=== PATIENT | female | born 1940 | race Caucasian/White ===

== ENCOUNTER 2016-06-12 10:03 | Inpatient (IN) | payer MEDICARE ==
[~2016-06-12] VITALS: Ht 152.4 cm; Wt 84.8 kg
[~2016-06-12 10:03] MED LIST: ADV500INH INH; ALBU83IN INH; ALDA25TA2 PO; CALA120T PO; CALA240T PO; CALC500T38 PO; CART180C PO; COMBAER6 INH; COUM1TAB17 PO; COUM2.5T11 PO; DELTASONE OR; DIGO0.127 PO; FLUO10CA8 PO; FURO40TA2 PO; KLOR1TAB69 PO; LANO0.1211 PO; LASI40TA PO; LASI80TA PO; LOSA50TA20 PO; MAGN65TA PO; METO25TAB PO; MIRA3350 PO; OMEP40CA2 PO; OSTETAB3 PO; PARO20TA2 PO; POLYOPD OU; PRED10TA PO; SPIR1CAP INH; TRAM50TA2 PO; TUMS500C PO; TYLE500T78 PO; VERA240C PO; WARF-23 PO; ZEST1TAB4 PO; ZEST1TAB6 PO
[2016-06-12 11:03] LABS: BASO % 0.2 % (0.0-1.0); EOS # 0.1 K/mm3 (0.0-0.50); EOS % 0.6 % (0.0-3.0); LARGE UNSTAINED CELL # 0.2 K/mm3 (0.0-0.4); LYMPH # 0.3 K/mm3 (1.5-4.5); LYMPH % 1.9 % (24.0-44.0); MEAN CORPUSCULAR HEMOGLOBIN 31.7 pg (27.0-33.0); MEAN CORPUSCULAR HGB CONC 32.1 g/dl (32.0-36.5); MEAN CORPUSCULAR VOLUME 98.9 fl (80.0-96.0); MONO # 0.6 K/mm3 (0.0-0.8); MONO % 3.8 % (0.0-5.0); NEUTROPHILS # 14.4 K/mm3 (1.8-7.7); NEUTROPHILS % 92.6 % (36.0-66.0); PLATELET COUNT, AUTOMATED 332 k/mm3 (150-450); RED CELL DISTRIBUTION WIDTH 12.9 % (11.5-14.5); WHITE BLOOD COUNT 15.6 K/mm3 (4.0-10.0)
[2016-06-12] MEDS ORDERED: methylPREDNISolone INJ 125 MG/2 ML VIAL (J2930) As Ordered ONE (11:19)
[2016-06-12 11:22] LABS: ANION GAP 7 MEQ/L (8-16); BLOOD UREA NITROGEN 22 MG/DL (7-18); CALCIUM LEVEL 9.2 MG/DL (8.8-10.2); CARBON DIOXIDE LEVEL 34 MEQ/L (21-32); CHLORIDE LEVEL 100 MEQ/L (98-107); GLOMERULAR FILTRATION RATE 51.3 (>39); GLUCOSE, FASTING 123 MG/DL (83-110); POTASSIUM SERUM 4.4 MEQ/L (3.5-5.1); SODIUM LEVEL 141 MEQ/L (136-145)
[2016-06-12] MEDS ORDERED: IPRATROPIUM 0.5MG/ALBUTEROL 2.5MG INH SOL UD 3ML (DUONEB)(J7620) As Ordered ONE (11:51)
[2016-06-12 12:05] LABS: ABG BASE EXCESS 5.5 (-2.0-2.0); ABG DEVICE NASAL CANN; ABG HCO3 30.3 MEQ/L (22.0-26.0); ABG PARTIAL PRESSURE CO2 45.2 mmHg (35.0-45.0); ABG PARTIAL PRESSURE O2 95.4 mmHg (75.0-100.0); ABG STANDARD HCO3 29.4 MEQ/L (22.0-26.0); ABG TOTAL CO2 31.7 MEQ/L (23.0-31.0); ABG pH (ARTERIAL) 7.444 UNITS (7.350-7.450)
[2016-06-12] MEDS ORDERED: MOXIFLOXACIN 400 MG/250 ML IV BAG (AVELOX) (J2280) As Ordered ONE (12:50)
[2016-06-12] MEDS ORDERED: ADVA230A INH (13:37)
[2016-06-12] MEDS ORDERED: MAGNCAP2 PO (13:37)
[2016-06-12] MEDS ORDERED: CALC600T57 PO (13:37)
[2016-06-12] MEDS ORDERED: SPIR25TA2 PO (13:37)
[2016-06-12] MEDS ORDERED: VITMTA PO (13:37)
[2016-06-12] MEDS ORDERED: HYDR-4266 PO (13:37)
[2016-06-12] MEDS ORDERED: TORS100T PO (13:37)
[2016-06-12] MEDS ORDERED: OMEP40CA2 PO (13:37)
[2016-06-12] MEDS ORDERED: XARE15TA PO (13:39)
[2016-06-12 14:00] LABS: INR 1.2
[2016-06-12 14:05] LABS: DIGOXIN LEVEL 1.3 NG/ML (0.5-2.0)
[2016-06-12] MEDS ORDERED: LEVALBUTEROL 1.25 MG/0.5 ML CONCENTRATE NEB NEB PRN (14:15)
[2016-06-12] MEDS ORDERED: ACETAMINOPHEN 325 MG TAB As Ordered ONE (15:53)
[2016-06-12 16:04] VITALS: BP 166/70
--- NOTE | 2016-06-12 17:22 | EDDOCDS ---
Nurse's Notes [facility] Name: Kenia Guthrie Age: 75 yrs Sex: Female : 1940 Arrival Date: 06/12/2016 Time: 10:03 Bed 12 Private MD: Vicente Singh Diagnosis: Chronic obstructive pulmonary disease with acute lower respiratory infection Presentation: 06/12 10:11 Presenting complaint: Patient states: Productive cough, shortness of breath, started 3 dwg days ago and worsening. Denies any pain. Adult Sepsis Screening: The patient does not have new or worsening altered mentation. Patient has a respiratory rate of greater than or equal to 22 (1 point). Systolic blood pressure is greater than 100. Patient has a qSOFA score of 1- Negative Sepsis Screen. Suicide/Homicide risk assessment- the patient denies having any suicidal and/or homicidal ideations and does not present with any other emotional, behavioral or mental health complaints. Status: Patient is not a service supervisor or dependent. Transition of care: patient was not received from another setting of care. 10:11 Acuity: LUCY Level 3 [facility] 10:11 Method Of Arrival: Wheelchair [facility] 10:53 Red Flag criteria, patient assessed and taken directly to a bed. [facility] Triage Assessment: 10:16 General: Appears in no apparent distress. Pain: Denies pain. [facility] Historical: - Allergies: Aspirin (''Makes me anemic''); - Home Meds: 1. hydralazine 25 mg Oral tab tid (Last dose: 06/12/2016) 2. Paroxetine HCl Oral 20 mg daily (Last dose: 06/12/2016) 3. Digoxin Oral 125 mcg Saturday-Saturday (Last dose: 06/12/2016) 4. torsemide 100 mg oral tab 1 tab once daily (Last dose: 06/12/2016) 5. Taztia XT 360 mg oral cpER 1 cap once daily (Last dose: 06/12/2016) 6. omeprazole 40 mg Oral cpDR 1 cap once daily (Last dose: 06/12/2016) 7. Xarelto 15 mg oral tab daily (Last dose: 06/11/2016) 8. Spironolactone 12.5mg Oral once daily (Last dose: 06/12/2016) 9. Magnesium/with vitamin C daily (Last dose: 06/12/2016) 10. Advair Diskus 500-50 mcg/dose Inhl dsdv 1 puff 2 times per day (Last dose: 06/12/2016) 11. Albuterol Inhl as needed (Last dose: 06/12/2016) 12. tramadol 50 mg Oral tab bid prn (Last dose: 06/12/2016) - PMHx: Atrial Fib; CHF; COPD; Cancer, Breast - [id number]; Arthritis; GERD; - PSHx: Lumpectomy, left 2010; Repair of rectal abscess; - Social history: Smoking status: Patient states former smoker of tobacco. No barriers to communication noted, The patient speaks fluent [place]. - Family history: Not pertinent. - : The pt / caregiver states he / she is on anticoagulants: Xarelto Home medication list is obtained from the patient. - Exposure Risk Screening:: None identified. Screenin:50 Screening information is obtained from the patient. Fall risk: No risks identified. kcs Assistance ADL's: requires no assistance with activities of daily living. Abuse/DV Screen: The patient / caregiver reports he/she is: not in a situation that causes fear, pain or injury. Nutritional screening: On low salt. Advance Directives: Currently, there is no health care proxy. There is no living will. home support is adequate. Assessment: 10:40 Reassessment: patient short of breath - worse with exertion. General: Appears ill, well kcs developed, well nourished, well groomed, Behavior is cooperative, pleasant. Pain: Denies pain. Neurological: Level of Consciousness is awake, alert. Cardiovascular: Rhythm is atrial fibrillation. Respiratory: Airway is patent Respiratory effort is even, unlabored, Respiratory pattern is regular, symmetrical, Breath sounds are diminished bilaterally. Derm: Skin is intact, is healthy with good turgor, Skin is dry, Skin is normal. 12:41 Reassessment: Patient sitting up in chair - more comfortable there. Respirations and kcs talking appear easier. . 13:03 Reassessment: Patient states she does feel that her breathing is easier. IV med kcs infusing. at bedside - given drink. information clerk brokerage = Atrial fib. . 13:46 General: Patient eating lunch.. kcs 15:39 Reassessment: patient still sitting in chair - states it is more comfortable. kcs at bedside. Respirations easy. Slight cough. Color = pink. information clerk brokerage = atrial fib.. 15:40 Reassessment: Patient requesting something for a headache and a glass of water.. kcs 16:50 Reassessment: patient sitting in chair - watching TV. Respirations easy. States kcs headache is much better = 3/10.. General: Appears comfortable, well developed, well nourished, well groomed, Behavior is cooperative, pleasant. Pain: Location: headache Pain currently is 3 out of 10 on a pain scale. Neurological: Level of Consciousness is awake, alert. Respiratory: Airway is patent Respiratory effort is even, unlabored, Respiratory pattern is regular, symmetrical. Derm: Skin is intact, is healthy with good turgor, Skin is dry, Skin is normal. 17:17 Reassessment: Patent comfortable. Respirations easy. Color = pink.. General: Appears kcs comfortable, well developed, well nourished, well groomed, Behavior is cooperative, pleasant. Pain: Location: head Pain currently is 3 out of 10 on a pain scale. Neurological: Level of Consciousness is awake, alert. Respiratory: Airway is patent Respiratory effort is even, unlabored, Respiratory pattern is regular, symmetrical. Derm: Skin is intact, is healthy with good turgor, Skin is dry, Skin is normal. Vital Signs: 10:05 BP 162 / 82; Pulse 102; Resp 24; Temp 99.1(O); Pulse Ox 92% on R/A; Weight 83.91 kg ct3 (R); Height 5 ft. 0 in. (152.40 cm) (R); Pain 0/10; 11:22 BP 141 / 85 (auto/); kcs 11:22 Pulse 82 MON; Pulse Ox 97% ; kcs 11:25 BP 166 / 67 (auto/); kcs 11:40 BP 152 / 66 (auto/); kcs 11:40 Pulse 84 MON; Pulse Ox 97% ; kcs 11:55 BP 156 / 71 (auto/); kcs 11:56 Pulse 84 MON; Pulse Ox 96% ; kcs 12:10 BP 163 / 65 (auto/); kcs 12:11 Pulse 82 MON; Pulse Ox 87% ; kcs 12:25 BP 115 / 60 (auto/); kcs 12:25 Pulse 84 MON; Pulse Ox 84% ; kcs 12:40 BP 112 / 66 (auto/); kcs 12:41 Pulse 92 MON; Pulse Ox 94% ; kcs 12:55 BP 137 / 65 (auto/); kcs 12:56 Pulse 88 MON; Pulse Ox 95% ; kcs 13:10 BP 130 / 63 (auto/); kcs 13:10 Pulse 98 MON; Pulse Ox 95% ; kcs 13:25 BP 128 / 62 (auto/); kcs 13:26 Pulse 88 MON; Pulse Ox 96% ; kcs 13:40 BP 133 / 55 (auto/); kcs 13:41 Pulse 86 MON; Pulse Ox 96% ; kcs 13:55 BP 130 / 69 (auto/); kcs 13:56 Pulse 92 MON; Pulse Ox 95% ; kcs 14:10 BP 142 / 63 (auto/); kcs 14:11 Pulse 82 MON; Pulse Ox 95% ; kcs 14:25 BP 137 / 60 (auto/); kcs 14:25 Pulse 80 MON; Pulse Ox 94% ; kcs 14:40 BP 139 / 60 (auto/); kcs 14:40 Pulse 78 MON; Pulse Ox 93% ; kcs 14:55 BP 153 / 66 (auto/); kcs 14:56 Pulse 80 MON; Pulse Ox 94% ; kcs 15:10 BP 136 / 65 (auto/); kcs 15:11 Pulse 76 MON; Pulse Ox 94% ; kcs 15:25 BP 148 / 72 (auto/); kcs 15:26 Pulse 76 MON; Pulse Ox 93% ; kcs 15:40 BP 166 / 70 (auto/); kcs 15:41 Pulse 78 MON; Pulse Ox 95% ; kcs 15:55 BP 150 / 67 (auto/); kcs 15:55 Pulse 82 MON; Pulse Ox 94% ; kcs 16:10 BP 137 / 65 (auto/); kcs 16:11 Pulse 76 MON; Pulse Ox 95% ; kcs 16:25 BP 162 / 75 (auto/); kcs 16:26 Pulse 74 MON; Pulse Ox 95% ; kcs 16:40 BP 134 / 76 (auto/); kcs 16:40 Pulse 76 MON; Pulse Ox 95% ; kcs 16:49 BP 146 / 65 (auto/); kcs 16:50 BP 146 / 65; Pulse 83; Resp 22; Temp 99.0(O); Pulse Ox 95% on 3 lpm NC; Pain 3/10; kcs 16:50 Pulse 74 MON; Pulse Ox 95% ; kcs 16:55 BP 151 / 64 (auto/); kcs 16:56 Pulse 80 MON; Pulse Ox 95% ; kcs 17:10 BP 135 / 61 (auto/); kcs 17:10 Pulse 76 MON; Pulse Ox 94% on 3 lpm NC; Pain 3/10; kcs 10:05 Body Mass Index 36.13 (83.91 kg, 152.40 cm) ct3 Vitals: 10:05 Log In Time: June 12, 2016 at 10:02. RN notified that patient meets Red Flag ct3 criteria. ED Course: 10:04 Patient visited by Zandra Lincoln PCA. ct3 10:04 Patient moved to Waiting ct3 10:05 Vicente Singh is Private Physician. ct3 10:12 Triage Initiated dwg 10:16 Patient moved to 12 dwg 10:25 Shantelle Davis MD is Attending Physician. sd1 10:25 Patient visited by Shantelle Davis MD. sd1 10:35 Missed attempts: 20 gauge X 1 in right antecubital area, Bleeding controlled, band aid kcs applied, catheter tip intact. 10:40 Inserted saline lock: 20 gauge in right forearm The patient tolerated the procedure kcs well. 10:51 Troponin Sent. kcs 10:51 Cardiac Injury Profile Sent. kcs 10:51 CBC with Diff Sent. kcs 10:51 Basic Metabolic Profile Sent. kcs 10:51 B-Type Natiuretic Peptide Sent. kcs 10:51 -Blood Culture Sent. kcs 10:51 Lactic Acid (Newby tube on ice) Sent. kcs 10:55 Patient visited by Ajith Lee PCA. jrd 10:55 EKG done. (by ED staff). Reviewed by Shantelle Davis MD. jrd 11:17 [place] [place] into [employer] and attached to record. pm4 11:33 Patient visited by Chaz Waldrop PCA. jlf 12:00 -Arterial Blood Gas Sent. js11 12:13 Patient visited by Chaz Waldrop PCA. jlf 12:44 Patient visited by Chaz Waldrop PCA. jlf 13:12 -Influenza A&B Rapid Antigen - Nose Sent. kcs 13:40 Patient visited by Chaz Waldrop PCA. jlf 13:41 Debbie Kim is Hospitalizing Provider. sd1 16:50 The patient / caregiver is instructed regarding the plan of care and ED course. kcs 17:17 information clerk brokerage on. Pulse ox on. NIBP on. kcs 17:17 IV is intact, is free of redness or swelling. No procedures done that require kcs assistance. Administered Medications: 11:21 Drug: Solu-MEDROL 125 mg [Solu-Medrol 500 mg intravenous solution (125 mg)] Route: IVP; kcs Site: right forearm; 11:55 Drug: Albuterol-Ipratropium 1 neb [ipratropium-albuterol 0.5 mg-3 mg(2.5 mg base)/3 mL js11 nebulization soln (1 neb)] Route: Nebulizer; 12:15 Drug: Albuterol-Ipratropium 1 neb [ipratropium-albuterol 0.5 mg-3 mg(2.5 mg base)/3 mL js11 nebulization soln (1 neb)] Route: Nebulizer; 12:30 Drug: Albuterol-Ipratropium 1 neb [ipratropium-albuterol 0.5 mg-3 mg(2.5 mg base)/3 mL js11 nebulization soln (1 neb)] Route: Nebulizer; 13:03 Drug: Moxifloxacin 400 mg [moxifloxacin 400 mg/250 mL-sodium chloride(iso) intravenous kcs piggyback] Route: IV; Rate: 400 mg/hr; Infused Over: 60 mins; Site: right forearm; 14:36 Follow up: IV Status: Completed infusion; IV Intake: 250ml kcs 15:55 Drug: Acetaminophen 650 mg [acetaminophen 325 mg tablet (2 tabs)] Route: PO; kcs Intake: 14:36 IV: 250.00ml; Total: 250.00ml. kcs RT: 11:55 Initial Med Neb Given as ordered Patient was instructed and evaluated on procedure js11 Patient tolerated procedure well without adverse effect. Respiratory: Breath sounds are diminished bilaterally. 12:00 ABG's drawn from right radial artery allens test done and positive pressure held for 5 js11 minutes no bleeding noted specimen sent pt. tolerated well. 12:15 Subsequent Med Neb Given as ordered Patient tolerated procedure well without adverse js11 effect. Respiratory: Breath sounds are diminished bilaterally. 12:30 Subsequent Med Neb Given as ordered Patient tolerated procedure well without adverse js11 effect. Respiratory: Breath sounds are diminished bilaterally. Order Results: Lab Order: -Arterial Blood Gas; [facility] 06/12/16 11:53 Test: ABG pH (ARTERIAL); Value: 7.444; Range: 7.350-7.450; Units: UNITS; Status: F Test: ABG PARTIAL PRESSURE CO2; Value: 45.2; Range: 35.0-45.0; Abnormal: Above high normal; Units: mmHg; Status: F Test: ABG PARTIAL PRESSURE O2; Value: 95.4; Range: 75.0-100.0; Units: mmHg; Status: F Test: ABG TOTAL CO2; Value: 31.7; Range: 23.0-31.0; Abnormal: Above high normal; Units: MEQ/L; Status: F Test: ABG HCO3; Value: 30.3; Range: 22.0-26.0; Abnormal: Above high normal; Units: MEQ/L; Status: F Test: ABG BASE EXCESS; Value: 5.5; Range: -2.0-2.0; Abnormal: Above high normal; Status: F Test: ABG STANDARD HCO3; Value: 29.4; Range: 22.0-26.0; Abnormal: Above high normal; Units: MEQ/L; Status: F Test: ABG O2 SATURATION; Value: 97.7; Range: 95.0-99.0; Units: %; Status: F Test: ABG DEVICE; Value: NASAL SILVA; Status: F Lab Order: B-Type Natiuretic Peptide; [facility] 06/12/16 10:48 Test: BRAIN NATRIURETIC PEPTIDE; Value: 92.4; Range: <100; Units: PG/ML; Status: F Lab Order: Basic Metabolic Profile; [facility] 06/12/16 10:48 Test: GLUCOSE, FASTING; Value: 123; Range: 83-110; Abnormal: Above high normal; Units: MG/DL; Status: F Test: BLOOD UREA NITROGEN; Value: 22; Range: 7-18; Abnormal: Above high normal; Units: MG/DL; Status: F Test: CREATININE FOR GFR; Value: 1.10; Range: 0.55-1.02; Abnormal: Above high normal; Units: MG/DL; Status: F Test: GLOMERULAR FILTRATION RATE; Value: 51.3; Range: >39; Status: F Test: SODIUM LEVEL; Value: 141; Range: 136-145; Units: MEQ/L; Status: F Test: POTASSIUM SERUM; Value: 4.4; Range: 3.5-5.1; Units: MEQ/L; Status: F Test: CHLORIDE LEVEL; Value: 100; Range: 98-107; Units: MEQ/L; Status: F Test: CARBON DIOXIDE LEVEL; Value: 34; Range: 21-32; Abnormal: Above high normal; Units: MEQ/L; Status: F Test: ANION GAP; Value: 7; Range: 8-16; Abnormal: Below low normal; Units: MEQ/L; Status: F Test: CALCIUM LEVEL; Value: 9.2; Range: 8.8-10.2; Units: MG/DL; Status: F Test Note: ; Units are mL/min/1.73 m2 Chronic Kidney Disease Staging per NKF: Stage I & II GFR >=60 Normal to Mildly Decreased Stage III GFR 30-59 Moderately Decreased Stage IV GFR 15-29 Severely Decreased Stage V GFR <15 Very Little GFR Left ESRD GFR <15 on 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 Lab Order: CBC with Diff; SPEC'M 06/12/16 10:48 Test: WHITE BLOOD COUNT; Value: 15.6; Range: 4.0-10.0; Abnormal: Above high normal; Units: K/mm3; Status: F Test: RED BLOOD COUNT; Value: 3.53; Range: 4.00-5.40; Abnormal: Below low normal; Units: M/mm3; Status: F Test: HEMOGLOBIN; Value: 11.2; Range: 12.0-16.0; Abnormal: Below low normal; Units: g/dl; Status: F Test: HEMATOCRIT; Value: 34.9; Range: 36.0-47.0; Abnormal: Below low normal; Units: %; Status: F Test: MEAN CORPUSCULAR VOLUME; Value: 98.9; Range: 80.0-96.0; Abnormal: Above high normal; Units: fl; Status: F Test: MEAN CORPUSCULAR HEMOGLOBIN; Value: 31.7; Range: 27.0-33.0; Units: pg; Status: F Test: MEAN CORPUSCULAR HGB CONC; Value: 32.1; Range: 32.0-36.5; Units: g/dl; Status: F Test: RED CELL DISTRIBUTION WIDTH; Value: 12.9; Range: 11.5-14.5; Units: %; Status: F Test: PLATELET COUNT, AUTOMATED; Value: 332; Range: 150-450; Units: k/mm3; Status: F Test: NEUTROPHILS %; Value: 92.6; Range: 36.0-66.0; Abnormal: Above high normal; Units: %; Status: F Test: LYMPH %; Value: 1.9; Range: 24.0-44.0; Abnormal: Below low normal; Units: %; Status: F Test: MONO %; Value: 3.8; Range: 0.0-5.0; Units: %; Status: F Test: EOS %; Value: 0.6; Range: 0.0-3.0; Units: %; Status: F Test: BASO %; Value: 0.2; Range: 0.0-1.0; Units: %; Status: F Test: LARGE UNSTAINED CELL %; Value: 1.0; Range: 0.0-4.0; Units: %; Status: F Test: NEUTROPHILS #; Value: 14.4; Range: 1.8-7.7; Abnormal: Above high normal; Units: K/mm3; Status: F Test: LYMPH #; Value: 0.3; Range: 1.5-4.5; Abnormal: Below low normal; Units: K/mm3; Status: F Test: MONO #; Value: 0.6; Range: 0.0-0.8; Units: K/mm3; Status: F Test: EOS #; Value: 0.1; Range: 0.0-0.50; Units: K/mm3; Status: F Test: BASO #; Value: 0.0; Range: 0.0-0.2; Units: K/mm3; Status: F Test: LARGE UNSTAINED CELL #; Value: 0.2; Range: 0.0-0.4; Units: K/mm3; Status: F Lab Order: Cardiac Injury Profile; SPEC'M 06/12/16 10:48 Test: CPK CREATINE PHOSPHOKINASE; Value: 66; Range: 26-192; Units: U/L; Status: F Test: CK-MB VALUE MASS; Value: 1.7; Range: 0.0-3.6; Units: NG/ML; Status: F Test: MB/CK RELATIVE INDEX; Value: 2.57; Range: < OR =4; Status: F Test Note: ; DIAGNOSIS CRITERIA MMB ng/ml Relative Index (RI) NON-AMI < or = 5 N/A NEWBY ZONE > 5 < or = 4 AMI > 5 > 4 Lab Order: Troponin; SPEC'M 06/12/16 10:48 Test: TROPONIN I; Value: < 0.02; Range: < 0.10; Units: NG/ML; Status: F Test Note: ; Troponin I Reference Interval for RIGID LOCI: 99th Percentile= 0.00-0.045 ng/ml Risk Stratification: <= 0.10 ng/ml Decreased Risk for Adverse Clinical Events. 0.10-1.50 ng/ml Increased Risk for Adverse Clinical Events. Evaluation of additional criterion and/or repeat testing in 2-6 hours is suggested to rule out myocardial damage. >= 1.50 ng/ml Indicative of Myocardial Injury. Lab Order: Lactic Acid (Newby tube on ice); SPEC'M 06/12/16 10:48 Test: LACTIC ACID LEVEL, LACTATE; Value: 0.9; Range: 0.4-2.0; Units: MMOL/L; Status: F Lab Order: -Influenza A&B Rapid Antigen - Nose; SPECM 06/12/16 13:11 Test: INFLUENZA A RAPID SCR by ICA; Value: INFLUENZA A RESULTS NEGATIVE; Status: F Test: INFLUENZA A RAPID SCR by ICA; Value: Comments:; Status: F Test: INFLUENZA B RAPID SCR by ICA; Value: INFLUENZA B RESULTS NEGATIVE; Status: F Test Note: ; The Influenza test is a direct rapid immunoassay for the qualitative detection of Influenza viral antigen. Cell culture (Viral Culture) testing should be considered to confirm NEGATIVE results and to assist in detecting other viruses that can provide similar clinical symptoms. Please contact the lab within 24 hours ([phone]) if confirmatory testing is desired. Lab Order: DIGOXIN LEVEL; SPEC'M 06/12/16 10:48 Test: DIGOXIN LEVEL; Value: 1.3; Range: 0.5-2.0; Units: NG/ML; Status: F Lab Order: PT/INR; SPEC'M 06/12/16 10:48 Test: PROTHROMBIN TIME; Value: 15.3; Range: 12.3-14.5; Abnormal: Above high normal; Units: SECONDS; Status: F Test: INR; Value: 1.20; Status: F Test Note: ; THERAPUTIC HUMAN INR VALUES INDICATIONS NORMAL RANGES PROPHYLAXIS/TREATMENT OF: VENOUS THROMBOSIS 2.0-3.0 PULMONARY EMBOLISM 2.0-3.0 PREVENTION OF SYSTEMIC EMBOLISM FROM: TISSUE HEART VALVES 2.0-3.0 ACUTE MYOCARDIAL INFARCTION 2.0-3.0 VALVULAR HEART DISEASE 2.0-3.0 ATRIAL FIBRILLATION 2.0-3.0 MECHANICAL VALVES(HIGH RISK) 2.5-3.5 RECURRENT MYOCARDIAL INFARCTION 2.5-3.5 Outcome: 13:41 Decision to Hospitalize by Provider. sd1 16:59 Admission hand-off: Report Faxed. kcs 17:15 Admission hand-off: Report Faxed Fax receipt verified by Leah. kcs 17:17 Discharge Assessment: Patient awake, alert and oriented x 3. No cognitive and/or kcs functional deficits noted. Patient verbalized understanding of disposition instructions. Patient awake and alert. patient administered narcotics - no. The following High Risk Discharge criteria are identified: None. Admitted to Med/Surg accompanied by tech, via stretcher, with oxygen, with chart. Condition: stable. No special radiology studies were completed. Property :Personal belongings accompany Pt. 17:21 Patient left the ED. [facility] Signatures: Shantelle Davis MD MD sd1 Lolly Martinez RN RN kcs Greene, Daniel, Zandra Waite RN, CALF SKINNER CALF SKINNER ct3 Kennedy Voss js11 Chaz Waldrop, CALF SKINNER CALF SKINNER jlf Ajith Lee, CALF SKINNER CALF SKINNER jrd Darren Vera, Reg Reg pm4 RAFAELD
--- NOTE | 2016-06-12 17:22 | EDDOCDS ---
Physician Documentation [facility] Name: Kenia Guthrie Age: 75 yrs Sex: Female : 1940 Arrival Date: 06/12/2016 Time: 10:03 Bed 12 Private MD: Vicente Singh Disposition: 06/12/16 13:41 Hospitalization ordered by Debbie Kim for Inpatient Admission. Preliminary diagnosis is Chronic obstructive pulmonary disease with acute lower respiratory infection. - Bed requested for 4 [place]. - Status is Inpatient Admission. kcs - Condition is Stable. - Problem is an acute exacerbation. - Symptoms are unchanged. Historical: - Allergies: Aspirin (''Makes me anemic''); - Home Meds: 1. hydralazine 25 mg Oral tab tid (Last dose: 06/12/2016) 2. Paroxetine HCl Oral 20 mg daily (Last dose: 06/12/2016) 3. Digoxin Oral 125 mcg Saturday-Saturday (Last dose: 06/12/2016) 4. torsemide 100 mg oral tab 1 tab once daily (Last dose: 06/12/2016) 5. Taztia XT 360 mg oral cpER 1 cap once daily (Last dose: 06/12/2016) 6. omeprazole 40 mg Oral cpDR 1 cap once daily (Last dose: 06/12/2016) 7. Xarelto 15 mg oral tab daily (Last dose: 06/11/2016) 8. Spironolactone 12.5mg Oral once daily (Last dose: 06/12/2016) 9. Magnesium/with vitamin C daily (Last dose: 06/12/2016) 10. Advair Diskus 500-50 mcg/dose Inhl dsdv 1 puff 2 times per day (Last dose: 06/12/2016) 11. Albuterol Inhl as needed (Last dose: 06/12/2016) 12. tramadol 50 mg Oral tab bid prn (Last dose: 06/12/2016) - PMHx: Atrial Fib; CHF; COPD; Cancer, Breast - [id number]; Arthritis; GERD; - PSHx: Lumpectomy, left 2010; Repair of rectal abscess; - Social history: Smoking status: Patient states former smoker of tobacco. No barriers to communication noted, The patient speaks fluent Armenian. - Family history: Not pertinent. - : The pt / caregiver states he / she is on anticoagulants: Xarelto Home medication list is obtained from the patient. - Exposure Risk Screening:: None identified. Vital Signs: 06/12 10:05 BP 162 / 82; Pulse 102; Resp 24; Temp 99.1(O); Pulse Ox 92% on R/A; Weight 83.91 kg / ct3 184.99 lbs (R); Height 5 ft. 0 in. (152.40 cm) (R); Pain 0/10; 11:22 BP 141 / 85 (auto/); kcs 11:22 Pulse 82 MON; Pulse Ox 97% ; kcs 11:25 BP 166 / 67 (auto/); kcs 11:40 BP 152 / 66 (auto/); kcs 11:40 Pulse 84 MON; Pulse Ox 97% ; kcs 11:55 BP 156 / 71 (auto/); kcs 11:56 Pulse 84 MON; Pulse Ox 96% ; kcs 12:10 BP 163 / 65 (auto/); kcs 12:11 Pulse 82 MON; Pulse Ox 87% ; kcs 12:25 BP 115 / 60 (auto/); kcs 12:25 Pulse 84 MON; Pulse Ox 84% ; kcs 12:40 BP 112 / 66 (auto/); kcs 12:41 Pulse 92 MON; Pulse Ox 94% ; kcs 12:55 BP 137 / 65 (auto/); kcs 12:56 Pulse 88 MON; Pulse Ox 95% ; kcs 13:10 BP 130 / 63 (auto/); kcs 13:10 Pulse 98 MON; Pulse Ox 95% ; kcs 13:25 BP 128 / 62 (auto/); kcs 13:26 Pulse 88 MON; Pulse Ox 96% ; kcs 13:40 BP 133 / 55 (auto/); kcs 13:41 Pulse 86 MON; Pulse Ox 96% ; kcs 13:55 BP 130 / 69 (auto/); kcs 13:56 Pulse 92 MON; Pulse Ox 95% ; kcs 14:10 BP 142 / 63 (auto/); kcs 14:11 Pulse 82 MON; Pulse Ox 95% ; kcs 14:25 BP 137 / 60 (auto/); kcs 14:25 Pulse 80 MON; Pulse Ox 94% ; kcs 14:40 BP 139 / 60 (auto/); kcs 14:40 Pulse 78 MON; Pulse Ox 93% ; kcs 14:55 BP 153 / 66 (auto/); kcs 14:56 Pulse 80 MON; Pulse Ox 94% ; kcs 15:10 BP 136 / 65 (auto/); kcs 15:11 Pulse 76 MON; Pulse Ox 94% ; kcs 15:25 BP 148 / 72 (auto/); kcs 15:26 Pulse 76 MON; Pulse Ox 93% ; kcs 15:40 BP 166 / 70 (auto/); kcs 15:41 Pulse 78 MON; Pulse Ox 95% ; kcs 15:55 BP 150 / 67 (auto/); kcs 15:55 Pulse 82 MON; Pulse Ox 94% ; kcs 16:10 BP 137 / 65 (auto/); kcs 16:11 Pulse 76 MON; Pulse Ox 95% ; kcs 16:25 BP 162 / 75 (auto/); kcs 16:26 Pulse 74 MON; Pulse Ox 95% ; kcs 16:40 BP 134 / 76 (auto/); kcs 16:40 Pulse 76 MON; Pulse Ox 95% ; kcs 16:49 BP 146 / 65 (auto/); kcs 16:50 BP 146 / 65; Pulse 83; Resp 22; Temp 99.0(O); Pulse Ox 95% on 3 lpm NC; Pain 3/10; kcs 16:50 Pulse 74 MON; Pulse Ox 95% ; kcs 16:55 BP 151 / 64 (auto/); kcs 16:56 Pulse 80 MON; Pulse Ox 95% ; kcs 17:10 BP 135 / 61 (auto/); kcs 17:10 Pulse 76 MON; Pulse Ox 94% on 3 lpm NC; Pain 3/10; kcs 10:05 Body Mass Index 36.13 (83.91 kg, 152.40 cm) ct3 MDM: 10:23 -Blood Culture (Adults Only), peripheral from different site, or from device/port/PICC sd1 etc. if present ordered. 10:23 Sack Lifter/Pulse Ox/q 15 min VS ordered. sd1 10:23 IV Saline Lock ordered. sd1 10:23 Oxygen at 4L/Min NC or Home dosage ordered. sd1 10:23 Rhythm Strip to chart ordered. sd1 10:24 -Arterial Blood Gas Ordered. EDMS 10:24 -Blood Culture Ordered. EDMS 10:24 B-Type Natiuretic Peptide Ordered. EDMS 10:24 Basic Metabolic Profile Ordered. EDMS 10:24 CBC with Diff Ordered. EDMS 10:24 Cardiac Injury Profile Ordered. EDMS 10:24 Troponin Ordered. EDMS 10:24 ECG WITH READING ER PHYS+CARDIAG ordered. EDMS 10:25 Lactic Acid (Newby tube on ice) Ordered. EDMS 10:25 Chest, 1 View Ordered. EDMS 10:30 -Blood Culture (Adults Only), peripheral from different site, or from device/port/PICC jrd etc. if present complete. 10:31 BLOOD CULTURES Ordered. EDMS 10:58 Solu-MEDROL 125 mg IVP once ordered. sd1 10:58 Albuterol-Ipratropium 1 neb Nebulizer every 20 minutes x3 ordered. sd1 11:03 Financial registration complete. pm4 11:17 [facility] Payment Agreement was scanned into [employer] and attached to record. pm4 12:28 -Arterial Blood Gas Reviewed. sd1 12:28 Basic Metabolic Profile Reviewed. sd1 12:28 CBC with Diff Reviewed. sd1 12:28 B-Type Natiuretic Peptide Reviewed. sd1 12:28 Cardiac Injury Profile Reviewed. sd1 12:28 Troponin Reviewed. sd1 12:28 Lactic Acid (Newby tube on ice) Reviewed. sd1 12:28 Moxifloxacin 400 mg IV at 400 mg/hr once over 60 mins ordered. sd1 12:31 BED REQUEST+ADM ordered. EDMS 13:02 -Influenza A&B Rapid Antigen - Nose Ordered. EDMS 13:22 LOW SODIUM+DIET ordered. EDMS 13:42 PT/INR Ordered. EDMS 14:22 CARDIAC MARKER PANEL Ordered. EDMS 14:22 LEGIONELLA ANTIGEN URINE Ordered. EDMS 14:22 URINE STREP PNEUMONIAE ANTIGEN Ordered. EDMS 14:22 INFLUENZA A&B RAPID ANTIGEN Ordered. EDMS 14:22 SPUTUM CULTURE AND GRAM STAIN Ordered. EDMS 14:23 PHYSICAL THERAPY EVAL & TREAT ordered. EDMS 14:25 Admission / Observation Status ordered. EDMS 14:25 COPD DIET ordered. EDMS 15:03 Basic Metabolic Profile Reviewed. sd1 15:03 PT/INR Reviewed. sd1 15:03 Cardiac Injury Profile Reviewed. sd1 15:03 Troponin Reviewed. sd1 15:03 -Influenza A&B Rapid Antigen - Nose Reviewed. sd1 15:03 DIGOXIN LEVEL Reviewed. sd1 15:51 Acetaminophen Tablet 650 mg PO once ordered. kcs Administered Medications: 11:21 Drug: Solu-MEDROL 125 mg [Solu-Medrol 500 mg intravenous solution (125 mg)] Route: IVP; kcs Site: right forearm; 11:55 Drug: Albuterol-Ipratropium 1 neb [ipratropium-albuterol 0.5 mg-3 mg(2.5 mg base)/3 mL js11 nebulization soln (1 neb)] Route: Nebulizer; 12:15 Drug: Albuterol-Ipratropium 1 neb [ipratropium-albuterol 0.5 mg-3 mg(2.5 mg base)/3 mL js11 nebulization soln (1 neb)] Route: Nebulizer; 12:30 Drug: Albuterol-Ipratropium 1 neb [ipratropium-albuterol 0.5 mg-3 mg(2.5 mg base)/3 mL js11 nebulization soln (1 neb)] Route: Nebulizer; 13:03 Drug: Moxifloxacin 400 mg [moxifloxacin 400 mg/250 mL-sodium chloride(iso) intravenous kcs piggyback] Route: IV; Rate: 400 mg/hr; Infused Over: 60 mins; Site: right forearm; 14:36 Follow up: IV Status: Completed infusion; IV Intake: 250ml kcs 15:55 Drug: Acetaminophen 650 mg [acetaminophen 325 mg tablet (2 tabs)] Route: PO; [facility] Signatures: Dispatcher [employer] EDMS Shantelle Davis MD MD sd1 Lolly Martinez RN Reagan Valero RN RN dwg Youngs, David RN Ajith Loredo, [employer] Eduard Saavedra RN RN [facility] Darren Vera, Reg Reg pm4 Kennedy Voss js11 The chart was reviewed and I authenticate all verbal orders and agree with the evaluation and treatment provided.Corrections: (The following items were deleted from the chart) 13:40 13:31 DIGOXIN LEVEL+LAB ordered. EDMS EDMS Attachments: 11:17 [facility] [place] pm4 MTDD
[2016-06-12 17:30] VITALS: BP 152/70
[2016-06-12] MEDS: RIVAROXABAN 15 MG TAB (XARELTO) PO SCH (18:30)
[2016-06-12] MEDS: ADVAIR HFA 230/21 INHALER INH SCH (19:48)
[2016-06-12] MEDS: LEVALBUTEROL 1.25 MG/0.5 ML CONCENTRATE NEB NEB SCH (19:53)
--- NOTE | 2016-06-12 19:58 | ECGEPIP ---
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
[2016-06-12] MEDS: **hydrALAZINE HCL** 25 MG TAB PO SCH (20:20)
[2016-06-12] MEDS: methylPREDNISolone INJ 125 MG/2 ML VIAL (J2930) IV SCH (20:21)
[2016-06-12] MEDS: cefTRIAXone SOD 2 GM in D5W MINI-BAG PLUS 50 ML IV SCH (20:21)
--- NOTE | 2016-06-12 20:35 | HPEPDOC ---
General Date of Admission Jun 12, 2016 at 14:15 Primary Care Physician: Vicente Singh Attending Physician: SAMARIA CAAL MD Chief Complaint The patient is a 75-year-old female admitted with a reason for visit of Right Lower Lobe Pneumonitis. Source: Patient Exam Limitations: No limitations History of Present Illness Miss Guthrie presents to the emergency department for the complaint of progressive shortness of breath that began approximately 3 days ago. She also states that she has been having an increasingly worse cough that has been productive of brownish sputum, although with the addition of Mucinex has now changed to the color corral. She states that she has been hospitalized multiple times in the past, once in June 2015 and twice in 2014 for similar episodes where she was diagnosed with pneumonia. At baseline, she does wear 3 L of oxygen when she is up and active, but does not wear oxygen at rest, and admits that occasionally she'll be up and around the house without her oxygen and not notice that it is not on. She does ambulate with a cane or walker, depending on her preference at the time. At night she wears CPAP with 5 L of oxygen. She does sleep in a recliner, but she denies having paroxysmal nocturnal dyspnea or orthopnea. She admits to general malaise, fatigue, and profound shortness of breath, even to the point where she cannot take a few steps now. She denies fever, chills, or recent changes in weight. She has not had any swelling in her feet or ankles. She was treated in the ED with Solu-Medrol 125 mg, as well as 3 duo nebs, and she was empirically given moxifloxacin, with little improvement , therefore the decision to hospitalize was made. Home Medications Scheduled (Magnesium & Vitami... [phone] mg-Unit-mg) 1 Cap Cap 1 CAP PO DAILY ( Reported) (Calcium + D3 600-200 mg-Unit) 1 Tab Tab 1 TAB PO DAILY (Reported) Digoxin (Lanoxin) 0.125 Mg Tab 0.125 MG PO 5XW (Reported) MON-FRI Diltiazem HCl (Cartia Xt) 180 Mg Cap 360 MG PO DAILY (Reported) Hydralazine HCl (Hydralazine HCl) 25 Mg Tab 25 MG PO TID (Reported) Multivitamins *[facility] STOCKED* (Thera M Plus *[facility] STOCK[facility]*) 1 Tab Tab 1 TAB PO DAILY (Reported) Omeprazole (Omeprazole) 40 Mg Cap 40 MG PO DAILY (Reported) Paroxetine (Paroxetine HCl) 20 Mg Tab 20 MG PO DAILY (Reported) Rivaroxaban (Xarelto) 15 Mg Tab 15 MG PO QPM (Reported) Salmeterol/Fluticasone (Advair Hfa 230-21 Mcg/Act) 1 Aer Aer 2 PUFF INH BID ( Reported) Spironolactone (Spironolactone) 25 Mg Tab 12.5 MG PO DAILY (Reported) Tiotropium Upson Monohydrate (Spiriva Handihaler) 18 Mcg Cap 18 MCG INH DAILY (Reported) Torsemide (Torsemide) 100 Mg Tab 100 MG PO DAILY (Reported) Scheduled PRN Tramadol HCl (Tramadol HCl) 50 Mg Tab 50 MG PO Q6HP PRN PRN PAIN (Reported) Allergies Coded Allergies: Aspirin (Unverified Adverse Reaction, Unknown, anemia, 03/19/15) Gabapentin (Unverified Adverse Reaction, Unknown, shakey, 03/19/15) Past Medical History Medical History Atrial fibrillation CHF COPD History of breast cancer status post lumpectomy and radiation, she has not had any recurrence Arthritis GERD Surgical History Lumpectomy left breast 2011 Repair of rectal abscess Family History Family History Brother is COPD, father at the age of 57 from an [place]. Mother at the age of 89 secondary to "heart problems". Mother, multiple sisters, and an aunt all have breast cancer Social History * Smoker: former Smoker (she quit smoking at the age of 48, prior to that she smoked approximately one pack per day for 35 years) Alcohol: denies Drugs: denies Recent Travel/Sick Contacts: Denies: Recent sick contacts, Recent travel Psychosocial History: No pertinent psych hx Social History She lives at home with her , her son, and one cat. 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 Review of Symptoms Constitutional: Reports: Fatigue, Lethargy, Malaise, Weakness, Denies: Chills, Fever, Night Sweats, Weight Loss Eyes: Denies: Pain, Vision change ENT: Denies: Dysphagia, Ear Pain, Head Aches Skin: Denies: Breakdown, Lesions, Rash Pulmonary: Reports: Cough (productive of brownish sputum which has now turned corral), Dyspnea Cardiovascular: Denies: Chest Pain, Edema, Lt Headedness, Orthopnea, Palpitations, Paroxysmal Noc. Dyspnea Gastrointestinal: Denies: Abdominal Pain, Diarrhea, Nausea, Vomiting Genitourinary: Denies: Dysuria, Frequency, Incontinence, Retention Hematologic: Denies: Bleeding Excessively, Bruising Neurological: Denies: Change in speech, Confusion, Numbness, Weakness Psych: Reports: Mood Normal, Denies: Depression, Memory Issues Physical Examination General Exam: Positive: Alert, Cooperative, No Acute Distress Eye Exam: Positive: Conjunctiva & lids normal, EOMI, PERRLA, Negative: Sclera icteric ENT Exam: Positive: Atraumatic, Mucous membr. moist/pink, Pharynx Normal Neck Exam: Positive: Supple, Negative: JVD, thyromegaly Chest Exam: Positive: Other (prolonged expiratory phase), Rales (at the bases) , Wheezing (very minimal) Heart Exam: Positive: Irregular Rhythm (irregularly irregular), Murmurs (3/6 systolic murmur), Rate Normal, Negative: Rubs Telemetry: Positive: Atrial fibrillation Abdomen Exam: Positive: Normal bowel sounds, Soft, Negative: Hepatospenomegaly Extremity Exam: Positive: Normal pulses, Negative: Clubbing, Cyanosis, Edema Skin Exam: Positive: Nl turgor and temperature, Negative: Breakdown, Lesion Neuro Exam: Positive: Cranial Nerves 3-12 NL, Normal Speech, Normal Tone Psych Exam: Positive: Mental status NL, Mood NL, Oriented x 3 Vital Signs Blood pressure 112/66, pulse 92 and irregularly irregular, respirations 24, temperature 99.1, pulse ox 94%, weight 84 kg, height 5 feet 0 inches, body mass index 36 Laboratory Data Labs 24H Laboratory Tests 2 06/12/16 10:48: Anion Gap 7L, B-Type Natriuretic Peptide 92.4, White Blood Count 15.6H, Red Blood Count 3.53L, Hemoglobin 11.2L, Hematocrit 34.9L, Mean Corpuscular Volume 98.9H, Mean Corpuscular Hemoglobin 31.7, Mean Corpuscular Hemoglobin Concent 32.1, Red Cell Distribution Width 12.9, Platelet Count 332, Neutrophils (%) ( Auto) 92.6H, Lymphocytes (%) (Auto) 1.9L, Monocytes (%) (Auto) 3.8, Eosinophils (%) (Auto) 0.6, Basophils (%) (Auto) 0.2, Neutrophils # (Auto) 14.4H, Lymphocytes # (Auto) 0.3L, Monocytes # (Auto) 0.6, Eosinophils # (Auto) 0.1, Basophils # (Auto) 0.0, Blood Urea Nitrogen 22H, Creatinine 1.10H, Sodium Level 141, Potassium Level 4.4, Chloride Level 100, Carbon Dioxide Level 34H, Calcium Level 9.2, Total Creatine Kinase 66, Creatine Kinase MB 1.7, Creatine Kinase MB Relative Index 2.57, Digoxin Level 1.3, Glomerular Filtration Rate 51.3, Lactic Acid Level 0.9, Large Unclassified Cells # 0.2, Large Unclassified Cells % 1.0, Prothromb Time International Ratio 1.20, Prothrombin Time 15.3H, Troponin I < 0.02 06/12/16 11:53: Arterial Blood pH 7.444, Arterial Blood Partial Pressure CO2 45.2H, Arterial Blood Partial Pressure O2 95.4, Arterial Blood Total CO2 31.7H, Arterial Blood HCO3 30.3H, Arterial Blood Base Excess 5.5H, Arterial Blood Oxygen Saturation 97.7, Blood Gas Bicarbonate Standard 29.4H, Oxygen Delivery Device NASAL SILVA 06/12/16 18:27: Total Creatine Kinase 60, Creatine Kinase MB 1.2, Creatine Kinase MB Relative Index 2.00, Troponin I < 0.02 CBC/BMP Laboratory Tests 06/12/16 10:48 Calcium Level 9.2, Total Creatine Kinase 66, Red Blood Count 3.53 L, Mean Corpuscular Volume 98.9 H, Mean Corpuscular Hemoglobin 31.7, Mean Corpuscular Hemoglobin Concent 32.1, Red Cell Distribution Width 12.9, Neutrophils (%) (Auto ) 92.6 H, Lymphocytes (%) (Auto) 1.9 L, Monocytes (%) (Auto) 3.8, Eosinophils (% ) (Auto) 0.6, Basophils (%) (Auto) 0.2, Neutrophils # (Auto) 14.4 H, Lymphocytes # (Auto) 0.3 L, Monocytes # (Auto) 0.6, Eosinophils # (Auto) 0.1, Basophils # (Auto) 0.0 Microbiology Microbiology 06/12/16 Blood Culture, Received Pending 06/12/16 Blood Culture, Received Pending 06/12/16 Influenza Virus Type A Antigen - Final, Complete 06/12/16 Influenza Virus Type B Antigen - Final, Complete (1) CAP (community acquired pneumonia) Permanent Comment: Diastolic dysfunction Last Edited By: Valeria Lozada on Jun 12, 2016 20:28 Status: Acute (2) Right lower lobe pneumonitis Status: Acute (3) Atrial fibrillation Status: Chronic (4) Hypertension Status: Chronic (5) Depression Status: Chronic (6) GERD (gastroesophageal reflux disease) Status: Chronic (7) Osteoarthritis Status: Chronic (8) Osteoporosis Status: Chronic (9) History of cancer of left breast Status: Chronic (10) COPD (chronic obstructive pulmonary disease) Status: Chronic (11) Chronic respiratory failure with hypoxia Status: Chronic (12) Oxygen dependent Status: Chronic (13) CHF (congestive heart failure) Permanent Comment: Diastolic dysfunction Last Edited By: Valeria Lozada on Jun 12, 2016 20:29 Status: Chronic Plan / VTE VTE Prophylaxis Ordered?: Yes (teds and sequentials) Plan Plan Will admit the patient to [facility]. She'll be empirically treated with Rocephin and azithromycin, as well as Solu-Medrol, and Xopenex nebulizer treatments every 6 hours scheduled and every hour when necessary shortness of breath, as well as Mucinex. Just to be safe, we will cycle cardiac markers and check for Legionella, urine strep pneumoniae, blood cultures, rapid influenza A and B, as well as sputum cultures and blood cultures. We will have physical therapy evaluate and treat her, as well as pulmonary rehabilitation. We will provide her with incentive spirometry and Acapella. Otherwise, we will continue with her home medications for her chronic conditions. VALERIA LOZADA DO Jun 12, 2016 20:35 SAMARIA CAAL MD Jun 12, 2016 22:18
[2016-06-12] MEDS: guaiFENesin ER 600 MG TAB PO SCH (21:32)
[2016-06-12] MEDS: AZITHROMYCIN 500 MG, VIAL MATE ADAPTER 1 EACH in D5W 250 ML IV SCH (21:33)
[2016-06-12 22:00] VITALS: BP 135/94
--- NOTE | 2016-06-12 22:33 | REP ---
Upright AP portable chest 03/19 Indication: Shortness of breath Comparison: PA and lateral chest 06/13/2015 Findings: Cardiac silhouette is mild to moderately enlarged and without change. There is left ventricular prominence. Small amount of stable right basilar parenchymal disease is most compatible with atelectasis, early infiltrate and/or scarring. Previous left lower lobe infiltrate has resolved. Small amount of left basilar atelectasis vs scarring is noted. Multiple surgical clips are seen within the left axilla and the left lateral chest wall. There are mild degenerative changes within the visualized portions of thoracic spine. Impression: Cardiomegaly with left ventricular prominence, not significantly changed. Interval resolution of left basilar infiltrate. There is small amount of left basilar atelectasis versus scarring, and small amount of stable right basilar atelectasis/ early infiltrate or scarring Signed by Amanda Mccann MD 06/12/2016 10:24 P
[2016-06-12] MEDS: ACETAMINOPHEN TAB 650MG DOSE (2X325MG) PO PRN (22:47)
[2016-06-12] MEDS: traMADol 50 MG TAB PO PRN (22:48)
[2016-06-13] MEDS: LEVALBUTEROL 1.25 MG/0.5 ML CONCENTRATE NEB NEB SCH ×4 (00:02→20:00)
[2016-06-13] MEDS: methylPREDNISolone INJ 125 MG/2 ML VIAL (J2930) IV SCH ×3 (03:58→20:57)
[2016-06-13 06:00] VITALS: BP 156/72
[2016-06-13 06:17] LABS: EOS % 0.3 % (0.0-3.0); LARGE UNSTAINED CELL # 0.1 K/mm3 (0.0-0.4); LARGE UNSTAINED CELL % 0.3 % (0.0-4.0); LYMPH # 0.3 K/mm3 (1.5-4.5); LYMPH % 1.5 % (24.0-44.0); MEAN CORPUSCULAR HEMOGLOBIN 31.8 pg (27.0-33.0); MEAN CORPUSCULAR HGB CONC 32.5 g/dl (32.0-36.5); MEAN CORPUSCULAR VOLUME 97.7 fl (80.0-96.0); MONO # 0.4 K/mm3 (0.0-0.8); MONO % 2.2 % (0.0-5.0); NEUTROPHILS # 17.8 K/mm3 (1.8-7.7); NEUTROPHILS % 95.7 % (36.0-66.0); PLATELET COUNT, AUTOMATED 344 k/mm3 (150-450); RED CELL DISTRIBUTION WIDTH 12.9 % (11.5-14.5); WHITE BLOOD COUNT 18.6 K/mm3 (4.0-10.0)
[2016-06-13 06:43] LABS: CALCIUM LEVEL 9.4 MG/DL (8.8-10.2); CREATININE FOR GFR 1.3 MG/DL (0.55-1.02); GLOMERULAR FILTRATION RATE 42.3 (>39); POTASSIUM SERUM 4.6 MEQ/L (3.5-5.1)
[2016-06-13] MEDS: TIOTROPIUM INHALER/CAPSULE (SPIRIVA) INH SCH (08:01)
[2016-06-13] MEDS: ADVAIR HFA 230/21 INHALER INH SCH ×2 (08:02→20:14)
[2016-06-13] MEDS: TORSEMIDE 100 MG TAB PO SCH (08:22)
[2016-06-13] MEDS: OMEPRAZOLE 20 MG CAP PO SCH (08:22)
[2016-06-13] MEDS: MULTIVITAMINS/MINERALS THERAP 1 TAB PO SCH (08:22)
[2016-06-13] MEDS: SPIRONOLACTONE 25 MG TAB PO SCH (08:23)
[2016-06-13] MEDS: diltiaZEM **CD** 180 MG CAP PO SCH (08:23)
[2016-06-13] MEDS: PARoxetine 20 MG TAB PO SCH (08:23)
[2016-06-13] MEDS: guaiFENesin ER 600 MG TAB PO SCH ×2 (08:23→20:57)
[2016-06-13] MEDS: **hydrALAZINE HCL** 25 MG TAB PO SCH ×3 (08:23→20:57)
[2016-06-13] MEDS: DIGOXIN 0.125 MG TAB PO SCH (08:24)
[2016-06-13] MEDS: ACETAMINOPHEN TAB 650MG DOSE (2X325MG) PO PRN ×3 (08:31→21:58)
[2016-06-13] MEDS ORDERED: PANTOPRAZOLE 40MG TAB (PROTONIX) PO SCH (09:00)
[2016-06-13] MEDS ORDERED: TIOTROPIUM INHALER/CAPSULE (SPIRIVA) INH SCH (09:00)
[2016-06-13] MEDS: MIRALAX *UNIT DOSE* 17GM PACKET PO SCH (09:00)
[2016-06-13] MEDS: traMADol 50 MG TAB PO PRN ×2 (12:28→21:06)
[2016-06-13] MEDS: RIVAROXABAN 15 MG TAB (XARELTO) PO SCH (17:26)
[2016-06-13 20:14] VITALS: O2SAT 97
--- NOTE | 2016-06-13 20:24 | IPNPDOC ---
Assessment/Plan Date Seen The patient was seen on 06/13/16. Problems Problems: (1) CAP (community acquired pneumonia) Permanent Comment: Diastolic dysfunction Last Edited By: Valeria Lozada on Jun 12, 2016 20:28 Status: Acute (2) Right lower lobe pneumonitis Status: Acute (3) Atrial fibrillation Status: Chronic (4) Hypertension Status: Chronic (5) Depression Status: Chronic (6) GERD (gastroesophageal reflux disease) Status: Chronic (7) Osteoarthritis Status: Chronic (8) Osteoporosis Status: Chronic (9) History of cancer of left breast Status: Chronic (10) COPD (chronic obstructive pulmonary disease) Status: Chronic (11) Chronic respiratory failure with hypoxia Status: Chronic (12) Oxygen dependent Status: Chronic (13) CHF (congestive heart failure) Permanent Comment: Diastolic dysfunction Last Edited By: Valeria Lozada on Jun 12, 2016 20:29 Status: Chronic Plan / VTE VTE Prophylaxis Ordered?: Yes (teds and sequentials) Plan Plan Text With the administration of antibiotics, nebulizers, and prednisone, her breathing is significantly improved, or crackles are gotten, albeit she does have some minimal wheezing still present. She does continue to cough up significant amount of phlegm. Acapella and incentive spirometry were provided to her. Because of her successful interval improvement, we will continue with the same treatment regimen, and reassess tomorrow. Subjective Review of Systems CC/HPI The patient is a 75-year-old female admitted with a reason for visit of Right Lower Lobe Pneumonitis. Events since last encounter Mrs. Guthrie reports that she had difficulty sleeping last night, his difficulty was unrelated to her breathing, she simply was unable to shut her eyes. I suspect this may be side effects of Solu-Medrol given in the ED at such a late hour yesterday. Otherwise, she reports that her breathing and shortness of breath is improved, however she continues to cough with a significant amount of mucus production as well. She is able to transfer from the bed to the chair without much trouble, however she does get a little winded when going to the bathroom. General: Reports: Fatigue, Normal Appetite, Denies: Malaise Constitutional: Reports: Weakness, Denies: Chills, Fever, Night Sweats ENT: Denies: Head Aches, Sore Throat Skin: Denies: Bruising, Lesions, Rash Pulmonary: Reports: Cough, Dyspnea Cardiovascular: Denies: Chest Pain, Palpitations Gastrointestinal: Denies: Abdominal Pain, Constipation, Diarrhea, Nausea, Vomiting Objective Physical Examination General Exam: Positive: Alert, Cooperative, No Acute Distress Eye Exam: Positive: Conjunctiva & lids normal, EOMI, Negative: Sclera icteric ENT Exam: Positive: Atraumatic, Mucous membr. moist/pink, Pharynx Normal Neck Exam: Positive: Supple, Negative: JVD, thyromegaly Chest Exam: Positive: Normal air movement, Other (prolonged expiratory phase), Wheezing (very minimal), Negative: Rales, Rhonchi Heart Exam: Positive: Irregular Rhythm (irregularly irregular), Murmurs (3/6 systolic murmur), Rate Normal, Negative: Rubs Abdomen Exam: Positive: Normal bowel sounds, Soft, Negative: Hepatospenomegaly, Tenderness Extremity Exam: Positive: Normal pulses, Negative: Clubbing, Cyanosis, Edema Skin Exam: Positive: Nl turgor and temperature, Negative: Breakdown, Lesion Neuro Exam: Positive: Cranial Nerves 3-12 NL, Normal Speech, Normal Tone Psych Exam: Positive: Mental status NL, Mood NL, Oriented x 3 Vital Signs/I&O Vital Signs Date Time Temp Pulse Resp B/P Pulse Ox O2 Delivery O2 Flow Rate FiO2 06/13/16 20:14 97 Nasal Cannula 4.0 06/13/16 17:26 175/82 06/13/16 14:00 97.7 78 06/13/16 12:58 18 I&O- Last 24 Hours up to 6 AM 06/13/16 06:00 Intake Total 1200 ml Output Total 550 ml Balance 650 ml Laboratory Data Labs 24H Laboratory Tests 2 06/12/16 23:37: Creatine Kinase MB 2.6, Creatine Kinase MB Relative Index 3.02, Total Creatine Kinase 86, Troponin I < 0.02 06/13/16 05:51: Creatine Kinase MB 4.0H, Creatine Kinase MB Relative Index 3.14, Total Creatine Kinase 127, Troponin I < 0.02, Anion Gap 11, White Blood Count 18.6H, Red Blood Count 3.38L, Hemoglobin 10.7L, Hematocrit 33.0L, Mean Corpuscular Volume 97.7H, Mean Corpuscular Hemoglobin 31.8, Mean Corpuscular Hemoglobin Concent 32.5, Red Cell Distribution Width 12.9, Platelet Count 344, Neutrophils (%) (Auto) 95.7H, Lymphocytes (%) (Auto) 1.5L, Monocytes (%) (Auto) 2.2, Eosinophils (%) (Auto) 0.3, Basophils (%) (Auto) 0.0, Neutrophils # (Auto) 17.8H, Lymphocytes # (Auto) 0.3L, Monocytes # (Auto) 0.4, Eosinophils # (Auto) 0.0, Basophils # (Auto) 0.0, Blood Urea Nitrogen 31H, Creatinine 1.30H, Sodium Level 140, Potassium Level 4.6 , Chloride Level 100, Carbon Dioxide Level 29, Calcium Level 9.4, Glomerular Filtration Rate 42.3, Large Unclassified Cells # 0.1, Large Unclassified Cells % 0.3 06/13/16 08:35: CBC/BMP Laboratory Tests 06/13/16 05:51 Calcium Level 9.4, Red Blood Count 3.38 L, Mean Corpuscular Volume 97.7 H, Mean Corpuscular Hemoglobin 31.8, Mean Corpuscular Hemoglobin Concent 32.5, Red Cell Distribution Width 12.9, Neutrophils (%) (Auto) 95.7 H, Lymphocytes (%) (Auto) 1.5 L, Monocytes (%) (Auto) 2.2, Eosinophils (%) (Auto) 0.3, Basophils (%) (Auto ) 0.0, Neutrophils # (Auto) 17.8 H, Lymphocytes # (Auto) 0.3 L, Monocytes # ( Auto) 0.4, Eosinophils # (Auto) 0.0, Basophils # (Auto) 0.0 Microbiology Microbiology 06/12/16 Blood Culture - Preliminary, Resulted No growth after 24 hours . All specim... 06/12/16 Blood Culture - Preliminary, Resulted No growth after 24 hours . All specim... 06/12/16 Influenza Virus Type A Antigen - Final, Complete 06/12/16 Influenza Virus Type B Antigen - Final, Complete 06/12/16 Gram Stain - Final, Resulted 06/12/16 Sputum Culture, Resulted Pending 06/12/16 Influenza Virus Type A Antigen - Final, Complete 06/12/16 Influenza Virus Type B Antigen - Final, Complete VALERIA LOZADA DO Jun 13, 2016 20:24
[2016-06-13] MEDS: cefTRIAXone SOD 2 GM in D5W MINI-BAG PLUS 50 ML IV SCH (20:56)
[2016-06-13] MEDS: AZITHROMYCIN 500 MG, VIAL MATE ADAPTER 1 EACH in D5W 250 ML IV SCH (21:58)
[2016-06-13 22:00] VITALS: BP 169/61
[2016-06-14] MEDS: LEVALBUTEROL 1.25 MG/0.5 ML CONCENTRATE NEB NEB SCH ×4 (01:49→19:19)
[2016-06-14] MEDS: methylPREDNISolone INJ 125 MG/2 ML VIAL (J2930) IV SCH (04:52)
[2016-06-14 06:00] VITALS: BP 138/76
[2016-06-14 06:43] LABS: EOS % 0.2 % (0.0-3.0); LARGE UNSTAINED CELL # 0.1 K/mm3 (0.0-0.4); LARGE UNSTAINED CELL % 0.3 % (0.0-4.0); LYMPH # 0.3 K/mm3 (1.5-4.5); LYMPH % 1.6 % (24.0-44.0); MEAN CORPUSCULAR HEMOGLOBIN 30.9 pg (27.0-33.0); MEAN CORPUSCULAR HGB CONC 31.9 g/dl (32.0-36.5); MEAN CORPUSCULAR VOLUME 97.1 fl (80.0-96.0); MONO # 0.5 K/mm3 (0.0-0.8); MONO % 2.2 % (0.0-5.0); NEUTROPHILS # 19.6 K/mm3 (1.8-7.7); NEUTROPHILS % 95.8 % (36.0-66.0); PLATELET COUNT, AUTOMATED 394 k/mm3 (150-450); RED CELL DISTRIBUTION WIDTH 12.8 % (11.5-14.5); WHITE BLOOD COUNT 20.5 K/mm3 (4.0-10.0)
[2016-06-14 06:58] LABS: CALCIUM LEVEL 8.9 MG/DL (8.8-10.2); CREATININE FOR GFR 1.51 MG/DL (0.55-1.02); GLOMERULAR FILTRATION RATE 35.6 (>39); POTASSIUM SERUM 4.1 MEQ/L (3.5-5.1)
[2016-06-14] MEDS: ADVAIR HFA 230/21 INHALER INH SCH ×2 (08:00→19:36)
[2016-06-14] MEDS: TIOTROPIUM INHALER/CAPSULE (SPIRIVA) INH SCH (08:00)
[2016-06-14 08:49] VITALS: BP 146/80
[2016-06-14] MEDS: MIRALAX *UNIT DOSE* 17GM PACKET PO SCH (10:15)
[2016-06-14] MEDS: DIGOXIN 0.125 MG TAB PO SCH (10:16)
[2016-06-14] MEDS: **hydrALAZINE HCL** 25 MG TAB PO SCH ×3 (10:16→21:33)
[2016-06-14] MEDS: PARoxetine 20 MG TAB PO SCH (10:16)
[2016-06-14] MEDS: OMEPRAZOLE 20 MG CAP PO SCH (10:16)
[2016-06-14] MEDS: MULTIVITAMINS/MINERALS THERAP 1 TAB PO SCH (10:16)
[2016-06-14] MEDS: TORSEMIDE 100 MG TAB PO SCH (10:17)
[2016-06-14] MEDS: SPIRONOLACTONE 25 MG TAB PO SCH (10:17)
[2016-06-14] MEDS: diltiaZEM **CD** 180 MG CAP PO SCH (10:17)
[2016-06-14] MEDS: guaiFENesin ER 600 MG TAB PO SCH ×2 (10:17→21:33)
[2016-06-14] MEDS: ACETAMINOPHEN TAB 650MG DOSE (2X325MG) PO PRN ×2 (10:29→21:34)
--- NOTE | 2016-06-14 13:41 | REP ---
Clinical: Acute renal insufficiency. Technique: Real time corral scale ultrasound examination using curved array transducer. Findings: The bilateral kidneys are normal in reniform shape demonstrating increased parenchymal echogenicity along with increased central renal sinus fat and few scattered cortical cysts measuring up to 2.1 cm on the right and 1.2 cm on the left. No hydronephrosis, nephrolithiasis or renal mass lesions are identified. Bladder is unremarkable. Right kidney measures 10.0 x 5.0 x 4.3 cm with 1.1 cm and 2.1 cm upper pole cysts and 1.5 cm lower pole cyst. Left kidney measures 10.3 x 5.1 x 5.4 cm with 1.2 cm upper pole cyst and two sub centimeter lower pole cysts. Impression: Findings compatible with chronic medical renal disease. No hydronephrosis. Signed by Eleazar Burnham MD 06/14/2016 01:32 P
[2016-06-14 14:00] VITALS: BP 161/74
[2016-06-14] MEDS: RIVAROXABAN 15 MG TAB (XARELTO) PO SCH (18:15)
--- NOTE | 2016-06-14 18:21 | IPNPDOC ---
Assessment/Plan Date Seen The patient was seen on 06/14/16. Problems Problems: (1) Acute kidney injury Status: Acute (2) CAP (community acquired pneumonia) Permanent Comment: Diastolic dysfunction Last Edited By: Valeria Lozada on Jun 12, 2016 20:28 Status: Acute (3) Right lower lobe pneumonitis Status: Acute (4) Atrial fibrillation Status: Chronic (5) Hypertension Status: Chronic (6) Depression Status: Chronic (7) GERD (gastroesophageal reflux disease) Status: Chronic (8) Osteoarthritis Status: Chronic (9) Osteoporosis Status: Chronic (10) History of cancer of left breast Status: Chronic (11) COPD (chronic obstructive pulmonary disease) Status: Chronic (12) Chronic respiratory failure with hypoxia Status: Chronic (13) Oxygen dependent Status: Chronic (14) CHF (congestive heart failure) Permanent Comment: Diastolic dysfunction Last Edited By: Valeria Lozada on Jun 12, 2016 20:29 Status: Chronic Plan / VTE VTE Prophylaxis Ordered?: Yes (Xarelto) Plan Plan Text Her creatinine has been slowly creeping up, therefore we will keep her at least for another day to observe. This phenomenon occurred during her last hospitalization for the same problem as well, and resolved without aggressive treatment. We have tapered down her steroids for today, she now has her home CPAP machine such that she may have a better night's rest. Will order a urinalysis, urine culture, a renal ultrasound to evaluate for causes of acute kidney injury. I'm hesitant to give fluid considering her history of CHF, and clinically she appears to be euvolemic. I's & O's have been within acceptable range. Subjective Review of Systems CC/HPI The patient is a 75-year-old female admitted with a reason for visit of Right Lower Lobe Pneumonitis. Events since last encounter She is feeling better today, however she is tearful when inform her that we would like to observe her for at least one more day to ensure that her kidney function improves. Otherwise, she has no focal complaints at this time. She does continue to have some cough with phlegm production, and still has some shortness of breath, but denies any wheezing, chest palpitations, pain or discomfort. She denies any headache, vision changes, nausea, vomiting, constipation, rashes, or swelling in the extremities. Objective Physical Examination General Exam: Positive: Alert, Mild Distress Eye Exam: Positive: Conjunctiva & lids normal, EOMI, Negative: Sclera icteric ENT Exam: Positive: Atraumatic, Mucous membr. moist/pink, Pharynx Normal Neck Exam: Positive: Supple, Negative: JVD, thyromegaly Chest Exam: Positive: Other (prolonged expiratory phase), Negative: Rales, Rhonchi Heart Exam: Positive: Irregular Rhythm (irregularly irregular), Murmurs (3/6 systolic murmur), Rate Normal, Negative: Rubs Abdomen Exam: Positive: Normal bowel sounds, Soft, Negative: Hepatospenomegaly, Tenderness Extremity Exam: Positive: Normal pulses, Negative: Cyanosis, Edema Skin Exam: Positive: Nl turgor and temperature, Negative: Breakdown, Lesion Neuro Exam: Positive: Cranial Nerves 3-12 NL, Normal Speech, Normal Tone Psych Exam: Positive: Mental status NL, Mood NL, Oriented x 3 Vital Signs/I&O Vital Signs Date Time Temp Pulse Resp B/P Pulse Ox O2 Delivery O2 Flow Rate FiO2 06/14/16 14:00 97.5 90 18 161/74 96 06/14/16 10:15 Nasal Cannula 3.0 I&O- Last 24 Hours up to 6 AM 06/14/16 06:00 Intake Total 1900 ml Output Total 2200 ml Balance -300 ml Laboratory Data Labs 24H Laboratory Tests 2 06/14/16 05:34: Anion Gap 9, White Blood Count 20.5H, Red Blood Count 3.52L, Hemoglobin 10.9L, Hematocrit 34.2L, Mean Corpuscular Volume 97.1H, Mean Corpuscular Hemoglobin 30.9, Mean Corpuscular Hemoglobin Concent 31.9L, Red Cell Distribution Width 12.8, Platelet Count 394, Neutrophils (%) (Auto) 95.8H, Lymphocytes (%) (Auto) 1.6L, Monocytes (%) (Auto) 2.2, Eosinophils (%) (Auto) 0.2, Basophils (%) (Auto ) 0.0, Neutrophils # (Auto) 19.6H, Lymphocytes # (Auto) 0.3L, Monocytes # (Auto ) 0.5, Eosinophils # (Auto) 0.0, Basophils # (Auto) 0.0, Blood Urea Nitrogen 47# H, Creatinine 1.51H, Sodium Level 140, Potassium Level 4.1, Chloride Level 98, Carbon Dioxide Level 33H, Calcium Level 8.9, Glomerular Filtration Rate 35.6L, Large Unclassified Cells # 0.1, Large Unclassified Cells % 0.3 06/14/16 13:34: Urine Amorphous Sediment , Urine Appearance CLEAR, Urine Color YELLOW, Urine pH 5.0, Urine Specific [place] 1.009, Urine Protein NEGATIVE, Urine Glucose (UA) NEGATIVE, Urine Ketones NEGATIVE, Urine Urobilinogen 0.2, Urine Bilirubin NEGATIVE, Urine Leukocyte Esterase 3+H, Urine Bacteria (Auto) 1+H, Urine Blood NEGATIVE, Urine Calcium Carbonate Cryst(Auto) , Urine Calcium Oxalate Cryst ( Auto) , Urine Calcium Phosphate Liss (Auto) , Urine Cellular Casts , Urine Cystine Crystals , Urine Granular Casts (Auto) , Urine Hyaline Casts (Auto) 1, Urine Leucine Crystals , Urine Mucus (Auto) SMALL, Urine Nitrite NEGATIVE, Urine Oval Fat Bodies (Auto) , Urine RBC (Auto) 2, Urine Renal Epithelial Cells , Urine Sperm (Auto) , Urine Squamous Epithelial Cells 2, Urine Transitional Epithelial Cells , Urine Trichomonas (Auto) , Urine Triple Phosphate Cryst (Auto ) , Urine Tyrosine Crystals , Urine Uric Acid Crystals (Auto) , Urine WBC (Auto ) 3, Urine Waxy Casts (Auto) , Urine Yeast-Like Cells (Auto) CBC/BMP Laboratory Tests 06/14/16 05:34 Calcium Level 8.9, Red Blood Count 3.52 L, Mean Corpuscular Volume 97.1 H, Mean Corpuscular Hemoglobin 30.9, Mean Corpuscular Hemoglobin Concent 31.9 L, Red Cell Distribution Width 12.8, Neutrophils (%) (Auto) 95.8 H, Lymphocytes (%) ( Auto) 1.6 L, Monocytes (%) (Auto) 2.2, Eosinophils (%) (Auto) 0.2, Basophils (% ) (Auto) 0.0, Neutrophils # (Auto) 19.6 H, Lymphocytes # (Auto) 0.3 L, Monocytes # (Auto) 0.5, Eosinophils # (Auto) 0.0, Basophils # (Auto) 0.0 Microbiology Microbiology 06/12/16 Blood Culture - Preliminary, Resulted No Growth after 48 hours. All Specime... 06/12/16 Blood Culture - Preliminary, Resulted No Growth after 48 hours. All Specime... 06/12/16 Influenza Virus Type A Antigen - Final, Complete 06/12/16 Influenza Virus Type B Antigen - Final, Complete 06/12/16 Gram Stain - Final, Resulted 06/12/16 Sputum Culture, Resulted Pending 06/12/16 Influenza Virus Type A Antigen - Final, Complete 06/12/16 Influenza Virus Type B Antigen - Final, Complete 06/14/16 Urine Culture, Received Pending VALERIA LOZADA DO Jun 14, 2016 18:21
--- NOTE | 2016-06-14 18:22 | EDDOCDS ---
Physician Documentation [facility] Name: Kenia Guthrie Age: 75 yrs Sex: Female : 1940 Arrival Date: 06/12/2016 Time: 10:03 Bed 12 Private MD: Vicente Singh Disposition: 06/12/16 13:41 Hospitalization ordered by Debbie Kim for Inpatient Admission. Preliminary diagnosis is Chronic obstructive pulmonary disease with acute lower respiratory infection. - Bed requested for 4 [place]. - Status is Inpatient Admission. kcs - Condition is Stable. - Problem is an acute exacerbation. - Symptoms are unchanged. Historical: - Allergies: Aspirin (''Makes me anemic''); - Home Meds: 1. hydralazine 25 mg Oral tab tid (Last dose: 06/12/2016) 2. Paroxetine HCl Oral 20 mg daily (Last dose: 06/12/2016) 3. Digoxin Oral 125 mcg Saturday-Saturday (Last dose: 06/12/2016) 4. torsemide 100 mg oral tab 1 tab once daily (Last dose: 06/12/2016) 5. Taztia XT 360 mg oral cpER 1 cap once daily (Last dose: 06/12/2016) 6. omeprazole 40 mg Oral cpDR 1 cap once daily (Last dose: 06/12/2016) 7. Xarelto 15 mg oral tab daily (Last dose: 06/11/2016) 8. Spironolactone 12.5mg Oral once daily (Last dose: 06/12/2016) 9. Magnesium/with vitamin C daily (Last dose: 06/12/2016) 10. Advair Diskus 500-50 mcg/dose Inhl dsdv 1 puff 2 times per day (Last dose: 06/12/2016) 11. Albuterol Inhl as needed (Last dose: 06/12/2016) 12. tramadol 50 mg Oral tab bid prn (Last dose: 06/12/2016) - PMHx: Atrial Fib; CHF; COPD; Cancer, Breast - [id number]; Arthritis; GERD; - PSHx: Lumpectomy, left 2010; Repair of rectal abscess; - Social history: Smoking status: Patient states former smoker of tobacco. No barriers to communication noted, The patient speaks fluent Estonian. - Family history: Not pertinent. - : The pt / caregiver states he / she is on anticoagulants: Xarelto Home medication list is obtained from the patient. - Exposure Risk Screening:: None identified. Vital Signs: 06/12 10:05 BP 162 / 82; Pulse 102; Resp 24; Temp 99.1(O); Pulse Ox 92% on R/A; Weight 83.91 kg / ct3 184.99 lbs (R); Height 5 ft. 0 in. (152.40 cm) (R); Pain 0/10; 11:22 BP 141 / 85 (auto/); kcs 11:22 Pulse 82 MON; Pulse Ox 97% ; kcs 11:25 BP 166 / 67 (auto/); kcs 11:40 BP 152 / 66 (auto/); kcs 11:40 Pulse 84 MON; Pulse Ox 97% ; kcs 11:55 BP 156 / 71 (auto/); kcs 11:56 Pulse 84 MON; Pulse Ox 96% ; kcs 12:10 BP 163 / 65 (auto/); kcs 12:11 Pulse 82 MON; Pulse Ox 87% ; kcs 12:25 BP 115 / 60 (auto/); kcs 12:25 Pulse 84 MON; Pulse Ox 84% ; kcs 12:40 BP 112 / 66 (auto/); kcs 12:41 Pulse 92 MON; Pulse Ox 94% ; kcs 12:55 BP 137 / 65 (auto/); kcs 12:56 Pulse 88 MON; Pulse Ox 95% ; kcs 13:10 BP 130 / 63 (auto/); kcs 13:10 Pulse 98 MON; Pulse Ox 95% ; kcs 13:25 BP 128 / 62 (auto/); kcs 13:26 Pulse 88 MON; Pulse Ox 96% ; kcs 13:40 BP 133 / 55 (auto/); kcs 13:41 Pulse 86 MON; Pulse Ox 96% ; kcs 13:55 BP 130 / 69 (auto/); kcs 13:56 Pulse 92 MON; Pulse Ox 95% ; kcs 14:10 BP 142 / 63 (auto/); kcs 14:11 Pulse 82 MON; Pulse Ox 95% ; kcs 14:25 BP 137 / 60 (auto/); kcs 14:25 Pulse 80 MON; Pulse Ox 94% ; kcs 14:40 BP 139 / 60 (auto/); kcs 14:40 Pulse 78 MON; Pulse Ox 93% ; kcs 14:55 BP 153 / 66 (auto/); kcs 14:56 Pulse 80 MON; Pulse Ox 94% ; kcs 15:10 BP 136 / 65 (auto/); kcs 15:11 Pulse 76 MON; Pulse Ox 94% ; kcs 15:25 BP 148 / 72 (auto/); kcs 15:26 Pulse 76 MON; Pulse Ox 93% ; kcs 15:40 BP 166 / 70 (auto/); kcs 15:41 Pulse 78 MON; Pulse Ox 95% ; kcs 15:55 BP 150 / 67 (auto/); kcs 15:55 Pulse 82 MON; Pulse Ox 94% ; kcs 16:10 BP 137 / 65 (auto/); kcs 16:11 Pulse 76 MON; Pulse Ox 95% ; kcs 16:25 BP 162 / 75 (auto/); kcs 16:26 Pulse 74 MON; Pulse Ox 95% ; kcs 16:40 BP 134 / 76 (auto/); kcs 16:40 Pulse 76 MON; Pulse Ox 95% ; kcs 16:49 BP 146 / 65 (auto/); kcs 16:50 BP 146 / 65; Pulse 83; Resp 22; Temp 99.0(O); Pulse Ox 95% on 3 lpm NC; Pain 3/10; kcs 16:50 Pulse 74 MON; Pulse Ox 95% ; kcs 16:55 BP 151 / 64 (auto/); kcs 16:56 Pulse 80 MON; Pulse Ox 95% ; kcs 17:10 BP 135 / 61 (auto/); kcs 17:10 Pulse 76 MON; Pulse Ox 94% on 3 lpm NC; Pain 3/10; kcs 10:05 Body Mass Index 36.13 (83.91 kg, 152.40 cm) ct3 MDM: 10:23 -Blood Culture (Adults Only), peripheral from different site, or from device/port/PICC sd1 etc. if present ordered. 10:23 Rooming House Keeper/Pulse Ox/q 15 min VS ordered. sd1 10:23 IV Saline Lock ordered. sd1 10:23 Oxygen at 4L/Min NC or Home dosage ordered. sd1 10:23 Rhythm Strip to chart ordered. sd1 10:24 -Arterial Blood Gas Ordered. EDMS 10:24 -Blood Culture Ordered. EDMS 10:24 B-Type Natiuretic Peptide Ordered. EDMS 10:24 Basic Metabolic Profile Ordered. EDMS 10:24 CBC with Diff Ordered. EDMS 10:24 Cardiac Injury Profile Ordered. EDMS 10:24 Troponin Ordered. EDMS 10:24 ECG WITH READING ER PHYS+CARDIAG ordered. EDMS 10:25 Lactic Acid ([place] tube on ice) Ordered. EDMS 10:25 Chest, 1 View Ordered. EDMS 10:30 -Blood Culture (Adults Only), peripheral from different site, or from device/port/PICC jrd etc. if present complete. 10:31 BLOOD CULTURES Ordered. EDMS 10:58 Solu-MEDROL 125 mg IVP once ordered. sd1 10:58 Albuterol-Ipratropium 1 neb Nebulizer every 20 minutes x3 ordered. sd1 11:03 Financial registration complete. pm4 11:17 [facility] Payment Agreement was scanned into [employer] and attached to record. pm4 12:28 -Arterial Blood Gas Reviewed. sd1 12:28 Basic Metabolic Profile Reviewed. sd1 12:28 CBC with Diff Reviewed. sd1 12:28 B-Type Natiuretic Peptide Reviewed. sd1 12:28 Cardiac Injury Profile Reviewed. sd1 12:28 Troponin Reviewed. sd1 12:28 Lactic Acid ([place]by tube on ice) Reviewed. sd1 12:28 Moxifloxacin 400 mg IV at 400 mg/hr once over 60 mins ordered. sd1 12:31 BED REQUEST+ADM ordered. EDMS 13:02 -Influenza A&B Rapid Antigen - Nose Ordered. EDMS 13:22 LOW SODIUM+DIET ordered. EDMS 13:42 PT/INR Ordered. EDMS 14:22 CARDIAC MARKER PANEL Ordered. EDMS 14:22 LEGIONELLA ANTIGEN URINE Ordered. EDMS 14:22 URINE STREP PNEUMONIAE ANTIGEN Ordered. EDMS 14:22 INFLUENZA A&B RAPID ANTIGEN Ordered. EDMS 14:22 SPUTUM CULTURE AND GRAM STAIN Ordered. EDMS 14:23 PHYSICAL THERAPY EVAL & TREAT ordered. EDMS 14:25 Admission / Observation Status ordered. EDMS 14:25 COPD DIET ordered. EDMS 15:03 Basic Metabolic Profile Reviewed. sd1 15:03 PT/INR Reviewed. sd1 15:03 Cardiac Injury Profile Reviewed. sd1 15:03 Troponin Reviewed. sd1 15:03 -Influenza A&B Rapid Antigen - Nose Reviewed. sd1 15:03 DIGOXIN LEVEL Reviewed. sd1 15:51 Acetaminophen Tablet 650 mg PO once ordered. kcs 06/13 10:21 T-Sheet-- Draft Copy was scanned into [employer] and attached to record. gb 10:21 Trend VS was scanned into [employer] and attached to record. gb Administered Medications: 06/12 11:21 Drug: Solu-MEDROL 125 mg [Solu-Medrol 500 mg intravenous solution (125 mg)] Route: IVP; kcs Site: right forearm; 11:55 Drug: Albuterol-Ipratropium 1 neb [ipratropium-albuterol 0.5 mg-3 mg(2.5 mg base)/3 mL js11 nebulization soln (1 neb)] Route: Nebulizer; 12:15 Drug: Albuterol-Ipratropium 1 neb [ipratropium-albuterol 0.5 mg-3 mg(2.5 mg base)/3 mL js11 nebulization soln (1 neb)] Route: Nebulizer; 12:30 Drug: Albuterol-Ipratropium 1 neb [ipratropium-albuterol 0.5 mg-3 mg(2.5 mg base)/3 mL js11 nebulization soln (1 neb)] Route: Nebulizer; 13:03 Drug: Moxifloxacin 400 mg [moxifloxacin 400 mg/250 mL-sodium chloride(iso) intravenous kcs piggyback] Route: IV; Rate: 400 mg/hr; Infused Over: 60 mins; Site: right forearm; 14:36 Follow up: IV Status: Completed infusion; IV Intake: 250ml kcs 15:55 Drug: Acetaminophen 650 mg [acetaminophen 325 mg tablet (2 tabs)] Route: PO; kcs Signatures: Dispatcher [employer] EDMS Shantelle Davis MD MD sd1 Lolly Martinez RN RN [facility] Reagan Ramirez RN Tram Barnard, Reg Reg gb Vicente Ahuja RN RN dy Donoghue, Joseph, COMMUNICATIONS ADMINISTRATOR COMMUNICATIONS ADMINISTRATOR Eduard Saavedra RN RN mts Montondo, Paul, Reg Reg pm4 Kennedy Voss js11 The chart was reviewed and I authenticate all verbal orders and agree with the evaluation and treatment provided.Corrections: (The following items were deleted from the chart) 13:40 13:31 DIGOXIN LEVEL+LAB ordered. EDMS EDMS Attachments: 11:17 [facility] [place] pm4 06/13 10:21 T-Sheet-- Draft Copy gb Chart Complete MTDD
--- NOTE | 2016-06-14 18:22 | EDDOCDS ---
Physician Documentation [facility] Name: Kenia Guthrie Age: 75 yrs Sex: Female : 1940 Arrival Date: 06/12/2016 Time: 10:03 Bed 12 Private MD: Vicente Singh Disposition: 06/12/16 13:41 Hospitalization ordered by Debbie Kim for Inpatient Admission. Preliminary diagnosis is Chronic obstructive pulmonary disease with acute lower respiratory infection. - Bed requested for [address] [place]. - Status is Inpatient Admission. kcs - Condition is Stable. - Problem is an acute exacerbation. - Symptoms are unchanged. Historical: - Allergies: Aspirin (''Makes me anemic''); - Home Meds: 1. hydralazine 25 mg Oral tab tid (Last dose: 06/12/2016) 2. Paroxetine HCl Oral 20 mg daily (Last dose: 06/12/2016) 3. Digoxin Oral 125 mcg Saturday-Saturday (Last dose: 06/12/2016) 4. torsemide 100 mg oral tab 1 tab once daily (Last dose: 06/12/2016) 5. Taztia XT 360 mg oral cpER 1 cap once daily (Last dose: 06/12/2016) 6. omeprazole 40 mg Oral cpDR 1 cap once daily (Last dose: 06/12/2016) 7. Xarelto 15 mg oral tab daily (Last dose: 06/11/2016) 8. Spironolactone 12.5mg Oral once daily (Last dose: 06/12/2016) 9. Magnesium/with vitamin C daily (Last dose: 06/12/2016) 10. Advair Diskus 500-50 mcg/dose Inhl dsdv 1 puff 2 times per day (Last dose: 06/12/2016) 11. Albuterol Inhl as needed (Last dose: 06/12/2016) 12. tramadol 50 mg Oral tab bid prn (Last dose: 06/12/2016) - PMHx: Atrial Fib; CHF; COPD; Cancer, Breast - [id number]; Arthritis; GERD; - PSHx: Lumpectomy, left 2010; Repair of rectal abscess; - Social history: Smoking status: Patient states former smoker of tobacco. No barriers to communication noted, The patient speaks fluent Pashto. - Family history: Not pertinent. - : The pt / caregiver states he / she is on anticoagulants: Xarelto Home medication list is obtained from the patient. - Exposure Risk Screening:: None identified. Vital Signs: 06/12 10:05 BP 162 / 82; Pulse 102; Resp 24; Temp 99.1(O); Pulse Ox 92% on R/A; Weight 83.91 kg / ct3 184.99 lbs (R); Height 5 ft. 0 in. (152.40 cm) (R); Pain 0/10; 11:22 BP 141 / 85 (auto/); kcs 11:22 Pulse 82 MON; Pulse Ox 97% ; kcs 11:25 BP 166 / 67 (auto/); kcs 11:40 BP 152 / 66 (auto/); kcs 11:40 Pulse 84 MON; Pulse Ox 97% ; kcs 11:55 BP 156 / 71 (auto/); kcs 11:56 Pulse 84 MON; Pulse Ox 96% ; kcs 12:10 BP 163 / 65 (auto/); kcs 12:11 Pulse 82 MON; Pulse Ox 87% ; kcs 12:25 BP 115 / 60 (auto/); kcs 12:25 Pulse 84 MON; Pulse Ox 84% ; kcs 12:40 BP 112 / 66 (auto/); kcs 12:41 Pulse 92 MON; Pulse Ox 94% ; kcs 12:55 BP 137 / 65 (auto/); kcs 12:56 Pulse 88 MON; Pulse Ox 95% ; kcs 13:10 BP 130 / 63 (auto/); kcs 13:10 Pulse 98 MON; Pulse Ox 95% ; kcs 13:25 BP 128 / 62 (auto/); kcs 13:26 Pulse 88 MON; Pulse Ox 96% ; kcs 13:40 BP 133 / 55 (auto/); kcs 13:41 Pulse 86 MON; Pulse Ox 96% ; kcs 13:55 BP 130 / 69 (auto/); kcs 13:56 Pulse 92 MON; Pulse Ox 95% ; kcs 14:10 BP 142 / 63 (auto/); kcs 14:11 Pulse 82 MON; Pulse Ox 95% ; kcs 14:25 BP 137 / 60 (auto/); kcs 14:25 Pulse 80 MON; Pulse Ox 94% ; kcs 14:40 BP 139 / 60 (auto/); kcs 14:40 Pulse 78 MON; Pulse Ox 93% ; kcs 14:55 BP 153 / 66 (auto/); kcs 14:56 Pulse 80 MON; Pulse Ox 94% ; kcs 15:10 BP 136 / 65 (auto/); kcs 15:11 Pulse 76 MON; Pulse Ox 94% ; kcs 15:25 BP 148 / 72 (auto/); kcs 15:26 Pulse 76 MON; Pulse Ox 93% ; kcs 15:40 BP 166 / 70 (auto/); kcs 15:41 Pulse 78 MON; Pulse Ox 95% ; kcs 15:55 BP 150 / 67 (auto/); kcs 15:55 Pulse 82 MON; Pulse Ox 94% ; kcs 16:10 BP 137 / 65 (auto/); kcs 16:11 Pulse 76 MON; Pulse Ox 95% ; kcs 16:25 BP 162 / 75 (auto/); kcs 16:26 Pulse 74 MON; Pulse Ox 95% ; kcs 16:40 BP 134 / 76 (auto/); kcs 16:40 Pulse 76 MON; Pulse Ox 95% ; kcs 16:49 BP 146 / 65 (auto/); kcs 16:50 BP 146 / 65; Pulse 83; Resp 22; Temp 99.0(O); Pulse Ox 95% on 3 lpm NC; Pain 3/10; kcs 16:50 Pulse 74 MON; Pulse Ox 95% ; kcs 16:55 BP 151 / 64 (auto/); kcs 16:56 Pulse 80 MON; Pulse Ox 95% ; kcs 17:10 BP 135 / 61 (auto/); kcs 17:10 Pulse 76 MON; Pulse Ox 94% on 3 lpm NC; Pain 3/10; kcs 10:05 Body Mass Index 36.13 (83.91 kg, 152.40 cm) ct3 MDM: 10:23 -Blood Culture (Adults Only), peripheral from different site, or from device/port/PICC sd1 etc. if present ordered. 10:23 [employer] Executive Director/Pulse Ox/q 15 min VS ordered. sd1 10:23 IV Saline Lock ordered. sd1 10:23 Oxygen at 4L/Min NC or Home dosage ordered. sd1 10:23 Rhythm Strip to chart ordered. sd1 10:24 -Arterial Blood Gas Ordered. EDMS 10:24 -Blood Culture Ordered. EDMS 10:24 B-Type Natiuretic Peptide Ordered. EDMS 10:24 Basic Metabolic Profile Ordered. EDMS 10:24 CBC with Diff Ordered. EDMS 10:24 Cardiac Injury Profile Ordered. EDMS 10:24 Troponin Ordered. EDMS 10:24 ECG WITH READING ER PHYS+CARDIAG ordered. EDMS 10:25 Lactic Acid ([place]by tube on ice) Ordered. EDMS 10:25 Chest, 1 View Ordered. EDMS 10:30 -Blood Culture (Adults Only), peripheral from different site, or from device/port/PICC jrd etc. if present complete. 10:31 BLOOD CULTURES Ordered. EDMS 10:58 Solu-MEDROL 125 mg IVP once ordered. sd1 10:58 Albuterol-Ipratropium 1 neb Nebulizer every 20 minutes x3 ordered. sd1 11:03 Financial registration complete. pm4 11:17 [facility] Payment Agreement was scanned into [employer] and attached to record. pm4 12:28 -Arterial Blood Gas Reviewed. sd1 12:28 Basic Metabolic Profile Reviewed. sd1 12:28 CBC with Diff Reviewed. sd1 12:28 B-Type Natiuretic Peptide Reviewed. sd1 12:28 Cardiac Injury Profile Reviewed. sd1 12:28 Troponin Reviewed. sd1 12:28 Lactic Acid (Newby tube on ice) Reviewed. sd1 12:28 Moxifloxacin 400 mg IV at 400 mg/hr once over 60 mins ordered. sd1 12:31 BED REQUEST+ADM ordered. EDMS 13:02 -Influenza A&B Rapid Antigen - Nose Ordered. EDMS 13:22 LOW SODIUM+DIET ordered. EDMS 13:42 PT/INR Ordered. EDMS 14:22 CARDIAC MARKER PANEL Ordered. EDMS 14:22 LEGIONELLA ANTIGEN URINE Ordered. EDMS 14:22 URINE STREP PNEUMONIAE ANTIGEN Ordered. EDMS 14:22 INFLUENZA A&B RAPID ANTIGEN Ordered. EDMS 14:22 SPUTUM CULTURE AND GRAM STAIN Ordered. EDMS 14:23 PHYSICAL THERAPY EVAL & TREAT ordered. EDMS 14:25 Admission / Observation Status ordered. EDMS 14:25 COPD DIET ordered. EDMS 15:03 Basic Metabolic Profile Reviewed. sd1 15:03 PT/INR Reviewed. sd1 15:03 Cardiac Injury Profile Reviewed. sd1 15:03 Troponin Reviewed. sd1 15:03 -Influenza A&B Rapid Antigen - Nose Reviewed. sd1 15:03 DIGOXIN LEVEL Reviewed. sd1 15:51 Acetaminophen Tablet 650 mg PO once ordered. kcs 06/13 10:21 T-Sheet-- Draft Copy was scanned into [employer] and attached to record. gb 10:21 Trend VS was scanned into [employer] and attached to record. gb Administered Medications: 06/12 11:21 Drug: Solu-MEDROL 125 mg [Solu-Medrol 500 mg intravenous solution (125 mg)] Route: IVP; kcs Site: right forearm; 11:55 Drug: Albuterol-Ipratropium 1 neb [ipratropium-albuterol 0.5 mg-3 mg(2.5 mg base)/3 mL js11 nebulization soln (1 neb)] Route: Nebulizer; 12:15 Drug: Albuterol-Ipratropium 1 neb [ipratropium-albuterol 0.5 mg-3 mg(2.5 mg base)/3 mL js11 nebulization soln (1 neb)] Route: Nebulizer; 12:30 Drug: Albuterol-Ipratropium 1 neb [ipratropium-albuterol 0.5 mg-3 mg(2.5 mg base)/3 mL js11 nebulization soln (1 neb)] Route: Nebulizer; 13:03 Drug: Moxifloxacin 400 mg [moxifloxacin 400 mg/250 mL-sodium chloride(iso) intravenous kcs piggyback] Route: IV; Rate: 400 mg/hr; Infused Over: 60 mins; Site: right forearm; 14:36 Follow up: IV Status: Completed infusion; IV Intake: 250ml kcs 15:55 Drug: Acetaminophen 650 mg [acetaminophen 325 mg tablet (2 tabs)] Route: PO; kcs Signatures: Dispatcher [employer] EDMS Shantelle Davis MD MD sd1 Lolly Martinez RN RN [facility] Reagan Ramirez RN Tram Barnard, Reg Reg gb Vicente Ahuja RN RN dy Donoghue, Joseph, VP RESPIRATORY VP RESPIRATORY Eduard Saavedra RN RN mts Montondo, Paul, Reg Reg pm4 Kennedy Voss js11 The chart was reviewed and I authenticate all verbal orders and agree with the evaluation and treatment provided.Corrections: (The following items were deleted from the chart) 13:40 13:31 DIGOXIN LEVEL+LAB ordered. EDMS EDMS Attachments: 11:17 [facility] Payment Agreement pm4 06/13 10:21 T-Sheet-- Draft Copy gb Chart Complete MTDD
--- NOTE | 2016-06-14 18:22 | EDDOCDS ---
Nurse's Notes [facility] Name: Kenia Guthrie Age: 75 yrs Sex: Female : 1940 Arrival Date: 06/12/2016 Time: 10:03 Bed 12 Private MD: Vicente Singh Diagnosis: Chronic obstructive pulmonary disease with acute lower respiratory infection Presentation: 06/12 10:11 Presenting complaint: Patient states: Productive cough, shortness of breath, started 3 dwg days ago and worsening. Denies any pain. Adult Sepsis Screening: The patient does not have new or worsening altered mentation. Patient has a respiratory rate of greater than or equal to 22 (1 point). Systolic blood pressure is greater than 100. Patient has a qSOFA score of 1- Negative Sepsis Screen. Suicide/Homicide risk assessment- the patient denies having any suicidal and/or homicidal ideations and does not present with any other emotional, behavioral or mental health complaints. Status: Patient is not a clinical laboratory service teacher or dependent. Transition of care: patient was not received from another setting of care. 10:11 Acuity: LUCY Level 3 [facility] 10:11 Method Of Arrival: Wheelchair [facility] 10:53 Red Flag criteria, patient assessed and taken directly to a bed. [facility] Triage Assessment: 10:16 General: Appears in no apparent distress. Pain: Denies pain. [facility] Historical: - Allergies: Aspirin (''Makes me anemic''); - Home Meds: 1. hydralazine 25 mg Oral tab tid (Last dose: 06/12/2016) 2. Paroxetine HCl Oral 20 mg daily (Last dose: 06/12/2016) 3. Digoxin Oral 125 mcg Saturday-Saturday (Last dose: 06/12/2016) 4. torsemide 100 mg oral tab 1 tab once daily (Last dose: 06/12/2016) 5. Taztia XT 360 mg oral cpER 1 cap once daily (Last dose: 06/12/2016) 6. omeprazole 40 mg Oral cpDR 1 cap once daily (Last dose: 06/12/2016) 7. Xarelto 15 mg oral tab daily (Last dose: 06/11/2016) 8. Spironolactone 12.5mg Oral once daily (Last dose: 06/12/2016) 9. Magnesium/with vitamin C daily (Last dose: 06/12/2016) 10. Advair Diskus 500-50 mcg/dose Inhl dsdv 1 puff 2 times per day (Last dose: 06/12/2016) 11. Albuterol Inhl as needed (Last dose: 06/12/2016) 12. tramadol 50 mg Oral tab bid prn (Last dose: 06/12/2016) - PMHx: Atrial Fib; CHF; COPD; Cancer, Breast - [id number]; Arthritis; GERD; - PSHx: Lumpectomy, left 2010; Repair of rectal abscess; - Social history: Smoking status: Patient states former smoker of tobacco. No barriers to communication noted, The patient speaks fluent [place]ijani. - Family history: Not pertinent. - : The pt / caregiver states he / she is on anticoagulants: Xarelto Home medication list is obtained from the patient. - Exposure Risk Screening:: None identified. Screenin:50 Screening information is obtained from the patient. Fall risk: No risks identified. kcs Assistance ADL's: requires no assistance with activities of daily living. Abuse/DV Screen: The patient / caregiver reports he/she is: not in a situation that causes fear, pain or injury. Nutritional screening: On low salt. Advance Directives: Currently, there is no health care proxy. There is no living will. home support is adequate. Assessment: 10:40 Reassessment: patient short of breath - worse with exertion. General: Appears ill, well kcs developed, well nourished, well groomed, Behavior is cooperative, pleasant. Pain: Denies pain. Neurological: Level of Consciousness is awake, alert. Cardiovascular: Rhythm is atrial fibrillation. Respiratory: Airway is patent Respiratory effort is even, unlabored, Respiratory pattern is regular, symmetrical, Breath sounds are diminished bilaterally. Derm: Skin is intact, is healthy with good turgor, Skin is dry, Skin is normal. 12:41 Reassessment: Patient sitting up in chair - more comfortable there. Respirations and kcs talking appear easier. . 13:03 Reassessment: Patient states she does feel that her breathing is easier. IV med kcs infusing. at bedside - given drink. monitor tech = Atrial fib. . 13:46 General: Patient eating lunch.. kcs 15:39 Reassessment: patient still sitting in chair - states it is more comfortable. kcs at bedside. Respirations easy. Slight cough. Color = pink. monitor tech = atrial fib.. 15:40 Reassessment: Patient requesting something for a headache and a glass of water.. kcs 16:50 Reassessment: patient sitting in chair - watching TV. Respirations easy. States kcs headache is much better = 3/10.. General: Appears comfortable, well developed, well nourished, well groomed, Behavior is cooperative, pleasant. Pain: Location: headache Pain currently is 3 out of 10 on a pain scale. Neurological: Level of Consciousness is awake, alert. Respiratory: Airway is patent Respiratory effort is even, unlabored, Respiratory pattern is regular, symmetrical. Derm: Skin is intact, is healthy with good turgor, Skin is dry, Skin is normal. 17:17 Reassessment: Patent comfortable. Respirations easy. Color = pink.. General: Appears kcs comfortable, well developed, well nourished, well groomed, Behavior is cooperative, pleasant. Pain: Location: head Pain currently is 3 out of 10 on a pain scale. Neurological: Level of Consciousness is awake, alert. Respiratory: Airway is patent Respiratory effort is even, unlabored, Respiratory pattern is regular, symmetrical. Derm: Skin is intact, is healthy with good turgor, Skin is dry, Skin is normal. Vital Signs: 10:05 BP 162 / 82; Pulse 102; Resp 24; Temp 99.1(O); Pulse Ox 92% on R/A; Weight 83.91 kg ct3 (R); Height 5 ft. 0 in. (152.40 cm) (R); Pain 0/10; 11:22 BP 141 / 85 (auto/); kcs 11:22 Pulse 82 MON; Pulse Ox 97% ; kcs 11:25 BP 166 / 67 (auto/); kcs 11:40 BP 152 / 66 (auto/); kcs 11:40 Pulse 84 MON; Pulse Ox 97% ; kcs 11:55 BP 156 / 71 (auto/); kcs 11:56 Pulse 84 MON; Pulse Ox 96% ; kcs 12:10 BP 163 / 65 (auto/); kcs 12:11 Pulse 82 MON; Pulse Ox 87% ; kcs 12:25 BP 115 / 60 (auto/); kcs 12:25 Pulse 84 MON; Pulse Ox 84% ; kcs 12:40 BP 112 / 66 (auto/); kcs 12:41 Pulse 92 MON; Pulse Ox 94% ; kcs 12:55 BP 137 / 65 (auto/); kcs 12:56 Pulse 88 MON; Pulse Ox 95% ; kcs 13:10 BP 130 / 63 (auto/); kcs 13:10 Pulse 98 MON; Pulse Ox 95% ; kcs 13:25 BP 128 / 62 (auto/); kcs 13:26 Pulse 88 MON; Pulse Ox 96% ; kcs 13:40 BP 133 / 55 (auto/); kcs 13:41 Pulse 86 MON; Pulse Ox 96% ; kcs 13:55 BP 130 / 69 (auto/); kcs 13:56 Pulse 92 MON; Pulse Ox 95% ; kcs 14:10 BP 142 / 63 (auto/); kcs 14:11 Pulse 82 MON; Pulse Ox 95% ; kcs 14:25 BP 137 / 60 (auto/); kcs 14:25 Pulse 80 MON; Pulse Ox 94% ; kcs 14:40 BP 139 / 60 (auto/); kcs 14:40 Pulse 78 MON; Pulse Ox 93% ; kcs 14:55 BP 153 / 66 (auto/); kcs 14:56 Pulse 80 MON; Pulse Ox 94% ; kcs 15:10 BP 136 / 65 (auto/); kcs 15:11 Pulse 76 MON; Pulse Ox 94% ; kcs 15:25 BP 148 / 72 (auto/); kcs 15:26 Pulse 76 MON; Pulse Ox 93% ; kcs 15:40 BP 166 / 70 (auto/); kcs 15:41 Pulse 78 MON; Pulse Ox 95% ; kcs 15:55 BP 150 / 67 (auto/); kcs 15:55 Pulse 82 MON; Pulse Ox 94% ; kcs 16:10 BP 137 / 65 (auto/); kcs 16:11 Pulse 76 MON; Pulse Ox 95% ; kcs 16:25 BP 162 / 75 (auto/); kcs 16:26 Pulse 74 MON; Pulse Ox 95% ; kcs 16:40 BP 134 / 76 (auto/); kcs 16:40 Pulse 76 MON; Pulse Ox 95% ; kcs 16:49 BP 146 / 65 (auto/); kcs 16:50 BP 146 / 65; Pulse 83; Resp 22; Temp 99.0(O); Pulse Ox 95% on 3 lpm NC; Pain 3/10; kcs 16:50 Pulse 74 MON; Pulse Ox 95% ; kcs 16:55 BP 151 / 64 (auto/); kcs 16:56 Pulse 80 MON; Pulse Ox 95% ; kcs 17:10 BP 135 / 61 (auto/); kcs 17:10 Pulse 76 MON; Pulse Ox 94% on 3 lpm NC; Pain 3/10; kcs 10:05 Body Mass Index 36.13 (83.91 kg, 152.40 cm) ct3 Vitals: 10:05 Log In Time: June 12, 2016 at 10:02. RN notified that patient meets Red Flag ct3 criteria. ED Course: 10:04 Patient visited by Zandra Lincoln PCA. ct3 10:04 Patient moved to Waiting ct3 10:05 Vicente Singh is Private Physician. ct3 10:12 Triage Initiated dwg 10:16 Patient moved to 12 dwg 10:25 Shantelle Davis MD is Attending Physician. sd1 10:25 Patient visited by Shantelle Davis MD. sd1 10:35 Missed attempts: 20 gauge X 1 in right antecubital area, Bleeding controlled, band aid kcs applied, catheter tip intact. 10:40 Inserted saline lock: 20 gauge in right forearm The patient tolerated the procedure kcs well. 10:51 Troponin Sent. kcs 10:51 Cardiac Injury Profile Sent. kcs 10:51 CBC with Diff Sent. kcs 10:51 Basic Metabolic Profile Sent. kcs 10:51 B-Type Natiuretic Peptide Sent. kcs 10:51 -Blood Culture Sent. kcs 10:51 Lactic Acid (Newby tube on ice) Sent. kcs 10:55 Patient visited by Ajith Lee PCA. jrd 10:55 EKG done. (by ED staff). Reviewed by Shantelle Davis MD. jrd 11:17 [facility] [place] Payment Agreement was scanned into [employer] and attached to record. pm4 11:33 Patient visited by Chaz Waldrop PCA. jlf 12:00 -Arterial Blood Gas Sent. js11 12:13 Patient visited by Chaz Waldrop PCA. jlf 12:44 Patient visited by Chaz Waldrop PCA. jlf 13:12 -Influenza A&B Rapid Antigen - Nose Sent. kcs 13:40 Patient visited by Chaz Waldrop PCA. jlf 13:41 Debbie Kim is Hospitalizing Provider. sd1 16:50 The patient / caregiver is instructed regarding the plan of care and ED course. kcs 17:17 monitor tech on. Pulse ox on. NIBP on. kcs 17:17 IV is intact, is free of redness or swelling. No procedures done that require kcs assistance. 06/13 10:21 T-Sheet-- Draft Copy was scanned into [employer] and attached to record. gb 10:21 Trend VS was scanned into [employer] and attached to record. gb Administered Medications: 06/12 11:21 Drug: Solu-MEDROL 125 mg [Solu-Medrol 500 mg intravenous solution (125 mg)] Route: IVP; kcs Site: right forearm; 11:55 Drug: Albuterol-Ipratropium 1 neb [ipratropium-albuterol 0.5 mg-3 mg(2.5 mg base)/3 mL js11 nebulization soln (1 neb)] Route: Nebulizer; 12:15 Drug: Albuterol-Ipratropium 1 neb [ipratropium-albuterol 0.5 mg-3 mg(2.5 mg base)/3 mL js11 nebulization soln (1 neb)] Route: Nebulizer; 12:30 Drug: Albuterol-Ipratropium 1 neb [ipratropium-albuterol 0.5 mg-3 mg(2.5 mg base)/3 mL js11 nebulization soln (1 neb)] Route: Nebulizer; 13:03 Drug: Moxifloxacin 400 mg [moxifloxacin 400 mg/250 mL-sodium chloride(iso) intravenous kcs piggyback] Route: IV; Rate: 400 mg/hr; Infused Over: 60 mins; Site: right forearm; 14:36 Follow up: IV Status: Completed infusion; IV Intake: 250ml kcs 15:55 Drug: Acetaminophen 650 mg [acetaminophen 325 mg tablet (2 tabs)] Route: PO; kcs Attachments: 10:21 Trend VS gb Intake: 06/12 14:36 IV: 250.00ml; Total: 250.00ml. kcs RT: 11:55 Initial Med Neb Given as ordered Patient was instructed and evaluated on procedure js11 Patient tolerated procedure well without adverse effect. Respiratory: Breath sounds are diminished bilaterally. 12:00 ABG's drawn from right radial artery allens test done and positive pressure held for 5 js11 minutes no bleeding noted specimen sent pt. tolerated well. 12:15 Subsequent Med Neb Given as ordered Patient tolerated procedure well without adverse js11 effect. Respiratory: Breath sounds are diminished bilaterally. 12:30 Subsequent Med Neb Given as ordered Patient tolerated procedure well without adverse js11 effect. Respiratory: Breath sounds are diminished bilaterally. Order Results: Lab Order: -Arterial Blood Gas; SPEC'M 06/12/16 11:53 Test: ABG pH (ARTERIAL); Value: 7.444; Range: 7.350-7.450; Units: UNITS; Status: F Test: ABG PARTIAL PRESSURE CO2; Value: 45.2; Range: 35.0-45.0; Abnormal: Above high normal; Units: mmHg; Status: F Test: ABG PARTIAL PRESSURE O2; Value: 95.4; Range: 75.0-100.0; Units: mmHg; Status: F Test: ABG TOTAL CO2; Value: 31.7; Range: 23.0-31.0; Abnormal: Above high normal; Units: MEQ/L; Status: F Test: ABG HCO3; Value: 30.3; Range: 22.0-26.0; Abnormal: Above high normal; Units: MEQ/L; Status: F Test: ABG BASE EXCESS; Value: 5.5; Range: -2.0-2.0; Abnormal: Above high normal; Status: F Test: ABG STANDARD HCO3; Value: 29.4; Range: 22.0-26.0; Abnormal: Above high normal; Units: MEQ/L; Status: F Test: ABG O2 SATURATION; Value: 97.7; Range: 95.0-99.0; Units: %; Status: F Test: ABG DEVICE; Value: NASAL SILVA; Status: F Lab Order: B-Type Natiuretic Peptide; SPEC'M 06/12/16 10:48 Test: BRAIN NATRIURETIC PEPTIDE; Value: 92.4; Range: <100; Units: PG/ML; Status: F Lab Order: Basic Metabolic Profile; SPEC'M 06/12/16 10:48 Test: GLUCOSE, FASTING; Value: 123; Range: 83-110; Abnormal: Above high normal; Units: MG/DL; Status: F Test: BLOOD UREA NITROGEN; Value: 22; Range: 7-18; Abnormal: Above high normal; Units: MG/DL; Status: F Test: CREATININE FOR GFR; Value: 1.10; Range: 0.55-1.02; Abnormal: Above high normal; Units: MG/DL; Status: F Test: GLOMERULAR FILTRATION RATE; Value: 51.3; Range: >39; Status: F Test: SODIUM LEVEL; Value: 141; Range: 136-145; Units: MEQ/L; Status: F Test: POTASSIUM SERUM; Value: 4.4; Range: 3.5-5.1; Units: MEQ/L; Status: F Test: CHLORIDE LEVEL; Value: 100; Range: 98-107; Units: MEQ/L; Status: F Test: CARBON DIOXIDE LEVEL; Value: 34; Range: 21-32; Abnormal: Above high normal; Units: MEQ/L; Status: F Test: ANION GAP; Value: 7; Range: 8-16; Abnormal: Below low normal; Units: MEQ/L; Status: F Test: CALCIUM LEVEL; Value: 9.2; Range: 8.8-10.2; Units: MG/DL; Status: F Test Note: ; Units are mL/min/1.73 m2 Chronic Kidney Disease Staging per NKF: Stage I & II GFR >=60 Normal to Mildly Decreased Stage III GFR 30-59 Moderately Decreased Stage IV GFR 15-29 Severely Decreased Stage V GFR <15 Very Little GFR Left ESRD GFR <15 on FERTILIZER LOADER Lab Order: CBC with Diff; SPEC'M 06/12/16 10:48 Test: WHITE BLOOD COUNT; Value: 15.6; Range: 4.0-10.0; Abnormal: Above high normal; Units: K/mm3; Status: F Test: RED BLOOD COUNT; Value: 3.53; Range: 4.00-5.40; Abnormal: Below low normal; Units: M/mm3; Status: F Test: HEMOGLOBIN; Value: 11.2; Range: 12.0-16.0; Abnormal: Below low normal; Units: g/dl; Status: F Test: HEMATOCRIT; Value: 34.9; Range: 36.0-47.0; Abnormal: Below low normal; Units: %; Status: F Test: MEAN CORPUSCULAR VOLUME; Value: 98.9; Range: 80.0-96.0; Abnormal: Above high normal; Units: fl; Status: F Test: MEAN CORPUSCULAR HEMOGLOBIN; Value: 31.7; Range: 27.0-33.0; Units: pg; Status: F Test: MEAN CORPUSCULAR HGB CONC; Value: 32.1; Range: 32.0-36.5; Units: g/dl; Status: F Test: RED CELL DISTRIBUTION WIDTH; Value: 12.9; Range: 11.5-14.5; Units: %; Status: F Test: PLATELET COUNT, AUTOMATED; Value: 332; Range: 150-450; Units: k/mm3; Status: F Test: NEUTROPHILS %; Value: 92.6; Range: 36.0-66.0; Abnormal: Above high normal; Units: %; Status: F Test: LYMPH %; Value: 1.9; Range: 24.0-44.0; Abnormal: Below low normal; Units: %; Status: F Test: MONO %; Value: 3.8; Range: 0.0-5.0; Units: %; Status: F Test: EOS %; Value: 0.6; Range: 0.0-3.0; Units: %; Status: F Test: BASO %; Value: 0.2; Range: 0.0-1.0; Units: %; Status: F Test: LARGE UNSTAINED CELL %; Value: 1.0; Range: 0.0-4.0; Units: %; Status: F Test: NEUTROPHILS #; Value: 14.4; Range: 1.8-7.7; Abnormal: Above high normal; Units: K/mm3; Status: F Test: LYMPH #; Value: 0.3; Range: 1.5-4.5; Abnormal: Below low normal; Units: K/mm3; Status: F Test: MONO #; Value: 0.6; Range: 0.0-0.8; Units: K/mm3; Status: F Test: EOS #; Value: 0.1; Range: 0.0-0.50; Units: K/mm3; Status: F Test: BASO #; Value: 0.0; Range: 0.0-0.2; Units: K/mm3; Status: F Test: LARGE UNSTAINED CELL #; Value: 0.2; Range: 0.0-0.4; Units: K/mm3; Status: F Lab Order: Cardiac Injury Profile; SPEC'M 06/12/16 10:48 Test: CPK CREATINE PHOSPHOKINASE; Value: 66; Range: 26-192; Units: U/L; Status: F Test: CK-MB VALUE MASS; Value: 1.7; Range: 0.0-3.6; Units: NG/ML; Status: F Test: MB/CK RELATIVE INDEX; Value: 2.57; Range: < OR =4; Status: F Test Note: ; DIAGNOSIS CRITERIA MMB ng/ml Relative Index (RI) NON-AMI < or = 5 N/A [place]BY [place]ONE > 5 < or = 4 AMI > 5 > 4 Lab Order: Troponin; SPEC'M 06/12/16 10:48 Test: TROPONIN I; Value: < 0.02; Range: < 0.10; Units: NG/ML; Status: F Test Note: ; Troponin I Reference Interval for Linkyt LOCI: 99th Percentile= 0.00-0.045 ng/ml Risk Stratification: <= 0.10 ng/ml Decreased Risk for Adverse Clinical Events. 0.10-1.50 ng/ml Increased Risk for Adverse Clinical Events. Evaluation of additional criterion and/or repeat testing in 2-6 hours is suggested to rule out myocardial damage. >= 1.50 ng/ml Indicative of Myocardial Injury. Lab Order: Lactic Acid (Newby tube on ice); SPEC'M 06/12/16 10:48 Test: LACTIC ACID LEVEL, LACTATE; Value: 0.9; Range: 0.4-2.0; Units: MMOL/L; Status: F Lab Order: -Influenza A&B Rapid Antigen - Nose; SPEC'M 06/12/16 13:11 Test: INFLUENZA A RAPID SCR by ICA; Value: INFLUENZA A RESULTS NEGATIVE; Status: F Test: INFLUENZA A RAPID SCR by ICA; Value: Comments:; Status: F Test: INFLUENZA B RAPID SCR by ICA; Value: INFLUENZA B RESULTS NEGATIVE; Status: F Test Note: ; The Influenza test is a direct rapid immunoassay for the qualitative detection of Influenza viral antigen. Cell culture (Viral Culture) testing should be considered to confirm NEGATIVE results and to assist in detecting other viruses that can provide similar clinical symptoms. Please contact the lab within 24 hours ([phone]) if confirmatory testing is desired. Lab Order: DIGOXIN LEVEL; SPEC'M 06/12/16 10:48 Test: DIGOXIN LEVEL; Value: 1.3; Range: 0.5-2.0; Units: NG/ML; Status: F Lab Order: PT/INR; SPEC'M 06/12/16 10:48 Test: PROTHROMBIN TIME; Value: 15.3; Range: 12.3-14.5; Abnormal: Above high normal; Units: SECONDS; Status: F Test: INR; Value: 1.20; Status: F Test Note: ; THERAPUTIC HUMAN INR VALUES INDICATIONS NORMAL RANGES PROPHYLAXIS/TREATMENT OF: VENOUS THROMBOSIS 2.0-3.0 PULMONARY EMBOLISM 2.0-3.0 PREVENTION OF SYSTEMIC EMBOLISM FROM: TISSUE HEART VALVES 2.0-3.0 ACUTE MYOCARDIAL INFARCTION 2.0-3.0 VALVULAR HEART DISEASE 2.0-3.0 ATRIAL FIBRILLATION 2.0-3.0 MECHANICAL VALVES(HIGH RISK) 2.5-3.5 RECURRENT MYOCARDIAL INFARCTION 2.5-3.5 Outcome: 13:41 Decision to Hospitalize by Provider. sd1 16:59 Admission hand-off: Report Faxed. kcs 17:15 Admission hand-off: Report Faxed Fax receipt verified by Leah. kcs 17:17 Discharge Assessment: Patient awake, alert and oriented x 3. No cognitive and/or kcs functional deficits noted. Patient verbalized understanding of disposition instructions. Patient awake and alert. patient administered narcotics - no. The following High Risk Discharge criteria are identified: None. Admitted to Med/Surg accompanied by tech, via stretcher, with oxygen, with chart. Condition: stable. No special radiology studies were completed. Property :Personal belongings accompany Pt. 17:21 Patient left the ED. kcs Signatures: Shantelle Davis MD MD sd1 Lolly Martinez RN RN Reagan Garrido RN RN dwg Barnhardt, Gloria, Reg Reg gb Zandra Lincoln, GRAIN COMMODITY MANAGER GRAIN COMMODITY MANAGER ct3 Kennedy Voss js11 Chaz Waldrop, GRAIN COMMODITY MANAGER GRAIN COMMODITY MANAGER jlf Ajith Lee, GRAIN COMMODITY MANAGER GRAIN COMMODITY MANAGER jrd Darren Vera, Reg Reg pm4 Chart Complete MTDD
[2016-06-14] MEDS: cefTRIAXone SOD 2 GM in D5W MINI-BAG PLUS 50 ML IV SCH (20:35)
[2016-06-14] MEDS ORDERED: methylPREDNISolone INJ 125 MG/2 ML VIAL (J2930) IV ONE (21:00)
[2016-06-14] MEDS: AZITHROMYCIN 500 MG, VIAL MATE ADAPTER 1 EACH in D5W 250 ML IV SCH (21:32)
[2016-06-14] MEDS: traMADol 50 MG TAB PO PRN (21:34)
[2016-06-14 22:00] VITALS: BP 148/80
[2016-06-15] MEDS: LEVALBUTEROL 1.25 MG/0.5 ML CONCENTRATE NEB NEB SCH ×4 (02:00→20:00)
[2016-06-15] MEDS: traMADol 50 MG TAB PO PRN ×2 (04:27→20:59)
[2016-06-15] MEDS: ACETAMINOPHEN TAB 650MG DOSE (2X325MG) PO PRN ×3 (04:27→20:58)
[2016-06-15 06:00] VITALS: BP 136/79
[2016-06-15] MEDS: ADVAIR HFA 230/21 INHALER INH SCH ×2 (07:15→19:47)
[2016-06-15] MEDS: TIOTROPIUM INHALER/CAPSULE (SPIRIVA) INH SCH (07:15)
[2016-06-15 08:04] LABS: CREATININE FOR GFR 1.61 MG/DL (0.55-1.02); POTASSIUM SERUM 4.2 MEQ/L (3.5-5.1)
[2016-06-15] MEDS: SPIRONOLACTONE 25 MG TAB PO SCH (09:00)
[2016-06-15] MEDS: DIGOXIN 0.125 MG TAB PO SCH (09:00)
[2016-06-15] MEDS: MULTIVITAMINS/MINERALS THERAP 1 TAB PO SCH (09:00)
[2016-06-15] MEDS: predniSONE 20 MG TAB PO SCH (09:00)
[2016-06-15] MEDS: guaiFENesin ER 600 MG TAB PO SCH ×2 (09:00→20:55)
[2016-06-15] MEDS: TORSEMIDE 100 MG TAB PO SCH (09:00)
[2016-06-15] MEDS: OMEPRAZOLE 20 MG CAP PO SCH (09:00)
[2016-06-15] MEDS: diltiaZEM **CD** 180 MG CAP PO SCH (09:00)
[2016-06-15] MEDS: MIRALAX *UNIT DOSE* 17GM PACKET PO SCH (09:00)
[2016-06-15] MEDS: **hydrALAZINE HCL** 25 MG TAB PO SCH ×3 (09:00→20:56)
[2016-06-15] MEDS: PARoxetine 20 MG TAB PO SCH (09:00)
[2016-06-15 09:43] LABS: BASO % 0.2 % (0.0-1.0); EOS # 0.1 K/mm3 (0.0-0.50); EOS % 0.7 % (0.0-3.0); LARGE UNSTAINED CELL # 0.1 K/mm3 (0.0-0.4); LARGE UNSTAINED CELL % 0.6 % (0.0-4.0); LYMPH # 0.2 K/mm3 (1.5-4.5); LYMPH % 1.2 % (24.0-44.0); MEAN CORPUSCULAR HEMOGLOBIN 30.8 pg (27.0-33.0); MEAN CORPUSCULAR HGB CONC 31.4 g/dl (32.0-36.5); MEAN CORPUSCULAR VOLUME 97.9 fl (80.0-96.0); MONO # 0.6 K/mm3 (0.0-0.8); MONO % 2.8 % (0.0-5.0); NEUTROPHILS # 19.1 K/mm3 (1.8-7.7); NEUTROPHILS % 94.5 % (36.0-66.0); PLATELET COUNT, AUTOMATED 440 k/mm3 (150-450); RED CELL DISTRIBUTION WIDTH 12.7 % (11.5-14.5); WHITE BLOOD COUNT 20.2 K/mm3 (4.0-10.0)
[2016-06-15 10:15] VITALS: BP 160/82
[2016-06-15 14:00] VITALS: BP 153/80
[2016-06-15] MEDS ORDERED: SODIUM CHLORIDE 0.9% 1000 ML IV ONE (14:30)
--- NOTE | 2016-06-15 16:06 | IPNPDOC ---
Assessment/Plan Date Seen The patient was seen on 06/15/16. Problems Problems: (1) Acute kidney injury Status: Acute Response to Treatment: Worse (2) CAP (community acquired pneumonia) Permanent Comment: Last Edited By: Valeria Lozada on Jun 14, 2016 18:24 Status: Acute Response to Treatment: Improving (3) Right lower lobe pneumonitis Status: Acute (4) Atrial fibrillation Status: Chronic (5) Hypertension Status: Chronic (6) Depression Status: Chronic (7) GERD (gastroesophageal reflux disease) Status: Chronic (8) Osteoarthritis Status: Chronic (9) Osteoporosis Status: Chronic (10) History of cancer of left breast Status: Chronic (11) COPD (chronic obstructive pulmonary disease) Status: Chronic (12) Chronic respiratory failure with hypoxia Status: Chronic (13) Oxygen dependent Status: Chronic (14) CHF (congestive heart failure) Permanent Comment: Diastolic dysfunction Last Edited By: Valeria Lozada on Jun 12, 2016 20:29 Status: Chronic Plan / VTE VTE Prophylaxis Ordered?: Yes (Xarelto) Plan Plan Text Creatinine continues to trend upward, we will discontinue her torsemide at this time and give her 500 mL bolus of normal saline. Also, because she is complaining of the azithromycin burning when administered IV, we'll switch this over to by mouth. Otherwise, her breathing significantly improved at this time. Subjective Review of Systems CC/HPI The patient is a 75-year-old female admitted with a reason for visit of Right Lower Lobe Pneumonitis. Events since last encounter Mrs. Guthrie is once again feeling better today, she does continue to have a mildly productive cough. She states that she has been able to get up and walk around the nurse's station, however upon returning to her room she is still significantly short of breath, but this is a significant improvement since yesterday. Otherwise, she has no focal complaints at this time. She did sleep a little bit better last night with her CPAP, however she did have a restless night sleep. She denies any fevers, chills, night sweats, swelling in the extremities, chest discomfort. Objective Physical Examination General Exam: Positive: Alert, No Acute Distress Eye Exam: Positive: Conjunctiva & lids normal, EOMI, Negative: Sclera icteric ENT Exam: Positive: Atraumatic, Mucous membr. moist/pink, Pharynx Normal Neck Exam: Positive: Supple, Negative: JVD, thyromegaly Chest Exam: Positive: Normal air movement, Other (prolonged expiratory phase), Negative: Rales, Rhonchi Heart Exam: Positive: Irregular Rhythm (irregularly irregular), Murmurs (3/6 systolic murmur), Rate Normal, Negative: Rubs Abdomen Exam: Positive: Normal bowel sounds, Soft, Negative: Hepatospenomegaly, Tenderness Extremity Exam: Positive: Normal pulses, Negative: Cyanosis, Edema Skin Exam: Positive: Nl turgor and temperature, Negative: Breakdown, Lesion Neuro Exam: Positive: Cranial Nerves 3-12 NL, Normal Speech, Normal Tone Psych Exam: Positive: Mental status NL, Mood NL, Oriented x 3 Vital Signs/I&O Vital Signs Date Time Temp Pulse Resp B/P Pulse Ox O2 Delivery O2 Flow Rate FiO2 06/15/16 14:00 96.0 98 19 153/80 96 Room Air 06/15/16 10:30 3.0 I&O- Last 24 Hours up to 6 AM 06/15/16 06:00 Intake Total 2340 ml Output Total 2850 ml Balance -510 ml Laboratory Data Labs 24H Laboratory Tests 2 06/15/16 07:20: Anion Gap 10, Blood Urea Nitrogen 54H, Creatinine 1.61H, Sodium Level 142, Potassium Level 4.2, Chloride Level 100, Carbon Dioxide Level 32, Calcium Level 9.0, Glomerular Filtration Rate 33.0L 06/15/16 09:21: White Blood Count 20.2H, Red Blood Count 3.70L, Hemoglobin 11.4L, Hematocrit 36.3, Mean Corpuscular Volume 97.9H, Mean Corpuscular Hemoglobin 30.8, Mean Corpuscular Hemoglobin Concent 31.4L, Red Cell Distribution Width 12.7, Platelet Count 440, Neutrophils (%) (Auto) 94.5H, Lymphocytes (%) (Auto) 1.2L, Monocytes (%) (Auto) 2.8, Eosinophils (%) (Auto) 0.7, Basophils (%) (Auto) 0.2, Neutrophils # (Auto) 19.1H, Lymphocytes # (Auto) 0.2L, Monocytes # (Auto) 0.6, Eosinophils # (Auto) 0.1, Basophils # (Auto) 0.0, Large Unclassified Cells # 0.1 , Large Unclassified Cells % 0.6 CBC/BMP Laboratory Tests 06/15/16 07:20 Calcium Level 9.0 06/15/16 09:21 Red Blood Count 3.70 L, Mean Corpuscular Volume 97.9 H, Mean Corpuscular Hemoglobin 30.8, Mean Corpuscular Hemoglobin Concent 31.4 L, Red Cell Distribution Width 12.7, Neutrophils (%) (Auto) 94.5 H, Lymphocytes (%) (Auto) 1.2 L, Monocytes (%) (Auto) 2.8, Eosinophils (%) (Auto) 0.7, Basophils (%) (Auto ) 0.2, Neutrophils # (Auto) 19.1 H, Lymphocytes # (Auto) 0.2 L, Monocytes # ( Auto) 0.6, Eosinophils # (Auto) 0.1, Basophils # (Auto) 0.0 Microbiology Microbiology 06/12/16 Blood Culture - Preliminary, Resulted No Growth after 72 hours. All specime... 06/12/16 Blood Culture - Preliminary, Resulted No Growth after 72 hours. All specime... 06/12/16 Influenza Virus Type A Antigen - Final, Complete 06/12/16 Influenza Virus Type B Antigen - Final, Complete 06/12/16 Gram Stain - Final, Resulted 06/12/16 Sputum Culture - Preliminary, Resulted Yeast Like Organism 06/12/16 Influenza Virus Type A Antigen - Final, Complete 06/12/16 Influenza Virus Type B Antigen - Final, Complete 06/14/16 Urine Culture, Received Pending VALERIA LOZADA DO Jun 15, 2016 16:05
[2016-06-15] MEDS: RIVAROXABAN 15 MG TAB (XARELTO) PO SCH (17:50)
[2016-06-15] MEDS: cefTRIAXone SOD 2 GM in D5W MINI-BAG PLUS 50 ML IV SCH (20:55)
[2016-06-15] MEDS ORDERED: AZITHROMYCIN 250 MG TAB PO SCH (21:00)
[2016-06-15 22:00] VITALS: BP 152/78
[2016-06-16] MEDS: LEVALBUTEROL 1.25 MG/0.5 ML CONCENTRATE NEB NEB SCH ×2 (00:58→07:42)
[2016-06-16 06:00] VITALS: BP 160/72
[2016-06-16 06:50] LABS: BASO # 0.1 K/mm3 (0.0-0.2); BASO % 0.5 % (0.0-1.0); EOS # 0.2 K/mm3 (0.0-0.50); EOS % 0.9 % (0.0-3.0); LARGE UNSTAINED CELL # 0.2 K/mm3 (0.0-0.4); LARGE UNSTAINED CELL % 1.1 % (0.0-4.0); LYMPH # 0.3 K/mm3 (1.5-4.5); LYMPH % 1.7 % (24.0-44.0); MEAN CORPUSCULAR HEMOGLOBIN 30.4 pg (27.0-33.0); MEAN CORPUSCULAR HGB CONC 31.4 g/dl (32.0-36.5); MONO # 1.2 K/mm3 (0.0-0.8); MONO % 6.7 % (0.0-5.0); NEUTROPHILS # 16.5 K/mm3 (1.8-7.7); NEUTROPHILS % 89.3 % (36.0-66.0); PLATELET COUNT, AUTOMATED 418 k/mm3 (150-450); RED CELL DISTRIBUTION WIDTH 12.8 % (11.5-14.5); WHITE BLOOD COUNT 18.4 K/mm3 (4.0-10.0)
[2016-06-16 07:15] LABS: CALCIUM LEVEL 8.6 MG/DL (8.8-10.2); CREATININE FOR GFR 1.31 MG/DL (0.55-1.02); GLOMERULAR FILTRATION RATE 41.9 (>39); POTASSIUM SERUM 3.8 MEQ/L (3.5-5.1)
[2016-06-16] MEDS: ADVAIR HFA 230/21 INHALER INH SCH (07:41)
[2016-06-16] MEDS: TIOTROPIUM INHALER/CAPSULE (SPIRIVA) INH SCH (07:41)
[2016-06-16] MEDS: OMEPRAZOLE 20 MG CAP PO SCH (10:11)
[2016-06-16 10:12] VITALS: BP 160/72
[2016-06-16] MEDS: diltiaZEM **CD** 180 MG CAP PO SCH (10:12)
[2016-06-16] MEDS: guaiFENesin ER 600 MG TAB PO SCH (10:12)
[2016-06-16] MEDS: PARoxetine 20 MG TAB PO SCH (10:13)
[2016-06-16] MEDS: **hydrALAZINE HCL** 25 MG TAB PO SCH (10:13)
[2016-06-16] MEDS: SPIRONOLACTONE 25 MG TAB PO SCH (10:13)
[2016-06-16] MEDS: predniSONE 20 MG TAB PO SCH (10:13)
[2016-06-16] MEDS: MULTIVITAMINS/MINERALS THERAP 1 TAB PO SCH (10:13)
[2016-06-16] MEDS: MIRALAX *UNIT DOSE* 17GM PACKET PO SCH (10:14)
[2016-06-16] MEDS ORDERED: AZIT250T3 PO (10:37)
[2016-06-16] MEDS ORDERED: CEFD1CAP8 PO (10:37)
[2016-06-16] MEDS ORDERED: PRED20TA PO (10:37)
--- NOTE | 2016-06-16 14:51 | DS.PDOC ---
Discharge Summary General Date of Admission Jun 12, 2016 at 14:15 Date of Discharge Jun 16, 2016 at 13:23 Discharge Summary PRIMARY CARE PHYSICIAN: Dr. Vicente Singh ATTENDING AT TIME OF DISCHARGE: Dr. Ezio Eastman DISCHARGE DIAGNOS(E)S: 1. Community-acquired pneumonia 2. Right lower lobe pneumonitis 3. COPD with chronic respiratory failure, oxygen dependent 4. CHF with diastolic dysfunction 5. Acute kidney injury 6. Atrial fibrillation 7. Hypertension 8. Depression 9. GERD 10. Osteoarthritis 11. Osteoporosis HPI & HOSPITAL COURSE: Ms. Guthrie had been suffering from progressive shortness of breath for approximately 3 days prior to admission. She was found to have what appeared to be a right lower lobe pneumonia/pneumonitis. She was treated with Rocephin, azithromycin, Solu-Medrol, Xopenex nebulizers, and Mucinex in addition to her usual home medications including Advair and Spiriva. Upon admission she did have a mild elevation of her creatinine which progressively worse over the next few days into acute kidney injury, however with some gentle rehydration and holding her torsemide for a day her renal function is now improving. She continues to wear chronic oxygen at 3 L and just that she does at home. On today the day of discharge, she is able to ambulate to the bathroom and back without any significant shortness of breath, and she was out walking around by the nurse's station as well. Her cough is significantly improved as well. She appears stable for discharge at this time. PHYSICAL EXAMINATION ON DISCHARGE: VITAL SIGNS: Temperature 96.9, pulse 67, respiratory rate 17, blood pressure 160 /72, pulse oximetry 96% on 3 L nasal cannula GENERAL: Awake, alert, sitting upright in the chair. She is in no acute distress. She is very pleasant speak with, and excited that she is able to go home today. CARDIOVASCULAR EXAMINATION: Irregularly irregular rhythm with variable S1 and S2 as well as a grade 2-3 systolic murmur RESPIRATORY EXAMINATION: Clear to auscultation bilaterally with no wheezes, rales, or rhonchi. ABDOMINAL EXAMINATION: Soft, nontender, nondistended. Bowel sounds present. EXTREMITIES: No clubbing or edema noted. 2+ pulses in the radial bilaterally. DISPOSITION: Home DISCHARGE INSTRUCTIONS: Follow-up with primary care provider Dr. Vicente Singh within 7-10 days. Recommend a low sodium diet. Activity as tolerated. Continue taking Omnicef and azithromycin for 2 additional days after discharge, as well as tapering dose of prednisone (40 mg 3 days, then 20 mg 3 days). If symptoms return, or if you experience worsening of your symptoms, please call your doctor or return to the emergency department. ITEMS THAT NEED OUTPATIENT FOLLOWUP: Renal function improving upon discharge, however recommend rechecking a BMP within the next week to verify she has returned to baseline. My preceptor for this patient encounter was physically present in the building during the encounter and was fully available. As needed, all aspects of the patient interview, examination, medical decision making process, and medical care plan development were reviewed and approved by the preceptor. Preceptor is aware and concurs with the plan as stated in the body of this note and will attest to such by his/her cosignature. Laboratory Data Labs 24H Laboratory Tests 2 06/16/16 06:33: Anion Gap 7L, White Blood Count 18.4H, Red Blood Count 3.63L, Hemoglobin 11.0L, Hematocrit 35.2L, Mean Corpuscular Volume 97.0H, Mean Corpuscular Hemoglobin 30.4, Mean Corpuscular Hemoglobin Concent 31.4L, Red Cell Distribution Width 12.8, Platelet Count 418, Neutrophils (%) (Auto) 89.3H, Lymphocytes (%) (Auto) 1.7L, Monocytes (%) (Auto) 6.7H, Eosinophils (%) (Auto) 0.9, Basophils (%) (Auto ) 0.5, Neutrophils # (Auto) 16.5H, Lymphocytes # (Auto) 0.3L, Monocytes # (Auto ) 1.2H, Eosinophils # (Auto) 0.2, Basophils # (Auto) 0.1, Blood Urea Nitrogen 49H, Creatinine 1.31H, Sodium Level 144, Potassium Level 3.8, Chloride Level 101 , Carbon Dioxide Level 36H, Calcium Level 8.6L, Glomerular Filtration Rate 41.9 , Large Unclassified Cells # 0.2, Large Unclassified Cells % 1.1 CBC/BMP Laboratory Tests 06/16/16 06:33 Calcium Level 8.6 L, Red Blood Count 3.63 L, Mean Corpuscular Volume 97.0 H, Mean Corpuscular Hemoglobin 30.4, Mean Corpuscular Hemoglobin Concent 31.4 L, Red Cell Distribution Width 12.8, Neutrophils (%) (Auto) 89.3 H, Lymphocytes (% ) (Auto) 1.7 L, Monocytes (%) (Auto) 6.7 H, Eosinophils (%) (Auto) 0.9, Basophils (%) (Auto) 0.5, Neutrophils # (Auto) 16.5 H, Lymphocytes # (Auto) 0.3 L, Monocytes # (Auto) 1.2 H, Eosinophils # (Auto) 0.2, Basophils # (Auto) 0.1 Microbiology Microbiology 06/12/16 Blood Culture - Preliminary, Resulted No Growth after 72 hours. All specime... 06/12/16 Blood Culture - Preliminary, Resulted No Growth after 72 hours. All specime... 06/12/16 Influenza Virus Type A Antigen - Final, Complete 06/12/16 Influenza Virus Type B Antigen - Final, Complete 06/12/16 Gram Stain - Final, Complete 06/12/16 Sputum Culture - Final, Complete Pseudomonas Aeruginosa Mucoid Yeast Like Organism 06/12/16 Influenza Virus Type A Antigen - Final, Complete 06/12/16 Influenza Virus Type B Antigen - Final, Complete 06/14/16 Urine Culture - Final, Complete Medications Scheduled (Magnesium & Vitami... [id number] mg-Unit-mg) 1 Cap Cap 1 CAP PO DAILY (Calcium + D3 600-200 mg-Unit) 1 Tab Tab 1 TAB PO DAILY Azithromycin (Azithromycin) 250 Mg Tab 250 MG PO DAILY Cefdinir (Cefdinir) 300 Mg Cap 300 MG PO BID Digoxin (Lanoxin) 0.125 Mg Tab 0.125 MG PO 5XW MON-FRI Diltiazem HCl (Cartia Xt) 180 Mg Cap 360 MG PO DAILY Hydralazine HCl (Hydralazine HCl) 25 Mg Tab 25 MG PO TID Multivitamins *[facility] STOCKED* (Thera M Plus *[facility] STOCKED*) 1 Tab Tab 1 TAB PO DAILY Omeprazole (Omeprazole) 40 Mg Cap 40 MG PO DAILY Paroxetine (Paroxetine HCl) 20 Mg Tab 20 MG PO DAILY Prednisone (Prednisone) 20 Mg Tab 20 MG PO ASDIRECTED Take 2 pills (40 mg) daily for 3 days, then 1 pill (20 mg) for an additional 3 days, then stop. Rivaroxaban (Xarelto) 15 Mg Tab 15 MG PO QPM Salmeterol/Fluticasone (Advair Hfa 230-21 Mcg/Act) 1 Aer Aer 2 PUFF INH BID Spironolactone (Spironolactone) 25 Mg Tab 12.5 MG PO DAILY Tiotropium [place] Monohydrate (Spiriva Handihaler) 18 Mcg Cap 18 MCG INH DAILY Torsemide (Torsemide) 100 Mg Tab 100 MG PO DAILY Scheduled PRN Tramadol HCl (Tramadol HCl) 50 Mg Tab 50 MG PO Q6HP PRN PRN PAIN Allergies Coded Allergies: Aspirin (Unverified Adverse Reaction, Unknown, anemia, 03/19/15) Gabapentin (Unverified Adverse Reaction, Unknown, shakey, 03/19/15) VALERIA LOZADA DO Jun 16, 2016 14:51
[2016-06-17 00:06] LABS: ORGANISM ID Not indicated. (.); SPECIMEN SOURCE Urine (.)
== END 2016-06-16 13:23 | disposition home or self-care (01) | DRG 194 ==
LOC: M ED 10:03 → M ED INP 14:15 → M MSPAV 17:35
PROVIDERS: ADMIT Internal Medicine; ATTEND Internal Medicine
DX: J18.9 Pneumonia, unspecified organism (principal); J96.11 Chronic respiratory failure with hypoxia; I50.32 Chronic diastolic (congestive) heart failure; N17.9 Acute kidney failure, unspecified; I48.2 Chronic atrial fibrillation; K21.9 Gastro-esophageal reflux disease without esophagitis; M19.90 Unspecified osteoarthritis, unspecified site; Z85.3 Personal history of malignant neoplasm of breast; Z92.3 Personal history of irradiation; Z87.891 Personal history of nicotine dependence; F32.9 Major depressive disorder, single episode, unspecified; M81.0 Age-related osteoporosis without current pathological fracture; Z99.81 Dependence on supplemental oxygen; Z79.899 Other long term (current) drug therapy; Z87.01 Personal history of pneumonia (recurrent)

== ENCOUNTER 2016-11-03 13:30 | Emergency (ER) | payer MEDICARE ==
[~2016-11-03] VITALS: Ht 152.4 cm; Wt 77.1 kg
[~2016-11-03 13:30] MED LIST changes: +ADVA230A INH; +AZIT250T3 PO; +CALC600T57 PO; +CEFD1CAP8 PO; +HYDR-4266 PO; +MAGNCAP2 PO; -PARO20TA2 PO; +PARO20TA3 PO; +PRED20TA PO; +SPIR25TA2 PO; +TORS100T PO; +VITMTA PO; +XARE15TA PO
[2016-11-03] MEDS ORDERED: ALBU83IN (14:01)
[2016-11-03] MEDS ORDERED: METO-207 PO (14:01)
[2016-11-03] MEDS ORDERED: FURO40TA2 (14:01)
[2016-11-03] MEDS ORDERED: POTA20TA (14:01)
[2016-11-03 16:07] LABS: BASO % 0.2 % (0.0-1.0); EOS # 0.1 K/mm3 (0.0-0.50); EOS % 0.6 % (0.0-3.0); LARGE UNSTAINED CELL # 0.1 K/mm3 (0.0-0.4); LARGE UNSTAINED CELL % 0.7 % (0.0-4.0); LYMPH # 0.6 K/mm3 (1.5-4.5); LYMPH % 3.8 % (24.0-44.0); MEAN CORPUSCULAR HEMOGLOBIN 31.1 pg (27.0-33.0); MEAN CORPUSCULAR HGB CONC 31.3 g/dl (32.0-36.5); MEAN CORPUSCULAR VOLUME 99.3 fl (80.0-96.0); MONO # 0.7 K/mm3 (0.0-0.8); NEUTROPHILS % 89.7 % (36.0-66.0); PLATELET COUNT, AUTOMATED 319 k/mm3 (150-450); RED CELL DISTRIBUTION WIDTH 15.7 % (11.5-14.5); WHITE BLOOD COUNT 14.5 K/mm3 (4.0-10.0)
[2016-11-03 16:31] LABS: ALBUMIN 2.8 GM/DL (3.2-5.2); ALBUMIN/GLOBULIN RATIO 0.88 (1.00-1.93); ALKALINE PHOSPHATASE 78 U/L (45-117); ALT/SGPT 15 U/L (12-78); ANION GAP 6 MEQ/L (8-16); AST/SGOT 12 U/L (15-37); BILIRUBIN,DIRECT < 0.1 MG/DL (0.0-0.2); BILIRUBIN,TOTAL 0.3 MG/DL (0.2-1.0); BLOOD UREA NITROGEN 17 MG/DL (7-18); CALCIUM LEVEL 8.7 MG/DL (8.8-10.2); CARBON DIOXIDE LEVEL 33 MEQ/L (21-32); CHLORIDE LEVEL 104 MEQ/L (98-107); CREATININE FOR GFR 0.88 MG/DL (0.55-1.02); GLOMERULAR FILTRATION RATE > 60.0 (>39); GLUCOSE, FASTING 94 MG/DL (83-110); POTASSIUM SERUM 4.1 MEQ/L (3.5-5.1); SODIUM LEVEL 143 MEQ/L (136-145)
[2016-11-03] MEDS ORDERED: METOPROLOL 5 MG/5 ML VIAL IV STA (17:41)
[2016-11-03] MEDS ORDERED: FUROSEMIDE 40 MG TAB PO ONE (17:45)
[2016-11-03] MEDS ORDERED: LevoFLOXacin IV 500 MG in APPROPRIATE DILUENT 1 EA IV ONE (17:45)
[2016-11-03 18:18] VITALS: BP 160/83
--- NOTE | 2016-11-03 18:20 | ECGEPIP ---
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
[2016-11-03 19:54] VITALS: BP 132/85
[2016-11-03] MEDS ORDERED: LEVO500T32 PO (20:04)
--- NOTE | 2016-11-04 08:36 | REP ---
CHEST, TWO VIEWS: HISTORY: Cough. COMPARISON: 06/12/2016 Increased density is present in the lower lobes, consistent with bibasilar atelectasis or infiltrates. The cardiac silhouette is enlarged. The pulmonary vasculature is normal in appearance. The bony structure is intact. IMPRESSION: 1. Bibasilar atelectasis or infiltrates. 2. Cardiomegaly. Signed by Ezio Schwartz MD 11/04/2016 08:38 A
== END 2016-11-03 20:35 | disposition home or self-care (01) ==
LOC: M ED 15:32
DX: J18.9 Pneumonia, unspecified organism (principal)
CPT/HCPCS: 71020; 80048; 80076; 82550; 82553; 83605; 83880; 84484; 85025; 87040; 93005; 93041; 94760; 96374; 99285; J1956

== ENCOUNTER 2016-11-13 09:32 | Inpatient (IN) | payer MEDICARE ==
[~2016-11-13] VITALS: Ht 152.4 cm; Wt 76.5 kg
[~2016-11-13 09:32] MED LIST changes: +ALBU83IN; +FURO40TA2; +LEVO500T32 PO; +METO-207 PO; +POTA20TA
[2016-11-13 11:04] LABS: BASO % 0.2 % (0.0-1.0); EOS # 0.1 K/mm3 (0.0-0.50); EOS % 0.5 % (0.0-3.0); LARGE UNSTAINED CELL # 0.1 K/mm3 (0.0-0.4); LARGE UNSTAINED CELL % 0.8 % (0.0-4.0); LYMPH # 0.5 K/mm3 (1.5-4.5); LYMPH % 2.5 % (24.0-44.0); MEAN CORPUSCULAR HEMOGLOBIN 30.8 pg (27.0-33.0); MEAN CORPUSCULAR HGB CONC 30.4 g/dl (32.0-36.5); MEAN CORPUSCULAR VOLUME 101.3 fl (80.0-96.0); MONO # 0.5 K/mm3 (0.0-0.8); MONO % 3.3 % (0.0-5.0); NEUTROPHILS # 14.1 K/mm3 (1.8-7.7); NEUTROPHILS % 92.7 % (36.0-66.0); PLATELET COUNT, AUTOMATED 302 k/mm3 (150-450); WHITE BLOOD COUNT 15.2 K/mm3 (4.0-10.0)
[2016-11-13 11:29] LABS: CALCIUM LEVEL 9.4 MG/DL (8.8-10.2); CREATININE FOR GFR 1.16 MG/DL (0.55-1.02); GLOMERULAR FILTRATION RATE 48.2 (>39); POTASSIUM SERUM 5.1 MEQ/L (3.5-5.1)
[2016-11-13] MEDS ORDERED: cefTRIAXone SOD 2 GM in D5W MINI-BAG PLUS 50 ML IV ONE (12:00)
[2016-11-13] MEDS ORDERED: AZITHROMYCIN INJ 500 MG, VIAL MATE ADAPTER 1 EACH in D5W 250 ML IV ONE (12:00)
[2016-11-13] MEDS ORDERED: POTA20TA4 PO (12:53)
[2016-11-13] MEDS ORDERED: DILT120C82 PO (12:53)
[2016-11-13] MEDS ORDERED: FURO1TAB15 PO (12:53)
[2016-11-13] MEDS ORDERED: FERR325T3 PO (12:55)
[2016-11-13] MEDS ORDERED: ALBU83IN INH (13:21)
[2016-11-13] MEDS ORDERED: PARO-39 PO (13:21)
[2016-11-13] MEDS ORDERED: BISACODYL 5 MG TAB PO PRN (13:30)
[2016-11-13] MEDS ORDERED: LEVALBUTEROL 1.25 MG/0.5 ML CONCENTRATE NEB INH PRN (13:45)
[2016-11-13] MEDS ORDERED: traMADol 50 MG TAB PO PRN (13:45)
[2016-11-13] MEDS ORDERED: VANCOMYCIN HCL 500 MG in D5W MINI-BAG PLUS 100 ML IV SCH (14:45)
[2016-11-13] MEDS ORDERED: VANCOMYCIN HCL 500 MG in D5W MINI-BAG PLUS 100 ML IV ONE (15:00)
[2016-11-13] MEDS: FUROSEMIDE 40 MG/4 ML VIAL (J1940) IV SCH ×2 (15:12→22:22)
[2016-11-13] MEDS: VANCOMYCIN HCL 1,000 MG, VIAL MATE ADAPTER 1 EACH in D5W 250 ML IV SCH (16:54)
[2016-11-13 18:07] VITALS: BP 126/82
[2016-11-13] MEDS: RIVAROXABAN 15 MG TAB (XARELTO) PO SCH (18:16)
[2016-11-13] MEDS: ACETAMINOPHEN TAB 650MG DOSE (2X325MG) PO PRN (20:50)
[2016-11-13] MEDS: ADVAIR HFA 230/21 INHALER INH SCH (21:00)
[2016-11-13] MEDS ORDERED: METOPROLOL TART 25 MG TABLET PO SCH (21:00)
[2016-11-13] MEDS: CEFEPIME HCL 1 GM in D5W MINI-BAG PLUS 50 ML IV SCH (21:06)
[2016-11-13 21:40] VITALS: BP 113/63
[2016-11-13 23:59] VITALS: BP 145/78
[2016-11-14] MEDS: ONDANSETRON 4MG/2ML VIAL (J2405) IV PRN (02:31)
[2016-11-14 04:00] VITALS: BP 130/77
[2016-11-14 05:48] LABS: ALBUMIN 2.9 GM/DL (3.2-5.2); ALBUMIN/GLOBULIN RATIO 0.83 (1.00-1.93); BILIRUBIN,TOTAL 0.2 MG/DL (0.2-1.0); CALCIUM LEVEL 8.9 MG/DL (8.8-10.2); CREATININE FOR GFR 1.15 MG/DL (0.55-1.02); GLOMERULAR FILTRATION RATE 48.7 (>39); MAGNESIUM LEVEL 2.1 MG/DL (1.8-2.4); POTASSIUM SERUM 4.3 MEQ/L (3.5-5.1); TOTAL PROTEIN 6.4 GM/DL (6.4-8.2)
[2016-11-14 06:01] LABS: MEAN CORPUSCULAR HEMOGLOBIN 31.9 pg (27.0-33.0); MEAN CORPUSCULAR HGB CONC 31.4 g/dl (32.0-36.5); MEAN CORPUSCULAR VOLUME 101.8 fl (80.0-96.0); PLATELET COUNT, AUTOMATED 332 k/mm3 (150-450); RED CELL DISTRIBUTION WIDTH 15.8 % (11.5-14.5); WHITE BLOOD COUNT 20.8 K/mm3 (4.0-10.0)
[2016-11-14] MEDS: FUROSEMIDE 40 MG/4 ML VIAL (J1940) IV SCH ×3 (06:25→21:17)
[2016-11-14] MEDS: METOPROLOL TART 25 MG TABLET PO SCH ×3 (06:25→17:57)
[2016-11-14 06:34] LABS: BASOPHILS 1 % (0-4); EOSINOPHILS 3 % (0-5)
[2016-11-14 06:40] LABS: ANISOCYTOSIS 2+; HYPOCHROMASIA 1+
[2016-11-14 06:41] LABS: POLYCHROMASIA 1+
[2016-11-14 08:00] VITALS: BP 122/82
[2016-11-14] MEDS: ADVAIR HFA 230/21 INHALER INH SCH ×2 (08:02→19:49)
[2016-11-14] MEDS: TIOTROPIUM INHALER/CAPSULE (SPIRIVA) INH SCH (08:02)
[2016-11-14] MEDS: FERROUS SULFATE 325MG TAB PO SCH (08:33)
[2016-11-14] MEDS: CEFEPIME HCL 1 GM in D5W MINI-BAG PLUS 50 ML IV SCH ×2 (08:33→21:07)
[2016-11-14] MEDS: PARoxetine 20 MG TAB PO SCH (08:34)
[2016-11-14] MEDS: OMEPRAZOLE 20 MG CAP PO SCH (08:34)
[2016-11-14] MEDS ORDERED: SPIRONOLACTONE 25 MG TAB PO SCH (09:00)
[2016-11-14] MEDS ORDERED: POTASSIUM CHLORIDE 10 MEQ SR TABLET PO SCH (09:00)
[2016-11-14] MEDS: VANCOMYCIN HCL 1,000 MG, VIAL MATE ADAPTER 1 EACH in D5W 250 ML IV SCH (09:51)
[2016-11-14] MEDS: ACETAMINOPHEN TAB 650MG DOSE (2X325MG) PO PRN ×2 (09:51→18:06)
[2016-11-14 12:00] VITALS: BP 108/70
[2016-11-14] MEDS ORDERED: cefTRIAXone SOD 2 GM in D5W MINI-BAG PLUS 50 ML IV SCH (12:00)
[2016-11-14] MEDS: NYSTATIN 100,000 UNITS/GM TOPICAL PWD 15 GM TOP SCH ×3 (12:09→21:17)
[2016-11-14] MEDS ORDERED: AZITHROMYCIN INJ 500 MG, VIAL MATE ADAPTER 1 EACH in D5W 250 ML IV SCH (13:00)
[2016-11-14 15:56] VITALS: BP 109/77
[2016-11-14] MEDS: RIVAROXABAN 15 MG TAB (XARELTO) PO SCH (17:57)
[2016-11-14 20:00] VITALS: BP 98/50
[2016-11-14] MEDS ORDERED: SLF 3 ML SYR IV PRN (22:15)
[2016-11-15] VITALS (8 sets, daily range): BP systolic 88–122; BP diastolic 48–68; O2SAT 97
[2016-11-15] MEDS: ONDANSETRON 4MG/2ML VIAL (J2405) IV PRN ×2 (01:20→15:40)
[2016-11-15] MEDS: ACETAMINOPHEN TAB 650MG DOSE (2X325MG) PO PRN ×3 (01:20→20:45)
[2016-11-15 03:16] LABS: BASO # 0.1 K/mm3 (0.0-0.2); BASO % 0.6 % (0.0-1.0); EOS # 0.6 K/mm3 (0.0-0.50); EOS % 3.3 % (0.0-3.0); LARGE UNSTAINED CELL # 0.2 K/mm3 (0.0-0.4); LARGE UNSTAINED CELL % 0.9 % (0.0-4.0); LYMPH # 0.2 K/mm3 (1.5-4.5); LYMPH % 1.3 % (24.0-44.0); MEAN CORPUSCULAR HEMOGLOBIN 31.6 pg (27.0-33.0); MEAN CORPUSCULAR VOLUME 101.9 fl (80.0-96.0); MONO # 0.8 K/mm3 (0.0-0.8); MONO % 4.8 % (0.0-5.0); NEUTROPHILS # 15.5 K/mm3 (1.8-7.7); NEUTROPHILS % 89.1 % (36.0-66.0); PLATELET COUNT, AUTOMATED 328 k/mm3 (150-450); RED CELL DISTRIBUTION WIDTH 15.7 % (11.5-14.5); WHITE BLOOD COUNT 17.4 K/mm3 (4.0-10.0)
[2016-11-15 03:19] LABS: ALBUMIN 2.7 GM/DL (3.2-5.2); ALBUMIN/GLOBULIN RATIO 0.75 (1.00-1.93); BILIRUBIN,TOTAL 0.2 MG/DL (0.2-1.0); CALCIUM LEVEL 8.9 MG/DL (8.8-10.2); CREATININE FOR GFR 1.6 MG/DL (0.55-1.02); GLOMERULAR FILTRATION RATE 33.3 (>39); TOTAL PROTEIN 6.3 GM/DL (6.4-8.2)
[2016-11-15 03:31] LABS: POTASSIUM SERUM 5.3 MEQ/L (3.5-5.1)
[2016-11-15] MEDS: VANCOMYCIN HCL 1,000 MG, VIAL MATE ADAPTER 1 EACH in D5W 250 ML IV SCH (04:09)
[2016-11-15] MEDS: METOPROLOL TART 25 MG TABLET PO SCH ×4 (04:10→18:10)
[2016-11-15] MEDS: FUROSEMIDE 40 MG/4 ML VIAL (J1940) IV SCH (06:00)
[2016-11-15] MEDS: SLF 3 ML SYR IV SCH ×3 (06:00→20:41)
[2016-11-15] MEDS: DIGOXIN 0.25 MG TAB PO SCH ×3 (07:44→23:00)
[2016-11-15] MEDS: ADVAIR HFA 230/21 INHALER INH SCH ×2 (08:10→20:36)
[2016-11-15] MEDS: TIOTROPIUM INHALER/CAPSULE (SPIRIVA) INH SCH (08:10)
[2016-11-15 09:34] LABS: DIGOXIN LEVEL 0.1 NG/ML (0.5-2.0); POTASSIUM SERUM 5.1 MEQ/L (3.5-5.1)
[2016-11-15] MEDS: CEFEPIME HCL 1 GM in D5W MINI-BAG PLUS 50 ML IV SCH ×2 (10:23→20:40)
[2016-11-15] MEDS: FERROUS SULFATE 325MG TAB PO SCH (10:24)
[2016-11-15] MEDS: PARoxetine 20 MG TAB PO SCH (10:24)
[2016-11-15] MEDS: LACTOBACILLUS ACIDOPHILUS CAP (BACID) PO SCH ×2 (10:24→20:40)
[2016-11-15] MEDS: OMEPRAZOLE 20 MG CAP PO SCH (10:24)
[2016-11-15] MEDS: NYSTATIN 100,000 UNITS/GM TOPICAL PWD 15 GM TOP SCH ×3 (10:24→20:40)
[2016-11-15] MEDS ORDERED: SODIUM CHLORIDE 0.9% INJ 10 ML SYR IV PRN (15:45)
[2016-11-15] MEDS: RIVAROXABAN 15 MG TAB (XARELTO) PO SCH (18:09)
[2016-11-15] MEDS: SODIUM CHLORIDE 0.9% INJ 10 ML SYR IV SCH (18:10)
[2016-11-16] MEDS ORDERED: VANCOMYCIN HCL 1,000 MG, VIAL MATE ADAPTER 1 EACH in D5W 250 ML IV SCH ×3
[2016-11-16 04:45] VITALS: BP 102/62
[2016-11-16] MEDS: ONDANSETRON 4MG/2ML VIAL (J2405) IV PRN (05:20)
[2016-11-16] MEDS: SLF 3 ML SYR IV SCH ×3 (05:21→22:00)
[2016-11-16] MEDS: METOPROLOL TART 25 MG TABLET PO SCH ×4 (05:35→16:32)
[2016-11-16] MEDS: SODIUM CHLORIDE 0.9% INJ 10 ML SYR IV SCH ×2 (05:37→16:32)
[2016-11-16 05:48] LABS: BASO % 0.3 % (0.0-1.0); EOS # 0.7 K/mm3 (0.0-0.50); EOS % 4.9 % (0.0-3.0); LARGE UNSTAINED CELL # 0.1 K/mm3 (0.0-0.4); LARGE UNSTAINED CELL % 0.8 % (0.0-4.0); LYMPH # 0.6 K/mm3 (1.5-4.5); LYMPH % 3.1 % (24.0-44.0); MEAN CORPUSCULAR HEMOGLOBIN 31.2 pg (27.0-33.0); MEAN CORPUSCULAR HGB CONC 30.6 g/dl (32.0-36.5); MEAN CORPUSCULAR VOLUME 101.8 fl (80.0-96.0); MONO # 0.9 K/mm3 (0.0-0.8); MONO % 6.2 % (0.0-5.0); NEUTROPHILS # 12.2 K/mm3 (1.8-7.7); NEUTROPHILS % 84.8 % (36.0-66.0); PLATELET COUNT, AUTOMATED 316 k/mm3 (150-450); RED CELL DISTRIBUTION WIDTH 16.3 % (11.5-14.5); WHITE BLOOD COUNT 14.4 K/mm3 (4.0-10.0)
[2016-11-16 06:20] LABS: ALBUMIN 2.7 GM/DL (3.2-5.2); ALBUMIN/GLOBULIN RATIO 0.96 (1.00-1.93); BILIRUBIN,TOTAL 0.2 MG/DL (0.2-1.0); CALCIUM LEVEL 8.6 MG/DL (8.8-10.2); CREATININE FOR GFR 1.23 MG/DL (0.55-1.02); GLOMERULAR FILTRATION RATE 45.1 (>39); MAGNESIUM LEVEL 2.5 MG/DL (1.8-2.4); POTASSIUM SERUM 4.9 MEQ/L (3.5-5.1); TOTAL PROTEIN 5.5 GM/DL (6.4-8.2)
[2016-11-16] MEDS: TIOTROPIUM INHALER/CAPSULE (SPIRIVA) INH SCH (07:57)
[2016-11-16] MEDS: ADVAIR HFA 230/21 INHALER INH SCH ×2 (07:57→20:33)
[2016-11-16 08:00] VITALS: BP 137/89
[2016-11-16] MEDS: FUROSEMIDE 40 MG/4 ML VIAL (J1940) IV SCH (09:26)
[2016-11-16] MEDS: OMEPRAZOLE 20 MG CAP PO SCH (09:26)
[2016-11-16] MEDS: FERROUS SULFATE 325MG TAB PO SCH (09:27)
[2016-11-16] MEDS: LACTOBACILLUS ACIDOPHILUS CAP (BACID) PO SCH ×2 (09:27→20:37)
[2016-11-16] MEDS: DIGOXIN 0.125 MG TAB PO SCH (09:27)
[2016-11-16] MEDS: PARoxetine 20 MG TAB PO SCH (09:27)
[2016-11-16] MEDS: NYSTATIN 100,000 UNITS/GM TOPICAL PWD 15 GM TOP SCH ×3 (09:28→20:39)
[2016-11-16] MEDS: CEFEPIME HCL 1 GM in D5W MINI-BAG PLUS 50 ML IV SCH ×2 (09:28→20:38)
[2016-11-16 12:00] VITALS: BP 130/61
[2016-11-16 14:15] LABS: ORGANISM ID Not indicated. (.); SPECIMEN SOURCE Urine (.)
[2016-11-16 16:30] VITALS: BP 123/56
[2016-11-16] MEDS: RIVAROXABAN 15 MG TAB (XARELTO) PO SCH (16:31)
[2016-11-16 19:54] VITALS: BP 131/64
[2016-11-16 23:59] VITALS: BP 133/63
[2016-11-17] MEDS: METOPROLOL TART 25 MG TABLET PO SCH ×2 (00:29→05:56)
[2016-11-17 04:00] VITALS: BP 128/73
[2016-11-17] MEDS: SODIUM CHLORIDE 0.9% INJ 10 ML SYR IV SCH ×2 (05:56→17:42)
[2016-11-17 06:16] LABS: BASO % 0.4 % (0.0-1.0); EOS # 0.6 K/mm3 (0.0-0.50); EOS % 4.9 % (0.0-3.0); LARGE UNSTAINED CELL # 0.1 K/mm3 (0.0-0.4); LARGE UNSTAINED CELL % 1.1 % (0.0-4.0); LYMPH # 0.6 K/mm3 (1.5-4.5); LYMPH % 3.8 % (24.0-44.0); MEAN CORPUSCULAR HEMOGLOBIN 31.2 pg (27.0-33.0); MEAN CORPUSCULAR HGB CONC 30.6 g/dl (32.0-36.5); MEAN CORPUSCULAR VOLUME 101.9 fl (80.0-96.0); MONO # 0.7 K/mm3 (0.0-0.8); MONO % 5.7 % (0.0-5.0); NEUTROPHILS # 10.8 K/mm3 (1.8-7.7); NEUTROPHILS % 84.2 % (36.0-66.0); PLATELET COUNT, AUTOMATED 354 k/mm3 (150-450); RED CELL DISTRIBUTION WIDTH 16.4 % (11.5-14.5); WHITE BLOOD COUNT 12.9 K/mm3 (4.0-10.0)
[2016-11-17 06:39] LABS: ALBUMIN 2.7 GM/DL (3.2-5.2); ALBUMIN/GLOBULIN RATIO 0.9 (1.00-1.93); BILIRUBIN,TOTAL 0.2 MG/DL (0.2-1.0); CALCIUM LEVEL 8.6 MG/DL (8.8-10.2); GLOMERULAR FILTRATION RATE 57.2 (>39); MAGNESIUM LEVEL 2.5 MG/DL (1.8-2.4); POTASSIUM SERUM 4.6 MEQ/L (3.5-5.1); TOTAL PROTEIN 5.7 GM/DL (6.4-8.2)
[2016-11-17 07:18] VITALS: BP 115/73
[2016-11-17] MEDS: TIOTROPIUM INHALER/CAPSULE (SPIRIVA) INH SCH (07:42)
[2016-11-17] MEDS: ADVAIR HFA 230/21 INHALER INH SCH ×2 (07:42→20:26)
[2016-11-17 08:33] LABS: DIGOXIN LEVEL 1.5 NG/ML (0.5-2.0)
[2016-11-17] MEDS: OMEPRAZOLE 20 MG CAP PO SCH (08:44)
[2016-11-17] MEDS: CEFEPIME HCL 1 GM in D5W MINI-BAG PLUS 50 ML IV SCH ×2 (08:45→20:29)
[2016-11-17] MEDS: DIGOXIN 0.125 MG TAB PO SCH (08:45)
[2016-11-17] MEDS: LACTOBACILLUS ACIDOPHILUS CAP (BACID) PO SCH ×2 (08:45→20:29)
[2016-11-17] MEDS: FERROUS SULFATE 325MG TAB PO SCH (08:45)
[2016-11-17] MEDS: PARoxetine 20 MG TAB PO SCH (08:45)
[2016-11-17] MEDS: FUROSEMIDE 40 MG/4 ML VIAL (J1940) IV SCH (08:46)
[2016-11-17] MEDS: NYSTATIN 100,000 UNITS/GM TOPICAL PWD 15 GM TOP SCH ×3 (08:47→20:30)
[2016-11-17 12:00] VITALS: BP_SYST 100; BP_SYST 110; BP_DIAS 60
[2016-11-17 15:46] VITALS: BP 90/36
[2016-11-17] MEDS: RIVAROXABAN 15 MG TAB (XARELTO) PO SCH (17:42)
[2016-11-17 20:00] VITALS: BP 108/59
[2016-11-17] MEDS: ACETAMINOPHEN TAB 650MG DOSE (2X325MG) PO PRN (23:30)
[2016-11-17 23:59] VITALS: BP 136/60
[2016-11-18 04:00] VITALS: BP 132/58
[2016-11-18] MEDS: SODIUM CHLORIDE 0.9% INJ 10 ML SYR IV SCH ×2 (06:18→17:31)
[2016-11-18 06:43] LABS: BASO # 0.1 K/mm3 (0.0-0.2); BASO % 0.6 % (0.0-1.0); EOS # 0.5 K/mm3 (0.0-0.50); LARGE UNSTAINED CELL # 0.3 K/mm3 (0.0-0.4); LARGE UNSTAINED CELL % 2.1 % (0.0-4.0); LYMPH # 0.6 K/mm3 (1.5-4.5); LYMPH % 4.6 % (24.0-44.0); MEAN CORPUSCULAR HEMOGLOBIN 31.2 pg (27.0-33.0); MONO # 0.9 K/mm3 (0.0-0.8); MONO % 6.5 % (0.0-5.0); NEUTROPHILS # 10.9 K/mm3 (1.8-7.7); NEUTROPHILS % 82.2 % (36.0-66.0); PLATELET COUNT, AUTOMATED 333 k/mm3 (150-450); RED CELL DISTRIBUTION WIDTH 16.7 % (11.5-14.5); WHITE BLOOD COUNT 13.3 K/mm3 (4.0-10.0)
[2016-11-18 07:09] LABS: ALBUMIN 2.7 GM/DL (3.2-5.2); ALBUMIN/GLOBULIN RATIO 1.04 (1.00-1.93); ALKALINE PHOSPHATASE 58 U/L (45-117); ALT/SGPT 14 U/L (12-78); ANION GAP 2 MEQ/L (8-16); AST/SGOT 11 U/L (15-37); BILIRUBIN,TOTAL 0.2 MG/DL (0.2-1.0); BLOOD UREA NITROGEN 25 MG/DL (7-18); CALCIUM LEVEL 8.2 MG/DL (8.8-10.2); CARBON DIOXIDE LEVEL 41 MEQ/L (21-32); CHLORIDE LEVEL 98 MEQ/L (98-107); CREATININE FOR GFR 0.88 MG/DL (0.55-1.02); GLOMERULAR FILTRATION RATE > 60.0 (>39); GLUCOSE, FASTING 93 MG/DL (83-110); MAGNESIUM LEVEL 2.2 MG/DL (1.8-2.4); SODIUM LEVEL 141 MEQ/L (136-145); TOTAL PROTEIN 5.3 GM/DL (6.4-8.2)
[2016-11-18] MEDS: TIOTROPIUM INHALER/CAPSULE (SPIRIVA) INH SCH (07:12)
[2016-11-18] MEDS: ADVAIR HFA 230/21 INHALER INH SCH ×2 (07:12→20:48)
[2016-11-18 08:00] VITALS: BP 110/65
[2016-11-18] MEDS: CEFEPIME HCL 1 GM in D5W MINI-BAG PLUS 50 ML IV SCH ×2 (08:24→19:57)
[2016-11-18] MEDS: FUROSEMIDE 40 MG/4 ML VIAL (J1940) IV SCH (08:24)
[2016-11-18] MEDS: FERROUS SULFATE 325MG TAB PO SCH (08:25)
[2016-11-18] MEDS: PARoxetine 20 MG TAB PO SCH (08:25)
[2016-11-18] MEDS: LACTOBACILLUS ACIDOPHILUS CAP (BACID) PO SCH ×2 (08:25→22:01)
[2016-11-18] MEDS: OMEPRAZOLE 20 MG CAP PO SCH (08:25)
[2016-11-18] MEDS: DIGOXIN 0.125 MG TAB PO SCH (08:26)
[2016-11-18] MEDS: NYSTATIN 100,000 UNITS/GM TOPICAL PWD 15 GM TOP SCH ×3 (08:27→22:01)
[2016-11-18 12:00] VITALS: BP 172/83
[2016-11-18 16:00] VITALS: BP 153/67
[2016-11-18] MEDS: RIVAROXABAN 15 MG TAB (XARELTO) PO SCH (17:31)
[2016-11-18 20:36] VITALS: BP 142/73
[2016-11-19] VITALS (8 sets, daily range): BP systolic 127–155; BP diastolic 57–87
[2016-11-19] MEDS: SODIUM CHLORIDE 0.9% INJ 10 ML SYR IV SCH ×2 (05:56→17:17)
[2016-11-19 06:36] LABS: BASO # 0.1 K/mm3 (0.0-0.2); BASO % 0.7 % (0.0-1.0); EOS # 0.4 K/mm3 (0.0-0.50); EOS % 3.3 % (0.0-3.0); LARGE UNSTAINED CELL # 0.2 K/mm3 (0.0-0.4); LARGE UNSTAINED CELL % 1.3 % (0.0-4.0); LYMPH # 0.9 K/mm3 (1.5-4.5); LYMPH % 5.3 % (24.0-44.0); MEAN CORPUSCULAR HEMOGLOBIN 30.9 pg (27.0-33.0); MEAN CORPUSCULAR HGB CONC 30.3 g/dl (32.0-36.5); MEAN CORPUSCULAR VOLUME 101.8 fl (80.0-96.0); MONO # 0.9 K/mm3 (0.0-0.8); MONO % 6.9 % (0.0-5.0); NEUTROPHILS # 10.7 K/mm3 (1.8-7.7); NEUTROPHILS % 82.6 % (36.0-66.0); PLATELET COUNT, AUTOMATED 342 k/mm3 (150-450); RED CELL DISTRIBUTION WIDTH 16.9 % (11.5-14.5); WHITE BLOOD COUNT 12.9 K/mm3 (4.0-10.0)
[2016-11-19 07:20] LABS: ALBUMIN 2.7 GM/DL (3.2-5.2); ALKALINE PHOSPHATASE 61 U/L (45-117); ALT/SGPT 12 U/L (12-78); ANION GAP 3 MEQ/L (8-16); AST/SGOT 13 U/L (15-37); BILIRUBIN,TOTAL 0.3 MG/DL (0.2-1.0); BLOOD UREA NITROGEN 22 MG/DL (7-18); CALCIUM LEVEL 8.3 MG/DL (8.8-10.2); CARBON DIOXIDE LEVEL 43 MEQ/L (21-32); CHLORIDE LEVEL 96 MEQ/L (98-107); CREATININE FOR GFR 0.79 MG/DL (0.55-1.02); GLOMERULAR FILTRATION RATE > 60.0 (>39); GLUCOSE, FASTING 92 MG/DL (83-110); MAGNESIUM LEVEL 2.1 MG/DL (1.8-2.4); POTASSIUM SERUM 3.9 MEQ/L (3.5-5.1); SODIUM LEVEL 142 MEQ/L (136-145); TOTAL PROTEIN 5.4 GM/DL (6.4-8.2)
[2016-11-19] MEDS: TIOTROPIUM INHALER/CAPSULE (SPIRIVA) INH SCH (08:14)
[2016-11-19] MEDS: ADVAIR HFA 230/21 INHALER INH SCH ×2 (08:14→20:24)
[2016-11-19] MEDS: PARoxetine 20 MG TAB PO SCH (09:15)
[2016-11-19] MEDS: CEFEPIME HCL 1 GM in D5W MINI-BAG PLUS 50 ML IV SCH (09:15)
[2016-11-19] MEDS: FERROUS SULFATE 325MG TAB PO SCH (09:15)
[2016-11-19] MEDS: LACTOBACILLUS ACIDOPHILUS CAP (BACID) PO SCH ×2 (09:15→21:11)
[2016-11-19] MEDS: OMEPRAZOLE 20 MG CAP PO SCH (09:15)
[2016-11-19] MEDS: FUROSEMIDE 40 MG/4 ML VIAL (J1940) IV SCH (09:16)
[2016-11-19] MEDS: DIGOXIN 0.125 MG TAB PO SCH (09:20)
[2016-11-19] MEDS: NYSTATIN 100,000 UNITS/GM TOPICAL PWD 15 GM TOP SCH ×3 (09:21→21:12)
[2016-11-19] MEDS: RIVAROXABAN 15 MG TAB (XARELTO) PO SCH (17:17)
[2016-11-20 04:30] VITALS: BP 123/62
[2016-11-20] MEDS: SODIUM CHLORIDE 0.9% INJ 10 ML SYR IV SCH (05:06)
[2016-11-20 05:39] LABS: BASO # 0.1 K/mm3 (0.0-0.2); BASO % 0.6 % (0.0-1.0); EOS # 0.4 K/mm3 (0.0-0.50); EOS % 3.2 % (0.0-3.0); LARGE UNSTAINED CELL # 0.2 K/mm3 (0.0-0.4); LARGE UNSTAINED CELL % 1.2 % (0.0-4.0); LYMPH # 0.9 K/mm3 (1.5-4.5); LYMPH % 5.5 % (24.0-44.0); MEAN CORPUSCULAR HEMOGLOBIN 31.4 pg (27.0-33.0); MEAN CORPUSCULAR HGB CONC 30.7 g/dl (32.0-36.5); MEAN CORPUSCULAR VOLUME 102.4 fl (80.0-96.0); MONO # 0.9 K/mm3 (0.0-0.8); MONO % 6.7 % (0.0-5.0); NEUTROPHILS # 10.6 K/mm3 (1.8-7.7); NEUTROPHILS % 82.8 % (36.0-66.0); PLATELET COUNT, AUTOMATED 343 k/mm3 (150-450); RED CELL DISTRIBUTION WIDTH 16.9 % (11.5-14.5); WHITE BLOOD COUNT 12.8 K/mm3 (4.0-10.0)
[2016-11-20 06:33] LABS: ALBUMIN 2.8 GM/DL (3.2-5.2); ALBUMIN/GLOBULIN RATIO 0.93 (1.00-1.93); ALKALINE PHOSPHATASE 63 U/L (45-117); ALT/SGPT 12 U/L (12-78); ANION GAP 5 MEQ/L (8-16); AST/SGOT 15 U/L (15-37); BILIRUBIN,TOTAL 0.3 MG/DL (0.2-1.0); BLOOD UREA NITROGEN 19 MG/DL (7-18); CALCIUM LEVEL 8.4 MG/DL (8.8-10.2); CARBON DIOXIDE LEVEL 41 MEQ/L (21-32); CHLORIDE LEVEL 95 MEQ/L (98-107); CREATININE FOR GFR 0.72 MG/DL (0.55-1.02); GLOMERULAR FILTRATION RATE > 60.0 (>39); GLUCOSE, FASTING 92 MG/DL (83-110); MAGNESIUM LEVEL 2.2 MG/DL (1.8-2.4); POTASSIUM SERUM 3.9 MEQ/L (3.5-5.1); SODIUM LEVEL 141 MEQ/L (136-145); TOTAL PROTEIN 5.8 GM/DL (6.4-8.2)
[2016-11-20 08:00] VITALS: BP 144/66
[2016-11-20 08:25] VITALS: BP 123/62
[2016-11-20] MEDS: LACTOBACILLUS ACIDOPHILUS CAP (BACID) PO SCH (08:25)
[2016-11-20] MEDS: FERROUS SULFATE 325MG TAB PO SCH (08:25)
[2016-11-20] MEDS: DIGOXIN 0.125 MG TAB PO SCH (08:26)
[2016-11-20] MEDS: FUROSEMIDE 40 MG/4 ML VIAL (J1940) IV SCH (08:26)
[2016-11-20] MEDS: OMEPRAZOLE 20 MG CAP PO SCH (08:26)
[2016-11-20] MEDS: PARoxetine 20 MG TAB PO SCH (08:26)
[2016-11-20] MEDS: NYSTATIN 100,000 UNITS/GM TOPICAL PWD 15 GM TOP SCH (08:27)
[2016-11-20] MEDS: ADVAIR HFA 230/21 INHALER INH SCH (08:41)
[2016-11-20] MEDS: TIOTROPIUM INHALER/CAPSULE (SPIRIVA) INH SCH (08:41)
[2016-11-20] MEDS ORDERED: METOPROLOL SUCC *XL* 25MG TAB (TopROL *XL*) PO SCH (09:00)
[2016-11-20] MEDS ORDERED: FURO40TA2 PO (11:09)
[2016-11-20] MEDS ORDERED: XARE20TA PO (11:09)
[2016-11-20] MEDS ORDERED: METO25TA74 PO (11:09)
[2016-11-20] MEDS ORDERED: DIGO0.12 PO (11:09)
[2016-11-20] MEDS ORDERED: RIVAROXABAN 20 MG TAB (XARELTO) PO SCH (18:00)
== END 2016-11-20 13:31 | disposition home health service (06) | DRG 291 ==
LOC: M ED 10:15 → M ED INP 13:49 → M PCU 21:31
PROVIDERS: ADMIT Internal Medicine; ATTEND General Practice
PROC: 02HV33Z Insertion of Infusion Device into Superior Vena Cava, Percutaneous Approach (ICD-10-PCS; principal; 2016-11-15)
DX: I13.0 Hypertensive heart and chronic kidney disease with heart failure and stage 1 through stage 4 chronic kidney disease, or unspecified chronic kidney disease (principal); J18.9 Pneumonia, unspecified organism; I50.33 Acute on chronic diastolic (congestive) heart failure; J44.9 Chronic obstructive pulmonary disease, unspecified; I48.2 Chronic atrial fibrillation; Z66 Do not resuscitate; K21.9 Gastro-esophageal reflux disease without esophagitis; G47.33 Obstructive sleep apnea (adult) (pediatric); F32.9 Major depressive disorder, single episode, unspecified; F41.9 Anxiety disorder, unspecified; B96.5 Pseudomonas (aeruginosa) (mallei) (pseudomallei) as the cause of diseases classified elsewhere; E66.01 Morbid (severe) obesity due to excess calories; Z68.32 Body mass index [BMI] 32.0-32.9, adult; Z99.81 Dependence on supplemental oxygen; Z79.01 Long term (current) use of anticoagulants; Z79.899 Other long term (current) drug therapy; Z88.8 Allergy status to other drugs, medicaments and biological substances; Z88.6 Allergy status to analgesic agent; Z87.891 Personal history of nicotine dependence; Z83.79 Family history of other diseases of the digestive system; Z83.6 Family history of other diseases of the respiratory system; Z82.49 Family history of ischemic heart disease and other diseases of the circulatory system; Z85.3 Personal history of malignant neoplasm of breast; Z99.89 Dependence on other enabling machines and devices; N18.3 Chronic kidney disease, stage 3 (moderate)

== ENCOUNTER 2017-05-07 12:33 | Inpatient (IN) | payer MEDICARE ==
[~2017-05-07] VITALS: Ht 154.9 cm
[~2017-05-07 12:33] MED LIST changes: +AZIT-12 PO; -AZIT250T3 PO; -CART180C PO; +CART180C3 PO; -COUM2.5T11 PO; +COUM2.5T17 PO; +DIGO0.12 PO; +DILT120C82 PO; +FERR325T3 PO; +FURO80TA2 PO; +HYDR-3910 PO; -HYDR-4266 PO; +LEVO500T3 PO; -LEVO500T32 PO; -METO-207 PO; +METO1TAB32 PO; +METO1TAB7 PO; +PARO20TA4 PO; +POTA20TA4 PO; +XARE20TA PO
[2017-05-07] MEDS ORDERED: XARE15TA PO (12:51)
[2017-05-07] MEDS ORDERED: TORS100T PO (12:51)
[2017-05-07 14:46] LABS: BASO # 0.1 10^3/uL (0.0-0.2); BASO % 0.5 % (0.0-1.0); EOS # 0.3 10^3/uL (0.0-0.50); EOS % 2.2 % (0.0-3.0); IMMATURE GRANULOCYTE % 1.9 % (0-0); LYMPH # 0.6 10^3/uL (1.5-4.5); LYMPH % 4.7 % (24.0-44.0); MEAN CORPUSCULAR HEMOGLOBIN 30.6 pg (27.0-33.0); MEAN CORPUSCULAR HGB CONC 28.7 g/dl (32.0-36.5); MEAN CORPUSCULAR VOLUME 106.6 fl (80.0-96.0); MONO % 8.9 % (0.0-5.0); NEUTROPHILS # 9.5 10^3/uL (1.8-7.7); NEUTROPHILS % 81.8 % (36.0-66.0); PLATELET COUNT, AUTOMATED 414 10^3/uL (150-450); RED CELL DISTRIBUTION WIDTH 13.9 % (11.5-14.5); WHITE BLOOD COUNT 11.7 10^3/uL (4.0-10.0)
--- NOTE | 2017-05-07 14:55 | REP ---
Chest x-ray PA and lateral: 05/07/2017 Comparison 11/03/2016, 10/18/2014. Clinical history: Dyspnea and cough. Subtle patchy infiltrate in the right upper lobe peripherally at and above the level of the hilum. No definite effusions. Some underlying interstitial changes bilaterally. CP angles sharply defined. No lateral pleural thickening. There is a group of the axillary surgical clips on the left. There is cardiomegaly with left atrial and ventricular enlargement. Some pulmonary artery hypertension noted. Minor basilar fibrotic change. Degenerative changes in the spine with some mild kyphosis. No compression deformity. Aorta calcified at the arch without aneurysm. Airway midline. Impression: 1 Patchy infiltrates right upper lobe at and above the level of the hilum peripherally. 2. Cardiomegaly with left atrial and ventricular enlargement without gross effusion. Some underlying mild fibrosis. 3. Axillary surgical clips on the left. Signed by Calos Francis MD 05/07/2017 08:32 P
[2017-05-07 15:14] LABS: ALBUMIN 2.7 GM/DL (3.2-5.2); ALBUMIN/GLOBULIN RATIO 0.63 (1.00-1.93); ALKALINE PHOSPHATASE 68 U/L (45-117); ALT/SGPT 21 U/L (12-78); ANION GAP 4 MEQ/L (8-16); AST/SGOT 18 U/L (7-37); BILIRUBIN,DIRECT < 0.1 MG/DL (0.0-0.2); BILIRUBIN,TOTAL 0.3 MG/DL (0.2-1.0); BLOOD UREA NITROGEN 31 MG/DL (7-18); CALCIUM LEVEL 9.3 MG/DL (8.8-10.2); CARBON DIOXIDE LEVEL 45 MEQ/L (21-32); CHLORIDE LEVEL 95 MEQ/L (98-107); CREATININE FOR GFR 0.96 MG/DL (0.55-1.02); GLOMERULAR FILTRATION RATE 59.8 (>39); GLUCOSE, FASTING 105 MG/DL (83-110); POTASSIUM SERUM 4.1 MEQ/L (3.5-5.1); SODIUM LEVEL 144 MEQ/L (136-145)
[2017-05-07] MEDS ORDERED: FUROSEMIDE 100 MG/10 ML VIAL (J1940) IV ONE (15:30)
--- NOTE | 2017-05-07 15:41 | ECGEPIP ---
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
[2017-05-07] MEDS ORDERED: LevoFLOXacin IV 500 MG in APPROPRIATE DILUENT 1 EA IV ONE (16:15)
[2017-05-07] MEDS ORDERED: IPRATROPIUM 0.5MG/ALBUTEROL 2.5MG INH SOL UD 3ML (DUONEB)(J7620) NEB PRN (16:30)
[2017-05-07] MEDS ORDERED: DIGO0.12 PO (16:33)
[2017-05-07] MEDS ORDERED: METO1TAB7 PO (16:33)
[2017-05-07] MEDS ORDERED: ALBUTEROL SULFATE 2.5 MG/0.5 ML INH NEB SOLN INH PRN (17:30)
[2017-05-07] MEDS: LevoFLOXacin 500 MG TABLET PO SCH (18:20)
[2017-05-07 18:23] VITALS: BP 140/83
--- NOTE | 2017-05-07 19:44 | HPEPDOC ---
[facility] Medical History & Physical Date of Admission May 07, 2017 Other Provider PCP: DR. SWANSON ([facility]) COMPUTER FIELD TECHNICIAN: ASHA DICE DEALER: SHERI History and Physical CHIEF COMPLAINT: INCREASED SHORTNESS OF BREATH HISTORY OF PRESENT ILLNESS: Mrs. Guthrie is a pleasant 76-year-old female sent into the ER by her floor installer today for increasing shortness of breath. She was found to be acutely hypoxic with noted dyspnea on exertion, lower extremity edema and she complains of occasional PND and orthopnea. She feels that her symptoms are progressively gotten worse over the last 24-48 hours. Today's chest x-ray revealed patchy infiltrate right upper lobe, cardiomegaly, no effusion. She does have some mild fibrosis and does appear to have some vascular cephalization. Her proBNP was 10,347. She did receive a dose of Lasix by the ER physician which did seem to help improve her symptoms. In the hospitalist was called for an admission. Otherwise, the patient is vague on any other complaints. However, she has had some intermittent productive sputum but no hemoptysis. She denies any chest pain. Although she has had some lower extremity edema. She has not had any calf tenderness. No prior history of DVT or pulmonary embolism. PAST MEDICAL HISTORY: 1. Chronic atrial fibrillation. 2. Chronic diastolic congestive heart failure. Her previous echocardiogram which was done on 03/20/2015 indicated ejection fraction of 55% to 60%. 3. Morbid obesity. 4. Chronic obstructive pulmonary disease (COPD) with predicted FVC of less than 40% based on the pulmonary function test (PFT) which was done in 2011. The patient is on two liters nasal cannula. 5. Chronic back pain. 6. Chronic anticoagulation. 7. History of breast cancer status post left lobectomy and axillary node dissection. 8. Obstructive sleep apnea (REINALDO). PAST SURGICAL HISTORY: 1. Lobectomy, left breast 2010. 2. Repair of rectal abscess. SOCIAL HISTORY: The patient lives with her . The patient has not traveled outside of the [place]. The patient smoked from age 13 to 48 years old, about a pack a day. The patient denies illicit drug use. The patient occasionally used to drink alcoholic beverages. The patient has two cats at home. The patient tries to have a healthy diet. FAMILY HISTORY: The patient had two sons. One of her sons due to obstructive colitis 20 years ago. The other son is healthy. The patient has one brother who has breathing problems. He is a smoker. The patient's father at age 50 due to heart problems. The patient's mother at 89. ALLERGIES: Please see below. REVIEW OF SYSTEMS: CONSTITUTIONAL: No fever, chills, weight loss, nausea or vomiting . HEENT: No headache, lightheadedness, blurred or loss of vision. No difficulty with speech or swallow. CARDIOVASCULAR: Positive paroxysmal nocturnal dyspnea/orthopnea and some lower extremity edema. No chest pain, palpitations, RESPIRATORY: Positive cough and productive sputum, wheeze. But no hemoptysis GENITOURINARY: No dysuria, frequency, or discharge MUSCULOSKELETAL: No bone, muscle or joint pain. GASTROINTESTINAL: No Nausea, vomiting, change in appetite. Bowel movements are regular without hematochezia or melena. No bladder or bowel incontinence. SKIN: No complaint of lesions, abrasions or rashes NEUROLOGICAL: No blurred vision, headaches, paraesthesias or paralysis PSYCHIATRIC: No depression, anxiety, audiovisual hallucinations. No suicidal ideations. ENDOCRINE: Denies history of diabetes or thyroid disorder. No history of endocrine abnormalities. HEMATOLOGIC/LYMPHATIC: No lumps, bumps or swelling of neck, axilla or groin. No night sweats or weight loss. HOME MEDICATIONS: Please see below. PHYSICAL EXAMINATION: VITAL SIGNS: Please see below. GENERAL: NAD, A&OX3, Pleasant HEENT: PERRLA, throat clear, neck supple, unable to determine JVD CARDIOVASCULAR: irreg/irreg RESPIRATORY: expiratory wheeze all lung jon ABDOMINAL: soft, NT/ND normoactive bowel sounds EXTREMITIES: 1+ edema but no calf tenderness NEUROLOGICAL: CN'S II-XII grossly intact PSYCHOLOGICAL: negative LABORATORY DATA: See below. IMAGING: Cxr: 1 Patchy infiltrates right upper lobe at and above the level of the hilum peripherally. 2. Cardiomegaly with left atrial and ventricular enlargement without gross effusion. Some underlying mild fibrosis. 3. Axillary surgical clips on the left. 12 lead ECG: A Fib with RVR (ventricular rate 104) with occasional PVC but no specific t wave abnormalities or change from prior ECG. MICROBIOLOGY: Please see below. IMPRESSION: 76-year-old female presents to the emergency department with productive sputum, cough, shortness of breath, dyspnea, all appears to be multifactorial causing Acute hypoxic respiratory failure. She will need be admitted for further treatment. PROBLEM LIST: 1. Acute hypoxic respiratory failure. 2. Mild leukocytosis 3. Likely community-acquired pneumonia. 4. Acute on Chronic atrial fibrillation with RVR (multifactorial and needs diuresed and treatment of pneumonia) 5. Chronic diastolic congestive heart failure. Her previous echocardiogram which was done on 03/20/2015 indicated ejection fraction of 55% to 60%. 6. Morbid obesity: Which complicates her medical treatment 4. Chronic obstructive pulmonary disease (COPD) with predicted FVC of less than 40% based on the pulmonary function test (PFT) which was done in 2011. The patient is on two liters nasal cannula. 5. Chronic back pain. 6. Chronic anticoagulation. 7. History of breast cancer status post left lobectomy and axillary node dissection. 8. Obstructive sleep apnea (REINALDO). PLAN: Admit to MED/SURG remote telemetry. Net negative Lasix with fluid restriction. Suspect her RVR will improve with improved fluid status. PO levaquin, IV solumedrol, Duonebs, sputum culture, blood cultures and acapella. Continue home meds. DVT PROPHYLAXIS: Xarelto. DISPOSITION: Anticipate she will be hospitalized greater than two midnights. Vital Signs Vital Signs Date Time Temp Pulse Resp B/P (MAP) Pulse Ox O2 Delivery O2 Flow Rate FiO2 05/07/17 18:23 97.5 108 28 140/83 (102) 100 Nasal Cannula 2.0 Laboratory Data Labs 24H Laboratory Tests 2 05/07/17 14:26: Immature Granulocyte % (Auto) 1.9H, White Blood Count 11.7H, Red Blood Count 2.58L, Hemoglobin 7.9L, Hematocrit 27.5L, Mean Corpuscular Volume 106.6H, Mean Corpuscular Hemoglobin 30.6, Mean Corpuscular Hemoglobin Concent 28.7L, Red Cell Distribution Width 13.9, Platelet Count 414, Neutrophils (%) (Auto) 81.8H, Lymphocytes (%) (Auto) 4.7L, Monocytes (%) (Auto) 8.9H, Eosinophils (%) (Auto) 2.2, Basophils (%) (Auto) 0.5, Neutrophils # (Auto) 9.5H, Lymphocytes # (Auto) 0.6L, Monocytes # (Auto) 1.0H, Eosinophils # (Auto) 0.3, Basophils # (Auto) 0.1 , Immature Granulocyte # (Auto) 0.2H, Nucleated Red Blood Cells % (auto) 0.0, Anion Gap 4L, Glomerular Filtration Rate 59.8, Lactic Acid Level 1.3, Calcium Level 9.3, Aspartate Amino Transf (AST/SGOT) 18, Alanine Aminotransferase (ALT/ SGPT) 21, Alkaline Phosphatase 68, Total Bilirubin 0.3, Direct Bilirubin < 0.1, JN-[id number]-Type Natriuretic Peptide 48134J, Total Protein 7.0, Albumin 2.7L, Albumin/Globulin Ratio 0.63L CBC/BMP Laboratory Tests 05/07/17 14:26 Red Blood Count 2.58 L, Mean Corpuscular Volume 106.6 H, Mean Corpuscular Hemoglobin 30.6, Mean Corpuscular Hemoglobin Concent 28.7 L, Red Cell Distribution Width 13.9, Neutrophils (%) (Auto) 81.8 H, Lymphocytes (%) (Auto) 4.7 L, Monocytes (%) (Auto) 8.9 H, Eosinophils (%) (Auto) 2.2, Basophils (%) ( Auto) 0.5, Neutrophils # (Auto) 9.5 H, Lymphocytes # (Auto) 0.6 L, Monocytes # ( Auto) 1.0 H, Eosinophils # (Auto) 0.3, Basophils # (Auto) 0.1 Home Medications Scheduled (Calcium + D3 600-200 mg-Unit) 1 Tab Tab, 1 TAB PO DAILY (Digoxin) 125 Mcg Tab, 125 MCG PO ASDIRECTED TAKES EVERY OTHER DAY Ferrous Sulfate (Ferrous Sulfate) 325 Mg Tab, 325 MG PO DAILY Metoprolol Succinate (Metoprolol Succinate ER) 50 Mg Tab, 50 MG PO DAILY Omeprazole (Omeprazole) 40 Mg Cap, 40 MG PO DAILY Paroxetine Hydrochloride (Paroxetine) 20 Mg Tab, 20 MG PO DAILY Rivaroxaban (Xarelto) 15 Mg Tab, 15 MG PO DAILY Salmeterol/Fluticasone (Advair Hfa 230-21 Mcg/Act) 1 Aer Aer, 2 PUFF INH BID Spironolactone (Spironolactone) 25 Mg Tab, 12.5 MG PO DAILY Tiotropium [place] Monohydrate (Spiriva Handihaler) 18 Mcg Cap, 18 MCG INH DAILY Torsemide (Torsemide) 100 Mg Tab, 100 MG PO DAILY Scheduled PRN Albuterol Sulfate (Albuterol Sulfate) 2.5 Mg/3 Ml Nebu, 2.5 MG INH Q4H PRN for SHORTNESS OF BREATH Tramadol HCl (Tramadol HCl) 50 Mg Tab, 50 MG PO PRN PRN for PAIN Allergies Coded Allergies: Pregabalin (Verified Allergy, Unknown, 05/07/17) Aspirin (Unverified Adverse Reaction, Unknown, anemia, 03/19/15) Gabapentin (Unverified Adverse Reaction, Unknown, shakey, 03/19/15) FRANCIS HANCOCK DO May 07, 2017 19:44
[2017-05-07 20:00] VITALS: BP 146/80
[2017-05-07] MEDS: ACETAMINOPHEN TAB 650MG DOSE (2X325MG) PO PRN (20:19)
[2017-05-07] MEDS: ADVAIR HFA 230/21MCG INHALER INH SCH (21:49)
[2017-05-07 21:50] VITALS: O2SAT 96
[2017-05-08] VITALS: BP 137/95
[2017-05-08] MEDS: FUROSEMIDE 40 MG/4 ML VIAL (J1940) IV SCH ×4 (00:06→17:43)
[2017-05-08] MEDS: ACETAMINOPHEN TAB 650MG DOSE (2X325MG) PO PRN ×2 (02:40→21:11)
[2017-05-08 04:00] VITALS: BP 141/85
[2017-05-08 06:18] LABS: MEAN CORPUSCULAR HGB CONC 29.8 g/dl (32.0-36.5); MEAN CORPUSCULAR VOLUME 104.1 fl (80.0-96.0); PLATELET COUNT, AUTOMATED 398 10^3/uL (150-450); RED CELL DISTRIBUTION WIDTH 14.1 % (11.5-14.5); WHITE BLOOD COUNT 11.2 10^3/uL (4.0-10.0)
[2017-05-08 06:30] LABS: CALCIUM LEVEL 9.4 MG/DL (8.8-10.2); CREATININE FOR GFR 1.02 MG/DL (0.55-1.02); GLOMERULAR FILTRATION RATE 55.8 (>39); POTASSIUM SERUM 4.2 MEQ/L (3.5-5.1)
[2017-05-08] MEDS: IPRATROPIUM 0.5MG/ALBUTEROL 2.5MG INH SOL UD 3ML (DUONEB)(J7620) NEB SCH ×4 (08:00→22:07)
[2017-05-08] MEDS: TIOTROPIUM INHALER/CAPSULE (SPIRIVA) INH SCH (08:54)
[2017-05-08] MEDS: ADVAIR HFA 230/21MCG INHALER INH SCH ×2 (08:54→22:08)
[2017-05-08] MEDS ORDERED: RIVAROXABAN 15 MG TAB (XARELTO) PO SCH (09:00)
[2017-05-08] MEDS: METOPROLOL SUCC (TopROL XL) 50MG **XL** TAB PO SCH (09:08)
[2017-05-08] MEDS: FERROUS SULFATE 325MG TAB PO SCH (09:08)
[2017-05-08] MEDS: PARoxetine 20 MG TAB PO SCH (09:08)
[2017-05-08] MEDS: OMEPRAZOLE 20 MG CAP PO SCH (09:08)
[2017-05-08] MEDS: DIGOXIN 0.125 MG TAB PO SCH (09:09)
--- NOTE | 2017-05-08 12:01 | IPNPDOC ---
Subjective Date Seen The patient was seen on 05/08/17. Subjective Chief Complaint/HPI The patient is a 76-year-old female admitted with a reason for visit of Acute And Chronic Resp Failure W/Hypoxia;Cap. Events since last encounter Patient seen and examined at the bedside this morning. States that her respiratory status has improved compared to last night. Reports no shortness of breath at rest, but states that she does still feel short of breath on movement. Objective Physical Examination General Exam: Positive: Alert, Cooperative, No Acute Distress ENT Exam: Positive: Atraumatic, Mucous membr. moist/pink Chest Exam: Positive: Rales (faint bibasilar crackles noted on auscultation), Diminished Heart Exam: Positive: Rate Normal, Normal S1, Normal S2 Abdomen Exam: Positive: Soft, Negative: Tenderness Extremity Exam: Negative: Tenderness, Swelling Psych Exam: Positive: Oriented x 3 Assessment /Plan Plan/VTE VTE Prophylaxis Ordered?: Yes Plan SOB 2/2 Community Acquired PNA, Decompensated CHF CXR noted for RUL Infiltrate Cont Levaquin Lasix ordered q6h Patient notes that her respiratory status has improved following abx treatment, IV diuresis We will cont to monitor her progress Chronic atrial fibrillation. HR better controlled this AM with better volume optimization Cont Digoxin, Metoprolol for rate control Cont Xarelto for AC Chronic diastolic congestive heart failure. Previous ECHO from 03/20/2015 indicated ejection fraction of 55% to 60%, moderately severe Pulm HTN Cont lasix as ordered Monitor I/O's Chronic obstructive pulmonary disease (COPD) requiring 3L of Oxygen at baseline Predicted FVC of less than 40% based on the pulmonary function test (PFT) testing in 2011. The patient is on three liters nasal cannula at baseline Cont Inhaler/Nebulizer regimen as ordered Chronic back pain Continue tramadol GERD Continue PPI Depression Continue Paxil Macrocytic anemia Continue ferrous sulfate No indication for transfusion at this time History of breast cancer status post left lobectomy and axillary node dissection. Obstructive sleep apnea (REINALDO) May use on CPAP DVT Prophylaxis Already on Xarelto Disposition-pending clinical improvement. Physical therapy ordered for functional optimization. VS, I&O, 24H, Fishbone Vital Signs/I&O Vital Signs Date Time Temp Pulse Resp B/P (MAP) Pulse Ox O2 Delivery O2 Flow Rate FiO2 05/08/17 09:57 Nasal Cannula 12/6/17 09:09 102 05/08/17 04:00 96.9 18 141/85 (103) 96 2.0 05/07/17 21:50 96 I&O- Last 24 Hours up to 6 AM 05/09/17 06:00 Intake Total 480 ml Output Total 1300 ml Balance -820 ml Laboratory Data 24H LABS Laboratory Tests 2 05/07/17 14:26: Immature Granulocyte % (Auto) 1.9H, White Blood Count 11.7H, Red Blood Count 2.58L, Hemoglobin 7.9L, Hematocrit 27.5L, Mean Corpuscular Volume 106.6H, Mean Corpuscular Hemoglobin 30.6, Mean Corpuscular Hemoglobin Concent 28.7L, Red Cell Distribution Width 13.9, Platelet Count 414, Neutrophils (%) (Auto) 81.8H, Lymphocytes (%) (Auto) 4.7L, Monocytes (%) (Auto) 8.9H, Eosinophils (%) (Auto) 2.2, Basophils (%) (Auto) 0.5, Neutrophils # (Auto) 9.5H, Lymphocytes # (Auto) 0.6L, Monocytes # (Auto) 1.0H, Eosinophils # (Auto) 0.3, Basophils # (Auto) 0.1 , Immature Granulocyte # (Auto) 0.2H, Nucleated Red Blood Cells % (auto) 0.0, Anion Gap 4L, Glomerular Filtration Rate 59.8, Lactic Acid Level 1.3, Calcium Level 9.3, Aspartate Amino Transf (AST/SGOT) 18, Alanine Aminotransferase (ALT/ SGPT) 21, Alkaline Phosphatase 68, Total Bilirubin 0.3, Direct Bilirubin < 0.1, ZI-Ran-U-Type Natriuretic Peptide 30422M, Total Protein 7.0, Albumin 2.7L, Albumin/Globulin Ratio 0.63L 05/08/17 05:50: Nucleated Red Blood Cells % (auto) 0.2H, Anion Gap 3L, Glomerular Filtration Rate 55.8, Calcium Level 9.4, Blood Urea Nitrogen 30H, Creatinine 1.02, Sodium Level 140, Potassium Level 4.2, Chloride Level 90L, Carbon Dioxide Level 47H CBC/BMP Laboratory Tests 05/07/17 14:26 Red Blood Count 2.58 L, Mean Corpuscular Volume 106.6 H, Mean Corpuscular Hemoglobin 30.6, Mean Corpuscular Hemoglobin Concent 28.7 L, Red Cell Distribution Width 13.9, Neutrophils (%) (Auto) 81.8 H, Lymphocytes (%) (Auto) 4.7 L, Monocytes (%) (Auto) 8.9 H, Eosinophils (%) (Auto) 2.2, Basophils (%) ( Auto) 0.5, Neutrophils # (Auto) 9.5 H, Lymphocytes # (Auto) 0.6 L, Monocytes # ( Auto) 1.0 H, Eosinophils # (Auto) 0.3, Basophils # (Auto) 0.1 05/08/17 05:50 Red Blood Count 2.71 L, Mean Corpuscular Volume 104.1 H, Mean Corpuscular Hemoglobin 31.0, Mean Corpuscular Hemoglobin Concent 29.8 L, Red Cell Distribution Width 14.1, Calcium Level 9.4 Microbiology Microbiology 05/07/17 Blood Culture, Received Pending BRIDGET GR MD May 08, 2017 12:01
[2017-05-08] MEDS: traMADol 50 MG TAB PO PRN (12:15)
[2017-05-08] MEDS: NYSTATIN 100,000 UNITS/GM TOPICAL PWD 15 GM TOP SCH ×2 (13:48→21:23)
[2017-05-08 14:00] VITALS: BP 124/64
[2017-05-08 15:33] VITALS: BP 121/88
[2017-05-08] MEDS: LevoFLOXacin 500 MG TABLET PO SCH (17:39)
[2017-05-08] MEDS: RIVAROXABAN 15 MG TAB (XARELTO) PO SCH (17:40)
[2017-05-08 18:00] VITALS: BP 120/70
[2017-05-08 22:00] VITALS: BP 158/72
[2017-05-09] MEDS: FUROSEMIDE 40 MG/4 ML VIAL (J1940) IV SCH ×3 (02:06→13:33)
[2017-05-09] MEDS: ACETAMINOPHEN TAB 650MG DOSE (2X325MG) PO PRN ×3 (02:07→22:52)
[2017-05-09 06:00] VITALS: BP 113/55
[2017-05-09 07:36] LABS: MEAN CORPUSCULAR HEMOGLOBIN 30.8 pg (27.0-33.0); MEAN CORPUSCULAR HGB CONC 29.9 g/dl (32.0-36.5); MEAN CORPUSCULAR VOLUME 102.8 fl (80.0-96.0); PLATELET COUNT, AUTOMATED 421 10^3/uL (150-450); RED CELL DISTRIBUTION WIDTH 14.2 % (11.5-14.5); WHITE BLOOD COUNT 13.5 10^3/uL (4.0-10.0)
[2017-05-09] MEDS: ADVAIR HFA 230/21MCG INHALER INH SCH ×2 (07:56→21:19)
[2017-05-09] MEDS: TIOTROPIUM INHALER/CAPSULE (SPIRIVA) INH SCH (07:56)
[2017-05-09] MEDS: IPRATROPIUM 0.5MG/ALBUTEROL 2.5MG INH SOL UD 3ML (DUONEB)(J7620) NEB SCH ×3 (07:58→23:36)
[2017-05-09 08:09] LABS: CALCIUM LEVEL 9.1 MG/DL (8.8-10.2); CREATININE FOR GFR 1.31 MG/DL (0.55-1.02); GLOMERULAR FILTRATION RATE 41.8 (>39); POTASSIUM SERUM 3.6 MEQ/L (3.5-5.1)
[2017-05-09] MEDS: FERROUS SULFATE 325MG TAB PO SCH (09:00)
[2017-05-09] MEDS: NYSTATIN 100,000 UNITS/GM TOPICAL PWD 15 GM TOP SCH ×2 (09:00→21:03)
[2017-05-09] MEDS: PARoxetine 20 MG TAB PO SCH (09:00)
[2017-05-09] MEDS: OMEPRAZOLE 20 MG CAP PO SCH (09:00)
[2017-05-09] MEDS: METOPROLOL SUCC (TopROL XL) 50MG **XL** TAB PO SCH (09:02)
[2017-05-09 14:00] VITALS: BP 151/67
[2017-05-09] MEDS: methylPREDNISolone INJ 40 MG/1 ML VIAL (J2920) IV SCH (15:20)
--- NOTE | 2017-05-09 16:12 | IPNPDOC ---
Text Note Date of Service The patient was seen on 05/09/17. NOTE No acute events overnight. reported improved respiration. Decreased endurance. Denied chest pain, abd pain , n,v,diarrhea General Exam: Positive: Alert, Cooperative, No Acute Distress ENT Exam: Positive: Atraumatic, Mucous membr. moist/pink Chest Exam: Positive: Rales (faint bibasilar crackles noted on auscultation), Diminished Heart Exam: Positive: Rate Normal, Normal S1, Normal S2 Abdomen Exam: Positive: Soft, NT, +BS Extremity Exam: Negative: Tenderness, Swelling 1+ to trace Psych Exam: Positive: Oriented x 3 76-year-old female underlying a fib, chronic diastolic CHF EF 55-60%, obesity, COPD, chronic back pain, anticoagulation, milan, breast cancer with left lobectomy and axilla node dissection. sent into the ER by her non food receiving clerk today for increasing shortness of breath. SOB 2/2 Community Acquired PNA, Decompensated CHF CXR noted for RUL Infiltrate Cont Levaquin respiratory panel neg f/u [place] lasix decreased to 40mg IV BID dc chaney I and O, daily weight solumedrol 40mg IV BID, taper as tolerated. neb, respiration improved Chronic atrial fibrillation. HR better controlled this AM with better volume optimization Cont Digoxin, Metoprolol for rate control Cont Xarelto for AC acute on Chronic diastolic congestive heart failure. Previous ECHO from 03/20/2015 indicated ejection fraction of 55% to 60%, moderately severe Pulm HTN Cont lasix as ordered Monitor I/O's Chronic obstructive pulmonary disease (COPD) requiring 3L of Oxygen at baseline Predicted FVC of less than 40% based on the pulmonary function test (PFT) testing in 2011. The patient is on three liters nasal cannula at baseline Cont Inhaler/Nebulizer regimen as ordered taper steroid Chronic back pain Continue tramadol GERD Continue PPI Depression Continue Paxil Macrocytic anemia Continue ferrous sulfate No indication for transfusion at this time History of breast cancer status post left lobectomy and axillary node dissection. Obstructive sleep apnea (MILAN) May use on CPAP DVT Prophylaxis Already on Xarelto Disposition-pending clinical improvement. Physical therapy ordered for functional optimization. VS,Fishbone, I+O VS, Fishbone, I+O Laboratory Tests 05/09/17 07:10 Red Blood Count 2.86 L, Mean Corpuscular Volume 102.8 H, Mean Corpuscular Hemoglobin 30.8, Mean Corpuscular Hemoglobin Concent 29.9 L, Red Cell Distribution Width 14.2, Calcium Level 9.1 Vital Signs Date Time Temp Pulse Resp B/P (MAP) Pulse Ox O2 Delivery O2 Flow Rate FiO2 05/09/17 14:00 98.0 63 18 151/67 (95) 96 Nasal Cannula 3.0 05/07/17 21:50 96 I&O- Last 24 Hours up to 6 AM 05/10/17 06:00 Intake Total 480 ml Output Total 200 ml Balance 280 ml LA BOND MD May 09, 2017 16:12
[2017-05-09] MEDS: RIVAROXABAN 15 MG TAB (XARELTO) PO SCH (17:00)
[2017-05-09] MEDS: LevoFLOXacin 500 MG TABLET PO SCH (17:00)
--- NOTE | 2017-05-09 17:32 | ECHO ---
DATE OF PROCEDURE: 05/09/2017 REFERRING PHYSICIAN: Dr. Calle. INDICATION: Dyspnea HEIGHT: 155 cm WEIGHT: 70 kg. DIMENSIONS: IVS: 1.3 LV: 4.8 LVPW: 1.2 LA 5.2 Aorta 3.2 IVC 1.8 FINDINGS: The study is of acceptable technical quality. Left ventricle is of normal size. There is mild or possibly mild to moderate global hypokinesis. I estimate LVEF around 45%. Right ventricle appears enlarged and is mildly hypokinetic. There is severe biatrial enlargement. Aortic valve is heavily calcified and there is restriction of cusp mobility. By 2-D imaging, I would estimate about moderate aortic stenosis but the visualization was poor. Mitral valve appears normal. Tricuspid and pulmonic valves also appear normal. No pericardial effusion is noted. Inferior vena cava is normal size and appropriately collapses with respiration indicative of likely normal central venous pressure. Aortic root is his normal. Aortic arch and abdominal aorta were not well seen. Doppler interrogation reveals no significant aortic insufficiency and there is approximately moderate aortic stenosis. Peak gradient was 21 mean grade only 12 mmHg. Calculated aortic valve area was only 0.6 cm2 which certainly inaccurate. There is mild mitral insufficiency and mild tricuspid insufficiency. Calculated pulmonary artery pressure is in high 40s low 50s corresponding to moderate pulmonary hypertension. Mild pulmonic insufficiency seen. Evaluation of diastolic function is inconclusive due to underlying atrial fibrillation with controlled rate. CONCLUSIONS: 1. Study is of acceptable technical quality. 2. Normal LV size with mild LVH and mild to moderate left ventricular systolic dysfunction with estimated LVEF around 45%. 3. Hypokinetic right ventricle. 4. Severe biatrial enlargement. 5. Heavily calcified aortic valve resulting approximately moderate stenosis (mean gradient 12 mmHg). 6. Mild mitral and tricuspid insufficiency. 7. Normal central venous pressure. 8. Likely moderate pulmonary hypertension. 9 Severe biatrial enlargement. COMMENT: SBE prophylaxis is not recommended. MTDD
[2017-05-09 22:00] VITALS: BP 117/75
[2017-05-10] MEDS: methylPREDNISolone INJ 40 MG/1 ML VIAL (J2920) IV SCH ×2 (02:02→14:38)
[2017-05-10 06:00] VITALS: BP 149/79
[2017-05-10] MEDS: IPRATROPIUM 0.5MG/ALBUTEROL 2.5MG INH SOL UD 3ML (DUONEB)(J7620) NEB SCH ×2 (08:00→15:44)
[2017-05-10 08:25] LABS: MEAN CORPUSCULAR HEMOGLOBIN 30.4 pg (27.0-33.0); MEAN CORPUSCULAR HGB CONC 30.1 g/dl (32.0-36.5); MEAN CORPUSCULAR VOLUME 100.9 fl (80.0-96.0); PLATELET COUNT, AUTOMATED 580 10^3/uL (150-450); RED CELL DISTRIBUTION WIDTH 14.2 % (11.5-14.5); WHITE BLOOD COUNT 16.3 10^3/uL (4.0-10.0)
[2017-05-10] MEDS: TIOTROPIUM INHALER/CAPSULE (SPIRIVA) INH SCH (08:37)
[2017-05-10] MEDS: ADVAIR HFA 230/21MCG INHALER INH SCH ×2 (08:37→19:51)
[2017-05-10] MEDS: OMEPRAZOLE 20 MG CAP PO SCH (08:45)
[2017-05-10] MEDS: FUROSEMIDE 40 MG/4 ML VIAL (J1940) IV SCH (08:45)
[2017-05-10] MEDS: FERROUS SULFATE 325MG TAB PO SCH (08:46)
[2017-05-10] MEDS: PARoxetine 20 MG TAB PO SCH (08:46)
[2017-05-10 08:47] LABS: CALCIUM LEVEL 9.4 MG/DL (8.8-10.2); CREATININE FOR GFR 1.58 MG/DL (0.55-1.02); GLOMERULAR FILTRATION RATE 33.7 (>39); POTASSIUM SERUM 4.4 MEQ/L (3.5-5.1)
[2017-05-10] MEDS: METOPROLOL SUCC (TopROL XL) 50MG **XL** TAB PO SCH (08:48)
[2017-05-10] MEDS: NYSTATIN 100,000 UNITS/GM TOPICAL PWD 15 GM TOP SCH ×2 (08:48→20:38)
[2017-05-10] MEDS: DIGOXIN 0.125 MG TAB PO SCH (08:48)
[2017-05-10] MEDS: traMADol 50 MG TAB PO PRN ×2 (09:45→20:40)
[2017-05-10 14:00] VITALS: BP 106/59
--- NOTE | 2017-05-10 17:51 | IPNPDOC ---
Text Note Date of Service The patient was seen on 05/10/17. NOTE No acute events overnight. reported improved respiration. Decreased endurance. Denied chest pain, abd pain , n,v,diarrhea General Exam: Positive: Alert, Cooperative, No Acute Distress ENT Exam: Positive: Atraumatic, Mucous membr. moist/pink Chest Exam: Positive: Rales (faint bibasilar crackles noted on auscultation), Diminished Heart Exam: Positive: Rate Normal, Normal S1, Normal S2 Abdomen Exam: Positive: Soft, NT, +BS Extremity Exam: Negative: Tenderness, Swelling 1+ to trace Psych Exam: Positive: Oriented x 3 76-year-old female underlying a fib, chronic diastolic CHF EF 55-60%, obesity, COPD, chronic back pain, anticoagulation, reinaldo, breast cancer with left lobectomy and axilla node dissection. sent into the ER by her water operator today for increasing shortness of breath. SOB 2/2 Community Acquired PNA, Decompensated CHF CXR noted for RUL Infiltrate Cont Levaquin respiratory panel neg f/u [place] hold lasix, patient euvolemic with conrad dc chaney I and O, daily weight solumedrol taper as tolerated. neb, respiration improved Chronic atrial fibrillation. HR better controlled this AM with better volume optimization Cont Digoxin, Metoprolol for rate control Cont Xarelto for AC acute on Chronic diastolic congestive heart failure. Previous ECHO from 03/20/2015 indicated ejection fraction of 55% to 60%, moderately severe Pulm HTN hold lasix, euvolemic Monitor I/O's Chronic obstructive pulmonary disease (COPD) requiring 3L of Oxygen at baseline Predicted FVC of less than 40% based on the pulmonary function test (PFT) testing in 2011. The patient is on three liters nasal cannula at baseline Cont Inhaler/Nebulizer regimen as ordered taper steroid Chronic back pain Continue tramadol GERD Continue PPI Depression Continue Paxil Macrocytic anemia Continue ferrous sulfate No indication for transfusion at this time History of breast cancer status post left lobectomy and axillary node dissection. Obstructive sleep apnea (REINALDO) May use on CPAP CONRAD likely 2/2 top diuresis hold lasix monitor bun and cr i and o, daily weight DVT Prophylaxis Already on Xarelto Disposition-pending clinical improvement. Physical therapy ordered for functional optimization. improvement of kidney function VS,Fishbone, I+O VS, Fishbone, I+O Laboratory Tests 05/10/17 08:02 Red Blood Count 3.19 L, Mean Corpuscular Volume 100.9 H, Mean Corpuscular Hemoglobin 30.4, Mean Corpuscular Hemoglobin Concent 30.1 L, Red Cell Distribution Width 14.2, Calcium Level 9.4 Vital Signs Date Time Temp Pulse Resp B/P (MAP) Pulse Ox O2 Delivery O2 Flow Rate FiO2 05/10/17 14:00 98.3 63 18 106/59 (75) 95 Nasal Cannula 3.0 05/07/17 21:50 96 I&O- Last 24 Hours up to 6 AM 05/11/17 06:00 Intake Total 1200 ml Output Total 200 ml Balance 1000 ml LA BOND MD May 10, 2017 17:51
[2017-05-10] MEDS: LevoFLOXacin 500 MG TABLET PO SCH (18:13)
[2017-05-10] MEDS: RIVAROXABAN 15 MG TAB (XARELTO) PO SCH (18:13)
[2017-05-10 22:00] VITALS: BP 117/73
[2017-05-11] MEDS: methylPREDNISolone INJ 40 MG/1 ML VIAL (J2920) IV SCH ×2 (02:17→14:53)
[2017-05-11 06:00] VITALS: BP 141/82
[2017-05-11 06:43] LABS: CALCIUM LEVEL 8.9 MG/DL (8.8-10.2); CREATININE FOR GFR 1.65 MG/DL (0.55-1.02); POTASSIUM SERUM 4.1 MEQ/L (3.5-5.1)
[2017-05-11 06:44] LABS: MEAN CORPUSCULAR HEMOGLOBIN 30.7 pg (27.0-33.0); MEAN CORPUSCULAR HGB CONC 29.6 g/dl (32.0-36.5); MEAN CORPUSCULAR VOLUME 103.8 fl (80.0-96.0); PLATELET COUNT, AUTOMATED 484 10^3/uL (150-450); RED CELL DISTRIBUTION WIDTH 14.3 % (11.5-14.5); WHITE BLOOD COUNT 20.8 10^3/uL (4.0-10.0)
[2017-05-11] MEDS: IPRATROPIUM 0.5MG/ALBUTEROL 2.5MG INH SOL UD 3ML (DUONEB)(J7620) NEB SCH ×4 (08:00→23:41)
[2017-05-11] MEDS: TIOTROPIUM INHALER/CAPSULE (SPIRIVA) INH SCH (08:23)
[2017-05-11] MEDS: ADVAIR HFA 230/21MCG INHALER INH SCH ×2 (08:25→20:28)
[2017-05-11] MEDS: OMEPRAZOLE 20 MG CAP PO SCH (08:54)
[2017-05-11] MEDS: FERROUS SULFATE 325MG TAB PO SCH (08:54)
[2017-05-11] MEDS: METOPROLOL SUCC (TopROL XL) 50MG **XL** TAB PO SCH (08:54)
[2017-05-11] MEDS: PARoxetine 20 MG TAB PO SCH (08:55)
[2017-05-11] MEDS: ACETAMINOPHEN TAB 650MG DOSE (2X325MG) PO PRN ×2 (08:55→18:48)
[2017-05-11] MEDS: NYSTATIN 100,000 UNITS/GM TOPICAL PWD 15 GM TOP SCH ×2 (08:57→21:17)
[2017-05-11 14:00] VITALS: BP 133/63
[2017-05-11] MEDS: LevoFLOXacin 500 MG TABLET PO SCH (17:29)
[2017-05-11] MEDS: RIVAROXABAN 15 MG TAB (XARELTO) PO SCH (17:29)
--- NOTE | 2017-05-11 18:28 | IPNPDOC ---
Text Note Date of Service The patient was seen on 05/11/17. NOTE No acute events overnight. reported improved respiration. Decreased endurance. Denied chest pain, abd pain , n,v,diarrhea General Exam: Positive: Alert, Cooperative, No Acute Distress ENT Exam: Positive: Atraumatic, Mucous membr. moist/pink Chest Exam: Positive: Rales (faint bibasilar crackles noted on auscultation), Diminished Heart Exam: Positive: Rate Normal, Normal S1, Normal S2 Abdomen Exam: Positive: Soft, NT, +BS Extremity Exam: Negative: Tenderness, Swelling 1+ to trace Psych Exam: Positive: Oriented x 3 76-year-old female underlying a fib, chronic diastolic CHF EF 55-60%, obesity, COPD, chronic back pain, anticoagulation, reinaldo, breast cancer with left lobectomy and axilla node dissection. sent into the ER by her cost recorder today for increasing shortness of breath. SOB 2/2 Community Acquired PNA, Decompensated CHF CXR noted for RUL Infiltrate Cont Levaquin respiratory panel neg f/u [place] hold lasix, patient euvolemic with conrad dc chaney I and O, daily weight solumedrol taper as tolerated. neb, respiration improved Chronic atrial fibrillation. HR better controlled this AM with better volume optimization Cont Digoxin, Metoprolol for rate control Cont Xarelto for AC acute on Chronic diastolic congestive heart failure. Previous ECHO from 03/20/2015 indicated ejection fraction of 55% to 60%, moderately severe Pulm HTN hold lasix, euvolemic Monitor I/O's Chronic obstructive pulmonary disease (COPD) requiring 3L of Oxygen at baseline Predicted FVC of less than 40% based on the pulmonary function test (PFT) testing in 2011. The patient is on three liters nasal cannula at baseline Cont Inhaler/Nebulizer regimen as ordered taper steroid Chronic back pain Continue tramadol GERD Continue PPI Depression Continue Paxil Macrocytic anemia Continue ferrous sulfate No indication for transfusion at this time History of breast cancer status post left lobectomy and axillary node dissection. Obstructive sleep apnea (REINALDO) May use on CPAP CONRAD likely 2/2 top diuresis hold lasix monitor bun and cr i and o, daily weight DVT Prophylaxis Already on Xarelto Disposition-pending clinical improvement. Physical therapy ordered for functional optimization. improvement of kidney function VS,Fishbone, I+O VS, Fishbone, I+O Laboratory Tests 05/11/17 06:01 Red Blood Count 2.64 L, Mean Corpuscular Volume 103.8 H, Mean Corpuscular Hemoglobin 30.7, Mean Corpuscular Hemoglobin Concent 29.6 L, Red Cell Distribution Width 14.3, Calcium Level 8.9 Vital Signs Date Time Temp Pulse Resp B/P (MAP) Pulse Ox O2 Delivery O2 Flow Rate FiO2 05/11/17 14:00 97.6 74 20 133/63 (86) 97 Nasal Cannula 3.0 05/07/17 21:50 96 I&O- Last 24 Hours up to 6 AM 05/12/17 06:00 Intake Total 1050 ml Output Total 725 ml Balance 325 ml LA BOND MD May 11, 2017 18:28
[2017-05-11] MEDS: traMADol 50 MG TAB PO PRN (21:16)
[2017-05-11 22:00] VITALS: BP 130/76
[2017-05-12] MEDS: methylPREDNISolone INJ 40 MG/1 ML VIAL (J2920) IV SCH (02:23)
[2017-05-12 06:00] VITALS: BP 129/66
[2017-05-12] MEDS: traMADol 50 MG TAB PO PRN (06:08)
[2017-05-12 06:29] LABS: MEAN CORPUSCULAR HEMOGLOBIN 30.5 pg (27.0-33.0); MEAN CORPUSCULAR HGB CONC 29.2 g/dl (32.0-36.5); MEAN CORPUSCULAR VOLUME 104.6 fl (80.0-96.0); PLATELET COUNT, AUTOMATED 501 10^3/uL (150-450)
[2017-05-12 06:44] LABS: CALCIUM LEVEL 8.8 MG/DL (8.8-10.2); CREATININE FOR GFR 1.42 MG/DL (0.55-1.02); GLOMERULAR FILTRATION RATE 38.1 (>39); POTASSIUM SERUM 4.3 MEQ/L (3.5-5.1)
[2017-05-12 07:52] LABS: PERCENT SATURATION 17.7 % (13.2-45.0)
[2017-05-12] MEDS: IPRATROPIUM 0.5MG/ALBUTEROL 2.5MG INH SOL UD 3ML (DUONEB)(J7620) NEB SCH (08:00)
[2017-05-12] MEDS: TIOTROPIUM INHALER/CAPSULE (SPIRIVA) INH SCH (08:05)
[2017-05-12] MEDS: ADVAIR HFA 230/21MCG INHALER INH SCH (08:05)
[2017-05-12 08:17] VITALS: BP 129/66
[2017-05-12] MEDS: METOPROLOL SUCC (TopROL XL) 50MG **XL** TAB PO SCH (08:17)
[2017-05-12] MEDS: FERROUS SULFATE 325MG TAB PO SCH (08:17)
[2017-05-12] MEDS: DIGOXIN 0.125 MG TAB PO SCH (08:18)
[2017-05-12] MEDS: OMEPRAZOLE 20 MG CAP PO SCH (08:18)
[2017-05-12] MEDS: PARoxetine 20 MG TAB PO SCH (08:18)
[2017-05-12] MEDS: NYSTATIN 100,000 UNITS/GM TOPICAL PWD 15 GM TOP SCH (08:19)
[2017-05-12] MEDS ORDERED: predniSONE 20 MG TAB PO SCH (09:00)
[2017-05-12] MEDS ORDERED: TORSEMIDE 100 MG TAB PO SCH (09:00)
[2017-05-12] MEDS ORDERED: PRED10TA2 PO (09:10)
[2017-05-12] MEDS ORDERED: LEVA1TAB2 PO ×2 (09:10→10:09)
[2017-05-12] MEDS ORDERED: SENN8.6T7 PO (09:15)
[2017-05-12] MEDS ORDERED: FERR325T3 PO (09:15)
[2017-05-12] MEDS ORDERED: VITA500T PO (09:15)
--- NOTE | 2017-05-12 12:06 | DSES ---
DATE OF ADMISSION: 05/07/2017 DATE OF DISCHARGE: 05/12/17 PRIMARY CARE PROVIDER: Dr. Vicente Singh. SONG PLUGGER: Dr. Yost. FINAL DIAGNOSES: Shortness of breath. Community acquired bacterial pneumonia. Decompensated congestive heart failure with likely diastolic dysfunction. Chronic hypoxic respiratory failure. Pulmonary artery hypertension. Chronic colonization with pseudomonas. Chronic atrial fibrillation. Chronic obstructive pulmonary disease (COPD). Chronic back pain. Gastroesophageal reflux disease (GERD). Depression. Macrocytic anemia. History of breast cancer with left lobectomy, axilla node dissection. Obstructive sleep apnea. Acute kidney injury. HISTORY OF PRESENT ILLNESS: This is a 76-year-old female patient with underlying medical history of chronic atrial fibrillation, diastolic congestive heart failure, obesity, chronic obstructive pulmonary disease (COPD), chronic oxygen dependent, obstructive sleep apnea on CPAP at home, chronic back pain, on chronic anticoagulation for atrial fibrillation, history of breast cancer, was sent into ER by patient's employee benefits attorney for increased shortness of breath. She was found to be acutely hypoxic with dyspnea on exertion, lower extremity edema, complained of occasional paroxysmal nocturnal dyspnea and orthopnea. Patient feels that her symptoms have progressed over the last 48 hours. Chest x-ray shows right upper lobe infiltrate, cardiomegaly. HOSPITAL COURSE: Patient was admitted to the hospital, stated on antibiotics, Solu-Medrol. Lasix was given. Cultures were sent. Patient's home medication of anticoagulation, AV osvaldo blocking agents, PPIs, pain medication, depression medication were continued. Patient's steroids were gradually tapered off. Nebulizer treatment was given. Patient's condition gradually improved. During hospital course, patient's hospital course was complicated with acute kidney injury (CONRAD) likely secondary to over diuresis. Diuretics were held for 1-1/2 days with improvement in kidney function. Patient reports respiration back to baseline. Able to ambulate. Ready for discharge with further care as outpatient. The sputum culture which was taken on 05/08/2017 returned today with pseudomonas with partial sensitivity to quinolone, but since patient's condition has improved with improvement of C-reactive protein on Levaquin, decision was made to continue patient on Levaquin with outpatient followup with Dr. Yost. Patient likely has chronic colonization with pseudomonas. Followup with Dr. Yost for further care. Patient was also found to be anemic. Anemia work was sent. Patient was instructed to followup with primary care provider. Patient was found to be macrocytic anemia. Patient was instructed to followup with primary care provider in 1 week for further followup and treatment of patient's anemia. Vital signs: Temperature 97.1, pulse 74, respirations 18, blood pressure 129/66, pulse oximetry 100% on 3 liters nasal cannula. General: Patient alert, in no acute distress. Obese. HEENT: Normocephalic, atraumatic. Moist mucous membranes. Neck: Supple. Pulmonary: Bilaterally clear to auscultation. Cardiac: Regular rate and rhythm. Normal S1, S2. Abdomen: Soft, nontender, positive bowel sounds. Extremities: Trace edema bilateral lower extremities. LABORATORY: WBC 21, hemoglobin and hematocrit 8/27.4, platelets 501. Chemistry : Sodium 137, potassium 4.3, chloride 93, bicarbonate 40, BUN 61, creatinine 1.4. DISCHARGE MEDICATIONS: - vitamin C 500 mg by mouth daily - Senna S one tablet by mouth twice daily - Levaquin 500 mg by mouth daily for 7 days - prednisone taper 40 mg by mouth daily for 3 days, 30 mg by mouth daily for 3 days, 20 mg by mouth daily for 3 days, 10 mg by mouth daily for 3 days, then stop. - Patient's home medication of albuterol nebulizer treatment every 4 hours as needed. - calcium with vitamin D one tablet by mouth daily - digoxin 125 mcg by mouth every 48 hours - metoprolol succinate 50 mg by mouth daily - omeprazole 40 mg by mouth daily - Paxil 20 mg by mouth daily - Xarelto 50 mg by mouth daily - Advair inhalation twice daily - spironolactone 12.5 mg by mouth daily - Spiriva 15 mcg inhalation daily - torsemide 100 mg by mouth daily - tramadol 50 mg by mouth daily - ferrous sulfate was increased to 325 mg by mouth twice daily DISCHARGE INSTRUCTIONS: Patient was instructed to followup with primary care provider in 7 days, followup CBC with primary care provider and followup with Dr. Yost, parker in 2 weeks to consider possible nebulizer tobramycin as further treatment. Continue antibiotics. Return to the hospital if symptoms worsen. Daily weight. Fluid restriction 1800 mL. TIME SPENT ARRANGING AND COORDINATING DISCHARGE: 35 minutes. [facility]
[2017-05-13 09:42] LABS: FOLATE 15.4 NG/ML (>5.4)
== END 2017-05-12 11:57 | disposition home health service (06) | DRG 291 ==
LOC: M ED 12:33 → M ED INP 16:20 → M MSPAV 05-08 15:11
PROVIDERS: ADMIT Hospitalist; ATTEND Hospitalist
DX: I50.33 Acute on chronic diastolic (congestive) heart failure (principal); J18.9 Pneumonia, unspecified organism; J96.21 Acute and chronic respiratory failure with hypoxia; N17.9 Acute kidney failure, unspecified; I48.2 Chronic atrial fibrillation; E66.9 Obesity, unspecified; J44.9 Chronic obstructive pulmonary disease, unspecified; M54.9 Dorsalgia, unspecified; D53.9 Nutritional anemia, unspecified; G47.33 Obstructive sleep apnea (adult) (pediatric); I27.20 Pulmonary hypertension, unspecified; F32.9 Major depressive disorder, single episode, unspecified; Z66 Do not resuscitate; Z79.01 Long term (current) use of anticoagulants; Z79.899 Other long term (current) drug therapy; Z85.3 Personal history of malignant neoplasm of breast; Z68.28 Body mass index [BMI] 28.0-28.9, adult; Z88.6 Allergy status to analgesic agent; Z88.8 Allergy status to other drugs, medicaments and biological substances; Z99.81 Dependence on supplemental oxygen; Z79.891 Long term (current) use of opiate analgesic

== ENCOUNTER 2017-09-09 10:58 | Inpatient (IN) | payer MEDICARE ==
[2017-09-09 13:06] LABS: BASO % 0.2 % (0.0-1.0); EOS # 0.1 10^3/uL (0.0-0.50); EOS % 0.8 % (0.0-3.0); HEMATOCRIT 35.1 % (36.0-47.0); HEMOGLOBIN 10.7 g/dl (12.0-15.5); IMMATURE GRANULOCYTE % 0.6 % (0-3.0); LYMPH # 0.5 10^3/uL (1.5-4.5); LYMPH % 2.8 % (24.0-44.0); MEAN CORPUSCULAR HEMOGLOBIN 32.4 pg (27.0-33.0); MEAN CORPUSCULAR HGB CONC 30.5 g/dl (32.0-36.5); MEAN CORPUSCULAR VOLUME 106.4 fl (80.0-96.0); MONO # 0.6 10^3/uL (0.0-0.8); MONO % 3.5 % (0.0-5.0); NEUTROPHILS # 15.2 10^3/uL (1.8-7.7); NEUTROPHILS % 92.1 % (36.0-66.0); PLATELET COUNT, AUTOMATED 301 10^3/uL (150-450); RED CELL DISTRIBUTION WIDTH 13.5 % (11.5-14.5); WHITE BLOOD COUNT 16.5 10^3/uL (4.0-10.0)
[2017-09-09 13:07] LABS: INR 1.99; PROTHROMBIN TIME 23.2 SECONDS (12.4-14.5)
[2017-09-09 13:08] LABS: PARTIAL THROMBOPLASTIN TIME 53.2 SECONDS (26.8-37.9)
[2017-09-09 13:21] LABS: ALBUMIN 3.6 GM/DL (3.2-5.2); ALKALINE PHOSPHATASE 57 U/L (45-117); ALT/SGPT 20 U/L (12-78); ANION GAP 4 MEQ/L (8-16); AST/SGOT 24 U/L (7-37); BILIRUBIN,DIRECT < 0.1 MG/DL (0.0-0.2); BILIRUBIN,TOTAL 0.4 MG/DL (0.2-1.0); BLOOD UREA NITROGEN 41 MG/DL (7-18); CALCIUM LEVEL 9.3 MG/DL (8.8-10.2); CARBON DIOXIDE LEVEL 40 MEQ/L (21-32); CHLORIDE LEVEL 97 MEQ/L (98-107); CPK CREATINE PHOSPHOKINASE 59 U/L (26-192); CREATININE FOR GFR 1.32 MG/DL (0.55-1.30); GLOMERULAR FILTRATION RATE 41.4 (>39); GLUCOSE, FASTING 123 MG/DL (70-100); LIPASE 109 U/L (73-393); POTASSIUM SERUM 4.4 MEQ/L (3.5-5.1); SODIUM LEVEL 141 MEQ/L (136-145); TOTAL PROTEIN 7.2 GM/DL (6.4-8.2); TROPONIN I 0.03 NG/ML (< 0.10)
[2017-09-09 13:37] LABS: CK-MB VALUE MASS 2.1 NG/ML (<3.6); DIGOXIN LEVEL 0.9 NG/ML (0.5-2.0); MB/CK RELATIVE INDEX 3.55 (< OR =4); NT-PRO BNP 2936 PG/ML (<450)
[2017-09-09] MEDS ORDERED: CEFTAROLINE FOSAMIL 600 MG in D5W MINI-BAG PLUS 50 ML IV (14:15)
[2017-09-09] MEDS ORDERED: ALBUTEROL SULFATE 2.5 MG/0.5 ML INH NEB SOLN INH (15:15)
[2017-09-09 15:45] LABS: C REACTIVE PROTEIN QUANTITATIV 3.46 MG/DL (0.00-0.30); THYROID STIMULATING HORMONE 0.537 uIU/ML (0.358-3.740)
[2017-09-09 15:59] LABS: ERYTHROCYTE SEDIMENTATION RATE 57 mm/hr (0-30)
[2017-09-09] MEDS ORDERED: FUROSEMIDE 40 MG/4 ML VIAL (J1940) IV (17:00)
[2017-09-09 18:45] LABS: CPK CREATINE PHOSPHOKINASE 61 U/L (26-192); MB/CK RELATIVE INDEX 3.27 (< OR =4); TROPONIN I 0.02 NG/ML (< 0.10)
[2017-09-09] MEDS: CEFTAROLINE FOSAMIL 400 MG in D5W MINI-BAG PLUS 50 ML IV (18:45)
[2017-09-09] MEDS: FERROUS SULFATE 325MG TAB PO (20:08)
[2017-09-09] MEDS: FUROSEMIDE 40 MG/4 ML VIAL (J1940) IV (20:08)
[2017-09-09] MEDS: ADVAIR HFA 230/21MCG INHALER INH (23:14)
[2017-09-09] MEDS: ACETAMINOPHEN TAB 650MG DOSE (2X325MG) PO (23:31)
[2017-09-10] MEDS: FUROSEMIDE 40 MG/4 ML VIAL (J1940) IV ×4 (00:57→17:19)
[2017-09-10 02:36] LABS: CK-MB VALUE MASS 2.5 NG/ML (<3.6); CPK CREATINE PHOSPHOKINASE 71 U/L (26-192); MB/CK RELATIVE INDEX 3.52 (< OR =4); TROPONIN I 0.04 NG/ML (< 0.10)
[2017-09-10] MEDS: CEFTAROLINE FOSAMIL 400 MG in D5W MINI-BAG PLUS 50 ML IV ×2 (03:56→15:58)
[2017-09-10 05:31] LABS: BASO % 0.3 % (0.0-1.0); EOS # 0.3 10^3/uL (0.0-0.50); EOS % 2.2 % (0.0-3.0); HEMATOCRIT 35.6 % (36.0-47.0); HEMOGLOBIN 11.4 g/dl (12.0-15.5); IMMATURE GRANULOCYTE % 0.7 % (0-3.0); LYMPH # 0.9 10^3/uL (1.5-4.5); LYMPH % 7.2 % (24.0-44.0); MEAN CORPUSCULAR HEMOGLOBIN 32.9 pg (27.0-33.0); MEAN CORPUSCULAR VOLUME 102.6 fl (80.0-96.0); MONO # 1.3 10^3/uL (0.0-0.8); MONO % 10.3 % (0.0-5.0); NEUTROPHILS # 9.6 10^3/uL (1.8-7.7); NEUTROPHILS % 79.3 % (36.0-66.0); PLATELET COUNT, AUTOMATED 252 10^3/uL (150-450); RED BLOOD COUNT 3.47 10^6/uL (4.00-5.40); RED CELL DISTRIBUTION WIDTH 13.3 % (11.5-14.5); WHITE BLOOD COUNT 12.1 10^3/uL (4.0-10.0)
[2017-09-10 05:47] LABS: ALBUMIN 3.4 GM/DL (3.2-5.2); ALBUMIN/GLOBULIN RATIO 0.94 (1.00-1.93); ALKALINE PHOSPHATASE 54 U/L (45-117); ALT/SGPT 18 U/L (12-78); ANION GAP 6 MEQ/L (8-16); AST/SGOT 23 U/L (7-37); BILIRUBIN,TOTAL 0.4 MG/DL (0.2-1.0); BLOOD UREA NITROGEN 34 MG/DL (7-18); CALCIUM LEVEL 9.1 MG/DL (8.8-10.2); CARBON DIOXIDE LEVEL 38 MEQ/L (21-32); CHLORIDE LEVEL 99 MEQ/L (98-107); CREATININE FOR GFR 1.19 MG/DL (0.55-1.30); GLOMERULAR FILTRATION RATE 46.7 (>39); GLUCOSE, FASTING 108 MG/DL (70-100); POTASSIUM SERUM 4.1 MEQ/L (3.5-5.1); SODIUM LEVEL 143 MEQ/L (136-145)
[2017-09-10] MEDS: ADVAIR HFA 230/21MCG INHALER INH ×2 (08:11→20:59)
[2017-09-10] MEDS: TIOTROPIUM INHALER/CAPSULE (SPIRIVA) INH (08:11)
[2017-09-10] MEDS: SPIRONOLACTONE 25 MG TAB PO (08:36)
[2017-09-10] MEDS: OMEPRAZOLE 20 MG CAP PO (08:36)
[2017-09-10] MEDS: RIVAROXABAN 15 MG TAB (XARELTO) PO (08:37)
[2017-09-10] MEDS: MULTIVITAMINS/MINERALS THERAP 1 TAB PO (08:37)
[2017-09-10] MEDS: MIRALAX *UNIT DOSE* 17GM PACKET PO (08:37)
[2017-09-10] MEDS: METOPROLOL SUCC (TopROL XL) 50MG **XL** TAB PO (08:37)
[2017-09-10] MEDS: FERROUS SULFATE 325MG TAB PO ×2 (08:37→20:53)
[2017-09-10] MEDS: PARoxetine 20 MG TAB PO (08:37)
[2017-09-10] MEDS: predniSONE 10 MG TAB PO (08:37)
[2017-09-10 11:03] LABS: CK-MB VALUE MASS 2.8 NG/ML (<3.6); CPK CREATINE PHOSPHOKINASE 90 U/L (26-192); MB/CK RELATIVE INDEX 3.11 (< OR =4); TROPONIN I 0.03 NG/ML (< 0.10)
[2017-09-10 11:11] LABS: ERYTHROCYTE SEDIMENTATION RATE 63 mm/hr (0-30)
[2017-09-10] MEDS: ACETAMINOPHEN TAB 650MG DOSE (2X325MG) PO ×2 (12:32→20:55)
[2017-09-11] MEDS: FUROSEMIDE 40 MG/4 ML VIAL (J1940) IV ×3 (00:21→06:07)
[2017-09-11] MEDS: CEFTAROLINE FOSAMIL 400 MG in D5W MINI-BAG PLUS 50 ML IV ×2 (03:43→15:52)
[2017-09-11 05:06] LABS: BASO # 0.1 10^3/uL (0.0-0.2); BASO % 0.4 % (0.0-1.0); EOS # 0.2 10^3/uL (0.0-0.50); HEMATOCRIT 34.8 % (36.0-47.0); HEMOGLOBIN 11.2 g/dl (12.0-15.5); IMMATURE GRANULOCYTE % 0.7 % (0-3.0); LYMPH % 8.5 % (24.0-44.0); MEAN CORPUSCULAR HEMOGLOBIN 33.3 pg (27.0-33.0); MEAN CORPUSCULAR HGB CONC 32.2 g/dl (32.0-36.5); MEAN CORPUSCULAR VOLUME 103.6 fl (80.0-96.0); MONO % 7.9 % (0.0-5.0); NEUTROPHILS # 9.9 10^3/uL (1.8-7.7); NEUTROPHILS % 80.5 % (36.0-66.0); PLATELET COUNT, AUTOMATED 280 10^3/uL (150-450); RED BLOOD COUNT 3.36 10^6/uL (4.00-5.40); RED CELL DISTRIBUTION WIDTH 13.4 % (11.5-14.5); WHITE BLOOD COUNT 12.3 10^3/uL (4.0-10.0)
[2017-09-11 05:27] LABS: ALBUMIN 3.5 GM/DL (3.2-5.2); ALBUMIN/GLOBULIN RATIO 0.95 (1.00-1.93); ALKALINE PHOSPHATASE 57 U/L (45-117); ALT/SGPT 19 U/L (12-78); ANION GAP 7 MEQ/L (8-16); AST/SGOT 25 U/L (7-37); BILIRUBIN,TOTAL 0.3 MG/DL (0.2-1.0); BLOOD UREA NITROGEN 38 MG/DL (7-18); C REACTIVE PROTEIN QUANTITATIV 4.53 MG/DL (0.00-0.30); CALCIUM LEVEL 9.2 MG/DL (8.8-10.2); CARBON DIOXIDE LEVEL 36 MEQ/L (21-32); CHLORIDE LEVEL 96 MEQ/L (98-107); CREATININE FOR GFR 1.41 MG/DL (0.55-1.30); GLOMERULAR FILTRATION RATE 38.4 (>39); GLUCOSE, FASTING 138 MG/DL (70-100); POTASSIUM SERUM 3.8 MEQ/L (3.5-5.1); SODIUM LEVEL 139 MEQ/L (136-145); TOTAL PROTEIN 7.2 GM/DL (6.4-8.2)
[2017-09-11 05:45] LABS: ERYTHROCYTE SEDIMENTATION RATE 57 mm/hr (0-30)
[2017-09-11] MEDS: TIOTROPIUM INHALER/CAPSULE (SPIRIVA) INH (08:15)
[2017-09-11] MEDS: ADVAIR HFA 230/21MCG INHALER INH ×2 (08:17→20:28)
[2017-09-11] MEDS: MIRALAX *UNIT DOSE* 17GM PACKET PO (08:31)
[2017-09-11] MEDS: METOPROLOL SUCC (TopROL XL) 50MG **XL** TAB PO (08:32)
[2017-09-11] MEDS: MULTIVITAMINS/MINERALS THERAP 1 TAB PO (08:32)
[2017-09-11] MEDS: OMEPRAZOLE 20 MG CAP PO (08:32)
[2017-09-11] MEDS: FERROUS SULFATE 325MG TAB PO ×2 (08:32→20:48)
[2017-09-11] MEDS: predniSONE 10 MG TAB PO (08:33)
[2017-09-11] MEDS: PARoxetine 20 MG TAB PO (08:33)
[2017-09-11] MEDS: RIVAROXABAN 15 MG TAB (XARELTO) PO (08:33)
[2017-09-11] MEDS: SPIRONOLACTONE 25 MG TAB PO (08:33)
[2017-09-11] MEDS: DIGOXIN 0.125 MG TAB PO (08:36)
[2017-09-11] MEDS: ACETAMINOPHEN TAB 650MG DOSE (2X325MG) PO ×2 (08:37→20:48)
[2017-09-11] MEDS: SLF 3 ML SYR IV ×2 (12:30→22:00)
[2017-09-12] MEDS: CEFTAROLINE FOSAMIL 400 MG in D5W MINI-BAG PLUS 50 ML IV ×2 (03:55→15:15)
[2017-09-12 05:33] LABS: BASO % 0.3 % (0.0-1.0); EOS # 0.2 10^3/uL (0.0-0.50); HEMATOCRIT 34.7 % (36.0-47.0); HEMOGLOBIN 10.9 g/dl (12.0-15.5); IMMATURE GRANULOCYTE % 0.8 % (0-3.0); MEAN CORPUSCULAR HEMOGLOBIN 32.9 pg (27.0-33.0); MEAN CORPUSCULAR HGB CONC 31.4 g/dl (32.0-36.5); MEAN CORPUSCULAR VOLUME 104.8 fl (80.0-96.0); MONO % 9.2 % (0.0-5.0); NEUTROPHILS # 8.7 10^3/uL (1.8-7.7); NEUTROPHILS % 78.7 % (36.0-66.0); PLATELET COUNT, AUTOMATED 252 10^3/uL (150-450); RED BLOOD COUNT 3.31 10^6/uL (4.00-5.40); RED CELL DISTRIBUTION WIDTH 13.5 % (11.5-14.5)
[2017-09-12 05:54] LABS: ALBUMIN 3.1 GM/DL (3.2-5.2); ALBUMIN/GLOBULIN RATIO 0.91 (1.00-1.93); ALKALINE PHOSPHATASE 48 U/L (45-117); ALT/SGPT 18 U/L (12-78); ANION GAP 4 MEQ/L (8-16); AST/SGOT 21 U/L (7-37); BILIRUBIN,TOTAL 0.3 MG/DL (0.2-1.0); BLOOD UREA NITROGEN 36 MG/DL (7-18); C REACTIVE PROTEIN QUANTITATIV 2.72 MG/DL (0.00-0.30); CALCIUM LEVEL 8.8 MG/DL (8.8-10.2); CARBON DIOXIDE LEVEL 39 MEQ/L (21-32); CHLORIDE LEVEL 98 MEQ/L (98-107); CREATININE FOR GFR 1.32 MG/DL (0.55-1.30); GLOMERULAR FILTRATION RATE 41.4 (>39); GLUCOSE, FASTING 108 MG/DL (70-100); POTASSIUM SERUM 3.6 MEQ/L (3.5-5.1); SODIUM LEVEL 141 MEQ/L (136-145); TOTAL PROTEIN 6.5 GM/DL (6.4-8.2)
[2017-09-12 05:57] LABS: ERYTHROCYTE SEDIMENTATION RATE 60 mm/hr (0-30)
[2017-09-12] MEDS: SLF 3 ML SYR IV ×3 (06:00→20:24)
[2017-09-12] MEDS: ADVAIR HFA 230/21MCG INHALER INH ×2 (07:19→20:31)
[2017-09-12] MEDS: TIOTROPIUM INHALER/CAPSULE (SPIRIVA) INH (07:19)
[2017-09-12] MEDS: MULTIVITAMINS/MINERALS THERAP 1 TAB PO (08:42)
[2017-09-12] MEDS: OMEPRAZOLE 20 MG CAP PO (08:42)
[2017-09-12] MEDS: MIRALAX *UNIT DOSE* 17GM PACKET PO (08:42)
[2017-09-12] MEDS: PARoxetine 20 MG TAB PO (08:43)
[2017-09-12] MEDS: RIVAROXABAN 15 MG TAB (XARELTO) PO (08:43)
[2017-09-12] MEDS: FERROUS SULFATE 325MG TAB PO ×2 (08:43→20:23)
[2017-09-12] MEDS: METOPROLOL SUCC (TopROL XL) 50MG **XL** TAB PO (08:44)
[2017-09-12] MEDS: predniSONE 10 MG TAB PO (08:44)
[2017-09-12] MEDS: SPIRONOLACTONE 25 MG TAB PO (08:45)
[2017-09-12] MEDS ORDERED: traZODone 25MG PER 1/2 TABLET PO (10:45)
[2017-09-12] MEDS: FUROSEMIDE 40 MG/4 ML VIAL (J1940) IV ×2 (10:50→16:55)
[2017-09-12] MEDS: ACETAMINOPHEN TAB 650MG DOSE (2X325MG) PO (15:15)
[2017-09-13] MEDS: CEFTAROLINE FOSAMIL 400 MG in D5W MINI-BAG PLUS 50 ML IV (04:00)
[2017-09-13] MEDS: SLF 3 ML SYR IV ×4 (06:00→22:00)
[2017-09-13 06:09] LABS: BASO # 0.1 10^3/uL (0.0-0.2); BASO % 0.4 % (0.0-1.0); EOS # 0.3 10^3/uL (0.0-0.50); EOS % 2.2 % (0.0-3.0); HEMATOCRIT 33.9 % (36.0-47.0); HEMOGLOBIN 10.6 g/dl (12.0-15.5); LYMPH # 1.1 10^3/uL (1.5-4.5); MEAN CORPUSCULAR HEMOGLOBIN 32.5 pg (27.0-33.0); MEAN CORPUSCULAR HGB CONC 31.3 g/dl (32.0-36.5); MONO # 1.2 10^3/uL (0.0-0.8); MONO % 9.6 % (0.0-5.0); NEUTROPHILS # 9.4 10^3/uL (1.8-7.7); NEUTROPHILS % 77.8 % (36.0-66.0); PLATELET COUNT, AUTOMATED 292 10^3/uL (150-450); RED BLOOD COUNT 3.26 10^6/uL (4.00-5.40); RED CELL DISTRIBUTION WIDTH 13.4 % (11.5-14.5); WHITE BLOOD COUNT 12.1 10^3/uL (4.0-10.0)
[2017-09-13 06:34] LABS: ALBUMIN 3.2 GM/DL (3.2-5.2); ALKALINE PHOSPHATASE 52 U/L (45-117); ALT/SGPT 17 U/L (12-78); ANION GAP 4 MEQ/L (8-16); AST/SGOT 19 U/L (7-37); BILIRUBIN,TOTAL 0.3 MG/DL (0.2-1.0); BLOOD UREA NITROGEN 37 MG/DL (7-18); CALCIUM LEVEL 8.6 MG/DL (8.8-10.2); CARBON DIOXIDE LEVEL 40 MEQ/L (21-32); CHLORIDE LEVEL 99 MEQ/L (98-107); CREATININE FOR GFR 1.34 MG/DL (0.55-1.30); GLOMERULAR FILTRATION RATE 40.7 (>39); GLUCOSE, FASTING 101 MG/DL (70-100); POTASSIUM SERUM 3.9 MEQ/L (3.5-5.1); SODIUM LEVEL 143 MEQ/L (136-145); TOTAL PROTEIN 6.4 GM/DL (6.4-8.2)
[2017-09-13 06:53] LABS: C REACTIVE PROTEIN QUANTITATIV 1.68 MG/DL (0.00-0.30)
[2017-09-13 07:09] LABS: ERYTHROCYTE SEDIMENTATION RATE 65 mm/hr (0-30)
[2017-09-13] MEDS: TIOTROPIUM INHALER/CAPSULE (SPIRIVA) INH (07:43)
[2017-09-13] MEDS: ADVAIR HFA 230/21MCG INHALER INH ×2 (07:43→19:59)
[2017-09-13] MEDS: MIRALAX *UNIT DOSE* 17GM PACKET PO (08:39)
[2017-09-13] MEDS: FUROSEMIDE 40 MG/4 ML VIAL (J1940) IV ×2 (08:40→17:06)
[2017-09-13] MEDS: PARoxetine 20 MG TAB PO (08:40)
[2017-09-13] MEDS: predniSONE 10 MG TAB PO (08:41)
[2017-09-13] MEDS: RIVAROXABAN 15 MG TAB (XARELTO) PO (08:42)
[2017-09-13] MEDS: MULTIVITAMINS/MINERALS THERAP 1 TAB PO (08:42)
[2017-09-13] MEDS: OMEPRAZOLE 20 MG CAP PO (08:42)
[2017-09-13] MEDS: DIGOXIN 0.125 MG TAB PO (08:42)
[2017-09-13] MEDS: SPIRONOLACTONE 25 MG TAB PO (08:42)
[2017-09-13] MEDS: FERROUS SULFATE 325MG TAB PO ×2 (08:43→22:06)
[2017-09-13] MEDS: METOPROLOL SUCC (TopROL XL) 50MG **XL** TAB PO (08:43)
[2017-09-13] MEDS: ACETAMINOPHEN TAB 650MG DOSE (2X325MG) PO ×2 (08:52→22:06)
[2017-09-13] MEDS: DOXYCYCLINE HYCLATE 100 MG TAB PO (22:07)
[2017-09-14 04:56] LABS: BASO # 0.1 10^3/uL (0.0-0.2); BASO % 0.6 % (0.0-1.0); EOS # 0.3 10^3/uL (0.0-0.50); EOS % 2.2 % (0.0-3.0); HEMATOCRIT 32.1 % (36.0-47.0); IMMATURE GRANULOCYTE % 1.2 % (0-3.0); LYMPH # 1.1 10^3/uL (1.5-4.5); MEAN CORPUSCULAR HGB CONC 31.2 g/dl (32.0-36.5); MEAN CORPUSCULAR VOLUME 105.9 fl (80.0-96.0); MONO # 1.3 10^3/uL (0.0-0.8); MONO % 10.5 % (0.0-5.0); NEUTROPHILS # 9.6 10^3/uL (1.8-7.7); NEUTROPHILS % 76.5 % (36.0-66.0); PLATELET COUNT, AUTOMATED 268 10^3/uL (150-450); RED BLOOD COUNT 3.03 10^6/uL (4.00-5.40); RED CELL DISTRIBUTION WIDTH 13.4 % (11.5-14.5); WHITE BLOOD COUNT 12.5 10^3/uL (4.0-10.0)
[2017-09-14 05:17] LABS: ALBUMIN 2.9 GM/DL (3.2-5.2); ALBUMIN/GLOBULIN RATIO 0.83 (1.00-1.93); ALKALINE PHOSPHATASE 50 U/L (45-117); ALT/SGPT 18 U/L (12-78); ANION GAP 3 MEQ/L (8-16); AST/SGOT 19 U/L (7-37); BILIRUBIN,TOTAL 0.2 MG/DL (0.2-1.0); BLOOD UREA NITROGEN 35 MG/DL (7-18); C REACTIVE PROTEIN QUANTITATIV 1.34 MG/DL (0.00-0.30); CALCIUM LEVEL 8.6 MG/DL (8.8-10.2); CARBON DIOXIDE LEVEL 38 MEQ/L (21-32); CHLORIDE LEVEL 101 MEQ/L (98-107); CREATININE FOR GFR 1.36 MG/DL (0.55-1.30); GLUCOSE, FASTING 97 MG/DL (70-100); POTASSIUM SERUM 3.7 MEQ/L (3.5-5.1); SODIUM LEVEL 142 MEQ/L (136-145); TOTAL PROTEIN 6.4 GM/DL (6.4-8.2)
[2017-09-14 05:44] LABS: ERYTHROCYTE SEDIMENTATION RATE 59 mm/hr (0-30)
[2017-09-14] MEDS: SLF 3 ML SYR IV ×3 (06:00→20:30)
[2017-09-14] MEDS: SPIRONOLACTONE 25 MG TAB PO (07:40)
[2017-09-14] MEDS: RIVAROXABAN 15 MG TAB (XARELTO) PO (07:41)
[2017-09-14] MEDS: PARoxetine 20 MG TAB PO (07:41)
[2017-09-14] MEDS: OMEPRAZOLE 20 MG CAP PO (07:41)
[2017-09-14] MEDS: predniSONE 10 MG TAB PO (07:41)
[2017-09-14] MEDS: MULTIVITAMINS/MINERALS THERAP 1 TAB PO (07:42)
[2017-09-14] MEDS: FERROUS SULFATE 325MG TAB PO ×2 (07:42→20:29)
[2017-09-14] MEDS: METOPROLOL SUCC (TopROL XL) 50MG **XL** TAB PO (07:42)
[2017-09-14] MEDS: DOXYCYCLINE HYCLATE 100 MG TAB PO ×2 (07:42→20:29)
[2017-09-14] MEDS: FUROSEMIDE 40 MG/4 ML VIAL (J1940) IV (07:43)
[2017-09-14] MEDS: MIRALAX *UNIT DOSE* 17GM PACKET PO (07:43)
[2017-09-14] MEDS: ADVAIR HFA 230/21MCG INHALER INH ×2 (08:08→20:28)
[2017-09-14] MEDS: TIOTROPIUM INHALER/CAPSULE (SPIRIVA) INH (08:08)
[2017-09-14] MEDS ORDERED: EUCERIN 120GM CREAM TOP (12:15)
[2017-09-14] MEDS ORDERED: DIAPER RELIEF PASTE (DESITIN) 60GM TOP (12:15)
[2017-09-14] MEDS: FUROSEMIDE 40 MG TAB PO (17:13)
[2017-09-14] MEDS: ACETAMINOPHEN TAB 650MG DOSE (2X325MG) PO (20:32)
[2017-09-15 05:34] LABS: BASO # 0.1 10^3/uL (0.0-0.2); BASO % 0.4 % (0.0-1.0); EOS # 0.3 10^3/uL (0.0-0.50); EOS % 2.4 % (0.0-3.0); HEMATOCRIT 31.8 % (36.0-47.0); HEMOGLOBIN 9.9 g/dl (12.0-15.5); IMMATURE GRANULOCYTE % 0.9 % (0-3.0); LYMPH % 8.2 % (24.0-44.0); MEAN CORPUSCULAR HEMOGLOBIN 32.7 pg (27.0-33.0); MEAN CORPUSCULAR HGB CONC 31.1 g/dl (32.0-36.5); MONO # 1.2 10^3/uL (0.0-0.8); MONO % 9.9 % (0.0-5.0); NEUTROPHILS # 9.1 10^3/uL (1.8-7.7); NEUTROPHILS % 78.2 % (36.0-66.0); PLATELET COUNT, AUTOMATED 252 10^3/uL (150-450); RED BLOOD COUNT 3.03 10^6/uL (4.00-5.40); RED CELL DISTRIBUTION WIDTH 13.2 % (11.5-14.5); WHITE BLOOD COUNT 11.6 10^3/uL (4.0-10.0)
[2017-09-15 05:58] LABS: ALBUMIN 2.9 GM/DL (3.2-5.2); ALBUMIN/GLOBULIN RATIO 0.88 (1.00-1.93); ALKALINE PHOSPHATASE 48 U/L (45-117); ALT/SGPT 16 U/L (12-78); ANION GAP 1 MEQ/L (8-16); AST/SGOT 20 U/L (7-37); BILIRUBIN,TOTAL 0.2 MG/DL (0.2-1.0); BLOOD UREA NITROGEN 32 MG/DL (7-18); C REACTIVE PROTEIN QUANTITATIV 0.91 MG/DL (0.00-0.30); CALCIUM LEVEL 8.6 MG/DL (8.8-10.2); CARBON DIOXIDE LEVEL 41 MEQ/L (21-32); CHLORIDE LEVEL 101 MEQ/L (98-107); GLOMERULAR FILTRATION RATE 42.2 (>39); GLUCOSE, FASTING 97 MG/DL (70-100); POTASSIUM SERUM 3.7 MEQ/L (3.5-5.1); SODIUM LEVEL 143 MEQ/L (136-145); TOTAL PROTEIN 6.2 GM/DL (6.4-8.2)
[2017-09-15 06:02] LABS: ERYTHROCYTE SEDIMENTATION RATE 54 mm/hr (0-30)
[2017-09-15] MEDS: SLF 3 ML SYR IV (06:58)
[2017-09-15] MEDS: TIOTROPIUM INHALER/CAPSULE (SPIRIVA) INH (07:54)
[2017-09-15] MEDS: ADVAIR HFA 230/21MCG INHALER INH (07:55)
[2017-09-15] MEDS: PARoxetine 20 MG TAB PO ×2 (09:24→09:47)
[2017-09-15] MEDS: diphenhydrAMINE INJ 50MG/ML VIAL (J1200) IV (09:43)
[2017-09-15] MEDS: ACETAMINOPHEN TAB 650MG DOSE (2X325MG) PO (09:46)
[2017-09-15] MEDS: DIGOXIN 0.125 MG TAB PO (09:47)
[2017-09-15] MEDS: predniSONE 10 MG TAB PO (09:47)
[2017-09-15] MEDS: OMEPRAZOLE 20 MG CAP PO (09:48)
[2017-09-15] MEDS: FUROSEMIDE 40 MG TAB PO (09:48)
[2017-09-15] MEDS: FERROUS SULFATE 325MG TAB PO (09:48)
[2017-09-15] MEDS: RIVAROXABAN 15 MG TAB (XARELTO) PO (09:48)
[2017-09-15] MEDS: SPIRONOLACTONE 25 MG TAB PO (09:48)
[2017-09-15] MEDS: MULTIVITAMINS/MINERALS THERAP 1 TAB PO (09:48)
[2017-09-15] MEDS: DOXYCYCLINE HYCLATE 100 MG TAB PO (09:48)
[2017-09-15] MEDS: METOPROLOL SUCC (TopROL XL) 50MG **XL** TAB PO (09:49)
[2017-09-15] MEDS: MIRALAX *UNIT DOSE* 17GM PACKET PO (09:49)
== END 2017-09-15 08:21 | disposition home health service (06) | DRG 291 ==
LOC: M MSPAV 09-14 22:47 → M ED 10:58 → M ED INP 15:05 → M PCU 19:00
DX: I13.0 Hypertensive heart and chronic kidney disease with heart failure and stage 1 through stage 4 chronic kidney disease, or unspecified chronic kidney disease (principal); I50.43 Acute on chronic combined systolic (congestive) and diastolic (congestive) heart failure; L03.115 Cellulitis of right lower limb; L03.116 Cellulitis of left lower limb; J44.9 Chronic obstructive pulmonary disease, unspecified; G47.33 Obstructive sleep apnea (adult) (pediatric); D50.9 Iron deficiency anemia, unspecified; K21.9 Gastro-esophageal reflux disease without esophagitis; F32.9 Major depressive disorder, single episode, unspecified; F41.9 Anxiety disorder, unspecified; K59.09 Other constipation; I48.2 Chronic atrial fibrillation; N18.3 Chronic kidney disease, stage 3 (moderate); E66.9 Obesity, unspecified; Z68.30 Body mass index [BMI] 30.0-30.9, adult; Z87.891 Personal history of nicotine dependence; Z79.01 Long term (current) use of anticoagulants; Z99.81 Dependence on supplemental oxygen; Z85.3 Personal history of malignant neoplasm of breast; Z79.52 Long term (current) use of systemic steroids; Z79.899 Other long term (current) drug therapy; Z88.8 Allergy status to other drugs, medicaments and biological substances; Z88.6 Allergy status to analgesic agent

== ENCOUNTER 2018-05-28 11:59 | Observation (INO) | payer MEDICARE ==
[~2018-05-28] VITALS: Ht 157.5 cm; Wt 78.2 kg
[~2018-05-28 11:59] MED LIST changes: +ACET1TAB55 PO; +DESI40PS3 EX; +DOXY100T PO; +EUCE12CR TOP; +FERR1TAB8 PO; +KLOR20TA42; -LASI40TA PO; +LASI40TA9 PO; -LASI80TA PO; +LASI80TA3 PO; +LEVA1TAB2 PO; -LOSA50TA20 PO; +LOSA50TA88 PO; -POTA20TA; +PRED10TA2 PO; +SENN8.6T7 PO; +SPIR-10 PO; -SPIR25TA2 PO; +VITA500T PO
[2018-05-28] MEDS ORDERED: GABA-1171 PO (12:09)
[2018-05-28 13:20] LABS: BASO # 0.1 10^3/uL (0.0-0.2); BASO % 0.4 % (0.0-1.0); EOS # 0.1 10^3/uL (0.0-0.50); EOS % 0.3 % (0.0-3.0); HEMATOCRIT 35.8 % (36.0-47.0); HEMOGLOBIN 10.9 g/dl (12.0-15.5); LYMPH # 0.5 10^3/uL (1.5-4.5); LYMPH % 2.9 % (24.0-44.0); MEAN CORPUSCULAR HEMOGLOBIN 34.2 pg (27.0-33.0); MEAN CORPUSCULAR HGB CONC 30.4 g/dl (32.0-36.5); MEAN CORPUSCULAR VOLUME 112.2 fl (80.0-96.0); MONO # 0.7 10^3/uL (0.0-0.8); MONO % 4.2 % (0.0-5.0); NEUTROPHILS # 14.8 10^3/uL (1.8-7.7); NEUTROPHILS % 91.3 % (36.0-66.0); PLATELET COUNT, AUTOMATED 234 10^3/uL (150-450); RED BLOOD COUNT 3.19 10^6/uL (4.00-5.40); WHITE BLOOD COUNT 16.1 10^3/uL (4.0-10.0)
[2018-05-28 13:39] LABS: ERYTHROCYTE SEDIMENTATION RATE 43 mm/hr (0-30)
--- NOTE | 2018-05-28 13:50 | REP ---
Clinical: Shortness of breath. CHF. Comparison: 09/09/2017. Findings: Stable cardiomegaly and chronic interstitial changes. No focal consolidation, effusion, or pneumothorax. Skeletal structures are intact. Left axillary node dissection noted. Impression: Cardiomegaly and chronic changes. No acute cardiopulmonary process appreciated. Electronically Signed by Eleazar Burnham MD 05/28/2018 01:40 P
[2018-05-28 13:59] LABS: C REACTIVE PROTEIN QUANTITATIV 0.56 MG/DL (0.00-0.30); CALCIUM LEVEL 9.1 MG/DL (8.8-10.2); CREATININE FOR GFR 1.55 MG/DL (0.55-1.30); GLOMERULAR FILTRATION RATE 34.3 (>39); MB/CK RELATIVE INDEX 1.53 (< OR =4); POTASSIUM SERUM 5.3 MEQ/L (3.5-5.1); TROPONIN I 0.03 NG/ML (< 0.10)
[2018-05-28] MEDS ORDERED: EUCE12CR TOP (14:08)
[2018-05-28] MEDS ORDERED: ALBUTEROL SULFATE 2.5 MG/0.5 ML INH NEB SOLN INH PRN (16:00)
[2018-05-28] MEDS ORDERED: EUCERIN 120GM CREAM TOP PRN (16:00)
[2018-05-28 17:00] VITALS: BP 168/92
--- NOTE | 2018-05-28 17:04 | HPE ---
DATE OF ADMISSION: 05/28/2018 This is a 77-year-old female with a past medical history of oxygen-dependent chronic obstructive pulmonary disease (COPD), obstructive sleep apnea, hypertension, chronic systolic heart failure, chronic venous insufficiency who presents to the emergency room with worsening erythema of her bilateral lower extremities over the last 72 hours. She has a history of recurrent cellulitis due to her chronic venous insufficiency. She is on diuretics for this. She denies any subjective feeling of fever, aches, or chills and had not received any outpatient antibiotics this time. She has not noticed any significant increased swelling in her lower extremities, only the erythema that has started from her feet and has moved up to her lower legs. She will be admitted for further management. PAST MEDICAL HISTORY: 1. Chronic systolic heart failure. 2. Atrial fibrillation. 3. Hypertension. 4. Obstructive sleep apnea. 5. History of pulmonary hypertension. 6. Gastroesophageal reflux disease (GERD). 7. Iron deficiency anemia. 8. Anxiety and depression. 9. Chronic kidney disease (CKD), III, baseline creatinine 1.6. DRUG ALLERGIES: ASPIRIN and PREGABALIN. FAMILY HISTORY: Noncontributory. SOCIAL HISTORY: Patient was a chronic smoker, quit 30 years ago. Denies alcohol or illicit drugs. HOME MEDICATIONS: - Tylenol 650 mg by mouth every 4 as needed - albuterol inhaler every 4 as needed - calcium with vitamin D one tablet orally daily - digoxin 0.125 mcg orally every 2 days - ferrous sulfate 325 mg orally twice daily - gabapentin 100 mg orally at bedtime - metoprolol succinate 50 mg orally daily - multivitamin one tablet orally daily - omeprazole 40 mg orally daily - paroxetine 20 mg orally daily - prednisone 10 mg orally daily - polyethylene glycol 17 grams by mouth daily - Xarelto 15 mg orally daily - salmeterol/fluticasone two puffs inhaled twice daily - albuterol 12.5 mg orally daily - tiotropium bromide 18 mcg inhaled daily - torsemide 100 mg orally daily REVIEW OF SYSTEMS: Negative in all 10 major systems except for what is mentioned in the history of present illness (HPI). VITAL SIGNS: Blood pressure 122/58, heart rate is 80 and regular, respiratory rate is 19, temperature is 98.5, oxygen saturation 93% on 3 liters nasal cannula. HEAD: Atraumatic, normocephalic. NECK: Supple. No jugular venous distention (JVD). LUNGS: Clear to auscultation. S1, S2 audible. No murmurs appreciated. ABDOMEN: Soft. Positive bowel sounds. There is +2 pedal edema. SKIN: Erythematous rash noted from her feet going up to the proximal tibial region bilaterally with small blisters noted on both legs. No weeping noted. NEUROLOGIC: Patient awake, oriented times three. LABORATORY DATA: Sodium 141, potassium 5.3, chloride 97, CO2 of 42, anion gap 2, BUN 58, creatinine 1.55. WBC 16.1, hemoglobin 10.9, hematocrit 35.8, platelets are 234,000. IMPRESSION: Lower extremity cellulitis. PLAN: Patient will be admitted to the medical/surgical floor on observation status. Will continue all her preadmission medications at this time and I am going to start her on intravenous (IV) Zosyn 3.375 IV every 6. Keep her feet elevated and monitor her progress during her hospitalization.
[2018-05-28] MEDS: PIPERACILLIN/TAZOBACTAM SOD 2.25 GM in D5W MINI-BAG PLUS 50 ML IV SCH (17:58)
[2018-05-28] MEDS: ADVAIR HFA 230/21MCG INHALER INH SCH (19:49)
[2018-05-28] MEDS ORDERED: GABAPENTIN 100 MG CAP PO SCH (21:00)
[2018-05-28] MEDS: FERROUS SULFATE 325MG TAB PO SCH (21:01)
[2018-05-28] MEDS: ACETAMINOPHEN 325 MG TAB PO PRN (21:01)
[2018-05-28 22:00] VITALS: BP 139/78
[2018-05-29] MEDS: PIPERACILLIN/TAZOBACTAM SOD 2.25 GM in D5W MINI-BAG PLUS 50 ML IV SCH ×4 (00:01→18:12)
--- NOTE | 2018-05-29 04:48 | ECGEPIP ---
Stationary ECG Study [facility] - ED Test Date: 2018-05-28 Pat Name: MERLIN ARCHER Department: Room: [place] [address] Gender: F Black Top Raker: león : 1940 Requested By: Axel Rodriguez Order Number: [id number] Reading MD: Axel Oliver Measurements Intervals [place] Rate: 75 P: CO: 0 QRS: 16 QRSD: 102 T: 27 QT: 377 QTc: 423 Interpretive Statements ATRIAL FIBRILLATION MODERATE ST DEPRESSION SIMILAR TO 09/09/17 Electronically Signed On 05-29-2018 4:48:01 EST by Axel Oliver
[2018-05-29 06:00] VITALS: BP 148/74
[2018-05-29 07:17] LABS: BASO # 0.1 10^3/uL (0.0-0.2); BASO % 0.4 % (0.0-1.0); EOS # 0.2 10^3/uL (0.0-0.50); EOS % 1.4 % (0.0-3.0); HEMATOCRIT 35.7 % (36.0-47.0); HEMOGLOBIN 10.7 g/dl (12.0-15.5); LYMPH # 1.1 10^3/uL (1.5-4.5); LYMPH % 8.4 % (24.0-44.0); MEAN CORPUSCULAR HEMOGLOBIN 33.3 pg (27.0-33.0); MEAN CORPUSCULAR VOLUME 111.2 fl (80.0-96.0); MONO # 1.2 10^3/uL (0.0-0.8); MONO % 9.6 % (0.0-5.0); NEUTROPHILS # 10.3 10^3/uL (1.8-7.7); NEUTROPHILS % 79.5 % (36.0-66.0); RED BLOOD COUNT 3.21 10^6/uL (4.00-5.40)
[2018-05-29 07:43] LABS: CREATININE FOR GFR 1.28 MG/DL (0.55-1.30); GLOMERULAR FILTRATION RATE 42.8 (>39); MAGNESIUM LEVEL 2.6 MG/DL (1.8-2.4); PLATELET COUNT, AUTOMATED 84 10^3/uL (150-450); POTASSIUM SERUM 3.8 MEQ/L (3.5-5.1)
[2018-05-29] MEDS: ADVAIR HFA 230/21MCG INHALER INH SCH ×2 (07:49→20:21)
[2018-05-29] MEDS ORDERED: TORSEMIDE 100 MG TAB PO SCH (09:00)
[2018-05-29] MEDS ORDERED: SPIRONOLACTONE 12.5MG PER 1/2 TABLET PO SCH (09:00)
[2018-05-29] MEDS: RIVAROXABAN 15 MG TAB (XARELTO) PO SCH (09:57)
[2018-05-29] MEDS: PARoxetine 20 MG TAB PO SCH (09:57)
[2018-05-29] MEDS: OMEPRAZOLE 20 MG CAP PO SCH (09:57)
[2018-05-29] MEDS: MULTIVITAMINS/MINERALS THERAP 1 TAB PO SCH (09:57)
[2018-05-29] MEDS: MIRALAX *UNIT DOSE* 17GM PACKET PO SCH (09:58)
[2018-05-29] MEDS: METOPROLOL SUCC (TopROL XL) 50MG **XL** TAB PO SCH (09:58)
[2018-05-29] MEDS: ACETAMINOPHEN 325 MG TAB PO PRN ×2 (09:58→18:12)
[2018-05-29] MEDS: FERROUS SULFATE 325MG TAB PO SCH ×2 (09:58→21:01)
[2018-05-29] MEDS: predniSONE 10 MG TAB PO SCH (09:58)
[2018-05-29] MEDS: TIOTROPIUM INHALER/CAPSULE (SPIRIVA) INH SCH (11:50)
--- NOTE | 2018-05-29 13:08 | IPN ---
DATE: 05/29/2018 SUBJECTIVE: The patient tells me that she is feeling the same. She tells me that she presented to the hospital because she noticed a blister on her left lower extremity and that they have been more swollen lately. She tells me that she is noticing that she put on weight but has not noticed any change in her breathing. She denies any fevers, chills, chest pain, or shortness of breath. She tells me that she has had quite constant pain in the lower extremities bilaterally. She does not have relief of late and decided to present to the emergency room. She does not feel any significantly different since the time of her admission. OBJECTIVE: VITAL SIGNS: Temperature 97.6, she has been afebrile since her arrival. Heart rate is 72. She has not been significantly tachycardic. Respiratory rate 16, blood pressure 148/74, oxygen saturation 98% on 3 liters nasal cannula, which is her baseline. GENERAL: She is a very pleasant, elderly, female lying flat in bed. She does not appear to be in any acute distress. She speaks in complete sentences and is not using any accessory muscle use. HEENT: Cranial nerves II through XII are grossly intact. She has moist mucous membranes. Difficult to assess but I suspect that she has some mild elevation of central venous pressure. CARDIOVASCULAR: S1, S2, irregularly irregular. Not tachycardic. RESPIRATORY: Exam is fairly clear. ABDOMINAL EXAM: Benign. EXTREMITIES: There is 2+ edema bilaterally with erythema. There is no visible blister in the left lower extremity. There is diffuse tenderness and exquisite tenderness to even soft palpation in bilateral lower extremities, equal bilaterally. LABORATORY STUDIES: WBC 13.0, chronically elevated, hemoglobin 10.7 and platelet count is 84, down from 234. ESR is 43. Sodium 143, potassium 3.8, down from 5.3, chloride 98, bicarbonate 40, BUN 44, creatinine 1.2, down from 1.5, magnesium 2.6, C-reactive protein 0.56. Microbiology: Right and left heel wound cultures have been drawn and pending. Heel culture is pending, as well as cultures from the right and left calves. IMAGING: She had a chest x-ray that revealed cardiomegaly and chronic kidney disease. ASSESSMENT AND PLAN: This is a 77-year-old female who presented with pain in the bilateral lower extremities, as well as a blister on the left lower extremity. 1. Pain and blister. She does have increased erythema; however, she does have 2+ edema and my suspicion is for right sided heart failure with fluid overload to be the etiology of her bilateral lower extremity edema, as well as increased erythema and blistering and less likely to be an acute recurrence of bilateral lower extremity cellulitis. I will check a duplex of the bilateral lower extremities to ensure that there is no deep vein thrombosis (DVT) present. I will begin diuresing her with Lasix 40 mg IV every 8 hours and hold her home spironolactone and torsemide. We will also increase her gabapentin from 100 mg at night to 100 mg every 8 hours in order to better optimize what I feel is likely neuropathic pain given her exam and description of it being burning. The patient is empirically on Zosyn for the time being. She is afebrile. She has a chronic leukocytosis. My suspicion for an acute infection is low, but we will follow the wound cultures, but the wound culture is likely going to be contaminant with chronically colonized with skin desiree organisms. 2. Thrombocytopenia. The etiology is unclear, it is rather unusual and acute drop from 234 to 84 without any provoking factors. As near as I can tell, she is not getting any heparin products and she is chronically on Xarelto. I will check a repeat, as well as an ADCA free platelet count and we can go from there before continuing further workup; however, adverse effect from medication is certainly possible. 3. Chronic atrial fibrillation. She is on digoxin. She is on Xarelto. If her platelets do return to be at a low level, we will have to discontinue this. She is on metoprolol XL. 4. Mood disorder. She is on Paxil. 5. Iron deficiency anemia. She is on ferrous sulfate and appears to be stable. 6. Chronic obstructive pulmonary disease (COPD) with chronic hypoxic respiratory failure. She is normally on 10 mg of prednisone daily, as well as 3 liters nasal cannula. She is at her baseline. She is continued on Advair, albuterol as needed, Spiriva, prednisone. 7. Gastroesophageal reflux disease (GERD). She is continued on omeprazole. 8. Cor pulmonale, right sided heart failure. I suspect that given her fairly advanced chronic obstructive pulmonary disease (COPD) that she likely has a degree of cor pulmonale and possibly some right sided heart failure. She has known obstructive sleep apnea, venous insufficiency and she has close outpatient followup. She has a low sodium diet. 9. Lower extremity wounds. He follows with Dr. Nielsen. I will place a PT wound consult. I was informed that we will be unable to get a consult by Dr. Nielsen this week. 10. Chronic kidney disease. Appears stable and at its baseline. 11. Deep vein thrombosis (DVT) prophylaxis. The patient is on Xarelto. We are monitoring platelets closely. 12. Hyperkalemia. Improved on recheck this morning. DISPOSITION: Continue to monitor the patient. She is up and ambulating independently around the room. She may be able to be discharged as early as tomorrow.
[2018-05-29] MEDS: GABAPENTIN 100 MG CAP PO SCH ×2 (13:19→21:01)
[2018-05-29] MEDS: FUROSEMIDE 40 MG/4 ML VIAL (J1940) IV SCH ×2 (13:19→21:01)
[2018-05-29 13:24] LABS: PLATELET COUNT, AUTOMATED 155 10^3/uL (150-450); PLTBLUE- EDTA FREE CALC 171 K/mm3 (172-450)
[2018-05-29 13:37] LABS: PLTBLUE- EDTA FREE MACHINE 155 10^3/uL (172-450)
[2018-05-29 14:00] VITALS: BP 132/72
--- NOTE | 2018-05-29 16:33 | REP ---
Bilateral lower extremity Duplex Doppler venous ultrasound: Real time compression and duplex Doppler interrogation of the bilateral lower extremity deep venous system is performed. Bilaterally, the common femoral, superficial femoral and popliteal veins are fully compressible with transducer pressure and demonstrate normal spontaneous and phasic flow, without evidence of deep venous thrombosis. Impression: No evidence of deep venous thrombosis of the bilateral lower extremity femoral popliteal venous system. Electronically Signed by Reagan Newby MD 05/29/2018 04:24 P
[2018-05-30] MEDS: PIPERACILLIN/TAZOBACTAM SOD 2.25 GM in D5W MINI-BAG PLUS 50 ML IV SCH ×3 (00:09→12:00)
[2018-05-30] MEDS: GABAPENTIN 100 MG CAP PO SCH ×2 (05:15→13:02)
[2018-05-30] MEDS: FUROSEMIDE 40 MG/4 ML VIAL (J1940) IV SCH ×2 (05:16→12:52)
[2018-05-30 06:00] VITALS: BP 132/78
[2018-05-30 07:26] LABS: HEMATOCRIT 35.6 % (36.0-47.0); HEMOGLOBIN 10.7 g/dl (12.0-15.5); MEAN CORPUSCULAR HEMOGLOBIN 33.9 pg (27.0-33.0); MEAN CORPUSCULAR HGB CONC 30.1 g/dl (32.0-36.5); MEAN CORPUSCULAR VOLUME 112.7 fl (80.0-96.0); RED BLOOD COUNT 3.16 10^6/uL (4.00-5.40); WHITE BLOOD COUNT 11.7 10^3/uL (4.0-10.0)
[2018-05-30 07:37] LABS: CALCIUM LEVEL 8.9 MG/DL (8.8-10.2); CREATININE FOR GFR 1.31 MG/DL (0.55-1.30); GLOMERULAR FILTRATION RATE 41.7 (>39)
[2018-05-30 07:40] LABS: PLATELET COUNT, AUTOMATED 93 10^3/uL (150-450)
[2018-05-30] MEDS ORDERED: GABA-1171 PO (08:04)
[2018-05-30] MEDS ORDERED: AUGM500T34 PO (08:07)
[2018-05-30] MEDS: MIRALAX *UNIT DOSE* 17GM PACKET PO SCH (08:24)
[2018-05-30 08:25] VITALS: BP 132/78
[2018-05-30] MEDS: FERROUS SULFATE 325MG TAB PO SCH (08:25)
[2018-05-30] MEDS: OMEPRAZOLE 20 MG CAP PO SCH (08:25)
[2018-05-30] MEDS: RIVAROXABAN 15 MG TAB (XARELTO) PO SCH (08:25)
[2018-05-30] MEDS: predniSONE 10 MG TAB PO SCH (08:25)
[2018-05-30] MEDS: MULTIVITAMINS/MINERALS THERAP 1 TAB PO SCH (08:25)
[2018-05-30] MEDS: METOPROLOL SUCC (TopROL XL) 50MG **XL** TAB PO SCH (08:25)
[2018-05-30] MEDS: PARoxetine 20 MG TAB PO SCH (08:25)
[2018-05-30] MEDS ORDERED: DIGOXIN 0.125 MG TAB PO SCH (09:00)
[2018-05-30] MEDS: ADVAIR HFA 230/21MCG INHALER INH SCH (11:29)
[2018-05-30] MEDS: TIOTROPIUM INHALER/CAPSULE (SPIRIVA) INH SCH (11:29)
--- NOTE | 2018-05-30 15:22 | CR ---
DATE OF CONSULTATION: 05/29/2018 Telemedicine advanced wound care consult. bilateral lower extremity venous stasis ulcers with cellulitis involving the left lower extremity. HISTORY OF PRESENT ILLNESS Elderly female, morbidly obese, minimally ambulatory, on oxygen. The patient has been treated at our wound care center in the past for the same lower extremity venous stasis ulcers. These have been superficial with bullous formation secondary to advanced gravitational dependent edema and a sedentary lifestyle. They have been treated with local wound debridement, foam dressings, and compression stockings with a satisfactory response and the patient healed and was discharged. By history, she again, recently developed similar symptoms, worse on the left lower extremity, and due to increased swelling, redness, and discomfort presented to the emergency room and was admitted with a diagnosis of cellulitis of the left lower extremity. On physical examination, the patient is in bed, not short of breath, on nasal oxygen. She is afebrile. Her recent CBC 13,000 and on admission it was 16,000. She has an elevated sedimentation rate of 43, a normal C-reactive protein of 0.56. An ultrasound of the left lower extremity has been performed but at the time of the consultation the results were still pending. Chest x-ray shows no evidence of congestive heart failure. At present the patient is on intravenous (IV) Zosyn and is undergoing Lasix 40 mg IV every 8 for diuresis. This should be done carefully and should be tapered, as the majority of this lower extremity edema is gravitational and secondary to dependency, although she does have cardiomyopathy, and this is contributory. Treatment should be bedrest with Trendelenburg position. The wounds should be cleansed with Vashe for 10 minutes on a daily basis. Foam dressing should then be applied to all wounds, and a Tubigrip, moderate-compression stocking should then be applied. Dressings should be done on a daily basis. When the patient improves and is discharged, arrangements for followup at our wound center should be considered. WILIAM
[2018-05-31 14:08] LABS: ANTINUCLEAR ANTIBODIES DIRECT Negative (Negative)
--- NOTE | 2018-06-02 08:22 | DSES ---
DATE OF ADMISSION: 05/28/2018 DATE OF DISCHARGE: 05/30/2018 DISCHARGE DIAGNOSES: Bilateral lower extremity pain. SECONDARY DIAGNOSES: Peripheral edema. Fluid overload. Chronic atrial fibrillation. Chronic obstructive pulmonary disease (COPD). Chronic hypoxic respiratory failure. Gastroesophageal reflux disease. Lower extremity wounds. Chronic kidney disease. Hyperkalemia. Neuropathy. HOSPITAL COURSE: The patient is a 77-year-old female who presented to the emergency room with pain in both of her lower extremities, as well as swelling and blisters. The initial concern was for possible bilateral lower extremity cellulitis. However, upon my evaluation of the patient, did not feel that this was the case, thought it was more likely secondary to fluid retention as she did have significant edema bilaterally and her wounds did not look acutely infected from their chronic status. A wound consult was placed with Dr. Nielsen who made dressing changes and recommendations. She did have a leukocytosis, which improved throughout her stay. She was afebrile. She was not tachycardic, was not septic. She was empirically started on Zosyn. At the time of discharge, I am transitioning her to Augmentin. She was diuresed, and her home dose of gabapentin was titrated up, prompt improvement in her symptoms. SUBJECTIVE: This morning the patient tells me that she feels so much better than when she came to the hospital. She is eager to go home. OBJECTIVE: VITAL SIGNS: Temperature 98.3, pulse 84, respiratory rate 18, blood pressure 132/78, oxygen saturation 98% on 3 liters nasal cannula. GENERAL: She is a very pleasant elderly woman, up and ambulating around her room independently. She does not appear to be in any acute distress. HEENT: Cranial nerves II-XII are grossly intact. She has moist mucous membranes. No elevation in central venous pressure (CVP). CARDIOVASCULAR EXAM: S1, S2 irregularly irregular. She is not tachycardic. RESPIRATORY EXAM: Actually quite clear. ABDOMINAL EXAM: Obese. EXTREMITIES: No clubbing or cyanosis. There is 1+ edema bilaterally but significantly improved from previous day's exam. Her chronic wounds are dry. She has decreased erythema and tenderness. LABORATORY STUDIES: WBC 11.7 down from 16.1, hemoglobin 10.7, platelet count 93. Chemistry panel: Sodium 143, potassium 4.0, chloride 96, bicarbonate 41, BUN 42, creatinine 1.3. An NICK is pending. Wound cultures are currently pending. IMAGING: She had a duplex of the bilateral lower extremities that did not reveal any deep vein thrombosis (DVT). She also had a chest x-ray at the time of her admission that revealed cardiomegaly and chronic changes. No acute cardiopulmonary process. ASSESSMENT AND PLAN: This is a 77-year-old female admitted with bilateral lower extremity pain. PROBLEMS: 1. Bilateral lower extremity pain and blisters, likely secondary to edema related to chronic kidney disease and dietary noncompliance over the holidays. She did improve with diuresis and increasing of her gabapentin, which she had been recently started on the outpatient setting. She was on Zosyn; however, she did not appear to be grossly septic. She will be transitioned to Augmentin to finish up a 7-day course of antibiotics. She is to followup with Dr. Nielsen who did see her via telemedicine consult while in the hospital and did make recommendations regarding dressing changes.. I have advised her to resume her home diuretics upon discharge and take an additional dose of torsemide today. Previously, her cultures have never been methicillin-resistant Staphylococcus aureus (MRSA) positive or grown anything in her wounds to suggest she would need broader spectrum. 2. Thrombocytopenia. Possibly lab error. She did have one abnormal very low level; a repeat was not low, however. 3. Chronic atrial fibrillation. She is on digoxin and Xarelto. She is rate controlled with metoprolol as well. 4. Mood disorder. She is on Paxil. 5. Iron deficiency anemia. She is on ferrous sulfate and her anemia appears to be fairly stable. 6. Chronic obstructive pulmonary disease (COPD) with chronic hypoxic respiratory failure and prednisone dependence of 10 mg daily. She is at her baseline with 3 liters continuous. She was continued on Advair and Spiriva. She will resume her home nebulizers and medication inhalers at home upon discharge. 7. Gastroesophageal reflux disease. She is on omeprazole. 8. Cor pulmonale, right-sided heart failure, probably secondary to fairly advanced chronic obstructive pulmonary disease that is likely the etiology for her right heart failure and for her fluid overload status. 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 I advised her to check her daily weights and stick to a 2-gram sodium diet. 9. Lower extremity wounds. As outlined above. Followup with Dr. Nielsen and dressing changes as per his recommendations. 10. Chronic kidney disease, stable and at her baseline. 11. Deep vein thrombosis (DVT) prophylaxis. She has been on Xarelto. 12. Hyperkalemia, resolved. DISPOSITION: The patient is being discharged home. She is at her functional baseline. Her clinical symptoms have resolved. She is to followup with her primary care provider (PCP) within 7 days, followup with Dr. Nielsen within 2 weeks. Her activity is as prior to admission. Her diet is a 2-gram sodium, 1800 mL fluid restricted. She is to check her weights daily. If greater than 2-pound increase, to call her PCP and return to the emergency room (ER) if symptoms have worsened. MEDICATIONS AT THE TIME OF DISCHARGE: - Augmentin 500 mg twice a day for five more days - gabapentin 200 mg every 8 hours - acetaminophen 650 mg every 4 hours as needed for pain - albuterol nebulizer 2-1/2 mg every 4 hours as needed for shortness of breath - calcium plus vitamin D 600-200 one tablet daily - digoxin 125 mcg every 2 days - ferrous sulfate 325 mg twice a day - Hydrocerin Cream topically as needed for dry skin - metoprolol succinate extended release 50 mg daily - multivitamin one tablet daily - omeprazole 40 mg daily - paroxetine 20 mg daily - MiraLAX 17 grams by mouth daily in 8 ounces of water or juice - prednisone 10 mg daily - Xarelto 15 mg daily - Advair HFA 230-21 two puffs inhaled twice a day - spironolactone 12.5 mg daily - Spiriva 18 mcg inhaled daily - torsemide 100 mg daily Greater than 30 minutes spent organizing disposition.
== END 2018-05-30 13:40 | disposition home or self-care (01) ==
LOC: M ED 11:59 → M ED INP 15:58 → M MS5PR 17:00
PROVIDERS: ADMIT Internal Medicine; ATTEND Internal Medicine
DX: M79.605 Pain in left leg (principal); M79.604 Pain in right leg; R60.0 Localized edema; I87.2 Venous insufficiency (chronic) (peripheral); E87.79 Other fluid overload; I48.2 Chronic atrial fibrillation; J44.9 Chronic obstructive pulmonary disease, unspecified; J96.11 Chronic respiratory failure with hypoxia; K21.9 Gastro-esophageal reflux disease without esophagitis; I50.22 Chronic systolic (congestive) heart failure; N18.3 Chronic kidney disease, stage 3 (moderate); E87.5 Hyperkalemia; G62.9 Polyneuropathy, unspecified; D72.829 Elevated white blood cell count, unspecified; D50.9 Iron deficiency anemia, unspecified; G47.30 Sleep apnea, unspecified; I27.81 Cor pulmonale (chronic); E66.01 Morbid (severe) obesity due to excess calories; Z79.899 Other long term (current) drug therapy; Z99.81 Dependence on supplemental oxygen; Z79.01 Long term (current) use of anticoagulants; Z79.51 Long term (current) use of inhaled steroids; F41.9 Anxiety disorder, unspecified; F32.9 Major depressive disorder, single episode, unspecified; Z88.8 Allergy status to other drugs, medicaments and biological substances
CPT/HCPCS: 36415; 71045; 80048; 82550; 82553; 83735; 83880; 84484; 85025; 85027; 85049; 85055; 85652; 86038; 86140; 87070; 87077; 87186; 87205; 93005; 93970; 94640; 94664; 99285; G0378; J1940; J2543

== ENCOUNTER 2018-07-04 10:19 | Inpatient (IN) | payer MEDICARE ==
[~2018-07-04] VITALS: Ht 157.5 cm; Wt 75.0 kg
[~2018-07-04 10:19] MED LIST changes: +AUGM500T34 PO; +GABA-1171 PO
[2018-07-04 12:51] VITALS: BP 147/74
[2018-07-04 13:24] LABS: HEMATOCRIT 35.6 % (36.0-47.0); HEMOGLOBIN 10.5 g/dl (12.0-15.5); MEAN CORPUSCULAR HEMOGLOBIN 33.8 pg (27.0-33.0); MEAN CORPUSCULAR HGB CONC 29.5 g/dl (32.0-36.5); PLATELET COUNT, AUTOMATED 177 10^3/uL (150-450); RED BLOOD COUNT 3.11 10^6/uL (4.00-5.40); WHITE BLOOD COUNT 13.3 10^3/uL (4.0-10.0)
[2018-07-04 13:24] LABS: ABG BASE EXCESS 21.8 (-2.0-2.0); ABG HCO3 52.6 MEQ/L (22.0-26.0); ABG O2 SATURATION 95.4 % (95.0-99.0); ABG PARTIAL PRESSURE CO2 104.4 mmHg (35.0-45.0); ABG PARTIAL PRESSURE O2 80.1 mmHg (75.0-100.0); ABG STANDARD HCO3 46.2 MEQ/L (22.0-26.0); ABG TOTAL CO2 55.8 MEQ/L (23.0-31.0)
[2018-07-04] MEDS ORDERED: IPRATROPIUM 0.5MG/ALBUTEROL 2.5MG INH SOL UD 3ML (DUONEB)(J7620) NEB PRN (13:30)
[2018-07-04 13:48] LABS: MEAN CORPUSCULAR VOLUME 114.5 fl (80.0-96.0)
[2018-07-04] MEDS ORDERED: GABA-1171 PO (14:11)
[2018-07-04] MEDS ORDERED: MIRA3350 PO (14:13)
[2018-07-04 14:46] LABS: ALBUMIN 3.6 GM/DL (3.2-5.2); ALT/SGPT 35 U/L (12-78); BILIRUBIN,TOTAL 0.3 MG/DL (0.2-1.0); BLOOD UREA NITROGEN 35 MG/DL (7-18); CALCIUM LEVEL 8.8 MG/DL (8.8-10.2); CHLORIDE LEVEL 93 MEQ/L (98-107); CHOLESTEROL LEVEL 245 MG/DL (< 200); CPK CREATINE PHOSPHOKINASE 54 U/L (26-192); GLOMERULAR FILTRATION RATE 46.1 (>39); GLUCOSE, FASTING 117 MG/DL (70-100); LDH LACTATE DEHYDROGENASE 317 U/L (84-246); PHOSPHORUS LEVEL 4.6 MG/DL (2.5-4.9); POTASSIUM SERUM 4.7 MEQ/L (3.5-5.1); SODIUM LEVEL 142 MEQ/L (136-145); TOTAL PROTEIN 7.1 GM/DL (6.4-8.2); TRIGLYCERIDES LEVEL 126 MG/DL (<150)
[2018-07-04 14:48] LABS: CARBON DIOXIDE LEVEL 53 MEQ/L (21-32)
[2018-07-04 15:00] VITALS: BP 127/57
[2018-07-04] MEDS: OMEPRAZOLE 20 MG CAP PO SCH (15:40)
[2018-07-04] MEDS: methylPREDNISolone INJ 125 MG/2 ML VIAL (J2930) IV SCH ×2 (15:41→23:08)
[2018-07-04 16:00] VITALS: BP 131/74
[2018-07-04 17:00] VITALS: BP 140/105
[2018-07-04 17:12] VITALS: BP 128/56
[2018-07-04] MEDS: RIVAROXABAN 15 MG TAB (XARELTO) PO SCH (18:10)
[2018-07-04 20:00] VITALS: BP 130/79
[2018-07-04] MEDS: ADVAIR HFA 230/21MCG INHALER INH SCH (21:00)
[2018-07-04] MEDS ORDERED: METOPROLOL SUCC *XL* 25MG TAB (TopROL *XL*) PO SCH (21:00)
[2018-07-04] MEDS: NYSTATIN 100,000 UNITS/GM TOPICAL PWD 15 GM TOP PRN (23:08)
[2018-07-04] MEDS: ACETAMINOPHEN TAB 650MG DOSE (2X325MG) PO PRN (23:09)
[2018-07-05] VITALS (22 sets, daily range): BP systolic 100–204; BP diastolic 56–149; O2SAT 95
[2018-07-05] MEDS: CALCIUM CARBONATE 500 MG CHEW U/D PO PRN (01:28)
[2018-07-05] MEDS ORDERED: FUROSEMIDE 40 MG/4 ML VIAL (J1940) IV ONE (01:30)
[2018-07-05 05:02] LABS: ALBUMIN 3.2 GM/DL (3.2-5.2); BILIRUBIN,TOTAL 0.4 MG/DL (0.2-1.0); CALCIUM LEVEL 8.9 MG/DL (8.8-10.2); CREATININE FOR GFR 1.29 MG/DL (0.55-1.30); GLOMERULAR FILTRATION RATE 42.4 (>39); POTASSIUM SERUM 4.8 MEQ/L (3.5-5.1); TOTAL PROTEIN 6.7 GM/DL (6.4-8.2)
[2018-07-05 05:24] LABS: BASO % 0.1 % (0.0-1.0); HEMATOCRIT 31.3 % (36.0-47.0); HEMOGLOBIN 9.4 g/dl (12.0-15.5); LYMPH # 0.4 10^3/uL (1.5-4.5); LYMPH % 3.5 % (24.0-44.0); MEAN CORPUSCULAR HEMOGLOBIN 33.7 pg (27.0-33.0); MEAN CORPUSCULAR VOLUME 112.2 fl (80.0-96.0); MONO # 0.2 10^3/uL (0.0-0.8); MONO % 1.5 % (0.0-5.0); NEUTROPHILS # 10.4 10^3/uL (1.8-7.7); NEUTROPHILS % 94.5 % (36.0-66.0); PLATELET COUNT, AUTOMATED 180 10^3/uL (150-450); RED BLOOD COUNT 2.79 10^6/uL (4.00-5.40)
[2018-07-05 06:18] LABS: ABG BASE EXCESS 20.9 (-2.0-2.0); ABG O2 SATURATION 97.4 % (95.0-99.0); ABG STANDARD HCO3 45.1 MEQ/L (22.0-26.0); ABG TOTAL CO2 50.1 MEQ/L (23.0-31.0); ABG pH (ARTERIAL) 7.455 UNITS (7.350-7.450)
[2018-07-05 06:21] LABS: ABG PARTIAL PRESSURE CO2 69.8 mmHg (35.0-45.0)
[2018-07-05] MEDS: TIOTROPIUM INHALER/CAPSULE (SPIRIVA) INH SCH (07:43)
[2018-07-05] MEDS: ADVAIR HFA 230/21MCG INHALER INH SCH ×2 (07:43→19:56)
--- NOTE | 2018-07-05 07:58 | REP ---
Clinical: CHF. Comparison: 05/28/2018. Findings: Stable cardiomegaly. Chronic interstitial changes are suggested. No focal consolidation. No obvious effusion or pneumothorax. Skeletal structures intact. Impression: Chronic stable changes. Cardiomegaly. Electronically Signed by Eleazar Burnham MD 07/05/2018 07:50 A
[2018-07-05] MEDS: OMEPRAZOLE 20 MG CAP PO SCH (08:29)
[2018-07-05] MEDS: FUROSEMIDE 40 MG/4 ML VIAL (J1940) IV SCH ×2 (08:29→16:31)
[2018-07-05] MEDS: METOPROLOL SUCC *XL* 25MG TAB (TopROL *XL*) PO SCH ×2 (08:30→20:29)
[2018-07-05] MEDS: DIGOXIN 0.125 MG TAB PO SCH (08:31)
[2018-07-05] MEDS: predniSONE 10 MG TAB PO SCH (08:31)
[2018-07-05] MEDS: amLODIPine 10 MG TAB PO SCH (08:31)
--- NOTE | 2018-07-05 08:38 | CCN ---
DATE OF SERVICE: 07/05/2018 Critical care time was 54 minutes. At bedside this morning, the patient was quite hypertensive with systolic blood pressures into the 180s. Did have a peak of 180 last night that responded to Lasix. She has no headache. No chest pain. She is asking to eat. She has been on bilevel noninvasive ventilation overnight. Arterial blood gas does show decreased PCO2 and increased pH compared to her initial arterial blood gas. She is awake, alert, and able to have a conversation. PHYSICAL EXAMINATION: Temperature is 99.4, pulse is 106, respiratory rate is 32, blood pressure is 165/94, with a mean arterial pressure of 117, oxygen saturation is 96/0.35 FIO2. General: Awake, alert, and oriented. Affect and mood are appropriate. Nutrition and hygiene are fair. HEENT: Sclerae clear and anicteric. Pupils equal and react to light. Mucous membranes are moist without lesions. Oropharynx without erythema or exudate. Lymph: No cervical, supraclavicular, or axillary adenopathy. Cardiac: Irregularly irregular with a variable grade 2/6 systolic ejection murmur. Point of maximal impulse (PMI) is displaced laterally. Breath sounds are decreased at the bases but otherwise clear to auscultation without rales, rhonchi, or wheezes. Poor chest expansion. Abdomen: Soft, nontender, nondistended. No discernible hepatosplenomegaly. Reproducible umbilical hernia. Bowel sounds are hyperactive. Extremities: No cyanosis, clubbing, or edema. There is some sacral edema but no lower extremity edema. Skin: There are multiple areas of bruising. The patient chronically on prednisone and Xarelto. No jaundice. LABORATORY EVALUATION: Shows sodium 142, potassium 4.8, chloride is 92, bicarbonate of 45, BUN of 42, creatinine of 1.29, with a hemoglobin of 9.4, hematocrit of 31.3, and a white blood cell count of 11. Arterial blood gas shows a pH of 7.45, pCO2 of 70, pAO2 of 97. Chest x-ray this morning shows significant improvement in cardiomegaly. Pulmonary artery prominent and cephalization. No mass. No consolidation. No evidence of pneumothorax. IMPRESSION: 1. Acute on chronic hypercarbic hypoxic respiratory failure secondary to congestive heart failure (CHF) exacerbation. The patient doing well with Lasix. Very tenuous status, given the severity of her CO2 retention. She clearly has left-sided dysfunction. She has bilateral atrial enlargement on echocardiogram. Would continue intravenous (IV) Lasix and convert back to torsemide as allowed. I believe part of the reason she becomes decompensated is her noncompliance with bilevel noninvasive therapy. She will need to be compliant at home. She states she has a machine at the time of discharge. Will contact home company to ensure this is set up appropriately. 2. History of chronic obstructive pulmonary disease (COPD), possible contribution. However, there is no evidence of infection. No evidence of bronchospasm on examination. She is chronically on prednisone. I will change Solu-Medrol back to her daily prednisone dose. 3. Hypertension, severe in nature with the fluctuations overnight. Currently on a shorter-acting metoprolol. Increase this dose, add Norvasc, and schedule Lasix. As she improves, convert her back to long-acting metoprolol would be appropriate. 4. Atrial fibrillation (AFib) with rapid ventricular response (RVR). Continues on Xarelto. Heart rate better controlled, although not optimal. Remains on digoxin. The patient's prognosis overall guarded. However, I believe that she can come off bilevel during the day. Use bilevel during all forms of sleep and start to mobilize. Orders for out of bed were written. The patient remains DO NOT RESUSCITATE (DNR)/DO NOT INTUBATE (DNI). MTDD
[2018-07-05] MEDS ORDERED: SPIRONOLACTONE 12.5MG PER 1/2 TABLET PO SCH (09:00)
[2018-07-05] MEDS: hydrALAZINE INJ 20 MG/ML VIAL IV SCH ×3 (09:25→22:00)
[2018-07-05] MEDS: SENOKOT S TAB PO SCH ×2 (09:25→20:28)
[2018-07-05] MEDS: MULTIVITAMINS/MINERALS THERAP 1 TAB PO SCH (09:25)
[2018-07-05] MEDS: PARoxetine 20 MG TAB PO SCH (09:25)
[2018-07-05] MEDS: FERROUS SULFATE 325MG TAB PO SCH ×2 (09:26→20:28)
[2018-07-05] MEDS ORDERED: NITROGLYCERIN 2% OINT 1 GM *U/D* PKT TOP ONE (09:30)
[2018-07-05 09:37] LABS: C REACTIVE PROTEIN QUANTITATIV 6.76 MG/DL (0.00-0.30); MB/CK RELATIVE INDEX 6.46 (< OR =4); TROPONIN I 0.12 NG/ML (< 0.10)
[2018-07-05 10:40] LABS: ABG BASE EXCESS 20.2 (-2.0-2.0); ABG HCO3 46.2 MEQ/L (22.0-26.0); ABG PARTIAL PRESSURE CO2 59.3 mmHg (35.0-45.0); ABG PARTIAL PRESSURE O2 69.4 mmHg (75.0-100.0); ABG STANDARD HCO3 44.4 MEQ/L (22.0-26.0); ABG pH (ARTERIAL) 7.509 UNITS (7.350-7.450)
--- NOTE | 2018-07-05 13:21 | ECHO ---
DATE OF PROCEDURE: 07/05/2018 DATE OF : 1940 AGE: 77 REFERRING PROVIDER: Dr. Calle PATIENT'S TETRYL SCREEN OPERATOR: Dr. Fallon Rollins LOCATION: Room 3210 REASON FOR THE ECHOCARDIOGRAM: Congestive heart failure. 2-D MEASUREMENTS: IVS: 1.4 cm LV: 4.6 cm LVPW: 1.4 cm LA: 5.5 cm Aorta: 3.4 cm IVC: 2.5 cm DOPPLER MEASUREMENTS: Peak velocity across the aortic valve: 2.9 m/s Peak velocity across the LVOT: 0.95 m/s Peak gradient across the aortic valve: 32 mmHg Mean gradient across the aortic valve: 17 mmHg Mitral E: 1.1 Maximum tricuspid valve velocity: 3.6 m/s 2-D COMMENTS: 1. Technically limited study due to poor acoustic window. 2. The left ventricular size is normal and left ventricular systolic function appears to be borderline normal in limited views. There is mild concentric left ventricular hypertrophy. The estimated global left ventricular systolic function is about 50%. 3. Moderately enlarged left atrium. Moderately to severely enlarged right atrium. Normal right ventricle. 4. The atrial septum appeared to be normal without evidence of defect or shunt. 5. Normal aortic root. 6. Trace pericardial effusion noted in limited views. There may be also manifestation of ascites. Minimum amount of fluids was noted around the liver. 7. Moderately calcified aortic valve; leaflet excursion was not well visualized. Mildly calcified mitral annulus with normal anterior mitral valve leaflet motion. Normal tricuspid valve. The pulmonic valve was not well visualized. 8. The inferior vena cava was dilated; central venous pressure is probably elevated. DOPPLER: It detects mild aortic regurgitation, mild mitral regurgitation, and mild to moderate tricuspid regurgitation. The calculated pulmonary artery systolic pressure varies between 40-50 mmHg. Assessment of the left ventricular diastolic function was limited in view of the underlying atrial fibrillation. IMPRESSION: 1. Technically limited study due to poor acoustic window. 2. Low normal global left ventricular systolic function with mild concentric left ventricular hypertrophy. 3. Aortic valve sclerosis with mild to moderate aortic stenosis and mild aortic regurgitation. 4. Mitral annulus calcification with mild mitral regurgitation and moderately enlarged left atrium. 5. Mild to moderate tricuspid regurgitation with moderate pulmonary hypertension and dilated right atrium. 6. Minimal pericardial effusion was noted; no evidence of cardiac tamponade. There may be findings of ascites. Patient might benefit from an ultrasound of the abdomen. 7. This was compared with echocardiogram on 09/09/2017, and at that time, a small patent foramen ovale was noted. Left ventricular systolic function at that time appeared to be lower. There was moderate aortic stenosis. MTDD
[2018-07-05] MEDS ORDERED: ISOSORBIDE DIN. (ISORDIL) 20 MG TAB PO SCH (14:00)
--- NOTE | 2018-07-05 14:01 | IPN ---
DATE: 07/05/2018 Patient seen and examined. Currently on BiPAP in the intensive care unit (ICU). Alert, mild dyspnea. Also hypertensive. Denies any chest pain, pressure or discomfort. Reported worsening shortness of breath over the past 5 days. Reported sick contact. Patient's being sick with upper respiratory infection (URI). Denies any fevers or chills. Was coughing up but not since patient arrived in the ICU. VITAL SIGNS: Temperature 99.4, pulse 90, respiration 19, blood pressure 194/96, pulse ox 95% on 30% FiO2 on BiPAP 20/10. LABORATORY: WBC 11, hemoglobin and hematocrit 9.4/31.3, platelets 180. Chemistry: Sodium 142, potassium 4.8, chloride 92, bicarbonate 45, BUN 42, creatinine 1.29. PHYSICAL EXAMINATION: GENERAL: The patient alert, comfortable on BiPAP, able to speak but not infill sentences. HEENT: Normocephalic, atraumatic. Pupils equal, round and reactive. CARDIAC: Systolic murmur detected. Regular S1, S2. PULMONARY: Mild expiratory wheeze. Diminished breath sounds bilateral. ABDOMEN: Soft, nontender. Positive bowel sounds. EXTREMITIES: Trace edema lower extremities. ASSESSMENT/PLAN: This is a 77-year-old female patient with underlying medical history of chronic obstructive pulmonary disease (COPD) with chronic hypoxia, oxygen dependent, obstructive sleep apnea, not compliant with CPAP, hypertension, hypertensive heart disease, congestive heart failure with diastolic dysfunction as well as aortic heart valve stenosis, right heart failure. Patient was transferred from [facility] to ICU with acute on chronic, hypercarbic, hypoxic respiratory failure. PROBLEMS: 1. Acute on chronic hypercarbic, hypoxic respiratory failure secondary to congestive heart failure exacerbation with diastolic dysfunction, likely associated to recent upper respiratory infection (URI) with coronal virus. Diuresis with Lasix, nitroglycerine paste. Continue spironolactone. Continue beta arsenio, Norvasc, hydralazine for blood pressure greater than 160, serial cardiac enzymes. Echocardiogram has been ordered. Patient also reported noncompliant. Likely component of right heart failure with pulmonary artery hypertension. 2. Hypertensive urgency: Patient portly compliant. Serial cardiac enzymes. Telemetry. Patient on Norvasc, hydralazine IV for blood pressure greater than 160, Isosorbide dinitrate. Nitroglycerine paste has also been ordered. Metoprolol has also been ordered. Monitor blood pressure. Adjust medication as needed. 3. Chronic obstructive pulmonary disease (COPD): Possible contributing to patient's shortness of breath as well with underlying coronal virus infection. No evidence of wheeze on physical exam. The patient is steroid dependent. Oxygen supplementation. Patient is currently on BiPAP. Continue Solu-Medrol. Continue home inhalers including spironolactone, Advair. Pulmonary has been consulted. 4. Atrial fibrillation: Telemetry monitoring. Continue digoxin, metoprolol. Patient on Xarelto for anticoagulation. 5. Chronic kidney disease (CKD): Currently at baseline. Continue to monitor. 6. Poor compliance complicating care. 7. Obstructive sleep apnea: Patient not compliant with CPAP. Obstructive sleep apnea protocol. Encourage compliance. Currently on BiPAP. 8. Hypertension: Continue medication as mentioned above, adjust as needed. 9. Deep venous thrombosis (DVT) prophylaxis: Continue Xarelto for atrial fibrillation. DISPOSITION: Pending clinical improvement. Case discussed with pulmonology, Dr. Sierra.
[2018-07-05] MEDS: GABAPENTIN 100 MG CAP PO SCH ×2 (14:24→22:16)
[2018-07-05] MEDS: ISOSORBIDE DIN. (ISORDIL) 30 MG TAB PO SCH ×2 (14:25→22:16)
[2018-07-05 16:52] LABS: MB/CK RELATIVE INDEX 5.16 (< OR =4); TROPONIN I 0.16 NG/ML (< 0.10)
[2018-07-05] MEDS ORDERED: SLF 3 ML SYR IV PRN (18:00)
[2018-07-05] MEDS: RIVAROXABAN 15 MG TAB (XARELTO) PO SCH (18:28)
[2018-07-05] MEDS: ACETAMINOPHEN TAB 650MG DOSE (2X325MG) PO PRN (20:28)
[2018-07-05] MEDS: SLF 3 ML SYR IV SCH (22:14)
[2018-07-05] MEDS: NYSTATIN 100,000 UNITS/GM TOPICAL PWD 15 GM TOP PRN (22:15)
[2018-07-06] VITALS (19 sets, daily range): BP systolic 88–134; BP diastolic 33–70; O2SAT 95
[2018-07-06] MEDS: hydrALAZINE INJ 20 MG/ML VIAL IV SCH (04:00)
[2018-07-06] MEDS: ACETAMINOPHEN TAB 650MG DOSE (2X325MG) PO PRN ×2 (04:05→22:04)
[2018-07-06 05:02] LABS: BASO % 0.1 % (0.0-1.0); EOS % 0.1 % (0.0-3.0); HEMATOCRIT 29.6 % (36.0-47.0); HEMOGLOBIN 9.2 g/dl (12.0-15.5); LYMPH # 0.7 10^3/uL (1.5-4.5); LYMPH % 4.8 % (24.0-44.0); MEAN CORPUSCULAR HEMOGLOBIN 34.7 pg (27.0-33.0); MEAN CORPUSCULAR HGB CONC 31.1 g/dl (32.0-36.5); MEAN CORPUSCULAR VOLUME 111.7 fl (80.0-96.0); MONO # 0.9 10^3/uL (0.0-0.8); MONO % 6.5 % (0.0-5.0); NEUTROPHILS # 11.8 10^3/uL (1.8-7.7); NEUTROPHILS % 87.8 % (36.0-66.0); PLATELET COUNT, AUTOMATED 213 10^3/uL (150-450); RED BLOOD COUNT 2.65 10^6/uL (4.00-5.40); WHITE BLOOD COUNT 13.5 10^3/uL (4.0-10.0)
[2018-07-06 05:33] LABS: C REACTIVE PROTEIN QUANTITATIV 2.68 MG/DL (0.00-0.30); CALCIUM LEVEL 8.7 MG/DL (8.8-10.2); CREATININE FOR GFR 1.48 MG/DL (0.55-1.30); GLOMERULAR FILTRATION RATE 36.2 (>39); MAGNESIUM LEVEL 2.7 MG/DL (1.8-2.4); POTASSIUM SERUM 5.1 MEQ/L (3.5-5.1)
[2018-07-06 05:58] LABS: ABG BASE EXCESS 21.4 (-2.0-2.0); ABG HCO3 47.5 MEQ/L (22.0-26.0); ABG O2 SATURATION 97.1 % (95.0-99.0); ABG PARTIAL PRESSURE O2 91.2 mmHg (75.0-100.0); ABG STANDARD HCO3 45.7 MEQ/L (22.0-26.0); ABG TOTAL CO2 49.4 MEQ/L (23.0-31.0); ABG pH (ARTERIAL) 7.498 UNITS (7.350-7.450)
[2018-07-06 05:59] LABS: ABG PARTIAL PRESSURE CO2 62.6 mmHg (35.0-45.0)
[2018-07-06] MEDS: ISOSORBIDE DIN. (ISORDIL) 30 MG TAB PO SCH ×3 (06:54→22:03)
[2018-07-06] MEDS: GABAPENTIN 100 MG CAP PO SCH ×3 (06:54→22:02)
[2018-07-06] MEDS: SLF 3 ML SYR IV SCH ×3 (06:54→22:03)
[2018-07-06] MEDS: ADVAIR HFA 230/21MCG INHALER INH SCH ×2 (07:44→19:51)
[2018-07-06] MEDS: TIOTROPIUM INHALER/CAPSULE (SPIRIVA) INH SCH (07:44)
[2018-07-06 08:42] LABS: MB/CK RELATIVE INDEX 2.37 (< OR =4); TROPONIN I 0.13 NG/ML (< 0.10)
[2018-07-06] MEDS: predniSONE 10 MG TAB PO SCH (08:58)
[2018-07-06] MEDS: MULTIVITAMINS/MINERALS THERAP 1 TAB PO SCH (08:58)
[2018-07-06] MEDS: amLODIPine 10 MG TAB PO SCH (08:58)
[2018-07-06] MEDS: OMEPRAZOLE 20 MG CAP PO SCH (08:58)
[2018-07-06] MEDS: SENOKOT S TAB PO SCH ×2 (08:58→20:08)
[2018-07-06] MEDS: METOPROLOL SUCC *XL* 25MG TAB (TopROL *XL*) PO SCH ×2 (08:59→20:07)
[2018-07-06] MEDS: FERROUS SULFATE 325MG TAB PO SCH ×2 (08:59→20:08)
[2018-07-06] MEDS: PARoxetine 20 MG TAB PO SCH (08:59)
[2018-07-06] MEDS: RIVAROXABAN 15 MG TAB (XARELTO) PO SCH (17:55)
[2018-07-06] MEDS: NYSTATIN 100,000 UNITS/GM TOPICAL PWD 15 GM TOP PRN (22:05)
[2018-07-07] VITALS (11 sets, daily range): BP systolic 106–139; BP diastolic 56–79
[2018-07-07 05:27] LABS: BASO % 0.2 % (0.0-1.0); EOS % 0.2 % (0.0-3.0); HEMATOCRIT 30.1 % (36.0-47.0); LYMPH # 1.1 10^3/uL (1.5-4.5); LYMPH % 8.5 % (24.0-44.0); MEAN CORPUSCULAR HEMOGLOBIN 33.3 pg (27.0-33.0); MEAN CORPUSCULAR HGB CONC 29.9 g/dl (32.0-36.5); MEAN CORPUSCULAR VOLUME 111.5 fl (80.0-96.0); MONO # 1.1 10^3/uL (0.0-0.8); MONO % 8.8 % (0.0-5.0); NEUTROPHILS % 81.5 % (36.0-66.0); PLATELET COUNT, AUTOMATED 196 10^3/uL (150-450); WHITE BLOOD COUNT 12.3 10^3/uL (4.0-10.0)
[2018-07-07 05:55] LABS: CALCIUM LEVEL 8.4 MG/DL (8.8-10.2); CREATININE FOR GFR 1.35 MG/DL (0.55-1.30); GLOMERULAR FILTRATION RATE 40.3 (>39); POTASSIUM SERUM 3.8 MEQ/L (3.5-5.1)
[2018-07-07] MEDS: ISOSORBIDE DIN. (ISORDIL) 30 MG TAB PO SCH ×3 (06:51→20:47)
[2018-07-07] MEDS: GABAPENTIN 100 MG CAP PO SCH ×3 (06:51→20:44)
[2018-07-07] MEDS: SLF 3 ML SYR IV SCH ×3 (06:52→20:48)
[2018-07-07] MEDS: ADVAIR HFA 230/21MCG INHALER INH SCH ×2 (07:47→20:24)
[2018-07-07] MEDS: TIOTROPIUM INHALER/CAPSULE (SPIRIVA) INH SCH (07:48)
--- NOTE | 2018-07-07 08:33 | HPE ---
DATE OF ADMISSION: 07/04/2018 HISTORY OF PRESENT ILLNESS: Ms. Guthrie is a pleasant 77-year-old female who was transported from [facility] for acute respiratory failure. The patient had come to the hospital complaining of shortness of breath. She was transported via ambulance earlier this morning. She reported that she additionally called the ambulance last night as well; however, she stated that she was feeling better by the time they arrived so therefore she did not go to the hospital at that time. She notes that she woke up this morning feeling increased shortness of breath, which is when she called the ambulance back and she did go to the hospital this time. She was evaluated at [facility] and was found to be in acute respiratory failure, likely from congestive heart failure. She was diuresed and [facility] contacted Dr. Sierra for transfer to [facility], as the patient had been placed on BiPap and needed to be continued on BiPap. The patient arrived at [facility] into the intensive care unit (ICU) on BiPap and stated that she was feeling better. She does not recall a lot of yesterday and could not give us specifics. She does have a history of chronic obstructive pulmonary disease (COPD) is felt to be a combination of chronic obstructive bronchitis and emphysema. She also has a history of obstructive sleep apnea; however, is noncompliant with C-PAP, which she has not worn in a long time. She does follow with Dr. Yost at [facility] and last saw her in October 2017. The patient is also following with her cardiac rehab nurse, Dr. Rollins, whom she saw on June 17. She is followed by Dr. Rollins for congestive heart failure, pulmonary hypertension and atrial fibrillation. She had been hospitalized in May and according to her discharge summary she was having swelling in her lower extremities along with the wounds and was being set up to see the electronic warfare specialist and does continue to follow with Dr. Nielsen for that. At [facility], the patient was brought in with severe respiratory distress with a pCO2 of 141, but upon transfer to [facility] and upon initiation of BiPAP she is feeling improved. She denies fevers or chills. Denies chest pain. Denies abdominal pain. REVIEW OF SYSTEMS: Somewhat limited as the patient is having some difficulty with her history and communicating with the BiPap mask on. She does deny fevers, chills, sweats. HEENT: The patient denies change in vision, ear pain or sore throat. CARDIAC: The patient denies chest pain or palpitations. PULMONARY: As noted above. GASTROINTESTINAL: The patient denies nausea, vomiting, diarrhea, abdominal pain. GENITOURINARY: The patient denies dysuria. ENDOCRINE: The patient denies history of diabetes. MUSCULOSKELETAL: The patient denies extremity pain, joint pain, weakness. NEUROLOGIC: The patient states that she does have intermittent chronic headaches. She denies unilateral weakness. HEMATOLOGIC: The patient denies any bleeding disorders. She states that she has had a blood transfusion in the past but cannot recall exactly when. PAST MEDICAL HISTORY: 1. COPD - combination chronic obstructive bronchitis and emphysema. 2. Obstructive sleep apnea, noncompliant with treatment. 3. Congestive heart failure. Follows with Dr. Rollins her cardiac rehab nurse. Echocardiogram done on 06/17/2018 showed left ventricular ejection fraction of 60%. Severe biatrial enlargement. Moderate aortic stenosis. Elevated CVP. Moderately severe pulmonary hypertension. 5. Valvular heart disease with moderate aortic stenosis. 6. Gastroesophageal reflux disease (GERD). 7. Anxiety and depression. 8. Atrial fibrillation on Xarelto. 9. Chronic kidney disease stage III. 10. Anemia. 11. Chronic pain. 12. Lower extremity wounds. 13. History of tobacco use. MEDICATIONS: - Tylenol 650 mg every 4 hours as needed - albuterol every 4 hours as needed - calcium with vitamin D daily - digoxin 0.125 mg by mouth every other day - ferrous sulfate 325 mg twice a day - gabapentin 200 mg every 8 hours - albuterol nebs every 4 hours as needed - metoprolol succinate 50 mg by mouth daily - multivitamin by mouth daily - omeprazole 40 mg daily - paroxetine 20 mg by mouth daily - MiraLax daily - prednisone 10 mg daily - Xarelto 50 mg daily - Advair 230/21 two puffs inhaled twice a day - spironolactone 12.5 mg daily - Spiriva 18 mcg daily - torsemide 100 mg daily FAMILY MEDICAL HISTORY: Noncontributory. SOCIAL HISTORY: Patient has a 35 pack-year history of smoking but quit 25-30 years ago. She denies any alcohol or illicit drug use. She lives with her . PHYSICAL EXAMINATION: Vitals: Temperature is 98.2, pulse 105, blood pressure is 147/74, oxygen saturation is 95%, respiratory rate 35. GENERAL: The patient is alert. She has a BiPap mask on so communication is somewhat difficult. When questioned about her history , she has some difficulty in recalling specifics. HEENT: Head is normocephalic, atraumatic. Moist mucous membranes. Neck is supple. No obvious jugular venous distention (JVD). No cervical lymphadenopathy. Trachea is midline. HEART: Irregularly irregular. PULMONARY: Diminished breath sounds with some upper airway noises. No accessory muscle use. ABDOMEN: Positive bowel sounds, soft, nontender. No rebound or guarding. EXTREMITIES: No clubbing, cyanosis or edema. SKIN: Skin is warm and dry. NEUROLOGIC: Nonfocal. LABORATORY DATA: ABG: pH is 7.320, pCO2 is 104.4, pO2 is 80.1, HCO3 is 52.6, this is improved from her previous blood gas at [facility], which was done at 09:14 this morning and at that time pH was 7.18, pCO2 141.5, pO2 was 417, HCO3 was 50.6. Laboratories from [facility] collected earlier before arrival at [facility] showed WBC 15.8, hemoglobin 10.9, hematocrit 37.5, platelet 234, glucose 241, BUN 34, creatinine 1.3, sodium 144, potassium 5.0, chloride 98, CO2 is 62, calcium 9.0, AST 54, ALT 34, alkaline phosphatase 73, total bili is 0.4, total protein 7.5, albumin 3.58. BNP 1958. Chest x-ray from [facility] from 07/04/2018 shows cardiomegaly, left costophrenic angle cannot be visualized but we believe that is secondary to cardiomegaly. There are increased vascular markings. Telemetry shows atrial fibrillation with rapid ventricular response. ASSESSMENT/PLAN: 1. Acute hypoxic and hypercapnic respiratory failure. This is most likely secondary to decompensated congestive heart failure, diastolic dysfunction. Also likely due to the patient's history of moderate aortic stenosis. We are carefully diuresing her secondary to her CO2 retention. She has been started on IV Lasix. BiPap has been initiated and she is already showing some improvement based on blood gas results. The patient does have underlying chronic obstructive pulmonary disease (COPD) and COPD exacerbation does remain in the differential. At this point, there is no indication of infection and therefore no indication for antibiotic use at the present time. She is placed on IV Solu-Medrol. We will continue to work on careful diuresis with IV Lasix. Her spironolactone has been held currently, but will reassess and decide when to reinitiate that. She is placed on metoprolol and digoxin for her atrial fibrillation. She is on Xarelto for atrial fibrillation. BIPAP settings are placed at 20/10. 2. Atrial fibrillation with RVR. As noted above, the patient is placed on metoprolol and digoxin every other day, which is her home dose. She is placed on her Xarelto. We will continue to monitor closely. 3. Code status. This was reviewed. The patient is a DO NOT RESUSCITATE. Total critical care time, excluding all procedures, was 75 minutes.
[2018-07-07] MEDS: FERROUS SULFATE 325MG TAB PO SCH ×2 (08:34→20:47)
[2018-07-07] MEDS: DIGOXIN 0.125 MG TAB PO SCH (08:34)
[2018-07-07] MEDS: PARoxetine 20 MG TAB PO SCH (08:35)
[2018-07-07] MEDS: OMEPRAZOLE 20 MG CAP PO SCH (08:35)
[2018-07-07] MEDS: predniSONE 10 MG TAB PO SCH (08:35)
[2018-07-07] MEDS: amLODIPine 10 MG TAB PO SCH (08:36)
[2018-07-07] MEDS: METOPROLOL SUCC *XL* 25MG TAB (TopROL *XL*) PO SCH ×2 (08:36→20:45)
[2018-07-07] MEDS: SENOKOT S TAB PO SCH ×2 (08:36→20:47)
[2018-07-07] MEDS: MULTIVITAMINS/MINERALS THERAP 1 TAB PO SCH (08:36)
[2018-07-07] MEDS ORDERED: MIRALAX *UNIT DOSE* 17GM PACKET PO PRN (09:00)
--- NOTE | 2018-07-07 09:48 | IPN ---
DATE: 07/06/2018 The patient is seen and examined. No acute events overnight. Reported respirations improved. Continues to be on bilevel positive airway pressure (BIPAP) intermittently in the daytime. Denies any chest pain, pressure or discomfort. VITAL SIGNS: Temperature 97.9, pulse 98, respirations 22, blood pressure 122/68, pulse oximetry 98% on 4 liters. LABORATORY: WBC 13.5, hemoglobin and hematocrit 9.2/29.6, platelets 213. Chemistry: Sodium 138, potassium 5.1, chloride 89, bicarbonate 47, BUN 54, creatinine 1.48. PHYSICAL EXAMINATION: GENERAL: The patient is alert, comfortable, on BiPAP, able to speak. HEENT: Normocephalic, atraumatic. CARDIAC: Systolic murmur. Regular S1, S2. PULMONARY: Bilateral mild expiratory wheeze. Diminished breath sounds bilaterally. ABDOMEN: Soft, nontender. Positive bowel sounds. EXTREMITIES: Trace edema of the bilateral lower extremities. ASSESSMENT AND PLAN: This is a 77-year-old female patient with underlying medical history of chronic obstructive pulmonary disease (COPD), chronic hypoxic respiratory failure, oxygen dependent at home, obstructive sleep apnea, noncompliant with CPAP, hypertension, hypertensive heart disease, congestive heart failure (CHF) with diastolic dysfunction, as well as aortic valve stenosis. The patient was transferred from [facility] to the intensive care unit (ICU) with acute on chronic hypoxic hypercarbic respiratory failure. 1. Acute on chronic hypercarbic hypoxic respiratory failure secondary to congestive heart failure (CHF) exacerbation with diastolic dysfunction. Likely associated with recent urinary tract infection (UTI) secondary to coronavirus, diuresis is ordered. Initially, the patient was diuresed. Currently close to euvolemic. Diuresis, including Lasix and spironolactone have been on hold given elevated creatinine. Continue beta arsenio, Norvasc and isosorbide dinitrate. Echocardiogram has been ordered. The patient is poorly compliant. Likely component of right heart failure and severe pulmonary artery hypertension. 2. Hypertensive urgency. The patient is poorly compliant with medication. Serial cardiac enzymes. Continue Norvasc, isosorbide dinitrate, and metoprolol, hydralazine has been discontinued. Lasix and spironolactone have been on hold given elevated creatinine. We will monitor blood pressure. 3. Chronic obstructive pulmonary disease (COPD), possibly contributing to the patient's shortness of breath. Possibly also coronavirus bronchitis. Minimal wheeze on physical examination. The patient is steroid dependent. Continue steroids. Pulmonology consulted. Continue Spiriva. Continue Advair and nebulizer treatments. 4. Obstructive sleep apnea. Encourage BiPAP. Further recommendations as per pulmonary. 5. Poor compliance, complicating care. 6. Chronic kidney disease with mild creatinine elevation, likely secondary to diuresis. Holding spironolactone and Lasix for now, to restart later. 7. Hypertension. Continue medications as mentioned above. 8. Atrial fibrillation. Telemetry monitoring, digoxin, metoprolol, Xarelto for anticoagulation. 9. Deep vein thrombosis (DVT) prophylaxis. The patient is on Xarelto for atrial fibrillation. DISPOSITION: Further recommendations as per pulmonary, Dr. Sierra. Pending clinical improvement. The patient is poorly compliant with severe cardiopulmonary disease. Poor long-term prognosis. DO NOT RESUSCITATE, DO NOT INTUBATE.
--- NOTE | 2018-07-07 11:37 | CCN ---
DATE: 07/07/2018 Ms. Guthrie is seen in the ICU. She is wearing her BiPAP but according to the nurse she had been sitting up in a chair tolerating supplemental oxygen by nasal cannula earlier today. Now she is getting ready to rest and possibly take a nap and the BiPAP is back on. She is tolerating well and knows that she needs to continue to use this compliantly when she sleeps as an outpatient. She reports no new issues. She denies any chest pain. Denies fevers or chills. PHYSICAL EXAMINATION: VITALS: Temperature 98.5, pulse 77, respiratory rate is 27, blood pressure is 116/64, pulse ox the patient was satting between 89 and 91 on 3 liters. Now she is back on tabletop BiPAP with settings of 18/10. INTAKE AND OUTPUT: Intake 870, output 1225 with balance of -355 yesterday. It looks like she is down about a total of almost 2.5 liters since she was admitted. The patient did have a bowel movement earlier today. GENERAL: Patient is alert and oriented. She speaks in complete sentences. HEENT: Head is normocephalic, atraumatic. The patient is wearing a BiPAP mask. NECK: Supple. No cervical lymphadenopathy. No obvious jugular venous distention (JVD). Trachea is midline. HEART: Irregularly irregular. The patient has a grade 2/6 systolic ejection murmur. PULMONARY: Breath sounds are diminished but otherwise clear to auscultation without wheezes, rales or rhonchi. No accessory muscle use. ABDOMEN: Positive bowel sounds. Soft, nontender. EXTREMITIES: Patient with no clubbing, cyanosis or edema. SKIN: Warm and dry. NEURO: Nonfocal. LABS: WBC 12.3, hemoglobin 9.0, hematocrit 30.1, platelets 196. Sodium 140, potassium 3.8, chloride 93, carbon dioxide 42, BUN 55, creatinine 1.35, glucose 101, calcium 8.4, magnesium 3.0. ASSESSMENT/PLAN: 1. Acute on chronic hypercarbic hypoxic respiratory failure secondary to congestive heart failure exacerbation, but the patient has been getting diuresed. She has been improving with BiPAP. She uses [employer] as a home care company. We will make sure that her BiPAP settings are ordered for outpatient continuation. The patient again has been made aware that she needs to use her BiPAP compliantly at home. 2. Chronic obstructive pulmonary disease (COPD). The patient has a history of COPD. She is on Spiriva and Advair. She is on chronic prednisone therapy. There is no evidence of infection. The patient is not on antibiotics. No evidence of bronchospasm on today's exam. 3. Atrial fibrillation with rapid ventricular response (RVR). The patient is on Xarelto. She is on digoxin and Toprol XL. We will sign off of this patient. Will be available if further assistance is requested. The patient will need to be compliant with home BiPAP use when discharged. Arrangements should be made for her to followup with Dr. Yost, her manager code, as an outpatient.
[2018-07-07] MEDS: FUROSEMIDE 40 MG/4 ML VIAL (J1940) IV SCH ×2 (11:49→17:39)
[2018-07-07] MEDS: ACETAMINOPHEN TAB 650MG DOSE (2X325MG) PO PRN (15:34)
[2018-07-07] MEDS: RIVAROXABAN 15 MG TAB (XARELTO) PO SCH (17:38)
--- NOTE | 2018-07-07 18:05 | IPNPDOC ---
Text Note Date of Service The patient was seen on 07/07/18. NOTE The patient is seen and examined. No acute events overnight. Reported respirations improved. Continues to be on bilevel positive airway pressure (BIPAP) intermittently in the daytime. Denies any chest pain, pressure or discomfort. PHYSICAL EXAMINATION: GENERAL: The patient is alert, comfortable, on BiPAP, able to speak. HEENT: Normocephalic, atraumatic. CARDIAC: Systolic murmur. Regular S1, S2. PULMONARY: Bilateral mild expiratory wheeze. Diminished breath sounds bilaterally. ABDOMEN: Soft, nontender. Positive bowel sounds. EXTREMITIES: Trace edema of the bilateral lower extremities. ASSESSMENT AND PLAN: This is a 77-year-old female patient with underlying medical history of chronic obstructive pulmonary disease (COPD), chronic hypoxic respiratory failure, oxygen dependent at home, obstructive sleep apnea, noncompliant with CPAP, hypertension, hypertensive heart disease, congestive heart failure (CHF) with diastolic dysfunction, as well as aortic valve stenosis. The patient was transferred from [facility] to the intensive care unit (ICU) with acute on chronic hypoxic hypercarbic respiratory failure. 1. Acute on chronic hypercarbic hypoxic respiratory failure secondary to congestive heart failure (CHF) exacerbation with diastolic dysfunction. Likely associated with recent URI secondary to coronavirus, diuresis is ordered. Continue beta arsenio, Norvasc and isosorbide dinitrate. Echocardiogram has been ordered. The patient is poorly compliant. Likely component of right heart failure and severe pulmonary artery hypertension. 2. Hypertensive urgency. The patient is poorly compliant with medication. Serial cardiac enzymes. Continue Norvasc, isosorbide dinitrate, and metoprolol, lasix as ordered. We will monitor blood pressure. 3. Chronic obstructive pulmonary disease (COPD), possibly contributing to the patient's shortness of breath. Possibly also coronavirus bronchitis. Minimal wheeze on physical examination. The patient is steroid dependent. Continue steroids. Pulmonology consulted. Continue Spiriva. Continue Advair and nebulizer treatments. 4. Obstructive sleep apnea. Encourage BiPAP. Further recommendations as per pulmonary. 5. Poor compliance, complicating care. 6. Chronic kidney disease with mild creatinine elevation, likely secondary to diuresis. Holding spironolactone and Lasix for now, to restart later. 7. Hypertension. Continue medications as mentioned above. 8. Atrial fibrillation. Telemetry monitoring, digoxin, metoprolol, Xarelto for anticoagulation. 9. Deep vein thrombosis (DVT) prophylaxis. The patient is on Xarelto for atrial fibrillation. DISPOSITION: Further recommendations as per pulmonary, Dr. Sierra. Pending clinical improvement. The patient is poorly compliant with severe cardiopulmonary disease. Poor long-term prognosis. DO NOT RESUSCITATE, DO NOT INTUBATE. Need home Bipap adjustment prior to DC VS,Fishbone, I+O VS, Fishbone, I+O Laboratory Tests 07/07/18 05:17 Red Blood Count 2.70 L, Mean Corpuscular Volume 111.5 H, Mean Corpuscular Hemoglobin 33.3 H, Mean Corpuscular Hemoglobin Concent 29.9 L, Red Cell Distribution Width 13.2, Neutrophils (%) (Auto) 81.5 H, Lymphocytes (%) (Auto) 8.5 L, Monocytes (%) (Auto) 8.8 H, Eosinophils (%) (Auto) 0.2, Basophils (%) (Auto) 0.2, Neutrophils # (Auto) 10.0 H, Lymphocytes # (Auto) 1.1 L, Monocytes # (Auto) 1.1 H, Eosinophils # (Auto) 0.0, Basophils # (Auto) 0.0, Calcium Level 8.4 L Vital Signs Date Time Temp Pulse Resp B/P (MAP) Pulse Ox O2 Delivery O2 Flow Rate FiO2 07/07/18 16:00 3.0 07/07/18 16:00 100.1 83 34 106/59 (75) 91 07/07/18 13:00 Nasal Cannula 07/06/18 10:00 30 I&O- Last 24 Hours up to 6 AM 07/07/18 06:00 Intake Total 900 ml Output Total 1375 ml Balance -475 ml LA BOND MD Jul 07, 2018 18:05
[2018-07-08] VITALS: BP 112/65
[2018-07-08] MEDS: IPRATROPIUM 0.5MG/ALBUTEROL 2.5MG INH SOL UD 3ML (DUONEB)(J7620) NEB PRN ×2 (01:36→10:02)
[2018-07-08 04:00] VITALS: BP 160/71
[2018-07-08] MEDS: ISOSORBIDE DIN. (ISORDIL) 30 MG TAB PO SCH ×3 (04:11→21:14)
[2018-07-08] MEDS: SLF 3 ML SYR IV SCH ×3 (04:11→21:15)
[2018-07-08] MEDS: GABAPENTIN 100 MG CAP PO SCH ×3 (04:11→21:14)
[2018-07-08 06:19] LABS: BASO % 0.2 % (0.0-1.0); EOS # 0.1 10^3/uL (0.0-0.50); EOS % 0.6 % (0.0-3.0); HEMATOCRIT 28.7 % (36.0-47.0); HEMOGLOBIN 8.8 g/dl (12.0-15.5); MEAN CORPUSCULAR HEMOGLOBIN 34.2 pg (27.0-33.0); MEAN CORPUSCULAR HGB CONC 30.7 g/dl (32.0-36.5); MEAN CORPUSCULAR VOLUME 111.7 fl (80.0-96.0); MONO # 1.1 10^3/uL (0.0-0.8); MONO % 8.8 % (0.0-5.0); NEUTROPHILS % 80.4 % (36.0-66.0); PLATELET COUNT, AUTOMATED 201 10^3/uL (150-450); RED BLOOD COUNT 2.57 10^6/uL (4.00-5.40); WHITE BLOOD COUNT 12.4 10^3/uL (4.0-10.0)
[2018-07-08 06:35] LABS: CALCIUM LEVEL 8.5 MG/DL (8.8-10.2); CREATININE FOR GFR 1.23 MG/DL (0.55-1.30); GLOMERULAR FILTRATION RATE 44.8 (>39); MAGNESIUM LEVEL 2.8 MG/DL (1.8-2.4); POTASSIUM SERUM 3.7 MEQ/L (3.5-5.1)
[2018-07-08] MEDS: TIOTROPIUM INHALER/CAPSULE (SPIRIVA) INH SCH (07:16)
[2018-07-08] MEDS: ADVAIR HFA 230/21MCG INHALER INH SCH ×2 (07:16→20:29)
[2018-07-08 08:00] VITALS: BP 127/65
[2018-07-08] MEDS: MULTIVITAMINS/MINERALS THERAP 1 TAB PO SCH (11:31)
[2018-07-08] MEDS: METOPROLOL SUCC *XL* 25MG TAB (TopROL *XL*) PO SCH ×2 (11:31→21:15)
[2018-07-08] MEDS: FUROSEMIDE 40 MG/4 ML VIAL (J1940) IV SCH (11:31)
[2018-07-08] MEDS: OMEPRAZOLE 20 MG CAP PO SCH (11:31)
[2018-07-08] MEDS: predniSONE 10 MG TAB PO SCH (11:32)
[2018-07-08] MEDS: SENOKOT S TAB PO SCH ×2 (11:32→21:00)
[2018-07-08] MEDS: amLODIPine 10 MG TAB PO SCH (11:32)
[2018-07-08] MEDS: PARoxetine 20 MG TAB PO SCH (11:32)
[2018-07-08] MEDS: FERROUS SULFATE 325MG TAB PO SCH ×2 (11:32→21:15)
[2018-07-08 12:00] VITALS: BP 142/75
[2018-07-08] MEDS: ACETAMINOPHEN TAB 650MG DOSE (2X325MG) PO PRN (15:24)
[2018-07-08 16:00] VITALS: BP 137/59
--- NOTE | 2018-07-08 17:29 | IPNPDOC ---
Text Note Date of Service The patient was seen on 07/08/18. NOTE Subjective: Patient states dyspnea is improving. No chest pain or palpitations. Objective: Vitals: (see below) General: No acute distress, laying comfortably in bed. HEENT: Moist mucous membranes. Neck: No JVD or lymphadenopathy Cardiac: Irregularly irregular, No murmurs Pulm: Diminished breath sounds at the bases b/l. No wheezing, rhonchi Abd: NT/ND + BS Ext: No edema or cyanosis Labs (see below) Assessment/Plan 1. Acute on chronic hypoxic and hypercapnic respiratory failure secondary to COPD exacerbation and CHF exacerbation diastolic dysfunction. Likely exacerbated by the patient's underlying coronavirus URI. Continue IV diuresis. Continue beta arsenio, isosorbide dinitrate. Echocardiogram ordered. Patient does have a significant history of noncompliance. Patient also has a component of right- sided heart failure and severe pulmonary hypertension. I will change IV Lasix to daily from twice a day. 2. Hypertensive urgency improved. Continue current blood pressure medications. Stable. 3. History of sleep apnea- encouraged to use BiPAP. Appreciate pulmonary input. 4. Poor compliance complicated care 5. History of CKD with elevations of creatinine with diuresis. Improved. 6. History of atrial fibrillation stable. Continue digoxin, beta arsenio, Xarelto. DVT prophy: Xarelto Overall prognosis guarded. Patient is DNR/DNI. We'll need BiPAP adjustments prior to discharge once stable. VS,Fishbone, I+O VS, Fishbone, I+O Laboratory Tests 07/08/18 05:41 Red Blood Count 2.57 L, Mean Corpuscular Volume 111.7 H, Mean Corpuscular Hemoglobin 34.2 H, Mean Corpuscular Hemoglobin Concent 30.7 L, Red Cell Distribution Width 13.0, Neutrophils (%) (Auto) 80.4 H, Lymphocytes (%) (Auto) 8.0 L, Monocytes (%) (Auto) 8.8 H, Eosinophils (%) (Auto) 0.6, Basophils (%) (Auto) 0.2, Neutrophils # (Auto) 10.0 H, Lymphocytes # (Auto) 1.0 L, Monocytes # (Auto) 1.1 H, Eosinophils # (Auto) 0.1, Basophils # (Auto) 0.0, Calcium Level 8.5 L Vital Signs Date Time Temp Pulse Resp B/P (MAP) Pulse Ox O2 Delivery O2 Flow Rate FiO2 07/08/18 16:00 97.6 87 18 137/59 (85) 96 4.0 07/08/18 04:00 Nasal Cannula 07/06/18 10:00 30 I&O- Last 24 Hours up to 6 AM 07/08/18 06:00 Intake Total 1195 ml Output Total 1700 ml Balance -505 ml JOSE SETHI MD Jul 08, 2018 17:29
[2018-07-08] MEDS: RIVAROXABAN 15 MG TAB (XARELTO) PO SCH (18:29)
[2018-07-08 20:00] VITALS: BP 125/72
[2018-07-09] VITALS: BP 119/68
[2018-07-09 04:00] VITALS: BP 148/65
[2018-07-09] MEDS: ACETAMINOPHEN TAB 650MG DOSE (2X325MG) PO PRN ×2 (05:49→11:57)
[2018-07-09] MEDS: ISOSORBIDE DIN. (ISORDIL) 30 MG TAB PO SCH ×3 (05:50→20:35)
[2018-07-09] MEDS: GABAPENTIN 100 MG CAP PO SCH ×3 (05:50→20:36)
[2018-07-09] MEDS: SLF 3 ML SYR IV SCH ×3 (05:50→20:37)
[2018-07-09 06:10] LABS: BASO % 0.2 % (0.0-1.0); EOS # 0.1 10^3/uL (0.0-0.50); HEMATOCRIT 29.2 % (36.0-47.0); HEMOGLOBIN 8.9 g/dl (12.0-15.5); LYMPH # 0.9 10^3/uL (1.5-4.5); LYMPH % 6.9 % (24.0-44.0); MEAN CORPUSCULAR HEMOGLOBIN 33.3 pg (27.0-33.0); MEAN CORPUSCULAR HGB CONC 30.5 g/dl (32.0-36.5); MEAN CORPUSCULAR VOLUME 109.4 fl (80.0-96.0); MONO % 7.9 % (0.0-5.0); NEUTROPHILS # 10.4 10^3/uL (1.8-7.7); NEUTROPHILS % 82.2 % (36.0-66.0); PLATELET COUNT, AUTOMATED 223 10^3/uL (150-450); RED BLOOD COUNT 2.67 10^6/uL (4.00-5.40); WHITE BLOOD COUNT 12.6 10^3/uL (4.0-10.0)
[2018-07-09 06:22] LABS: CALCIUM LEVEL 8.3 MG/DL (8.8-10.2); CREATININE FOR GFR 1.24 MG/DL (0.55-1.30); GLOMERULAR FILTRATION RATE 44.4 (>39); MAGNESIUM LEVEL 2.7 MG/DL (1.8-2.4); POTASSIUM SERUM 3.9 MEQ/L (3.5-5.1)
[2018-07-09] MEDS: ADVAIR HFA 230/21MCG INHALER INH SCH ×2 (07:18→20:50)
[2018-07-09] MEDS: TIOTROPIUM INHALER/CAPSULE (SPIRIVA) INH SCH (07:18)
[2018-07-09 08:00] VITALS: BP 129/65
[2018-07-09] MEDS ORDERED: FUROSEMIDE 40 MG TAB PO SCH (09:00)
[2018-07-09] MEDS: OMEPRAZOLE 20 MG CAP PO SCH (09:05)
[2018-07-09] MEDS: TORSEMIDE 20 MG TAB PO SCH (09:06)
[2018-07-09] MEDS: METOPROLOL SUCC *XL* 25MG TAB (TopROL *XL*) PO SCH ×2 (09:06→20:37)
[2018-07-09] MEDS: PARoxetine 20 MG TAB PO SCH (09:06)
[2018-07-09] MEDS: DIGOXIN 0.125 MG TAB PO SCH (09:06)
[2018-07-09] MEDS: MULTIVITAMINS/MINERALS THERAP 1 TAB PO SCH (09:06)
[2018-07-09] MEDS: FERROUS SULFATE 325MG TAB PO SCH ×2 (09:07→20:37)
[2018-07-09] MEDS: SENOKOT S TAB PO SCH ×2 (09:07→20:35)
[2018-07-09] MEDS: amLODIPine 10 MG TAB PO SCH (09:07)
[2018-07-09] MEDS: predniSONE 10 MG TAB PO SCH (09:07)
[2018-07-09 12:00] VITALS: BP 116/78
--- NOTE | 2018-07-09 14:24 | IPNPDOC ---
Text Note Date of Service The patient was seen on 07/09/18. NOTE Subjective: Patient denies any significant dyspnea today. No chest pain or pal pitations. Feels well. Objective: Vitals: (see below) General: No acute distress, laying comfortably in bed. HEENT: Moist mucous membranes. Neck: No JVD or lymphadenopathy Cardiac: Irregularly irregular, No murmurs Pulm: Diminished breath sounds at the bases b/l. No wheezing, rhonchi Abd: NT/ND + BS Ext: No edema or cyanosis Labs (see below) Assessment/Plan 1. Acute on chronic hypoxic and hypercapnic respiratory failure secondary to COPD exacerbation and CHF exacerbation diastolic dysfunction. Likely exacerbated by the patient's underlying coronavirus URI. Continue IV diuresis. Continue beta arsenio, isosorbide dinitrate. Echocardiogram ordered. Patient does have a significant history of noncompliance. Patient also has a component of right- sided heart failure and severe pulmonary hypertension. Lasix changed to torsemide. 2. Hypertensive urgency improved. Continue current blood pressure medications. Stable. 3. History of sleep apnea- encouraged to use BiPAP. Appreciate pulmonary input. 4. Poor compliance complicated care 5. History of CKD with elevations of creatinine with diuresis. Improved. 6. History of atrial fibrillation stable. Continue digoxin, beta arsenio, Xarelto. DVT prophy: Xarelto Overall prognosis guarded. Patient is DNR/DNI. Pending physical therapy clearance. VS,Fishbone, I+O VS, Fishbone, I+O Laboratory Tests 07/09/18 05:47 Red Blood Count 2.67 L, Mean Corpuscular Volume 109.4 H, Mean Corpuscular Hemoglobin 33.3 H, Mean Corpuscular Hemoglobin Concent 30.5 L, Red Cell Distribution Width 12.9, Neutrophils (%) (Auto) 82.2 H, Lymphocytes (%) (Auto) 6.9 L, Monocytes (%) (Auto) 7.9 H, Eosinophils (%) (Auto) 1.0, Basophils (%) (Auto) 0.2, Neutrophils # (Auto) 10.4 H, Lymphocytes # (Auto) 0.9 L, Monocytes # (Auto) 1.0 H, Eosinophils # (Auto) 0.1, Basophils # (Auto) 0.0, Calcium Level 8.3 L Vital Signs Date Time Temp Pulse Resp B/P (MAP) Pulse Ox O2 Delivery O2 Flow Rate FiO2 07/09/18 12:00 4.0 07/09/18 12:00 96.7 77 18 116/78 (91) 91 07/08/18 04:00 Nasal Cannula 07/06/18 10:00 30 I&O- Last 24 Hours up to 6 AM 07/09/18 06:00 Intake Total 690 ml Output Total 1115 ml Balance -425 ml JOSE SETHI MD Jul 09, 2018 14:24
[2018-07-09 16:00] VITALS: BP 128/67
[2018-07-09 20:00] VITALS: BP 139/77
[2018-07-09] MEDS: RIVAROXABAN 15 MG TAB (XARELTO) PO SCH (20:35)
[2018-07-10] VITALS: BP 146/72
[2018-07-10 04:00] VITALS: BP 138/67
[2018-07-10] MEDS: ISOSORBIDE DIN. (ISORDIL) 30 MG TAB PO SCH ×3 (04:53→21:08)
[2018-07-10] MEDS: SLF 3 ML SYR IV SCH ×3 (04:54→21:08)
[2018-07-10 06:01] LABS: BASO # 0.1 10^3/uL (0.0-0.2); BASO % 0.3 % (0.0-1.0); EOS # 0.1 10^3/uL (0.0-0.50); EOS % 0.6 % (0.0-3.0); HEMATOCRIT 29.2 % (36.0-47.0); HEMOGLOBIN 8.8 g/dl (12.0-15.5); LYMPH # 0.8 10^3/uL (1.5-4.5); LYMPH % 4.4 % (24.0-44.0); MEAN CORPUSCULAR HEMOGLOBIN 34.1 pg (27.0-33.0); MEAN CORPUSCULAR HGB CONC 30.1 g/dl (32.0-36.5); MEAN CORPUSCULAR VOLUME 113.2 fl (80.0-96.0); MONO # 1.3 10^3/uL (0.0-0.8); NEUTROPHILS # 15.4 10^3/uL (1.8-7.7); NEUTROPHILS % 86.4 % (36.0-66.0); PLATELET COUNT, AUTOMATED 251 10^3/uL (150-450); RED BLOOD COUNT 2.58 10^6/uL (4.00-5.40); WHITE BLOOD COUNT 17.9 10^3/uL (4.0-10.0)
[2018-07-10 06:20] LABS: CALCIUM LEVEL 8.6 MG/DL (8.8-10.2); CREATININE FOR GFR 1.33 MG/DL (0.55-1.30); MAGNESIUM LEVEL 2.8 MG/DL (1.8-2.4); POTASSIUM SERUM 3.9 MEQ/L (3.5-5.1)
[2018-07-10] MEDS: TIOTROPIUM INHALER/CAPSULE (SPIRIVA) INH SCH (07:13)
[2018-07-10] MEDS: ADVAIR HFA 230/21MCG INHALER INH SCH ×2 (07:13→21:42)
[2018-07-10 08:00] VITALS: BP 119/67
--- NOTE | 2018-07-10 08:43 | REP ---
Portable chest x-ray: Single view. History: Congestion. Comparison study: July 05, 2018. Findings: Today's view is exposed at a somewhat lesser level of inspiration than the study done 5 days ago. There are multiple new nodular opacities in the lung bases ranging in size up to 2.4 cm. These are predominantly distributed inferiorly in the bases. Heart size is borderline. Pulmonary vasculature is not increased. No bony abnormality is seen. Impression: Multiple new bilateral lower lung zone pulmonary nodules not present 5 days ago. Principal differential in this setting would be inflammatory disease such as septic emboli. Electronically Signed by Irwin Rodriguez MD 07/10/2018 01:35 P
[2018-07-10] MEDS: GABAPENTIN 100 MG CAP PO SCH (09:00)
[2018-07-10] MEDS: METOPROLOL SUCC *XL* 25MG TAB (TopROL *XL*) PO SCH ×2 (09:31→21:07)
[2018-07-10] MEDS: TORSEMIDE 20 MG TAB PO SCH (09:31)
[2018-07-10] MEDS: OMEPRAZOLE 20 MG CAP PO SCH (09:31)
[2018-07-10] MEDS: SENOKOT S TAB PO SCH ×2 (09:31→21:08)
[2018-07-10] MEDS: amLODIPine 10 MG TAB PO SCH (09:32)
[2018-07-10] MEDS: FERROUS SULFATE 325MG TAB PO SCH ×2 (09:32→21:08)
[2018-07-10] MEDS: predniSONE 10 MG TAB PO SCH (09:32)
[2018-07-10] MEDS: MULTIVITAMINS/MINERALS THERAP 1 TAB PO SCH (09:32)
[2018-07-10] MEDS: PARoxetine 20 MG TAB PO SCH (09:32)
[2018-07-10 10:18] LABS: APPEARANCE, URINE HAZY (CLEAR); BACTERIA, URINE AUTO 1+ (NEGATIVE); BILIRUBIN, URINE AUTO NEGATIVE (NEGATIVE); BLOOD, URINE BLOOD NEGATIVE (NEGATIVE); COLOR, URINE YELLOW (YELLOW); GLUCOSE, URINE (UA) AUTO NEGATIVE (NEGATIVE); KETONE, URINE AUTO NEGATIVE (NEGATIVE); LEUKOCYTE ESTERASE, URINE AUTO 3+ (NEGATIVE); NITRITE, URINE AUTO NEGATIVE (NEGATIVE); PROTEIN, URINE AUTO NEGATIVE (NEGATIVE); RBC, URINE AUTO 11 /HPF (0-3); SPECIFIC GRAVITY URINE AUTO 1.012 (1.002-1.035); SQUAMOUS EPITHELIAL CELL UR AU 7 /HPF (0-6); UROBILINOGEN, URINE AUTO 0.2 mg/dL (0.0-2.0); WBC, URINE AUTO 8 /HPF (0-3)
--- NOTE | 2018-07-10 10:44 | REP ---
CT chest without contrast: History: Pulmonary nodules. Comparison chest CT study November 13, 2016. Comparison is made with today's chest x-ray. CT findings: Moderate cardiac enlargement is observed. There is no evidence of pleural or pericardial effusion. Four-chamber cardiomegaly is observed. Vascular calcification is noted. There are scattered normal-sized precarinal and mediastinal lymph nodes. There are bilateral thyroid nodules. The thyroid is enlarged and extends into the thoracic inlet somewhat. No significant tracheal narrowing or displacement. The thyroid findings are stable from November 13, 2016. Cardiac findings are stable as well. On today's exam, there are multiple nodular new pulmonary parenchymal opacities bilaterally principally distributed in the lower lobes but also involving the right middle lobe. These nodular opacities have shaggy ill-defined margins. Radiographically they are new from chest x-ray done on July 05, 2018. There are air bronchograms in a few of them but I do not see any shalonda cavitary changes. There is a benign hemangioma in the T5 vertebral body. Impression: Multiple new shaggy nodular opacities bilaterally in the lower lobes and right middle lobe. Differential possibilities include septic emboli and infectious or inflammatory lung disease. Electronically Signed by Irwin Rodriguez MD 07/10/2018 10:18 P
[2018-07-10 12:00] VITALS: BP 126/67
[2018-07-10] MEDS: SODIUM CHLORIDE HYPERTONIC 3% 15ML NEB SOL INH SCH ×3 (12:00→20:00)
--- NOTE | 2018-07-10 13:09 | CCN ---
PULMONARY CRITICAL CARE NOTE DATE OF SERVICE: 07/10/2018 We were asked by primary medical to see this patient again. We had been following previously for congestive heart failure. The patient had a repeat chest x-ray that showed multiple new bilateral pulmonary nodules that were not present on the prior chest x-ray from 07/05/2018. The radiologist did note that the new nodules would include in the differential diagnosis septic emboli. Therefore primary medical team ordered a chest CT that was done and showed multiple new nodular opacities in the bilateral lower lobes and right middle lobe. Differential diagnosis includes septic emboli and infectious or inflammatory lung disease. The patient states that she has not had any fevers, but she still does not feel that she is doing as well as she had been prior to being hospitalized. She reports that she still does have some shortness of breath. She denies chest pain. She was started on antibiotics with Zosyn by the medical attending. PHYSICAL EXAMINATION: Vitals: Temperature 99.3, pulse 76, respiratory rate 20, blood pressure is 119/67, pulse ox 88% on 6 liters. General: The patient is alert and oriented. She is sitting in a chair eating lunch. She speaks in complete sentences. HEENT: Head is normocephalic, atraumatic. Moist mucous membranes. Neck: Neck is supple. No cervical lymphadenopathy. No jugular venous distention (JVD). No carotid bruits appreciated. Trachea is midline. Heart: Irregularly irregular. The patient has a grade 2/6 systolic ejection murmur. Pulmonary: The patient does have some slight upper airway wheezing that is heard best anteriorly. Otherwise no rales or rhonchi appreciated. No accessory muscle use. Abdomen: Positive bowel sounds, soft, nontender. Extremities: The patient with no clubbing, cyanosis or edema. Skin: Is warm and dry. Neuro: Is nonfocal. LABORATORY DATA: WBC 17.9, hemoglobin is 8.8, hematocrit 29.2, platelets 251. Sodium 137, potassium 3.9, chloride 94, carbon dioxide 37, BUN 54, creatinine 1.33, glucose 87, calcium 8.6, magnesium 2.8. Blood cultures drawn today times two are pending. A chest x-ray done on 07/10/2018 shows multiple new bilateral pulmonary nodules that were not present on chest x-ray from 07/05/2018. Chest CT done on 07/10/2018 shows multiple new nodular opacities in the bilateral lower lobes and the right middle lobe. Differential diagnosis would include septic emboli and infectious process. ASSESSMENT/PLAN: Abnormal imaging with new pulmonary nodules. Currently wide differential which would include septic emboli given the diffuse round presentation on chest CT. We would recommend transesophageal echocardiogram. Other differential would include PCP pneumonia as the patient is on chronic prednisone. Therefore we will order a PCP sputum culture as well as a standard sputum culture. As this could possibly be multifocal pneumonia. The patient has been started on Zosyn. The patient is currently afebrile but white count has gone up. Continue to monitor closely.
[2018-07-10] MEDS: PIPERACILLIN/TAZOBACTAM SOD 3.375 GM in D5W MINI-BAG PLUS 50 ML IV SCH ×2 (13:10→18:16)
[2018-07-10] MEDS: ACETAMINOPHEN TAB 650MG DOSE (2X325MG) PO PRN ×2 (13:17→21:06)
--- NOTE | 2018-07-10 14:16 | IPNPDOC ---
Text Note Date of Service The patient was seen on 07/10/18. NOTE Subjective: Patient with a productive cough today with increased shortness of breath. No chest pain or palpitations. Objective: Vitals: (see below) General: No acute distress, laying comfortably in bed. HEENT: Moist mucous membranes. Neck: No JVD or lymphadenopathy Cardiac: Irregularly irregular, No murmurs Pulm: Diminished breath sounds at the bases b/l. No wheezing. + rhonchi Abd: NT/ND + BS Ext: No edema or cyanosis Labs (see below) Assessment/Plan 1. Acute on chronic hypoxic and hypercapnic respiratory failure secondary to COPD exacerbation and CHF exacerbation diastolic dysfunction. Likely exacerbated by the patient's underlying coronavirus URI. Continue IV diuresis. Continue beta arsenio, isosorbide dinitrate. Echocardiogram ordered. Patient does have a s ignificant history of noncompliance. Patient also has a component of right-sided heart failure and severe pulmonary hypertension. Lasix changed to torsemide. 2. Pulmonary nodules/infiltrates- likely infectious. Started on Zosyn pending sputum/blood cultures. Pulmonary consulted, with plan to check PCP sputum. Infectious disease consulted as well. I have discussed case with Dr. Tejada we will perform a DANNA to rule out vegetations given concern for septic emboli. 3. History of sleep apnea- encouraged to use BiPAP. Appreciate pulmonary input. 4. Poor compliance complicated care 5. History of CKD with elevations of creatinine with diuresis. Improved. 6. History of atrial fibrillation stable. Continue digoxin, beta arsenio, Xarelto. 7. Hypertensive urgency improved. Continue current blood pressure medications. Stable. DVT prophy: Xarelto Overall prognosis guarded. Patient is DNR/DNI. VS,Fishbone, I+O VS, Fishbone, I+O Laboratory Tests 07/10/18 05:26 Red Blood Count 2.58 L, Mean Corpuscular Volume 113.2 H, Mean Corpuscular Hemoglobin 34.1 H, Mean Corpuscular Hemoglobin Concent 30.1 L, Red Cell Distribution Width 12.9, Neutrophils (%) (Auto) 86.4 H, Lymphocytes (%) (Auto) 4.4 L, Monocytes (%) (Auto) 7.0 H, Eosinophils (%) (Auto) 0.6, Basophils (%) (Auto) 0.3, Neutrophils # (Auto) 15.4 H, Lymphocytes # (Auto) 0.8 L, Monocytes # (Auto) 1.3 H, Eosinophils # (Auto) 0.1, Basophils # (Auto) 0.1, Calcium Level 8.6 L Vital Signs Date Time Temp Pulse Resp B/P (MAP) Pulse Ox O2 Delivery O2 Flow Rate FiO2 07/10/18 13:16 126/67 07/10/18 12:00 6.0 07/10/18 12:00 99.2 69 18 94 07/08/18 04:00 Nasal Cannula 07/06/18 10:00 30 I&O- Last 24 Hours up to 6 AM 07/10/18 06:00 Intake Total 960 ml Output Total 600 ml Balance 360 ml JOSE SETHI MD Jul 10, 2018 14:16
[2018-07-10] MEDS: IPRATROPIUM 0.5MG/ALBUTEROL 2.5MG INH SOL UD 3ML (DUONEB)(J7620) NEB PRN (14:29)
[2018-07-10 16:00] VITALS: BP 113/60
[2018-07-10] MEDS ORDERED: FUROSEMIDE 40 MG/4 ML VIAL (J1940) IV ONE (16:15)
[2018-07-10] MEDS: LACTOBACILLUS ACIDOPHILUS CAP (BACID) PO SCH (18:17)
[2018-07-10] MEDS: RIVAROXABAN 15 MG TAB (XARELTO) PO SCH (18:17)
[2018-07-10 19:56] LABS: C REACTIVE PROTEIN QUANTITATIV 13.4 MG/DL (0.00-0.30)
[2018-07-10 20:00] VITALS: BP 162/83
[2018-07-11] VITALS: BP 148/71
[2018-07-11] MEDS ORDERED: D5W 1,000 ML IV SCH (00:01)
[2018-07-11] MEDS: IPRATROPIUM 0.5MG/ALBUTEROL 2.5MG INH SOL UD 3ML (DUONEB)(J7620) NEB PRN ×2 (00:44→15:49)
[2018-07-11] MEDS: PIPERACILLIN/TAZOBACTAM SOD 3.375 GM in D5W MINI-BAG PLUS 50 ML IV SCH ×4 (01:50→18:15)
[2018-07-11 04:00] VITALS: BP 175/82
[2018-07-11] MEDS: SODIUM CHLORIDE HYPERTONIC 3% 15ML NEB SOL INH SCH ×6 (04:00→19:47)
[2018-07-11] MEDS: SLF 3 ML SYR IV SCH ×3 (06:00→21:44)
[2018-07-11] MEDS: ISOSORBIDE DIN. (ISORDIL) 30 MG TAB PO SCH ×3 (06:16→21:44)
[2018-07-11 07:16] LABS: BASO % 0.2 % (0.0-1.0); EOS # 0.1 10^3/uL (0.0-0.50); EOS % 0.7 % (0.0-3.0); HEMATOCRIT 29.4 % (36.0-47.0); HEMOGLOBIN 9.1 g/dl (12.0-15.5); LYMPH # 0.6 10^3/uL (1.5-4.5); LYMPH % 3.6 % (24.0-44.0); MEAN CORPUSCULAR HEMOGLOBIN 34.3 pg (27.0-33.0); MEAN CORPUSCULAR VOLUME 110.9 fl (80.0-96.0); MONO # 1.2 10^3/uL (0.0-0.8); MONO % 7.5 % (0.0-5.0); NEUTROPHILS # 14.2 10^3/uL (1.8-7.7); NEUTROPHILS % 86.1 % (36.0-66.0); PLATELET COUNT, AUTOMATED 116 10^3/uL (150-450); RED BLOOD COUNT 2.65 10^6/uL (4.00-5.40); WHITE BLOOD COUNT 16.5 10^3/uL (4.0-10.0)
[2018-07-11] MEDS: TIOTROPIUM INHALER/CAPSULE (SPIRIVA) INH SCH (07:19)
[2018-07-11] MEDS: ADVAIR HFA 230/21MCG INHALER INH SCH ×2 (07:19→19:47)
[2018-07-11 07:42] LABS: C REACTIVE PROTEIN QUANTITATIV 12.6 MG/DL (0.00-0.30); CALCIUM LEVEL 8.6 MG/DL (8.8-10.2); CREATININE FOR GFR 1.44 MG/DL (0.55-1.30); GLOMERULAR FILTRATION RATE 37.4 (>39); MAGNESIUM LEVEL 2.7 MG/DL (1.8-2.4); POTASSIUM SERUM 3.6 MEQ/L (3.5-5.1)
[2018-07-11 08:00] VITALS: BP 154/73
--- NOTE | 2018-07-11 09:26 | CR ---
DATE OF CONSULTATION: 07/10/2018 Asked to consult by hospitalist for evaluation of multifocal pneumonia. HISTORY OF PRESENT ILLNESS: Cleveland Medina is a 77-year-old female who was admitted by Dr. Sierra on 07/04/2018 with complaint of increasing shortness of breath. The patient was transferred from [facility]. She reported that she was having progressively increased shortness of breath with increased cough. The patient denied having any fever or chills. She was initially treated by Dr. Sierra in the ICU with BiPAP and diuresis. She received IV Lasix and torsemide. The patient slowly improved but today her white count was noted to be higher than her baseline. It went from 12-17,000. She was complaining of persistent shortness of breath and cough which is mostly nonproductive. No fever or chills. The patient had a chest CT which showed multifocal pneumonia, possibly septic emboli and therefore the consultation was placed. The patient has a history of moderate aortic stenosis for which she sees Dr. Rollins for congestive heart failure, pulmonary hypertension and atrial fibrillation. She sees Dr. Balbir bello for chronic obstructive pulmonary disease (COPD) oxygen dependent and on prednisone 10 mg daily. She does not use her CPAP mask. PAST MEDICAL HISTORY: Chronic obstructive pulmonary disease (COPD). Obstructive sleep apnea noncompliant with treatment. Congestive heart failure. Echocardiogram 06/17/2018 shows left ventricular ejection fraction of 60%, severe biatrial enlargement, moderate aortic stenosis. Elevated CVP and moderate severe pulmonary hypertension. Valvular heart disease. Gastroesophageal reflux disease. Anxiety and depression. Atrial fibrillation on Xarelto. Chronic kidney disease. Chronic pain syndrome. History of tobacco use. SOCIAL HISTORY: The patient has a 35-year pack history, quit 30 years ago. Denies alcohol or drug use. She lives with her in [place]. ALLERGIES: ASPIRIN and PREGABALIN. MEDICATIONS: - Advair 250/5 one puff twice daily - senna one tablet by mouth twice daily - probiotic one tablet twice daily - prednisone 10 mg by mouth daily. - The patient received two doses of Solu-Medrol on admission, 60 mg x2. - albuterol/Atrovent nebs every 4 hours as needed - ferrous sulfate 325 mg twice daily - Isordil 30 mg by mouth every 8 hours - digoxin 0.125 mg by mouth every 48 hours - MiraLax 1 packet daily - Nystatin to abdominal folds twice daily as needed - amlodipine 10 mg by mouth daily - paroxetine 20 mg by mouth daily - omeprazole 40 mg by mouth daily - Spiriva one puff daily - multivitamin one tablet daily - metoprolol 50 mg by mouth twice daily - Tums 500 mg twice daily - Xarelto 15 mg daily - Zosyn 3.275 grams IV every 6 hours started 07/10. PHYSICAL EXAM: Temperature is 98.1, pulse 76 irregular, respirations 18, blood pressure 113/60, O2 sat 80-88% on 6 liters nasal cannula. Heart: Normal S1, S2 irregularly irregular. Lungs: Crackles long-term up more wet on the bases and dry crackles midlung jon. Few exterior wheezes. Abdomen: Soft, obese, nontender. Extremities: Trace edema with venous stasis changes and hyperpigmentation. Purplish discoloration of both feet. Diminished pulses. Neurologic exam: Alert, oriented times three. Motor strength normal. Neck is supple. No JVD. Oropharynx is clear. LABORATORY DATA: White count is 17.9 which has increased from 12.6, hemoglobin 8.8, hematocrit 29.2, platelets 251. ESR more than 140. Sodium 137, potassium 3.9, chloride 94, bicarb 37, BUN 54, creatinine 1.33, glucose 87, calcium 8.6, magnesium 2.8, LDH 282, CRP 13.4. Respiratory panel on admission had law virus OC43. Two sets of blood cultures drawn today on 07/10 were pending. Sputum culture is pending. Methicillin-resistant staphylococcus aureus (MRSA) screen is pending. Chest x-ray 07/10 shows multiple new nodular opacities in the lungs ranging up to 2.4 cm in size not present [address] chest: Moderate cardiac enlargement. No evidence of pulmonary or pericardial effusion. Multiple new shaggy nodular opacities bilaterally in lower lobes and right middle lobe. Differential could be septic emboli, infectious or inflammatory lung disease. IMPRESSION: This is a 77-year-old female with a history of advanced pulmonary disease, chronic obstructive pulmonary disease (COPD) oxygen dependent, sleep apnea on CPAP noncompliant, congestive heart failure, atrial fibrillation and pulmonary hypertension with moderate aortic stenosis who presented with initially symptoms of congestive heart failure. She was diuresing and doing well but today white count increased, cough seemed to have worsened and shortness of breath as well. CT findings suggestive of new pulmonary infiltrate that was not present on admission. Initially she had law virus on respiratory panel. The patient could have law virus pneumonia versus superimposed bacterial pneumonia. The patient does not look sick enough to have fungal pneumonia. She has been chronically on prednisone but only at 10 mg. This does not seem to be like septic emboli. She does not have pleuritic chest pain. There are now mostly peripheral. The patient did not have bacteremia when she came in and still barely has a fever. I doubt she has septic emboli. My suspicion is she has superimposed bacterial pneumonia following a viral illness. PLAN: I have reviewed CT findings with Dr. Urrutia who is on pulmonary service. She agrees this is unlikely to be septic emboli. Will obtain fungal smear and culture, PCP cytology, Aspergillus galactomannan and Fungitell B1-3 D glucan Assays have been ordered. For the time being, we will continue with Zosyn 3.275 grams every 6 hours. I would not add vancomycin at this time. Will obtain a urine legionella antigen and pneumococcal urine antigen. If she does not improve, may add atypical coverage for legionnaire. I would not recommend a transesophageal echocardiogram at this time unless the patient has positive blood cultures that would suggest septic emboli Obtain ESR, CRP. MTDD
[2018-07-11] MEDS: amLODIPine 10 MG TAB PO SCH (10:10)
[2018-07-11] MEDS: LACTOBACILLUS ACIDOPHILUS CAP (BACID) PO SCH ×2 (10:10→18:14)
[2018-07-11] MEDS: OMEPRAZOLE 20 MG CAP PO SCH (10:11)
[2018-07-11] MEDS: SENOKOT S TAB PO SCH ×2 (10:11→21:44)
[2018-07-11] MEDS: FERROUS SULFATE 325MG TAB PO SCH ×2 (10:12→21:43)
[2018-07-11] MEDS: predniSONE 10 MG TAB PO SCH (10:12)
[2018-07-11] MEDS: DIGOXIN 0.125 MG TAB PO SCH (10:13)
[2018-07-11] MEDS: METOPROLOL SUCC *XL* 25MG TAB (TopROL *XL*) PO SCH ×2 (10:13→21:44)
[2018-07-11] MEDS: MULTIVITAMINS/MINERALS THERAP 1 TAB PO SCH (10:13)
[2018-07-11] MEDS ORDERED: ONDANSETRON 4MG/2ML VIAL (J2405) IV PRN (11:30)
[2018-07-11 12:00] VITALS: BP 160/70
[2018-07-11] MEDS: CALCIUM CARBONATE 500 MG CHEW U/D PO PRN (12:48)
[2018-07-11] MEDS: PARoxetine 20 MG TAB PO SCH (12:48)
[2018-07-11 15:30] VITALS: BP 132/60
--- NOTE | 2018-07-11 16:41 | IPNPDOC ---
Text Note Date of Service The patient was seen on 07/11/18. NOTE Subjective: Patient states she has a productive cough however it is improving. No chest pain or palpitations. Does not have any increased dyspnea since yesterday. Objective: Vitals: (see below) General: No acute distress, laying comfortably in bed. HEENT: Moist mucous membranes. Neck: No JVD or lymphadenopathy Cardiac: Irregularly irregular, No murmurs Pulm: Diminished breath sounds at the bases b/l. No wheezing. + rhonchi Abd: NT/ND + BS Ext: No edema or cyanosis Labs (see below) Assessment/Plan 1. Acute on chronic hypoxic and hypercapnic respiratory failure secondary to COPD exacerbation and CHF exacerbation diastolic dysfunction. Likely exacerbated by the patient's underlying coronavirus URI. Continue IV diuresis. Continue beta arsenio, isosorbide dinitrate. Echocardiogram ordered. Patient does have a significant history of noncompliance. Patient also has a component of right- sided heart failure and severe pulmonary hypertension. Lasix changed to torsemid e. 2. Pulmonary nodules/infiltrates- Started on Zosyn pending sputum/blood cultures. Pulmonary consulted/ Infectious disease consulted as well. I have discussed case with Dr. Tejada who recommends holding off on DANNA as septic emboli is extremely rare in this case. 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 Corcoran started the patient on voriconazole. 3. History of sleep apnea- encouraged to use BiPAP. Appreciate pulmonary input. 4. Poor compliance complicated care 5. History of CKD with elevations of creatinine with diuresis. Improved. 6. History of atrial fibrillation stable. Continue digoxin, beta arsenio, Xarelto. 7. Hypertensive urgency improved. Continue current blood pressure medications. Stable. DVT prophy: Xarelto Overall prognosis guarded. Patient is DNR/DNI. VS,Fishbone, I+O VS, Fishbone, I+O Laboratory Tests 07/11/18 07:03 Red Blood Count 2.65 L, Mean Corpuscular Volume 110.9 H, Mean Corpuscular H emoglobin 34.3 H, Mean Corpuscular Hemoglobin Concent 31.0 L, Red Cell Distribution Width 12.7, Neutrophils (%) (Auto) 86.1 H, Lymphocytes (%) (Auto) 3.6 L, Monocytes (%) (Auto) 7.5 H, Eosinophils (%) (Auto) 0.7, Basophils (%) (Auto) 0.2, Neutrophils # (Auto) 14.2 H, Lymphocytes # (Auto) 0.6 L, Monocytes # (Auto) 1.2 H, Eosinophils # (Auto) 0.1, Basophils # (Auto) 0.0, Calcium Level 8.6 L Vital Signs Date Time Temp Pulse Resp B/P (MAP) Pulse Ox O2 Delivery O2 Flow Rate FiO2 07/11/18 15:30 98.1 98 18 132/60 (84) 90 5.0 07/11/18 12:00 Nasal Cannula 07/06/18 10:00 30 I&O- Last 24 Hours up to 6 AM 07/11/18 06:00 Intake Total 770 ml Output Total 1425 ml Balance -655 ml JOSE SETHI MD Jul 11, 2018 16:41
[2018-07-11] MEDS: RIVAROXABAN 15 MG TAB (XARELTO) PO SCH (18:14)
[2018-07-11 20:14] VITALS: BP 161/77
--- NOTE | 2018-07-11 21:31 | IPN ---
DATE: 07/11/2018 Mrs. Guthrie is not doing very well this morning. She is complaining of increasing shortness of breath, cough which is productive mostly of whitish to brownish phlegm. She denies any pleuritic chest pain. No nausea or vomiting. She had her lunch but was upset about not getting fish, she did not like the tuna. No lower extremity edema. LABORATORY DATA: White count of 16.5, hemoglobin 9.1, hematocrit 29.4, platelets 116, 86% neutrophils, 3% lymphocytes, 7% monocytes. Sodium 141, potassium 3.6, chloride 94, bicarbonate 44, BUN 47, creatinine 1.4, glucose 109, calcium 8.6, magnesium 2.7, LDH 282, CRP 12.6. Blood cultures two sets on 07/10/2018 were no growth. Sputum cultures pending. Gram stain had many white cells, gram-positive cocci in chains, many gram-negative rods. Two sputum cultures were sent on 07/10/2018, will make sure that one is done for fungal smear and culture as well. Chest CT shows multiple new shaggy nodular opacities bilaterally in the lower lobes and right middle lobe. Pathology shows scattered pulmonary macrophage in the background of neutrophils and debris with a GMS stain consistent with Aspergillus. PHYSICAL EXAMINATION: Temperature is 97.7, pulse 89, respirations 18, blood pressure 160/70, oxygen saturation 88% on 5 liters nasal cannula. Heart: Irregular, S1, S2 with a holosystolic murmur 3/6 best heard at the left upper sternal border. Lungs: Crackles bilaterally half way through. No wheezing. Few expiratory rhonchi. Abdomen: Soft, nontender. No hepatosplenomegaly. Extremities: Trace edema with hyperpigmented venous stasis changes, both legs tender. General appearance: Sick looking female in moderate respiratory discomfort. IMPRESSION: 1. 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 2. Multifocal infiltrates with cytology consistent with Aspergillus. Will obtain a fungal smear and culture. The patient will be started on voriconazole 400 mg by mouth twice a day times two doses and then 200 mg twice a day. 3. History of moderate aortic stenosis and congestive heart failure from diastolic dysfunction. The patient with increased crackles and shortness of breath. May consider consulting cardiology. Dr. Rollins is her heating repair technician on record. PLAN: Continue Zosyn until results of sputum culture is available. Obtain fungal smear and culture. Aspergillus Antigen has been ordered as well as beta 1, 3 D-glucan. MTDD
[2018-07-11] MEDS: VORICONAZOLE 200MG TABLET (VFEND) PO SCH (21:43)
[2018-07-12] VITALS (7 sets, daily range): BP systolic 114–153; BP diastolic 61–94
[2018-07-12] MEDS: PIPERACILLIN/TAZOBACTAM SOD 3.375 GM in D5W MINI-BAG PLUS 50 ML IV SCH ×4 (01:38→18:22)
[2018-07-12] MEDS: ACETAMINOPHEN TAB 650MG DOSE (2X325MG) PO PRN ×3 (01:41→21:04)
[2018-07-12] MEDS: SLF 3 ML SYR IV SCH ×3 (05:37→21:00)
[2018-07-12 06:05] LABS: C REACTIVE PROTEIN QUANTITATIV 16.1 MG/DL (0.00-0.30); CALCIUM LEVEL 8.6 MG/DL (8.8-10.2); CREATININE FOR GFR 1.3 MG/DL (0.55-1.30); GLOMERULAR FILTRATION RATE 42.1 (>39); MAGNESIUM LEVEL 2.8 MG/DL (1.8-2.4); POTASSIUM SERUM 3.6 MEQ/L (3.5-5.1)
[2018-07-12] MEDS: ISOSORBIDE DIN. (ISORDIL) 30 MG TAB PO SCH ×3 (06:10→21:05)
[2018-07-12] MEDS: ADVAIR HFA 230/21MCG INHALER INH SCH ×2 (07:24→20:22)
[2018-07-12] MEDS: TIOTROPIUM INHALER/CAPSULE (SPIRIVA) INH SCH (07:24)
[2018-07-12] MEDS: SODIUM CHLORIDE HYPERTONIC 3% 15ML NEB SOL INH SCH ×5 (07:27→20:00)
[2018-07-12] MEDS: TORSEMIDE 20 MG TAB PO SCH (09:24)
[2018-07-12] MEDS: LACTOBACILLUS ACIDOPHILUS CAP (BACID) PO SCH ×2 (09:24→18:22)
[2018-07-12] MEDS: VORICONAZOLE 200MG TABLET (VFEND) PO SCH ×2 (09:24→21:05)
[2018-07-12] MEDS: OMEPRAZOLE 20 MG CAP PO SCH (09:24)
[2018-07-12] MEDS: MULTIVITAMINS/MINERALS THERAP 1 TAB PO SCH (09:25)
[2018-07-12] MEDS: predniSONE 10 MG TAB PO SCH (09:25)
[2018-07-12] MEDS: SENOKOT S TAB PO SCH ×2 (09:25→21:05)
[2018-07-12] MEDS: PARoxetine 20 MG TAB PO SCH (09:25)
[2018-07-12] MEDS: amLODIPine 10 MG TAB PO SCH (09:25)
[2018-07-12] MEDS: METOPROLOL SUCC *XL* 25MG TAB (TopROL *XL*) PO SCH ×2 (09:26→21:04)
[2018-07-12] MEDS: MAGNESIUM CITRATE 300 ML BTL PO ONE ×2 (10:00→10:54)
[2018-07-12] MEDS: IPRATROPIUM 0.5MG/ALBUTEROL 2.5MG INH SOL UD 3ML (DUONEB)(J7620) NEB PRN ×2 (11:10→15:21)
--- NOTE | 2018-07-12 12:12 | IPNPDOC ---
Text Note Date of Service The patient was seen on 07/12/18. NOTE Subjective: SOB/cough improving. No chest pain or palpitations. Objective: Vitals: (see below) General: No acute distress, laying comfortably in bed. HEENT: Moist mucous membranes. Neck: No JVD or lymphadenopathy Cardiac: Irregularly irregular, No murmurs Pulm: Diminished breath sounds at the bases b/l. No wheezing. + rhonchi Abd: NT/ND + BS Ext: No edema or cyanosis Labs (see below) Assessment/Plan 1. Acute on chronic hypoxic and hypercapnic respiratory failure secondary to COPD exacerbation and CHF exacerbation diastolic dysfunction. Likely exacerbated by the patient's underlying coronavirus URI. Continue IV diuresis. Continue beta arsenio, isosorbide dinitrate. Echocardiogram ordered. Patient does have a significant history of noncompliance. Patient also has a component of right- sided heart failure and severe pulmonary hypertension. Torsemide dose increased. 2. Pulmonary nodules/infiltrates- Started on Zosyn pending sputum/blood cultures. Pulmonary consulted/ Infectious disease consulted as well. I have discussed case with Dr. Tejada who recommends holding off on DANNA as septic emboli is extremely rare in this case. 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 Corcoran started the patient on voriconazole. 3. History of sleep apnea- encouraged to use BiPAP. Appreciate pulmonary input. 4. Poor compliance complicated care 5. History of CKD with elevations of creatinine with diuresis. Improved. 6. History of atrial fibrillation stable. Continue digoxin, beta arsenio, Xarelto. 7. Hypertensive urgency improved. Continue current blood pressure medications. Stable. DVT prophy: Xarelto Overall prognosis guarded. Patient is DNR/DNI. VS,Fishbone, I+O VS, Fishbone, I+O Laboratory Tests 07/12/18 05:18 Calcium Level 8.6 L Vital Signs Date Time Temp Pulse Resp B/P (MAP) Pulse Ox O2 Delivery O2 Flow Rate FiO2 07/12/18 09:26 88 118/61 07/12/18 08:00 98.3 22 90 6.0 07/11/18 18:00 NIPPV (BIPAP/CPAP) 07/06/18 10:00 30 I&O- Last 24 Hours up to 6 AM 07/12/18 06:00 Intake Total 1490 ml Output Total 1050 ml Balance 440 ml JOSE SETHI MD Jul 12, 2018 12:12
[2018-07-12] MEDS: RIVAROXABAN 15 MG TAB (XARELTO) PO SCH (18:22)
[2018-07-13] VITALS (7 sets, daily range): BP systolic 137–151; BP diastolic 60–80
[2018-07-13] MEDS: PIPERACILLIN/TAZOBACTAM SOD 3.375 GM in D5W MINI-BAG PLUS 50 ML IV SCH ×4 (00:19→18:36)
[2018-07-13] MEDS: SLF 3 ML SYR IV SCH ×3 (05:51→22:00)
[2018-07-13] MEDS: ISOSORBIDE DIN. (ISORDIL) 30 MG TAB PO SCH ×3 (05:51→21:16)
[2018-07-13 06:10] LABS: C REACTIVE PROTEIN QUANTITATIV 12.5 MG/DL (0.00-0.30)
[2018-07-13 07:46] LABS: CALCIUM LEVEL 8.9 MG/DL (8.8-10.2); CREATININE FOR GFR 1.57 MG/DL (0.55-1.30); GLOMERULAR FILTRATION RATE 33.8 (>39); MAGNESIUM LEVEL 2.6 MG/DL (1.8-2.4); POTASSIUM SERUM 3.5 MEQ/L (3.5-5.1)
[2018-07-13 07:48] LABS: HEMATOCRIT 25.9 % (36.0-47.0); HEMOGLOBIN 8.1 g/dl (12.0-15.5); MEAN CORPUSCULAR HEMOGLOBIN 33.9 pg (27.0-33.0); MEAN CORPUSCULAR HGB CONC 31.3 g/dl (32.0-36.5); MEAN CORPUSCULAR VOLUME 108.4 fl (80.0-96.0); PLATELET COUNT, AUTOMATED 132 10^3/uL (150-450); RED BLOOD COUNT 2.39 10^6/uL (4.00-5.40); WHITE BLOOD COUNT 14.4 10^3/uL (4.0-10.0)
[2018-07-13] MEDS: LACTOBACILLUS ACIDOPHILUS CAP (BACID) PO SCH ×2 (07:52→17:34)
[2018-07-13] MEDS: SODIUM CHLORIDE HYPERTONIC 3% 15ML NEB SOL INH SCH ×5 (08:00→23:28)
[2018-07-13] MEDS: TIOTROPIUM INHALER/CAPSULE (SPIRIVA) INH SCH (08:23)
[2018-07-13] MEDS: ADVAIR HFA 230/21MCG INHALER INH SCH ×2 (08:23→20:40)
[2018-07-13] MEDS: amLODIPine 10 MG TAB PO SCH (09:17)
[2018-07-13] MEDS: PARoxetine 20 MG TAB PO SCH (09:17)
[2018-07-13] MEDS: SENOKOT S TAB PO SCH ×2 (09:17→21:15)
[2018-07-13] MEDS: MULTIVITAMINS/MINERALS THERAP 1 TAB PO SCH (09:17)
[2018-07-13] MEDS: predniSONE 10 MG TAB PO SCH (09:18)
[2018-07-13] MEDS: OMEPRAZOLE 20 MG CAP PO SCH (09:18)
[2018-07-13] MEDS: DIGOXIN 0.125 MG TAB PO SCH (09:18)
[2018-07-13] MEDS: VORICONAZOLE 200MG TABLET (VFEND) PO SCH ×2 (09:18→21:15)
[2018-07-13] MEDS: METOPROLOL SUCC *XL* 25MG TAB (TopROL *XL*) PO SCH ×2 (09:18→21:16)
[2018-07-13] MEDS: TORSEMIDE 20 MG TAB PO SCH (09:19)
[2018-07-13] MEDS: IPRATROPIUM 0.5MG/ALBUTEROL 2.5MG INH SOL UD 3ML (DUONEB)(J7620) NEB PRN ×2 (11:00→15:36)
--- NOTE | 2018-07-13 11:12 | IPNPDOC ---
Text Note Date of Service The patient was seen on 07/13/18. NOTE Subjective: Dyspnea improving. No chest pain or palpitations. Objective: Vitals: (see below) General: No acute distress, laying comfortably in bed. HEENT: Moist mucous membranes. Neck: No JVD or lymphadenopathy Cardiac: Irregularly irregular, No murmurs Pulm: Diminished breath sounds at the bases b/l. No wheezing. + rhonchi Abd: NT/ND + BS Ext: No edema or cyanosis Labs (see below) Assessment/Plan 1. Acute on chronic hypoxic and hypercapnic respiratory failure secondary to COPD exacerbation and CHF exacerbation diastolic dysfunction. Likely exacerbated by the patient's underlying coronavirus URI. Continue IV diuresis. Continue beta arsenio, isosorbide dinitrate. Echocardiogram ordered. Patient does have a significant history of noncompliance. Patient also has a component of right- sided heart failure and severe pulmonary hypertension. Torsemide dose increased. 2. Pulmonary nodules/infiltrates- On Zosyn - sputum cx with acinobacter and proteus. bld cx negative Defer abx to ID. Pulmonary consulted/ Infectious disease consulted as well. I have discussed case with Dr. Tejada who recommends holding off on DANNA as septic emboli is extremely rare in this case. 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 Corcoran started the patient on voriconazole. 3. History of sleep apnea- encouraged to use BiPAP. Appreciate pulmonary input. 4. Poor compliance complicated care 5. History of CKD with elevations of creatinine with diuresis. Improved. 6. History of atrial fibrillation stable. Continue digoxin, beta arsenio, Xarelto. 7. Hypertensive urgency improved. Continue current blood pressure medications. Stable. DVT prophy: Xarelto Overall prognosis guarded. Patient is DNR/DNI. VS,Fishbone, I+O VS, Fishbone, I+O Laboratory Tests 07/13/18 05:19 Red Blood Count 2.39 L, Mean Corpuscular Volume 108.4 H, Mean Corpuscular Hemoglobin 33.9 H, Mean Corpuscular Hemoglobin Concent 31.3 L, Red Cell Distribution Width 12.7, Calcium Level 8.9 Vital Signs Date Time Temp Pulse Resp B/P (MAP) Pulse Ox O2 Delivery O2 Flow Rate FiO2 07/13/18 09:18 69 07/13/18 09:17 140/78 2/10/19 08:00 98.3 22 97 5.0 07/13/18 04:00 Nasal Cannula I&O- Last 24 Hours up to 6 AM 07/13/18 06:00 Intake Total 800 ml Output Total 1325 ml Balance -525 ml JOSE SETHI MD Jul 13, 2018 11:12
[2018-07-13] MEDS ORDERED: TORSEMIDE 20 MG TAB PO ONE (12:00)
[2018-07-13] MEDS: CALCIUM CARBONATE 500 MG CHEW U/D PO PRN (14:31)
[2018-07-13] MEDS: RIVAROXABAN 15 MG TAB (XARELTO) PO SCH (17:34)
[2018-07-13] MEDS: ACETAMINOPHEN TAB 650MG DOSE (2X325MG) PO PRN (21:16)
[2018-07-14] VITALS (8 sets, daily range): BP systolic 116–133; BP diastolic 58–70
[2018-07-14] MEDS: PIPERACILLIN/TAZOBACTAM SOD 3.375 GM in D5W MINI-BAG PLUS 50 ML IV SCH ×3 (00:59→13:30)
[2018-07-14] MEDS: SODIUM CHLORIDE HYPERTONIC 3% 15ML NEB SOL INH SCH ×3 (04:00→12:02)
[2018-07-14] MEDS: SLF 3 ML SYR IV SCH ×3 (04:19→21:02)
[2018-07-14 06:16] LABS: C REACTIVE PROTEIN QUANTITATIV 8.32 MG/DL (0.00-0.30)
[2018-07-14] MEDS: ISOSORBIDE DIN. (ISORDIL) 30 MG TAB PO SCH ×3 (06:36→21:01)
[2018-07-14] MEDS: ADVAIR HFA 230/21MCG INHALER INH SCH ×2 (07:45→21:00)
[2018-07-14] MEDS: TIOTROPIUM INHALER/CAPSULE (SPIRIVA) INH SCH (07:45)
[2018-07-14 08:46] LABS: CALCIUM LEVEL 8.2 MG/DL (8.8-10.2); CREATININE FOR GFR 1.46 MG/DL (0.55-1.30); GLOMERULAR FILTRATION RATE 36.8 (>39); MAGNESIUM LEVEL 2.4 MG/DL (1.8-2.4); POTASSIUM SERUM 3.2 MEQ/L (3.5-5.1)
[2018-07-14] MEDS: LACTOBACILLUS ACIDOPHILUS CAP (BACID) PO SCH ×2 (08:49→17:33)
[2018-07-14] MEDS: OMEPRAZOLE 20 MG CAP PO SCH (08:50)
[2018-07-14] MEDS: VORICONAZOLE 200MG TABLET (VFEND) PO SCH ×2 (08:50→21:00)
[2018-07-14] MEDS: amLODIPine 10 MG TAB PO SCH (08:50)
[2018-07-14] MEDS: MULTIVITAMINS/MINERALS THERAP 1 TAB PO SCH (08:51)
[2018-07-14] MEDS: METOPROLOL SUCC *XL* 25MG TAB (TopROL *XL*) PO SCH ×2 (08:51→21:01)
[2018-07-14] MEDS: TORSEMIDE 20 MG TAB PO SCH (08:52)
[2018-07-14] MEDS: PARoxetine 20 MG TAB PO SCH (08:53)
[2018-07-14] MEDS: predniSONE 10 MG TAB PO SCH (08:53)
[2018-07-14] MEDS: SENOKOT S TAB PO SCH ×2 (08:54→21:00)
[2018-07-14 09:51] LABS: HEMATOCRIT 26.2 % (36.0-47.0); HEMOGLOBIN 7.9 g/dl (12.0-15.5); MEAN CORPUSCULAR HEMOGLOBIN 33.8 pg (27.0-33.0); MEAN CORPUSCULAR HGB CONC 30.2 g/dl (32.0-36.5); PLATELET COUNT, AUTOMATED 171 10^3/uL (150-450); RED BLOOD COUNT 2.34 10^6/uL (4.00-5.40); WHITE BLOOD COUNT 12.2 10^3/uL (4.0-10.0)
[2018-07-14] MEDS ORDERED: POTASSIUM CHLORIDE 10 MEQ SR TABLET PO ONE (11:00)
[2018-07-14] MEDS: ACETAMINOPHEN TAB 650MG DOSE (2X325MG) PO PRN ×3 (13:36→21:40)
--- NOTE | 2018-07-14 14:31 | IPNPDOC ---
Text Note Date of Service The patient was seen on 07/14/18. NOTE Subjective: Dyspnea improving. Weaning down O2. Cough improving. Looking forward to going home. No chest pain or palpitations. Objective: Vitals: (see below) General: No acute distress, laying comfortably in bed. HEENT: Moist mucous membranes. Neck: No JVD or lymphadenopathy Cardiac: Irregularly irregular, No murmurs Pulm: Diminished breath sounds at the bases b/l. No wheezing. + rhonchi Abd: NT/ND + BS Ext: No edema or cyanosis Labs (see below) Assessment/Plan 1. Acute on chronic hypoxic and hypercapnic respiratory failure secondary to COPD exacerbation and CHF exacerbation diastolic dysfunction. Likely exacerbated by the patient's underlying coronavirus URI. Continue IV diuresis. Continue beta arsenio, isosorbide dinitrate. Echocardiogram ordered. Patient does have a significant history of noncompliance. Patient also has a component of right- sided heart failure and severe pulmonary hypertension. Torsemide dose 80mg daily 2. Pulmonary nodules/infiltrates- On Zosyn - sputum cx with acinobacter and proteus. bld cx negative Defer abx to ID. Pulmonary consulted/ Infectious disease consulted as well. I have discussed case with Dr. Tejada who recommends holding off on DANNA as septic emboli is extremely rare in this case. 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 Corcoran started the patient on voriconazole. 3. History of sleep apnea- encouraged to use BiPAP. Appreciate pulmonary input. 4. Poor compliance complicated care 5. History of CKD with elevations of creatinine with diuresis. Improved. 6. History of atrial fibrillation stable. Continue digoxin, beta arsenio, Xarelto. 7. Hypertensive urgency improved. Continue current blood pressure medications. Stable. 8. Hypokalemia replaced. DVT prophy: Xarelto Overall prognosis guarded. Patient is DNR/DNI. VS,Fishbone, I+O VS, Fishbone, I+O Laboratory Tests 07/14/18 05:20 Red Blood Count 2.34 L, Mean Corpuscular Volume 112.0 H, Mean Corpuscular Hemoglobin 33.8 H, Mean Corpuscular Hemoglobin Concent 30.2 L, Red Cell D istribution Width 12.9, Calcium Level 8.2 L Vital Signs Date Time Temp Pulse Resp B/P (MAP) Pulse Ox O2 Delivery O2 Flow Rate FiO2 07/14/18 13:36 133/60 07/14/18 13:35 4.0 07/14/18 12:00 98.1 91 18 95 07/14/18 07:50 Nasal Cannula I&O- Last 24 Hours up to 6 AM 07/14/18 06:00 Intake Total 970 ml Output Total 1390 ml Balance -420 ml JOSE SETHI MD Jul 14, 2018 14:31
[2018-07-14 14:37] LABS: CALCIUM LEVEL 9.2 MG/DL (8.8-10.2); CREATININE FOR GFR 1.66 MG/DL (0.55-1.30); GLOMERULAR FILTRATION RATE 31.7 (>39); MAGNESIUM LEVEL 2.5 MG/DL (1.8-2.4); POTASSIUM SERUM 3.9 MEQ/L (3.5-5.1)
[2018-07-14 16:24] LABS: HEMATOCRIT 30.2 % (36.0-47.0); HEMOGLOBIN 9.1 g/dl (12.0-15.5); MEAN CORPUSCULAR HEMOGLOBIN 33.7 pg (27.0-33.0); MEAN CORPUSCULAR HGB CONC 30.1 g/dl (32.0-36.5); MEAN CORPUSCULAR VOLUME 111.9 fl (80.0-96.0); PLATELET COUNT, AUTOMATED 230 10^3/uL (150-450)
[2018-07-14] MEDS: RIVAROXABAN 15 MG TAB (XARELTO) PO SCH (17:33)
[2018-07-14] MEDS: AUGMENTIN 875 MG TAB PO SCH (21:01)
[2018-07-14] MEDS ORDERED: LOMOTIL 2.5MG/0.025MG TABLET PO PRN (22:45)
[2018-07-15] VITALS (8 sets, daily range): BP systolic 110–142; BP diastolic 58–80
[2018-07-15] MEDS: IPRATROPIUM 0.5MG/ALBUTEROL 2.5MG INH SOL UD 3ML (DUONEB)(J7620) NEB PRN (00:31)
[2018-07-15 01:34] LABS: ASPERGILLUS GALACTOMANNAN AG 0.07 Index (0.00-0.49)
[2018-07-15] MEDS: ISOSORBIDE DIN. (ISORDIL) 30 MG TAB PO SCH ×3 (05:51→21:26)
[2018-07-15] MEDS: SLF 3 ML SYR IV SCH ×3 (05:54→21:26)
[2018-07-15 06:06] LABS: HEMATOCRIT 26.8 % (36.0-47.0); HEMOGLOBIN 8.3 g/dl (12.0-15.5); MEAN CORPUSCULAR HEMOGLOBIN 33.5 pg (27.0-33.0); MEAN CORPUSCULAR VOLUME 108.1 fl (80.0-96.0); PLATELET COUNT, AUTOMATED 225 10^3/uL (150-450); RED BLOOD COUNT 2.48 10^6/uL (4.00-5.40); WHITE BLOOD COUNT 13.8 10^3/uL (4.0-10.0)
[2018-07-15 06:20] LABS: C REACTIVE PROTEIN QUANTITATIV 4.64 MG/DL (0.00-0.30); CALCIUM LEVEL 8.2 MG/DL (8.8-10.2); CREATININE FOR GFR 1.4 MG/DL (0.55-1.30); GLOMERULAR FILTRATION RATE 38.6 (>39); MAGNESIUM LEVEL 2.1 MG/DL (1.8-2.4); POTASSIUM SERUM 3.8 MEQ/L (3.5-5.1)
[2018-07-15] MEDS: ADVAIR HFA 230/21MCG INHALER INH SCH ×2 (07:35→20:27)
[2018-07-15] MEDS: TIOTROPIUM INHALER/CAPSULE (SPIRIVA) INH SCH (07:35)
[2018-07-15] MEDS: LACTOBACILLUS ACIDOPHILUS CAP (BACID) PO SCH ×2 (09:14→17:15)
[2018-07-15] MEDS: predniSONE 10 MG TAB PO SCH (09:14)
[2018-07-15] MEDS: OMEPRAZOLE 20 MG CAP PO SCH (09:14)
[2018-07-15] MEDS: MULTIVITAMINS/MINERALS THERAP 1 TAB PO SCH (09:14)
[2018-07-15] MEDS: PARoxetine 20 MG TAB PO SCH (09:15)
[2018-07-15] MEDS: AUGMENTIN 875 MG TAB PO SCH ×2 (09:15→21:26)
[2018-07-15] MEDS: DIGOXIN 0.125 MG TAB PO SCH (09:16)
[2018-07-15] MEDS: amLODIPine 10 MG TAB PO SCH (09:16)
[2018-07-15] MEDS: METOPROLOL SUCC *XL* 25MG TAB (TopROL *XL*) PO SCH ×2 (09:17→21:26)
[2018-07-15] MEDS: VORICONAZOLE 200MG TABLET (VFEND) PO SCH ×2 (09:17→21:26)
[2018-07-15] MEDS: SENOKOT S TAB PO SCH (09:18)
[2018-07-15] MEDS: TORSEMIDE 20 MG TAB PO SCH (09:18)
[2018-07-15] MEDS: NYSTATIN 100,000 UNITS/GM TOPICAL PWD 15 GM TOP PRN (09:20)
[2018-07-15] MEDS: ACETAMINOPHEN TAB 650MG DOSE (2X325MG) PO PRN (12:34)
--- NOTE | 2018-07-15 16:26 | IPN ---
DATE: 07/14/2018 Mrs. Guthrie feels much better today. She is wondering when she can go home. She has gone back to oxygen 3-4 liters nasal cannula which is at her baseline. Cough is improving. No chest pain or palpitations. According to her she is back to about her baseline. Vital signs: Temperature is 99.9, pulse 79, respirations 19, blood pressure 133/58, O2 sat 94% on 4 liters nasal cannula. Heart: Irregular. No murmurs. Lungs: Decreased breath sounds. Crackles have improved. Few exterior rhonchi. No wheezing. Abdomen: Soft, nontender. No hepatosplenomegaly. Extremities: No edema. There is mild hyperpigmented venous stasis changes of both lower extremities. No cyanosis. IMPRESSION Acute on chronic respiratory failure secondary to chronic obstructive pulmonary disease (COPD), and congestive heart failure (CHF). Back to baseline oxygenation. Pneumonia. The patient was on IV Zosyn. Sputum culture had Proteus and Acetobacter. Acetobacter does not have susceptibilities, but Proteus shows susceptibility to amoxicillin. The heavy growth was mostly of the Acetobacter species and the Proteus. Also sputum cytology had Aspergillus. Blood work for Aspergillus galactomannan is pending. PLAN Discontinue IV Zosyn, switch to Augmentin 875 mg by mouth twice a day. That should cover the Proteus and hopefully Acetobacter. Continue voriconazole 200 mg by mouth twice a day for Aspergillus although I am not totally convinced that she has aspergillosis. I would like to wait for Aspergillus galactomannan assay as well. Would suggest obtaining a followup CT in the next 4-6 weeks. Continue Augmentin for 7 days and voriconazole until the patient sees me in the office. The patient will continue for at least 4-6 weeks.
[2018-07-15] MEDS: RIVAROXABAN 15 MG TAB (XARELTO) PO SCH (17:15)
[2018-07-15] MEDS: GABAPENTIN 100 MG CAP PO SCH ×2 (17:15→21:26)
[2018-07-16 04:45] VITALS: BP 132/58
[2018-07-16] MEDS: GABAPENTIN 100 MG CAP PO SCH ×3 (05:11→21:45)
[2018-07-16] MEDS: ISOSORBIDE DIN. (ISORDIL) 30 MG TAB PO SCH ×3 (05:11→21:45)
[2018-07-16] MEDS: SLF 3 ML SYR IV SCH ×3 (05:11→21:46)
[2018-07-16 06:12] LABS: HEMATOCRIT 26.7 % (36.0-47.0); MEAN CORPUSCULAR HEMOGLOBIN 32.5 pg (27.0-33.0); MEAN CORPUSCULAR VOLUME 108.5 fl (80.0-96.0); PLATELET COUNT, AUTOMATED 250 10^3/uL (150-450); RED BLOOD COUNT 2.46 10^6/uL (4.00-5.40); WHITE BLOOD COUNT 13.4 10^3/uL (4.0-10.0)
[2018-07-16 06:38] LABS: C REACTIVE PROTEIN QUANTITATIV 2.48 MG/DL (0.00-0.30); CALCIUM LEVEL 8.4 MG/DL (8.8-10.2); CREATININE FOR GFR 1.37 MG/DL (0.55-1.30); GLOMERULAR FILTRATION RATE 39.6 (>39); MAGNESIUM LEVEL 2.3 MG/DL (1.8-2.4); POTASSIUM SERUM 3.3 MEQ/L (3.5-5.1)
[2018-07-16] MEDS: ADVAIR HFA 230/21MCG INHALER INH SCH ×2 (07:12→21:00)
[2018-07-16] MEDS: TIOTROPIUM INHALER/CAPSULE (SPIRIVA) INH SCH (07:12)
[2018-07-16 08:00] VITALS: BP 137/95
[2018-07-16 08:11] LABS: PERCENT SATURATION 19.7 % (13.2-45.0)
[2018-07-16] MEDS: MULTIVITAMINS/MINERALS THERAP 1 TAB PO SCH (08:13)
[2018-07-16] MEDS: OMEPRAZOLE 20 MG CAP PO SCH (08:13)
[2018-07-16] MEDS: predniSONE 10 MG TAB PO SCH (08:13)
[2018-07-16] MEDS: PARoxetine 20 MG TAB PO SCH (08:13)
[2018-07-16] MEDS: LACTOBACILLUS ACIDOPHILUS CAP (BACID) PO SCH ×2 (08:13→18:54)
[2018-07-16] MEDS: METOPROLOL SUCC *XL* 25MG TAB (TopROL *XL*) PO SCH ×2 (08:14→21:45)
[2018-07-16] MEDS: TORSEMIDE 20 MG TAB PO SCH (08:14)
[2018-07-16] MEDS: AUGMENTIN 875 MG TAB PO SCH ×2 (08:15→21:45)
[2018-07-16] MEDS: amLODIPine 10 MG TAB PO SCH (08:15)
[2018-07-16] MEDS: VORICONAZOLE 200MG TABLET (VFEND) PO SCH ×2 (08:15→21:46)
--- NOTE | 2018-07-16 08:33 | IPN ---
DATE OF SERVICE: 07/15/2018 Patient seen and examined. Diarrhea was reported. Reported respiration much improved. Mild cough. Denies any chest pain, pressure, discomfort. Denies any fevers, chills. VITAL SIGNS: Temperature 97.5, pulse 90, respirations 18, blood pressure 140/72, pulse oximetry 95% on 4 liters nasal cannula. LABORATORY: WBC 13.8, hemoglobin and hematocrit 8.3/26.8, platelets 225. Chemistry: Sodium 140, potassium 3.8, chloride 98, bicarbonate 36, BUN 35, creatinine 1.4. PHYSICAL EXAMINATION: General: Patient comfortable, in no acute distress. On oxygen. HEENT: Moist mucous membranes. Neck: Supple. Cardiac: Irregularly irregular. S1, S2. Pulmonary: Diminished breath sounds bilateral bases. No wheeze. Mild rhonchi. Abdomen: Soft, nontender. Positive bowel sounds. Extremities: No clubbing, cyanosis, or edema. ASSESSMENT AND PLAN: This is a 77-year-old female patient with underlying medical history of chronic obstructive pulmonary disease (COPD), chronic hypoxic respiratory failure, oxygen dependent at home on 3 liters oxygen, obstructive sleep apnea noncompliant with continuous positive airway pressure (CPAP), hypertension, hypertensive heart disease, congestive heart failure with diastolic dysfunction as well as aortic valve stenosis. Patient was transferred initially from [facility] Intensive Care Unit (ICU) with acute on chronic hypoxic hypercarbic respiratory failure secondary to fluid overload, was also found to be suggestive of questionable aspergillosis. PROBLEMS: 1. Acute on chronic hypoxic hypercarbic respiratory failure secondary to chronic obstructive pulmonary disease exacerbation and congestive heart failure (CHF) exacerbation with diastolic dysfunction, likely exacerbated by underlying coronavirus upper respiratory infection (URI). Patient was diuresed. Currently, auto clocks repairer and infectious disease have been consulted. 2. Acute on chronic diastolic congestive heart failure. Patient has received diuresis. Currently on torsemide. Continue beta-arsenio, isosorbide dinitrate. Echocardiogram has been appreciated. Patient has history of poor compliance, right heart failure, severe pulmonary artery hypertension. 3. Pulmonary nodule and infiltrate. Infectious disease and pulmonology have been consulted. Suspicious for aspergillosis. Concerns for septic emboli. Case was discussed with Dr. Tejada, who wanted to hold off transesophageal echocardiogram given patient does not have risk factors; and case discussed with Dr. Corcoran, who is suspicious for aspergillosis. Subsequently, patient started on voriconazole and currently on Augmentin as well. Laboratory including alpha-galactomannan has been appreciated. [id number] is still pending. Dr. Corcoran has recommended 3 weeks of voriconazole until patient is to followup with her as outpatient. 4. Obstructive sleep apnea. Bilevel positive airway pressure (BiPAP) has been ordered. Patient will bring in home BiPAP to be adjusted by respiratory therapist. 5. Poor compliance complicating care. 6. Chronic kidney disease (CKD). Creatinine has been elevated due to diuresis. Currently improved. Will monitor. 7. History of atrial fibrillation. Continue digoxin, Xarelto, beta-arsenio. 8. Hypertensive urgency, resolved. Continue medication mentioned above. 9. Hypokalemia, resolved. 10. Deep venous thrombosis (DVT) prophylaxis. Patient on Xarelto. DISPOSITION: Likely discharge in the next 24-48 hours. Voriconazole might need prior authorization. Patient is having diarrhea. Ordered Clostridium difficile has been placed.
[2018-07-16] MEDS ORDERED: VFEN200T PO (11:11)
[2018-07-16 12:00] VITALS: BP 126/78
[2018-07-16] MEDS: FERROUS SULFATE 325MG TAB PO SCH ×2 (12:24→21:46)
[2018-07-16] MEDS: ASCORBIC ACID 500 MG TAB PO SCH ×2 (12:24→21:45)
[2018-07-16 16:00] VITALS: BP 114/59
[2018-07-16] MEDS: RIVAROXABAN 15 MG TAB (XARELTO) PO SCH (18:54)
[2018-07-16 20:00] VITALS: BP 132/71
--- NOTE | 2018-07-16 21:21 | IPNPDOC ---
Text Note Date of Service The patient was seen on 07/16/18. NOTE Patient seen and examined. Reported respiration much improved. Mild cough. Denies any chest pain, pressure, discomfort. Denies any fevers, chills. PHYSICAL EXAMINATION: General: Patient comfortable, in no acute distress. On oxygen. HEENT: Moist mucous membranes. Neck: Supple. Cardiac: Irregularly irregular. S1, S2. Pulmonary: Diminished breath sounds bilateral bases. No wheeze. Mild rhonchi. Abdomen: Soft, nontender. Positive bowel sounds. Extremities: No clubbing, cyanosis, or edema. ASSESSMENT AND PLAN: This is a 77-year-old female patient with underlying medical history of chronic obstructive pulmonary disease (COPD), chronic hypoxic respiratory failure, oxygen dependent at home on 3 liters oxygen, obstructive sleep apnea noncompliant with continuous positive airway pressure (CPAP), hypertension, hypertensive heart disease, congestive heart failure with diastolic dysfunction as well as aortic valve stenosis. Patient was transferred initially from [facility] Intensive Care Unit (ICU) with acute on chronic hypoxic hypercarbic respiratory failure secondary to fluid overload, was also found to be suggestive of questionable aspergillosis. PROBLEMS: 1. Acute on chronic hypoxic hypercarbic respiratory failure secondary to chronic obstructive pulmonary disease exacerbation and congestive heart failure (CHF) exacerbation with diastolic dysfunction, likely exacerbated by underlying coronavirus upper respiratory infection (URI). Patient was diuresed. Currently, technical system analyst and infectious disease have been consulted. 2. Acute on chronic diastolic congestive heart failure. Patient has received diuresis. Currently on torsemide. Continue beta-arsenio, isosorbide dinitrate. Echocardiogram has been appreciated. Patient has history of poor compliance, right heart failure, severe pulmonary artery hypertension. 3. Pulmonary nodule and infiltrate. possible pulmonary aspergilosis, Infectious disease and pulmonology have been consulted. Suspicious for aspergillosis. Concerns for septic emboli. Case was discussed with Dr. Tejada, who wanted to hold off transesophageal echocardiogram given patient does not have risk factors; and case discussed with Dr. Corcoran, who is suspicious for aspergillosis. Subsequently, patient started on voriconazole and currently on Augmentin as well. Laboratory including alpha-galactomannan has been appreciated. [id number] positive. Dr. Corcoran has recommended 4 weeks of voriconazole until patient is to followup with her as outpatient. 4. Obstructive sleep apnea. Bilevel positive airway pressure (BiPAP) has been ordered. Patient will bring in home BiPAP to be adjusted by respiratory therapist. 5. Poor compliance complicating care. 6. Chronic kidney disease (CKD). Creatinine has been elevated due to diuresis. Currently improved. Will monitor. 7. History of atrial fibrillation. Continue digoxin, Xarelto, beta-arsenio. 8. Hypertensive urgency, resolved. Continue medication mentioned above. 9. Hypokalemia, resolved. 10. Deep venous thrombosis (DVT) prophylaxis. Patient on Xarelto. DISPOSITION: Likely discharge in the next 24-48 hours. Voriconazole might need prior authorization. Bipap adjustment. VS,Fishbone, I+O VS, Fishbone, I+O Laboratory Tests 07/16/18 05:48 Red Blood Count 2.46 L, Mean Corpuscular Volume 108.5 H, Mean Corpuscular Hemoglobin 32.5, Mean Corpuscular Hemoglobin Concent 30.0 L, Red Cell Distribution Width 12.8, Calcium Level 8.4 L Vital Signs Date Time Temp Pulse Resp B/P (MAP) Pulse Ox O2 Delivery O2 Flow Rate FiO2 07/16/18 20:00 98.2 79 18 132/71 (91) 96 3.0 07/16/18 13:00 Nasal Cannula I&O- Last 24 Hours up to 6 AM 07/16/18 06:00 Intake Total 1280 ml Output Total 700 ml Balance 580 ml LA BOND MD Jul 16, 2018 21:21
[2018-07-16] MEDS: ACETAMINOPHEN TAB 650MG DOSE (2X325MG) PO PRN (21:52)
[2018-07-16 23:59] VITALS: BP 119/68
[2018-07-17 04:00] VITALS: BP 135/64
[2018-07-17] MEDS: GABAPENTIN 100 MG CAP PO SCH ×2 (05:37→14:14)
[2018-07-17] MEDS: ISOSORBIDE DIN. (ISORDIL) 30 MG TAB PO SCH ×2 (05:37→14:14)
[2018-07-17] MEDS: SLF 3 ML SYR IV SCH ×2 (05:38→14:15)
[2018-07-17] MEDS: ACETAMINOPHEN TAB 650MG DOSE (2X325MG) PO PRN (05:54)
[2018-07-17 06:06] LABS: HEMATOCRIT 28.3 % (36.0-47.0); HEMOGLOBIN 8.6 g/dl (12.0-15.5); MEAN CORPUSCULAR HEMOGLOBIN 33.6 pg (27.0-33.0); MEAN CORPUSCULAR HGB CONC 30.4 g/dl (32.0-36.5); MEAN CORPUSCULAR VOLUME 110.5 fl (80.0-96.0); PLATELET COUNT, AUTOMATED 305 10^3/uL (150-450); RED BLOOD COUNT 2.56 10^6/uL (4.00-5.40); WHITE BLOOD COUNT 15.2 10^3/uL (4.0-10.0)
[2018-07-17 06:32] LABS: C REACTIVE PROTEIN QUANTITATIV 1.73 MG/DL (0.00-0.30); CALCIUM LEVEL 8.4 MG/DL (8.8-10.2); CREATININE FOR GFR 1.47 MG/DL (0.55-1.30); GLOMERULAR FILTRATION RATE 36.5 (>39); MAGNESIUM LEVEL 2.5 MG/DL (1.8-2.4); POTASSIUM SERUM 3.5 MEQ/L (3.5-5.1)
[2018-07-17 08:00] VITALS: BP 119/61
[2018-07-17] MEDS: TIOTROPIUM INHALER/CAPSULE (SPIRIVA) INH SCH (08:00)
[2018-07-17] MEDS ORDERED: POTASSIUM CHLORIDE 10 MEQ SR TABLET PO ONE (08:00)
[2018-07-17] MEDS: VORICONAZOLE 200MG TABLET (VFEND) PO SCH (08:52)
[2018-07-17] MEDS: DIGOXIN 0.125 MG TAB PO SCH (08:52)
[2018-07-17] MEDS: ASCORBIC ACID 500 MG TAB PO SCH (08:53)
[2018-07-17] MEDS: AUGMENTIN 875 MG TAB PO SCH (08:53)
[2018-07-17] MEDS: TORSEMIDE 20 MG TAB PO SCH (08:54)
[2018-07-17] MEDS: amLODIPine 10 MG TAB PO SCH (08:54)
[2018-07-17] MEDS: FERROUS SULFATE 325MG TAB PO SCH (08:54)
[2018-07-17] MEDS: LACTOBACILLUS ACIDOPHILUS CAP (BACID) PO SCH (08:54)
[2018-07-17] MEDS: METOPROLOL SUCC *XL* 25MG TAB (TopROL *XL*) PO SCH (09:00)
[2018-07-17] MEDS: ADVAIR HFA 230/21MCG INHALER INH SCH (09:00)
[2018-07-17] MEDS: predniSONE 10 MG TAB PO SCH (09:01)
[2018-07-17] MEDS: MULTIVITAMINS/MINERALS THERAP 1 TAB PO SCH (09:01)
[2018-07-17] MEDS: PARoxetine 20 MG TAB PO SCH (09:01)
[2018-07-17] MEDS: OMEPRAZOLE 20 MG CAP PO SCH (09:03)
[2018-07-17 12:00] VITALS: BP 125/67
[2018-07-17] MEDS ORDERED: AMOX875T2 PO (12:35)
[2018-07-17] MEDS ORDERED: RISATAB3 PO (12:35)
[2018-07-17] MEDS ORDERED: TORS20TA2 PO (12:35)
[2018-07-17] MEDS ORDERED: AMLO10TA5 PO (12:35)
[2018-07-17 14:14] VITALS: BP 125/67
--- NOTE | 2018-07-17 20:17 | DSES ---
DATE OF ADMISSION: 07/04/2018 DATE OF DISCHARGE: 07/17/2018 PRIMARY CARE PROVIDER: Dr. Singh ZIGZAG ELASTIC ATTACHER: Dr. Rollins PULMONARY CRITICAL CARE PHYSICIAN: Dr. Yost, covered by Dr. Lenny Sierra INFECTIOUS DISEASE: Dr. Lorri Corcoran FINAL DIAGNOSES: 1. Acute on chronic hypoxic hypercarbic respiratory failure secondary to acute chronic obstructive pulmonary disease (COPD) exacerbation and acute congestive heart failure (CHF) exacerbation with diastolic dysfunction. 2. Coronavirus infection. 3. Pulmonary nodules and infiltrates, possible Aspergillosis. 4. Obstructive sleep apnea, poor compliance. 5. Chronic kidney disease. 6. History of atrial fibrillation. 7. Hypertensive urgency. 8. Hyperkalemia. HISTORY OF PRESENT ILLNESS: This is a 77-year-old female patient with underlying medical history of COPD, emphysema, obstructive sleep apnea, noncompliant with bilevel positive airway pressure (BIPAP), congestive heart failure (CHF), sees Dr. Rollins with diastolic dysfunction, valvular heart disease, gastroesophageal reflux disease (GERD), anxiety, depression, atrial fibrillation on Xarelto, chronic kidney disease stage III, anemia, chronic pain, history of smoking, history of lower extremity wounds, was transferred from [facility] with complaints of shortness of breath that is progressively worsening. Found to be in acute hypercarbic, hypoxic respiratory failure. The patient was diuresed and transferred to intensive care unit (ICU) for bilevel positive airway pressure (BIPAP) management at [facility]. The patient's respirations gradually improved. Respiratory panel shows coronavirus. HOSPITAL COURSE: The patient was admitted to the intensive care unit (ICU) and was on BiPAP and was given diuresis. Electrolytes were monitored. Kidney function was monitored. Sputum culture was sent. The patient was also placed on antibiotics based on sputum culture. The patient subsequently was signed out to the hospitalist team. BiPAP changes were made by Dr. Sierra. Subsequently, CT of the chest shows suspicious for questionable nodules and infiltrates versus suspicion of septic emboli. Infectious disease was consulted. The patient was started on antibiotics. Case was also discussed with Dr. Tejada from cardiology, who wanted to hold off transesophageal echo given the patient does not have the risk factors for endocarditis. 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 The patient's sputum was sent. Fungal culture was sent. The patient's beta D glucan is positive. The patient was on voriconazole. Antibiotics were adjusted and switched to Augmentin. The patient was consulted regarding compliance with BiPAP. Blood pressure medication was provided. Anticoagulation was provided. The patient has physical therapy (PT). The patient currently tolerated oral and was able to ambulate, back to baseline oxygen requirement. BiPAP at night. Ready to be discharged home for further care as an outpatient. Patient and family services (PFS) consulted for prior authorization for voriconazole. VITAL SIGNS: Temperature 97.6, pulse 68, respirations 20, blood pressure 125/67, pulse oxygen 94% on 4 liters nasal cannula. LABORATORY: WBC 15.1, hemoglobin and hematocrit 8.6/28.3, platelets 305. Chemistry: Sodium 141, potassium 3.5, chloride 94, bicarbonate 42, BUN 39, creatinine 1.47. C-reactive protein 1.73. PHYSICAL EXAMINATION: GENERAL: The patient is alert, comfortable and in no acute distress. HEENT: Normocephalic, atraumatic. PULMONARY: Bilateral coarse breath sounds. No wheeze. CARDIAC: Irregularly irregular. 3/6 systolic murmur. S1, S2. ABDOMEN: Soft, nontender. Positive bowel sounds. EXTREMITIES: No clubbing, cyanosis or edema. DISCHARGE MEDICATIONS: - Norvasc 10 mg by mouth daily - Augmentin 875/125 mg combination by mouth twice a day - probiotics by mouth twice a day - torsemide 80 mg by mouth daily - voriconazole 200 mg by mouth twice a day for 4 weeks - acetaminophen 650 mg by mouth every 4 hours as needed - albuterol 2.5 mg inhalation every 4 hours as needed - calcium and vitamin D by mouth daily - digoxin 125 mcg by mouth every other day - ferrous sulfate 325 mg by mouth twice a day - gabapentin 100 mg by mouth every 8 hours - Hydrocerin cream topical as needed - metoprolol succinate 50 mg by mouth daily - multivitamin one tablet by mouth daily - omeprazole 40 mg by mouth daily - Paxil 20 mg by mouth daily - MiraLAX 17 gram by mouth daily as needed - prednisone 10 mg by mouth daily - Xarelto 15 mg by mouth daily - Advair inhalation 230/21 mcg twice a day - spironolactone 12.5 mg by mouth daily - Spiriva inhalation daily DISCHARGE INSTRUCTIONS: Daily weights and please call provider if weight gain more than 3 pounds. Please see primary care provider in [address] Yost in 2 weeks. Nocturnal oximetry to evaluate the need for titration studies. Compliance with BiPAP at night and oxygen in daytime. Please see Dr. Corcoran in 2 weeks for decision regarding further workup for pulmonary Aspergillus. Return to the hospital if symptoms worsen.
--- NOTE | 2018-07-17 21:37 | IPN ---
DATE: 07/15/2018 Mrs. Guthrie feels better today. She wants to go home. Although she agrees that the weather is not the best to be discharged today. 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 She denies any nausea or vomiting. She has mild diarrhea since Augmentin was started. No fever or chills. Cough has improved, although still somewhat productive. PHYSICAL EXAMINATION: HEART: Normal S1, S2. Systolic ejection murmur unchanged. LUNGS: Diminished air entry with few crackles at the bases, much better air entry. ABDOMEN: Soft, nontender. EXTREMITIES: No edema. IMPRESSION: 1. Pneumonia with culture positive for Proteus mirabilis and Acetobacter status post treatment with IV Zosyn, currently on oral Augmentin. 2. Multifocal pneumonia with sputum cytology positive for Aspergillus, although I am not totally convinced that the patient has aspergillosis. I will continue voriconazole at this point. Her Aspergillus antigen was only 0.07 so I suspect she is more colonized. Her fungal smear and culture are pending. We will continue treatment for 2-3 weeks and we will decide on discontinuing treatment as an outpatient after a followup CT is done in 2-3 weeks. 3. History of congestive heart failure, doing much better after diuresis. 4. Diarrhea due to laxatives. The patient has been on Senokot during this whole hospitalization. This will be discontinued. Do not send Clostridium (C) difficile toxin unless diarrhea worsens off laxatives for 24 hours. PLAN: Continue Augmentin for seven days. Prescribe voriconazole for a total of two weeks. Followup CT chest as an outpatient.
== END 2018-07-17 16:00 | disposition home health service (06) | DRG 291 ==
LOC: M ICU 12:40 → M PCU 07-07 16:49 → M ICU 07-07 17:35 → M PCU 07-07 18:10
PROVIDERS: ADMIT Internal Medicine Pulmonary Disease; ATTEND Hospitalist
DX: I13.0 Hypertensive heart and chronic kidney disease with heart failure and stage 1 through stage 4 chronic kidney disease, or unspecified chronic kidney disease (principal); J96.21 Acute and chronic respiratory failure with hypoxia; J96.22 Acute and chronic respiratory failure with hypercapnia; I50.33 Acute on chronic diastolic (congestive) heart failure; B44.1 Other pulmonary aspergillosis; K52.1 Toxic gastroenteritis and colitis; J44.9 Chronic obstructive pulmonary disease, unspecified; G47.33 Obstructive sleep apnea (adult) (pediatric); Z66 Do not resuscitate; I35.0 Nonrheumatic aortic (valve) stenosis; K21.9 Gastro-esophageal reflux disease without esophagitis; F41.9 Anxiety disorder, unspecified; F32.9 Major depressive disorder, single episode, unspecified; I48.91 Unspecified atrial fibrillation; I16.0 Hypertensive urgency; N18.3 Chronic kidney disease, stage 3 (moderate); G89.4 Chronic pain syndrome; I27.20 Pulmonary hypertension, unspecified; D64.9 Anemia, unspecified; Z87.891 Personal history of nicotine dependence; G89.29 Other chronic pain; Z79.01 Long term (current) use of anticoagulants; Z79.899 Other long term (current) drug therapy; Z91.19 Patient's noncompliance with other medical treatment and regimen; Z88.6 Allergy status to analgesic agent; Z88.8 Allergy status to other drugs, medicaments and biological substances; T42.8X5A Adverse effect of antiparkinsonism drugs and other central muscle-tone depressants, initial encounter

== ENCOUNTER → 2018-08-12 | Outpatient (CLI) | payer MEDICARE ==
[~2018-08-12] MED LIST changes: +AMLO10TA5 PO; +AMOX875T2 PO; +RISATAB3 PO; +TORS20TA2 PO; +VFEN200T PO
--- NOTE | 2018-08-12 11:36 | REP ---
CT CHEST WITHOUT CONTRAST: 08/12/2018. Comparison: 07/10/2018. Clinical history: Abnormal findings in the lung jon. Follow-up ill-defined pulmonary nodules. Findings: Noncontrast protocol utilized with coronal and sagittal reconstructions provided. Noncontrast images show marked improvement in the bilateral numerous areas of shaggy or ill-defined pulmonary nodules in both lungs. There is some fibroatelectatic change along the major fissure in the right mid to lower lung zone as before. I do not see pleural effusion. Some minor fibrotic changes are present, but the lungs are largely clear now. Some minor curvilinear fibroatelectatic change medial basal segment of the right lower lobe in the deep sulcus. Ill-defined ground-glass opacity in the inferior lingular segment of the left upper lobe near the left heart border in lower lung zone anteriorly. There is a 5 mm ill-defined nodule in the left lower lobe image 55. No pleural effusion, pleural-based mass or calcified pleural plaque. Cardiomegaly with left atrial and ventricular enlargement, some right heart enlargement, coronary artery calcifications and calcifications of the aortic root, arch and descending portion noted. No change. No pericardial thickening or effusion. No gross hiatal hernia, pathologic sized mediastinal or hilar adenopathy and the pulmonary arteries are prominent centrally suggesting pulmonary artery hypertension, likely on the basis of COPD. Prominence of the ellie could obscure smaller lymph nodes there. Bilateral thyroid lobe enlargement, unchanged from the previous study and extending below the thoracic inlet, stable. No axillary mass is noted. There are surgical clips in the right axilla from prior lymph node dissection. Bone windows show degenerative changes in the thoracic spine with vacuum phenomenon. Marginal osteophytes but no destructive lesion or compression fractures noted. Sternum, manubrium, medial clavicles, portions of scapulae, humeral heads and ribs all intact. In the upper abdomen, adrenal glands show thickening of their limbs in a symmetric fashion suggesting adrenal hyperplasia. That portion of liver included was unremarkable. Spleen intact. Gallbladder is seen in part without calcified stones in the visualized portion. That portion of pancreas included was without mass or focal lesion. Small bowel loops and colon unremarkable. Impression: 1. Rather marked improvement in the shaggy nodular infiltrative pattern bilaterally which has essentially cleared with very minimal ground-glass opacity inferior lingular segment anterior to the major fissure on the left. Some linear fibroatelectatic change in the right middle and upper lobes along the major fissure and in the medial basal segment there is curvilinear fibrosis in the right lower lobe. No effusion or mass. 5 mm nodule in the left lower lobe image 55. Electronically Signed by Calos Francis MD 08/12/2018 08:37 P
== END ==
LOC: M RAD 09:46
PROVIDERS: ATTEND Internal Medicine Pulmonary Disease
DX: R91.8 Other nonspecific abnormal finding of lung field (principal)

== ENCOUNTER 2018-08-17 13:18 | Observation (INO) | payer MEDICARE ==
[~2018-08-17] VITALS: Ht 157.5 cm; Wt 74.0 kg
[~2018-08-17 13:18] MED LIST changes: +DIGOXIN INJ 0.5 MG/2 ML AMP (J1160) IV SCH
[2018-08-17 14:41] LABS: BASO % 0.5 % (0.0-1.0); EOS # 0.1 10^3/uL (0.0-0.50); EOS % 0.8 % (0.0-3.0); HEMATOCRIT 41.3 % (36.0-47.0); HEMOGLOBIN 12.5 g/dl (12.0-15.5); LYMPH # 0.5 10^3/uL (1.5-4.5); LYMPH % 6.2 % (24.0-44.0); MEAN CORPUSCULAR HEMOGLOBIN 33.1 pg (27.0-33.0); MEAN CORPUSCULAR HGB CONC 30.3 g/dl (32.0-36.5); MEAN CORPUSCULAR VOLUME 109.3 fl (80.0-96.0); MONO # 0.5 10^3/uL (0.0-0.8); MONO % 6.7 % (0.0-5.0); NEUTROPHILS # 6.7 10^3/uL (1.8-7.7); NEUTROPHILS % 84.9 % (36.0-66.0); PLATELET COUNT, AUTOMATED 282 10^3/uL (150-450); RED BLOOD COUNT 3.78 10^6/uL (4.00-5.40); WHITE BLOOD COUNT 7.9 10^3/uL (4.0-10.0)
[2018-08-17 15:06] LABS: CALCIUM LEVEL 8.2 MG/DL (8.8-10.2); CREATININE FOR GFR 1.75 MG/DL (0.55-1.30); DIGOXIN LEVEL 0.9 NG/ML (0.5-2.0); GLOMERULAR FILTRATION RATE 29.8 (>39); POTASSIUM SERUM 5.8 MEQ/L (3.5-5.1)
[2018-08-17] MEDS ORDERED: NS 500 ML IV ONE (15:45)
[2018-08-17] MEDS ORDERED: ONDANSETRON 4MG/2ML VIAL (J2405) IV PRN (16:00)
[2018-08-17] MEDS ORDERED: GABA-1171 PO (16:25)
[2018-08-17] MEDS ORDERED: AMLO10TA5 PO (16:25)
[2018-08-17] MEDS ORDERED: TORS100T PO (16:25)
[2018-08-17] MEDS: NS 1,000 ML IV SCH ×2 (16:35→20:46)
[2018-08-17] MEDS ORDERED: ALBUTEROL SULFATE 2.5 MG/0.5 ML INH NEB SOLN INH PRN (18:00)
[2018-08-17] MEDS ORDERED: MIRALAX *UNIT DOSE* 17GM PACKET PO PRN (18:00)
--- NOTE | 2018-08-17 18:52 | ECGEPIP ---
Stationary ECG Study [facility] - ED Test Date: 2018-08-17 Pat Name: MERLIN ARCHER Department: Room: [place] [address] Gender: F End Frazer: sebastian : 1940 Requested By: Axel Rodriguez Order Number: [id number] Reading MD: Shantelle Davis Measurements Intervals [place] Rate: 114 P: CA: 0 QRS: 6 QRSD: 89 T: 39 QT: 323 QTc: 446 Interpretive Statements ATRIAL FIBRILLATION WITH RAPID VENTRICULAR RESPONSE INDETERMINATE AXIS NSTTW ABNORMALITY ABNORMAL RHYTHM ECG INCREASED RATE 05/28/18 Electronically Signed On 08-17-2018 18:52:09 EDT by Shantelle Davis
--- NOTE | 2018-08-17 19:59 | HPE ---
DATE OF ADMISSION: 08/17/2018 77-year-old female with past history of chronic obstructive pulmonary disease (COPD), obstructive sleep apnea, noncompliant with CPAP, history of chronic diastolic heart failure, chronic kidney disease (CKD) 3 and atrial fibrillation presents to the emergency room after having multiple episodes of explosive diarrhea which happened in the last 24 hours. She has also nausea with dry heaves, so she came to the emergency room (ER) for evaluation. In the emergency room (ER), the patient was given fluids and IV Zofran with symptomatic relief. Her last bowel movement was prior to coming to the emergency room (ER). She has had none since. She was found also to be in mild acute kidney injury and will be admitted for further management. She does have subjective feeling of fever, aches and chills. No chest pain or shortness of breath. PAST MEDICAL HISTORY: 1. Chronic obstructive pulmonary disease (COPD). 2. Obstructive sleep apnea, noncompliant with CPAP 3. Chronic diastolic heart failure, ejection fraction 60%. 4. Gastroesophageal reflux disease (GERD). 5. Chronic kidney disease (CKD) III. 6. Atrial fibrillation. 7. Anemia. ALLERGIES: She has drug allergies ASPIRIN AND PREGABALIN. FAMILY HISTORY: Noncontributory. SOCIAL HISTORY: The patient is a 35 pack year smoker, quit approximately 30 years ago. Denies alcohol or illicit drugs. MEDICATIONS SHE TAKES AT HOME ARE FOLLOWS: - Tylenol as needed - albuterol as needed - amlodipine 10 mg orally daily - calcium one tab orally at bedtime - digoxin 0.125 mcg orally every two days - iron sulfate 225 mg orally twice daily - gabapentin 100 mg orally twice daily - gabapentin 200 mg orally at bedtime - metoprolol 50 mg orally daily - multivitamin one tab orally daily - omeprazole 40 mg orally daily - paroxetine 20 mg orally daily - polyethylene glycol 17 grams orally daily as needed - prednisone 5 mg orally daily - Xarelto 50 mg orally at bedtime - salmeterol/fluticasone 2 puffs inhaled twice daily - aldactone 12.5 mg orally daily - torsemide 100 mg orally daily - tiotropium bromide 18 mcg inhaled daily REVIEW OF SYSTEMS: Negative for all 10 review of systems except what is mentioned in the history of present illness. VITALS: Blood pressure 118/59, heart rate is 112 irregular, respiratory rate 18, temperature is 90.3, oxygen saturation is 97% on 3 liters nasal cannula. Head is atraumatic, normocephalic. Neck: No jugular venous distension (JVD). Lungs: Clear to auscultation. S1 and S2 audible. No murmurs appreciated. Abdomen: Soft. Positive bowel sounds. No pedal edema. Skin: Intact. Neurological examination: The patient awake and alert times 3. LABORATORY: White blood count (WBC) 7.3, hemoglobin is 12.5, hematocrit is 41.3, platelets are 22,000. Sodium is 137, potassium is 5.8, chloride 104, CO2 is 28, BUN is 68, creatinine 1.75. The baseline is 1.3. Glucose 98. IMPRESSION: 1. Acute viral gastric enteritis. 2. Acute kidney injury. PLAN: The patient admitted to the med-surg floor. Will continue the patient on normal saline 125 mL at hour. Clear liquid diet. Will continue IV Zofran at 4 IV every 6 hours for symptomatic relief. Continue preadmission medications. I will hold torsemide for now until her acute kidney injury is resolved and she is hydrated and will continue on current med-surg floor.
[2018-08-17] MEDS: ACETAMINOPHEN TAB 650MG DOSE (2X325MG) PO PRN (20:45)
[2018-08-17] MEDS: RIVAROXABAN 15 MG TAB (XARELTO) PO SCH (20:45)
[2018-08-17] MEDS: FERROUS SULFATE 325MG TAB PO SCH (20:45)
[2018-08-17] MEDS: GABAPENTIN 100 MG CAP PO SCH (20:45)
[2018-08-17] MEDS: ADVAIR HFA 230/21MCG INHALER INH SCH (21:00)
[2018-08-17 22:00] VITALS: BP 134/84
[2018-08-18] MEDS: NS 1,000 ML IV SCH (02:30)
[2018-08-18 06:00] VITALS: BP 130/58
[2018-08-18 06:00] LABS: BASO % 0.6 % (0.0-1.0); EOS # 0.1 10^3/uL (0.0-0.50); HEMATOCRIT 37.5 % (36.0-47.0); HEMOGLOBIN 11.3 g/dl (12.0-15.5); LYMPH # 0.5 10^3/uL (1.5-4.5); LYMPH % 9.9 % (24.0-44.0); MEAN CORPUSCULAR HEMOGLOBIN 32.5 pg (27.0-33.0); MEAN CORPUSCULAR HGB CONC 30.1 g/dl (32.0-36.5); MEAN CORPUSCULAR VOLUME 107.8 fl (80.0-96.0); MONO # 0.7 10^3/uL (0.0-0.8); MONO % 13.2 % (0.0-5.0); NEUTROPHILS % 73.7 % (36.0-66.0); PLATELET COUNT, AUTOMATED 253 10^3/uL (150-450); RED BLOOD COUNT 3.48 10^6/uL (4.00-5.40); WHITE BLOOD COUNT 5.5 10^3/uL (4.0-10.0)
[2018-08-18 06:28] LABS: CALCIUM LEVEL 7.9 MG/DL (8.8-10.2); CREATININE FOR GFR 1.36 MG/DL (0.55-1.30); GLOMERULAR FILTRATION RATE 39.9 (>39); POTASSIUM SERUM 4.7 MEQ/L (3.5-5.1)
[2018-08-18] MEDS: MULTIVITAMINS/MINERALS THERAP 1 TAB PO SCH (08:43)
[2018-08-18] MEDS: predniSONE 5 MG TAB PO SCH (08:43)
[2018-08-18] MEDS: FERROUS SULFATE 325MG TAB PO SCH ×2 (08:44→20:24)
[2018-08-18] MEDS: PARoxetine 20 MG TAB PO SCH (08:44)
[2018-08-18] MEDS: OMEPRAZOLE 20 MG CAP PO SCH (08:44)
[2018-08-18] MEDS: GABAPENTIN 100 MG CAP PO SCH ×3 (08:44→20:24)
[2018-08-18] MEDS: amLODIPine 10 MG TAB PO SCH (08:45)
[2018-08-18] MEDS: DIGOXIN 0.125 MG TAB PO SCH (08:45)
[2018-08-18] MEDS: METOPROLOL SUCC (TopROL XL) 50MG **XL** TAB PO SCH (08:46)
[2018-08-18] MEDS: TIOTROPIUM INHALER/CAPSULE (SPIRIVA) INH SCH (09:27)
[2018-08-18] MEDS: ADVAIR HFA 230/21MCG INHALER INH SCH ×2 (09:27→20:32)
[2018-08-18 14:00] VITALS: BP 153/79
[2018-08-18] MEDS: ACETAMINOPHEN TAB 650MG DOSE (2X325MG) PO PRN (20:24)
[2018-08-18] MEDS: RIVAROXABAN 15 MG TAB (XARELTO) PO SCH (20:24)
--- NOTE | 2018-08-18 21:17 | IPN ---
DATE: 08/08/2018 The patient tells me that she is feeling better. She had not had any further episodes of diarrhea since arriving to the hospital. She is no longer having dry heaves either. She denies fevers, chills, chest pain or shortness of breath. OBJECTIVE: Vital signs: Temperature 97.1, pulse 79, respiratory rate 20, Blood pressure 131/58, oxygen sat 97% on 2 liters. GENERAL: At baseline, she is a very pleasant elderly female sitting on her chair. She does not appear to be in any acute distress. HEENT: Cranial nerves II through Xii are grossly intact. She has moist mucous membranes. No elevation of CVP. CARDIOVASCULAR: S1, S2 regular. Systolic ejection murmur with a crescendo-decrescendo. RESPIRATORY EXAM: Was quite clear. ABDOMEN EXAM: Obese. Bowel sounds are present. The abdomen is soft, and non-tender. EXTREMITIES: No clubbing, cyanosis or edema. LABORATORY STUDIES: WBC 5.5, hemoglobin 11.3, platelet count 253. Chemistry panel: Sodium 140, potassium 4.7, chloride 111, bicarbonate 22, BUN 55, creatinine 1.3 down from 1.7. Digoxin level is 0.9. No new imaging. ASSESSMENT AND PLAN: This is a 77-year-old female who presented with diarrhea and dry heaves. PROBLEMS: 1. Diarrhea and dry heaves. Likely secondary to an acute gastroenteritis. It does appear to be resolving at this time. We will advance her to a BRAT diet. I will order her for a GI/PCR panel as well should they persist. She does appear to be improving. She gives me a history this morning that her is now sick with the same illness at home. There is no obvious etiology. And given that it is improving I will continue to monitor for an additional 24 hours. Her kidney function is improving. She is able to tolerate diet I suspect she will be discharged home as early as tomorrow. 2. Acute kidney injury as outlined above. We will discontinue IV fluids. She is tolerating well by mouth. 3. Hypertension. Controlled. She is continued in amlodipine, metoprolol. 4. Atrial fibrillation. She is anticoagulated with Xarelto. She is rate controlled with Digoxin and metoprolol. 5. Gastroesophageal reflux disease. She is continued on Prilosec. 6. Mood disorder. She is continued on Paxil. 7. Chronic obstructive pulmonary disease. She is at her baseline with respiratory failure of 2-3 liters. She is continued on her Advair albuterol as needed. 8. Chronic pain. She is continued on Neurontin. 9. Chronic kidney disease. As outlined above. 10. Diastolic congestive heart failure. She appears fairly euvolemic at this time. I will discontinue on any further fluids. 11. Iron deficiency anemia. She is continued in ferrous sulfate. 12. Deep vein thrombosis prophylaxis. Early ambulation and Xarelto. DISPOSITION: I suspect the patient may be discharged home as early as tomorrow.
[2018-08-18 22:00] VITALS: BP 134/88
[2018-08-19 06:00] VITALS: BP 140/75
[2018-08-19 06:38] LABS: HEMATOCRIT 35.2 % (36.0-47.0); HEMOGLOBIN 10.8 g/dl (12.0-15.5); MEAN CORPUSCULAR HEMOGLOBIN 32.7 pg (27.0-33.0); MEAN CORPUSCULAR HGB CONC 30.7 g/dl (32.0-36.5); MEAN CORPUSCULAR VOLUME 106.7 fl (80.0-96.0); PLATELET COUNT, AUTOMATED 259 10^3/uL (150-450); WHITE BLOOD COUNT 5.8 10^3/uL (4.0-10.0)
[2018-08-19 06:59] LABS: CALCIUM LEVEL 8.5 MG/DL (8.8-10.2); CREATININE FOR GFR 1.06 MG/DL (0.55-1.30); GLOMERULAR FILTRATION RATE 53.2 (>39); POTASSIUM SERUM 4.5 MEQ/L (3.5-5.1)
[2018-08-19] MEDS: TIOTROPIUM INHALER/CAPSULE (SPIRIVA) INH SCH (07:53)
[2018-08-19] MEDS: ADVAIR HFA 230/21MCG INHALER INH SCH (07:53)
[2018-08-19] MEDS: MULTIVITAMINS/MINERALS THERAP 1 TAB PO SCH (09:31)
[2018-08-19] MEDS: predniSONE 5 MG TAB PO SCH (09:32)
[2018-08-19] MEDS: FERROUS SULFATE 325MG TAB PO SCH (09:32)
[2018-08-19] MEDS: OMEPRAZOLE 20 MG CAP PO SCH (09:32)
[2018-08-19] MEDS: PARoxetine 20 MG TAB PO SCH (09:32)
[2018-08-19] MEDS: GABAPENTIN 100 MG CAP PO SCH (09:32)
[2018-08-19] MEDS: amLODIPine 10 MG TAB PO SCH (09:35)
[2018-08-19 09:36] VITALS: BP 138/82
[2018-08-19] MEDS: DIGOXIN 0.125 MG TAB PO SCH (09:36)
[2018-08-19] MEDS: METOPROLOL SUCC (TopROL XL) 50MG **XL** TAB PO SCH (09:36)
--- NOTE | 2018-08-19 19:44 | DSES ---
DATE OF ADMISSION: 08/17/2018 DATE OF DISCHARGE: 08/19/2018 DISCHARGE DIAGNOSIS: Nausea, vomiting, diarrhea. SECONDARY DIAGNOSES: 1. Gastroenteritis. 2. Acute kidney injury. 3. Hypertension. 4. Atrial fibrillation. 5. Gastroesophageal reflux disease. 6. Mood disorder. 7. Chronic obstructive pulmonary disease. 8. Chronic hypoxic respiratory failure. 9. Chronic pain. 10. Diastolic congestive heart failure. 11. Compensated iron deficiency anemia. HOSPITAL COURSE: The patient is a 77-year-old female who presented with diarrhea, dry heaves. She denies any concerning etiology. She does not drink well water. Has not been on recent antibiotic use. No recent travel. She initially denied sick contacts but then later reported that her and son were also sick at home or became there shortly after her admission. Her symptoms did subside. Resolved spontaneously without any treatment. We were unable to collect a gastrointestinal (GI) polymerase chain reaction (PCR) panel due to the resolution of her symptoms. She did have some acute kidney injury, which did improve with intravenous (IV) fluids. At this time she is tolerating a regular diet and is medically stable for discharge home. SUBJECTIVE: The patient tell me she is feeling well and would like to go home. OBJECTIVE: VITAL SIGNS: Temperature 97.7, pulse 81, respiratory rate 16, blood pressure (BP) 140/75, oxygen saturation 98% on 2 liters, which is her baseline. GENERAL: She is a very pleasant, elderly female lying flat in bed in no acute distress. HEENT: Cranial nerves II-XII are grossly intact. She has moist mucous membranes. No elevation in her central venous pressure (CVP). CARDIOVASCULAR: S1, S2, irregular. No additional heart sounds are appreciated. RESPIRATORY: Clear. ABDOMEN: Obese. Bowel sounds present. The abdomen is soft. It is nontender. EXTREMITIES: No clubbing, cyanosis, or edema. LABORATORY DATA: WBC 5.8, hemoglobin 10.8, platelet count 259. Chemistry panel: Sodium 140, potassium 4.5, chloride 109, bicarbonate 27, BUN 34, creatinine 1.0. No imaging or microbiology. ASSESSMENT AND PLAN: This is a 77-year-old female who presented with diarrhea and vomiting secondary to gastroenteritis. Gastroenteritis, resolved. She has been tolerating a regular diet this morning, self-limited illness. She does have positive sick contacts with her and son at home. I have advised her on safe hygiene and washing and handling of food. At this time she is medically stable to discharge home with close followup with her primary care provider within the next 7 days. Her activity is as tolerated. Her diet is as prior to admission. She is to return to the emergency room (ER) if symptoms worsen. No medication changes from the time of her admission. Greater than 30 minutes spent organizing disposition, counseling, and answering all questions to the patient's satisfaction.
== END 2018-08-19 12:00 | disposition home or self-care (01) ==
LOC: M ED 13:18 → M ED INP 16:00 → M MS5PR 17:20
PROVIDERS: ADMIT Internal Medicine; ATTEND Internal Medicine
DX: A08.4 Viral intestinal infection, unspecified (principal); N17.9 Acute kidney failure, unspecified; I12.9 Hypertensive chronic kidney disease with stage 1 through stage 4 chronic kidney disease, or unspecified chronic kidney disease; I48.91 Unspecified atrial fibrillation; K21.9 Gastro-esophageal reflux disease without esophagitis; F39 Unspecified mood [affective] disorder; J44.9 Chronic obstructive pulmonary disease, unspecified; J96.11 Chronic respiratory failure with hypoxia; G89.29 Other chronic pain; I50.30 Unspecified diastolic (congestive) heart failure; D50.9 Iron deficiency anemia, unspecified; G47.33 Obstructive sleep apnea (adult) (pediatric); N18.3 Chronic kidney disease, stage 3 (moderate); Z88.8 Allergy status to other drugs, medicaments and biological substances; Z87.891 Personal history of nicotine dependence; Z79.51 Long term (current) use of inhaled steroids; Z79.02 Long term (current) use of antithrombotics/antiplatelets
CPT/HCPCS: 36415; 80048; 80162; 85025; 85027; 86850; 86900; 86901; 93005; 93041; 94640; 94760; 96361; 96374; 99285; G0378; J2405

== ENCOUNTER → 2019-08-06 | Outpatient (CLI) | payer MEDICARE ==
[~2019-08-06] MED LIST changes: +DIGO0.123 PO; -DIGOXIN INJ 0.5 MG/2 ML AMP (J1160) IV SCH; -DILT120C82 PO; +DILT1CAP PO; -EUCE12CR TOP; +FLUO10CA15 PO; -FLUO10CA8 PO; +HYDR1CRE95 TOP; +LANO0.12 PO; -LANO0.1211 PO; +METO1TAB63 PO; -METO25TAB PO; -OMEP40CA2 PO; +OMEP40CA97 PO; +PRED-351 PO; -PRED10TA PO; +SENN1TAB41 PO; -SENN8.6T7 PO
== END ==
LOC: M ONCR 09:31
PROVIDERS: ATTEND Radiology Radiation Oncology
DX: D05.11 Intraductal carcinoma in situ of right breast (principal); E04.1 Nontoxic single thyroid nodule; F32.9 Major depressive disorder, single episode, unspecified; F41.9 Anxiety disorder, unspecified; G47.33 Obstructive sleep apnea (adult) (pediatric); J18.9 Pneumonia, unspecified organism; J44.9 Chronic obstructive pulmonary disease, unspecified; K21.9 Gastro-esophageal reflux disease without esophagitis; K63.5 Polyp of colon; M81.0 Age-related osteoporosis without current pathological fracture; I10 Essential (primary) hypertension; I27.20 Pulmonary hypertension, unspecified; I48.91 Unspecified atrial fibrillation; Z80.3 Family history of malignant neoplasm of breast; Z87.891 Personal history of nicotine dependence; Z99.81 Dependence on supplemental oxygen

== ENCOUNTER 2019-08-28 13:34 | Outpatient (RCR) | payer MEDICARE ==
--- NOTE | 2019-08-10 13:42 | RADONC ---
RADIATION ONCOLOGY CONSULTATION NOTE DATE: 08/10/2019 CHART NUMBER: [id number] DIAGNOSIS: Right breast cancer. STAGE: IIA, T2, N0, M0, grade 3, ER negative, ND negative, HER2/ashley negative. ECOG PERFORMANCE STATUS: 3 CONSULTATION NOTE: Ms. 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 HISTORY OF PRESENT ILLNESS: The patient was in her usual state of health, until she was found to have a lesion in the upper outer quadrant of her left breast. On 06/08/2019, the patient underwent lumpectomy, and pathology revealed a poorly differentiated invasive ductal carcinoma measuring 2.7 cm x 1.9 cm x 1.6 cm. There was noted to be perineural and intradural invasion present. The margins of resection were negative for malignancy with the closest margin measuring 5.3 cm. The tumor was noted to be estrogen receptor negative, progesterone receptor negative, and HER2/ashley negative as well. Regional lymph nodes were unable to be assessed. There was extensive intraductal carcinoma. The patient has done well since surgery and has met with her medical oncologist, Dr. Marychuy Ordoñez MD, who did not believe she was a candidate for systemic therapy considering her overall condition. She is now being referred to us for consideration of postoperative radiation therapy for conservative breast management. PAST MEDICAL HISTORY: The patient's past medical history is positive for a left-sided breast cancer, which was treated with lumpectomy followed by external beam radiation therapy in our department in November 2004. We treated the patient to her left breast for a total dose of 4860 cGy in 27 fractions from 11/29/2004 through 01/19/2005. The primary site was then boosted for an additional 1200 cGy from 11/29/2004 through 01/19/2005. The patient did well since that treatment. Since then, however, she has had multiple other medical illnesses. She has arthritis, atrial fibrillation, colon polyps, COPD, depression, gastroesophageal reflux disease, hypertension, hypertensive pulmonary vascular disease, neuropathy, obstructive sleep apnea, osteoporosis, pneumonia, sinusitis, thyroid nodule, and is oxygen dependent. SOCIAL HISTORY: The patient had smoked one pack of cigarettes per day for 30 years. She quit in 1989. She does not abuse alcohol. ALLERGIES: The patient reports having anemia secondary to ASPIRIN. FAMILY HISTORY: The patient's family history is positive for mother with breast cancer and maternal grandmother with breast cancer. REVIEW OF SYSTEMS: The patient has shortness of breath and is in a wheelchair. She has nasal oxygen present. This is causing her physical limitations. She has decreased energy and reports being tired. She does have headaches. She denies nausea, vomiting, fevers, chills, night sweats, diplopia, chest pain, urinary or bowel difficulties. PHYSICAL EXAMINATION: The patient is a chronically-ill, elderly white female who is presenting on nasal oxygen in a wheelchair. HEENT: Exam is normocephalic, atraumatic. Extraocular movements are intact. There is no palpable cervical, supraclavicular, infraclavicular, axillary, or inguinal lymphadenopathy present. Lungs are clear to auscultation and percussion. Heart has a regular rate and rhythm. Abdomen is benign with no hepatosplenomegaly, masses, or tenderness. Breast examination reveals no masses or discharge bilaterally. Skeletal examination reveals no tenderness to pressure or percussion of the bony skeleton. Extremities reveal no clubbing, cyanosis, or edema. Neurologic exam is grossly intact, as is the remainder of the physical examination. I had a lengthy discussion with this patient. I believe she is a candidate for external beam radiation therapy, and I have so informed her. I have discussed with the patient in detail the potential benefits as well as possible acute and chronic sequelae of external beam radiation therapy. We discussed logistics of treatment planning, simulation and subsequent fractionated daily radiation treatments. In addition, I discussed with the patient the possibility of hypofractionated daily radiation in order to reduce her rather lengthy drive to this center. We also discussed the possibility of just observation. I explained to the patient that she has approximately a 50/50 chance of recurrence without postoperative radiation. She is not a candidate for chemotherapy, and the tumor does not respond hormonal treatments. Therefore, if she so desires, I think it reasonable to offer her radiation in attempt to obtain control because it may be more difficult to deal with it once a recurrence is present. I explained that the radiation will not totally eliminate chance of recurrence but at least locally should reduce the risks from a 50% chance of recurrence down to anywhere from 3-7%. The patient is aware that she has multiple other life-threatening illnesses at this time, but she is willing to consider radiation and initiate treatment planning. At this point, we are now almost mid August and, hopefully, the weather will be good for her. If possible, we will order a hypofractionated course so there will not be many trips. Thank you once again for allowing us to participate in the care of this very pleasant woman. If I could be of any further assistance, please feel free to contact me at anytime. cc: MD Bud Escamilla MD David Dunn, MD
--- NOTE | 2019-08-12 07:20 | RADONC ---
RADIATION ONCOLOGY SIMULATION NOTE: DATE: 08/10/2019 CHART NUMBER: [id number] Ms. Guthrie was taken to the CT scan for CT simulation of her right breast field. CT was accomplished without difficulty or discomfort. Radiation treatment planning is underway and radiation treatments will begin subsequently. An immobilization device was created and be used throughout the course of treatment. It was created without difficulty or discomfort. I was physically present throughout the course of CT simulation.
--- NOTE | 2019-08-24 14:56 | RADONC ---
RADIATION ONCOLOGY PROGRESS NOTE DATE: 08/24/2019 CHART NUMBER: [id number] Ms. Guthrie is presently at a dose of 1068 cGy to her right breast and is tolerating treatments quite well at this point with no complaints related to her radiation therapy. She has no breast or bone pain. REVIEW OF SYSTEMS; The patient's review of systems is noncontributory. She denies nausea, vomiting, fevers, chills, night sweats, diplopia, headaches, anxiety or depression, anorexia, weight loss, visual disturbances, chest pain, urinary or bowel difficulties, bone pain, or neurological problems. PHYSICAL EXAMINATION: The patient's physical examination was deferred secondary to COVID-19 precautions. ASSESSMENT: Ms. Guthrie is tolerating her treatments quite well and radiation will continue as scheduled.
--- NOTE | 2019-08-31 13:55 | RADONC ---
RADIATION ONCOLOGY PROGRESS NOTE DATE OF SERVICE: 08/31/2019 CHART NUMBER: [id number] Ms. Guthrie is thus far at a dose of 2136 cGy to her right breast and had been tolerating her treatments without difficulty. The patient called our office today reporting that she had flu-like symptoms. She feels weak and has a headache. She overall says she feels quite ill. In light of our COVID-19 precautions, we have set her up for a COVID-19 test. She has been speaking with her primary care doctor and arranging all of this. The patient has been told to stay home this week and we will review the results of the test prior to reinitiation of treatment. We would defer to her primary care physician in regard to her general management at this time. We will continue to follow her situation closely.
== END 2019-09-01 ==
LOC: M ONCR 13:34
PROVIDERS: ATTEND Radiology Radiation Oncology
DX: C50.411 Malignant neoplasm of upper-outer quadrant of right female breast (principal)

== ENCOUNTER → 2019-09-10 | Outpatient (CLI) | payer MEDICARE | LOC: M LABSMTC 11:30 | PROVIDERS: ATTEND Family Medicine | DX: Z11.59 Encounter for screening for other viral diseases (principal) ==

== ENCOUNTER 2019-09-18 13:37 | Outpatient (RCR) | payer MEDICARE ==
--- NOTE | 2019-09-14 14:48 | RADONC ---
RADIATION ONCOLOGY PROGRESS NOTE DATE: 09/14/2019 CHART NUMBER: [id number] PROGRESS NOTE: Ms. Guthrie is presently at a dose of 2403 cGy to her right breast and is tolerating treatments quite well at this point with no complaints related to her radiation therapy. Overall, she continues have shortness of breath and feels sick. Her COVID-19 test is negative. REVIEW OF SYSTEMS: The patient's review of systems is positive for shortness of breath and dyspnea on exertion. She is oxygen dependent. She is presenting in a wheelchair. She has no energy and overall still feels weak. Her review of systems, however is otherwise noncontributory. Denies nausea, vomiting, fevers, chills, night sweats, diplopia, headaches, anxiety or depression, anorexia, weight loss, visual disturbances, chest pain, urinary or bowel difficulties, bone pain, or neurological problems. PHYSICAL EXAMINATION: Physical examination was deferred as per COVID-19 precautions. Ms. Guthrie has resumed radiation treatments and will continue as scheduled.
--- NOTE | 2019-09-14 14:49 | RADONC ---
RADIATION ONCOLOGY SIMULATION NOTE DATE: 09/14/2019 CHART NUMBER: [id number] SIMULATION NOTE: Ms. Guthrie was taken to the linear accelerator today for clinical setup of her electron beam right breast boost field. Setup was accomplished without difficulty or discomfort. Radiation treatment planning is underway and radiation treatments will begin subsequently. An immobilization device was created will be used throughout the course of treatment. It was created without difficulty or discomfort. I was physically present throughout the course of clinical setup simulation.
[~2019-09-18 13:37] MED LIST changes: +VITA-243 PO; -VITA500T PO
--- NOTE | 2019-09-21 14:12 | RADONC ---
RADIATION ONCOLOGY TREATMENT SUMMARY DATE OF SERVICE: 09/21/2019 CHART NUMBER: [id number]. DIAGNOSIS: Right breast cancer. STAGE: IIA, T2, N0, M0, grade 3, ER negative, DC negative, HER2/ashley negative. ECOG PERFORMANCE STATUS: 3. TREATMENT SUMMARY: Ms. Guthrie is an 78-year-old white female with the diagnosis of what appears to be a stage IIA, T2, N0, M0 poorly differentiated infiltrating ductal carcinoma of the right breast which was triple negative and who is not a candidate for chemotherapy secondary to multiple comorbidities. She did agree initially to postoperative radiation therapy in an attempt to increase the likelihood of achieving local control. We treated the patient to the right breast for a total dose of 3471 cGy delivered in 13 fractions of 260 cGy each over 30 elapsed days from 08/19/2019 through 09/18/2019. The patient's right breast was treated on a linear accelerator utilizing a 3-D conformal technique with medial and lateral tangential jon utilizing a 6X and 10X photon beam. We had planned on delivering a total dose of 4005 cGy to the entire right breast followed by a boost of an additional 900 cGy to the primary site. The patient had difficulty complying with radiation and indeed took off more than 2 weeks in the middle of treatment complaining of what sounded like COVID-19 symptoms. Multiple phone calls were undertaken to try and get her to resume therapy, and radiation resumed last week. She now called our department and has discontinued treatment altogether and does not wish to come back. In light of this, we are recommending that she continues her routine followup with her other physicians in the meantime. Considering her advanced age and overall poor condition, I do not feel strongly to push this woman to come in. Clearly, there is anxiety caused by the COVID-19 crisis, and each trip into public does put this patient at risk. I, therefore, do not think this is an unreasonable decision with this patient. She will need routine following; and if there is a local recurrence, mastectomy can be undertaken at that time. cc: MD Bud Escamilla MD David Dunn, MD
== END 2019-10-01 ==
LOC: M ONCR 13:37
PROVIDERS: ATTEND Radiology Radiation Oncology
DX: C50.411 Malignant neoplasm of upper-outer quadrant of right female breast (principal)

== ENCOUNTER 2019-12-12 19:35 | Inpatient (IN) | payer MEDICARE ==
[~2019-12-12] VITALS: Ht 157.5 cm; Wt 61.3 kg
[2019-12-12] MEDS ORDERED: IRON27TA2 PO (19:55)
[2019-12-12 20:33] LABS: BASO % 0.2 % (0.0-1.0); EOS % 0.2 % (0.0-3.0); HEMATOCRIT 34.9 % (36.0-47.0); HEMOGLOBIN 10.6 g/dl (12.0-15.5); LYMPH # 0.4 10^3/uL (1.5-5.0); LYMPH % 2.1 % (24.0-44.0); MEAN CORPUSCULAR HEMOGLOBIN 32.1 pg (27.0-33.0); MEAN CORPUSCULAR HGB CONC 30.4 g/dl (32.0-36.5); MEAN CORPUSCULAR VOLUME 105.8 fl (80.0-96.0); MONO # 0.7 10^3/uL (0.0-0.8); NEUTROPHILS # 15.4 10^3/uL (1.5-8.5); NEUTROPHILS % 93.1 % (36.0-66.0); PLATELET COUNT, AUTOMATED 174 10^3/uL (150-450); VENOUS BASE EXCESS 8.9 (-2.0-2.0); VENOUS HCO3 35.6 MEQ/L (23.0-27.0); VENOUS O2 SATURATION 77.5 % (60.0-80.0); VENOUS PARTIAL PRESSURE CO2 59.6 mmHg (38.0-50.0); VENOUS PARTIAL PRESSURE O2 44.2 mmHg (30.0-50.0); VENOUS PH 7.394 UNITS (7.330-7.430); VENOUS STANDARD HCO3 32.3 MEQ/L; VENOUS TOTAL CO2 37.4 MEQ/L (24.0-28.0); WHITE BLOOD COUNT 16.6 10^3/uL (4.0-10.0)
[2019-12-12 21:11] LABS: ALBUMIN 3.3 GM/DL (3.2-5.2); ALT/SGPT 12 U/L (12-78); BILIRUBIN,DIRECT 0.1 MG/DL (0.0-0.2); BILIRUBIN,TOTAL 0.4 MG/DL (0.2-1.0); BLOOD UREA NITROGEN 22 MG/DL (7-18); CARBON DIOXIDE LEVEL 38 MEQ/L (21-32); CHLORIDE LEVEL 97 MEQ/L (98-107); CPK CREATINE PHOSPHOKINASE 61 U/L (26-192); CREATININE FOR GFR 0.92 MG/DL (0.55-1.30); GLOMERULAR FILTRATION RATE > 60.0 (>32); GLUCOSE, FASTING 125 MG/DL (70-100); LDH LACTATE DEHYDROGENASE 207 U/L (84-246); MB/CK RELATIVE INDEX 3.28 (< OR =4); NT-PRO BNP 3139 PG/ML (<450); POTASSIUM SERUM 3.9 MEQ/L (3.5-5.1); SODIUM LEVEL 139 MEQ/L (136-145); THYROID STIMULATING HORMONE 0.567 uIU/ML (0.358-3.740); THYROXINE (T4) 8.2 UG/DL (4.5-12.0); TOTAL PROTEIN 6.6 GM/DL (6.4-8.2); TROPONIN I < 0.02 NG/ML (< 0.10)
[2019-12-12] MEDS ORDERED: IPRATROPIUM 0.5MG/ALBUTEROL 2.5MG INH SOL UD 3ML (DUONEB) NEB ONE (21:45)
[2019-12-12] MEDS ORDERED: AZITHROMYCIN INJ 500 MG, VIAL MATE ADAPTER 1 EACH in D5W 250 ML IV ONE (21:45)
[2019-12-12] MEDS ORDERED: dexameTHASONE 20MG/5ML VIAL (J1100 PER 1MG) IV ONE (21:45)
[2019-12-12] MEDS ORDERED: cefTRIAXone SOD 1 GM in D5W MINI-BAG PLUS 50 ML IV ONE (21:45)
[2019-12-12] MEDS ORDERED: PARO40TA3 PO (21:54)
[2019-12-12] MEDS ORDERED: MAALOX 30 ML SUSP *UDC PO PRN (22:00)
[2019-12-12] MEDS ORDERED: LEVALBUTEROL 1.25 MG/0.5 ML CONCENTRATE NEB NEB PRN (22:00)
[2019-12-12] MEDS ORDERED: MOM 30ML SUSPENSION UDC PO PRN (22:00)
[2019-12-12] MEDS ORDERED: ACETAMINOPHEN TAB 650MG DOSE (2X325MG) PO PRN (22:00)
--- NOTE | 2019-12-12 22:13 | HPEPDOC ---
[facility] Medical History & Physical Date of Admission Dec 12, 2019 Date of Service: Dec 12, 2019 Primary Care Physician: Vicente Singh Attending Physician: KARIME SALAZAR MD History and Physical TIME OF SERVICE: 10:45 PM CHIEF COMPLAINT: Cough HISTORY OF PRESENT ILLNESS: This is an 78-year-old female who presents with complaints of cough associated with shortness of breath for 3 days. She has a chronic cough due to her COPD, but over the last 3 days she's been coughing more frequently and the sputum is brown in color. She has also been having muscle aches and diarrhea. She denies having fevers, chills, chest pain, palpitations, nausea or vomiting. Today she has bilateral lower extremity edema, which she attributes to not taking her "water pills " because she didn't want to get up to go to the bathroom. In the ER she was found to have a temperature 100.7, elevated WBC count and right lower lobe pneumonia. She started on ceftriaxone, azithromycin along with Decadron REVIEW OF SYSTEMS: 12 point review of systems negative except as listed in HPI PAST MEDICAL/ SURGICAL HISTORY: COPD Chronic oxygen-dependent respiratory failure (baseline 3 L) Pulmonary hypertension. Moderate aortic stenosis. Chronic systolic CHF (EF 50%) REINALDO noncompliant with PAP A. fib CKD 3 Iron deficiency anemia Anxiety/depression SOCIAL HISTORY: Quit smoking 30 years ago. Had a 35 year pack habit Doesn't drink FAMILY HISTORY: Father had CAD Mother at 90 years of age ALLERGIES: Please see below. HOME MEDICATIONS: Please see below. PHYSICAL EXAMINATION: Vital Signs Date Time Temp Pulse Resp B/P (MAP) Pulse Ox O2 Delivery O2 Flow Rate FiO2 12/12/19 19:39 99.4 12/12/19 19:47 203/88 (126) 12/12/19 19:48 88 22 98 Nasal Cannula 3.0 GEN: well nourished / well developed/appears to be tired INTEGUMENT: Doesn't have facial plethora HEENT:NCAT / NC in place / sclera anicteric CVS: RRR/review pulses intact./she doesn't have pitting lower extremity extremity edema LUNGS: She has difficulties speaking a full sentence without stopping to take a breath / coughing / using accessory muscles / she has inspiratory wheezing ABDOMEN: Flat MSK/EXTREMITIES: Reclined at a 30 angle NEURO: CN 2-12 are grossly intact / speech is not dysarthric PSYCH: alert and oriented to person place and time/ able to understand and follow all commands LABORATORY DATA: 12/12/19 20:04 Immature Granulocyte % (Auto) 0.4, Neutrophils (%) (Auto) 93.1H, Lymphocytes (%) (Auto) 2.1L, Monocytes (%) (Auto) 4.0, Eosinophils (%) (Auto) 0.2, Basophils (%) (Auto) 0.2, Neutrophils # (Auto) 15.4H, Lymphocytes # (Auto) 0.4L, Monocytes # (Auto) 0.7, Eosinophils # (Auto) 0.0, Basophils # (Auto) 0.0, Nucleated Red Blood Cells % (auto) 0.0, D-Dimer, Quantitative 457.41, Blood Gas Bicarbonate Standard 32.3, Venous Blood pH 7.394, Venous Blood Partial Pressure CO2 59.6H, Venous Blood Partial Pressure O2 44.2, Venous Blood Total Carbon Dioxide 37.4H, Venous Blood HCO3 35.6H, Venous Blood Oxygen Saturation 77.5, Venous Blood Base Excess 8.9H, Anion Gap 4L, Glomerular Filtration Rate > 60.0, Lactic Acid Level 0.9, Calcium Level 9.0, Total Bilirubin 0.4, Direct Bilirubin 0.1, Aspartate Amino Transf (AST/SGOT) 20, Alanine Aminotransferase (ALT/SGPT) 12, Alkaline Phosphatase 88, Lactate Dehydrogenase 207, Total Creatine Kinase 61, Creatine Kinase MB 2.0, Creatine Kinase MB Relative Index 3.28, Troponin I < 0.02, C- Reactive Protein, Quantitative 17.60H, TC-Cpf-H-Type Natriuretic Peptide 3139H, Total Protein 6.6, Albumin 3.3, Albumin/Globulin Ratio 1.0L, Thyroid Stimulating Hormone (TSH) 0.567, Thyroxine (T4) 8.2, Digoxin Level 1.0 12/12/19 20:28: POC Glucose (Misc Panel) 135H, POC Sodium (Misc Panel) 139, POC Potassium (Misc Panel) 3.8, POC Chloride (Misc Panel) 92L, POC Total CO2 (Misc Panel) 34.0H, POC Blood Urea Nitrogen (Misc Panel 21, POC Ionized Calcium (Misc Panel) 4.1L, POC Creatinine (Misc Panel) 0.9, POC Hematocrit (Misc Panel) 35.0L IMAGING: Chest x-ray shows cephalization of the pulmonary vasculature along with blunting of the right heart angle, possibly due to pneumonia, and prominent right hilar nodes, but the final read is pending MICROBIOLOGY: 12/12/19 Respiratory Virus Panel (PCR) (FAMILIA) - Final, Complete 12/12/19 Blood Culture, Received Pending 12/12/19 Blood Culture, Received Pending ASSESSMENT: Ms. Guthrie is an 78-year-old with a history of COPD, O2 dependent respiratory failure, pulmonary hypertension, aortic stenosis, systolic CHF, A. fib, CKD 3, anxiety, and depression who will be admitted for management of sepsis, right lower lobe pneumonia & acute COPD. PLAN: 1. Sepsis possibly 2/2 PNA SIRS criteria: HR >90 / WBC >12 / RR >20 The CRP is elevated but the lactic acid <2 She also has non diabetic hyperglycemia NEW2S Score = 6 points = medium risk = requires frequent monitoring Chest xray shows possible RML PNA...not sure if this is aspiration PNA ? VBG shows mild hypercarbia Plan: admit to PCU / telemetry / Sepsis protocol / continuous pulse ox & supplemental O2/ ceftriaxone, doxycycline, vancomycin pending blood cx, sputum Cx, strep pneumo, legionella MRSA & mycoplasma pneumonia results / no IVF bc she has mild fluid overload / Acetaminophen PRN for fever / target MAP at least 65 to 70 / f/u Is and Os with target UOP of at least 0.5 ml/kg/H / target serum glucose 140-180 while acutely ill / Tessalon pearls for cough 2. Acute COPD with Chronic O2 dependent respiratory failure Trigger may be: PNA and or aspiration Respiratory panel & d-dimer were unrevealing The VBG showed mild hypercarbia Plan: supplemental O2 / continuous pulse oximetry / aspiration precautions / Dunebs Q6H, Levalbuterol Q1HP , Prednisone + PPI / Tessalon Pearls / f/u repeat VBG in the AM / if her hypercarbia worsens we will have a low threshold to offer her BIPAP / she will need a referral to [facility] for repeat PFTs and Pulmonary Rehab within 90 days of discharge which has been shown to reduce mortality 3. Chronic Systolic CHF She has skipped her dose of torsemide today Her BNP is more elevated today but clinically she doesn't appear to be in fluid overload Reviewed the Echo report from 2019 Plan: elevate head of bed to 50 degrees/ Is/OS, daily weights, salt restriction to 2G / will hold torsemide bc of the contraction alkalosis / per d/w will give Acetazolamide for diuresis instead & ask the day time team to reach out to in the morning to discuss her meds (ie diuretic and starting an ACEI) / c/w metoprolol, spironolactone digoxin / for unclear reasons she is not on an ACEI/ARB/ARNI or Isosorbide & Hydralazine combo / BNP should before discharge for prognostic purposes because high levels and levels that dont trend down are linked with increased mortality and rehospitalization 4. Macrocytic anemia Macrocytosis likely due to COPD She also has a hx of PIERCE Plan: trend CBC & hold iron while she is acutely ill 5. Acute respiratory acidosis with metabolic alkalosis. The respiratory acidosis is likely due to COPD and pneumonia, while the meta bolic alkalosis is likely contraction alkalosis due to diuretics. The BUN is elevated which supports the premise that she has volume depletion. Plan: treat COPD & hold diuretics 6. Rate controlled A. fib Plan: metoprolol, digoxin, rivaroxaban 7. CKD 3 at baseline Plan: f/u BMP 8. Anxiety/depression Plan: paroxetine 9. Mild Hyperglycemia Plan: f/u A1C to screen for DM DVT PROPHYLAXIS: n/a bc she is on AC for a.fib DISPOSITION: likely home after more than 2 midnight's stay Home Medications Scheduled Calcium Carbonate/Vitamin D3 (Calcium 600-Vit D3 200 Tablet) 1 Tab Tab, 1 TAB PO QHS Digoxin (Digoxin) 125 Mcg Tab, 125 MCG PO Q2D Ferrous Gluconate (Iron) 236 Mg Tablet, 27 MG PO BID Fluticasone Propion/Salmeterol (Advair Hfa 230-21 Mcg Inhaler) 1 Aer Aer, 2 PUFF INH BID Gabapentin (Gabapentin) 100 Mg Cap, 200 MG PO QHS Metoprolol Succinate (Metoprolol Succinate) 50 Mg Tab, 50 MG PO DAILY Omeprazole (Omeprazole) 40 Mg Cap, 40 MG PO DAILY Paroxetine HCl (Paroxetine) 40 Mg Tablet, 40 MG PO DAILY Rivaroxaban (Xarelto) 15 Mg Tab, 15 MG PO DAILY Spironolactone (Spironolactone) 25 Mg Tab, 12.5 MG PO DAILY Tiotropium [place] (Spiriva) 18 Mcg Cap, 18 MCG INH DAILY Torsemide (Torsemide) 100 Mg Tab, 100 MG PO DAILY Scheduled PRN Acetaminophen (Acetaminophen) 325 Mg Tab, 650 MG PO Q4H PRN for PAIN Albuterol Sulf (Albuterol Sulfate) 2.5 Mg/3 Ml Nebu, 1 INH Q4H PRN for SHORTNESS OF BREATH Polyethylene Glycol 3350 (Miralax) 1 Pow Pow, 17 GM PO DAILY PRN for CONSTIPATION Allergies Coded Allergies: pregabalin (Verified Adverse Reaction, Intermediate, AMS, 09/15/18) aspirin (Verified Adverse Reaction, Unknown, anemia, 09/15/18) A-FIB/CHADSVASC A-FIB History Current/History of A-Fib/PAF?: Yes Current PO Anticoag Therapy: Yes KARIME SALAZAR MD Dec 12, 2019 22:13
[2019-12-12 23:25] LABS: HEMATOCRIT 33.9 % (36.0-47.0); HEMOGLOBIN 10.4 g/dl (12.0-15.5); MEAN CORPUSCULAR HEMOGLOBIN 32.2 pg (27.0-33.0); MEAN CORPUSCULAR HGB CONC 30.7 g/dl (32.0-36.5); PLATELET COUNT, AUTOMATED 181 10^3/uL (150-450); RED BLOOD COUNT 3.23 10^6/uL (4.00-5.40); WHITE BLOOD COUNT 17.5 10^3/uL (4.0-10.0)
[2019-12-12 23:35] VITALS: BP 168/82
[2019-12-12] MEDS ORDERED: MIRALAX *UNIT DOSE* 17GM PACKET PO PRN (23:45)
[2019-12-12 23:49] LABS: BLOOD UREA NITROGEN 21 MG/DL (7-18); CALCIUM LEVEL 8.7 MG/DL (8.8-10.2); CARBON DIOXIDE LEVEL 36 MEQ/L (21-32); CHLORIDE LEVEL 98 MEQ/L (98-107); CREATININE FOR GFR 0.87 MG/DL (0.55-1.30); GLOMERULAR FILTRATION RATE > 60.0 (>32); GLUCOSE, FASTING 153 MG/DL (70-100); MAGNESIUM LEVEL 2.1 MG/DL (1.8-2.4); POTASSIUM SERUM 4.1 MEQ/L (3.5-5.1); SODIUM LEVEL 141 MEQ/L (136-145); TROPONIN I < 0.02 NG/ML (< 0.10)
[2019-12-13] MEDS ORDERED: VANCOMYCIN HCL 1,000 MG, VIAL MATE ADAPTER 1 EACH in D5W 250 ML IV ONE ×3
[2019-12-13] MEDS: GABAPENTIN 100 MG CAP PO SCH ×2 (00:17→20:18)
[2019-12-13] MEDS: FUROSEMIDE 40MG/4ML VIAL (J1940) IV SCH ×3 (00:17→08:11)
[2019-12-13] MEDS: BENZONATATE 100 MG CAP PO SCH ×4 (00:17→21:11)
[2019-12-13] MEDS: AcetaZOLAMIDE 250 MG TAB PO SCH ×2 (00:18→08:11)
[2019-12-13 00:30] VITALS: BP 168/82
[2019-12-13 00:35] LABS: HEMOGLOBIN A1c 4.9 %
[2019-12-13] MEDS: IPRATROPIUM 0.5MG/ALBUTEROL 2.5MG INH SOL UD 3ML (DUONEB) NEB SCH ×4 (02:00→20:33)
[2019-12-13 04:00] VITALS: BP 130/82
[2019-12-13 04:13] LABS: VENOUS BASE EXCESS 10.9 (-2.0-2.0); VENOUS HCO3 38.5 MEQ/L (23.0-27.0); VENOUS O2 SATURATION 96.5 % (60.0-80.0); VENOUS PARTIAL PRESSURE CO2 67.9 mmHg (38.0-50.0); VENOUS PARTIAL PRESSURE O2 83.8 mmHg (30.0-50.0); VENOUS PH 7.371 UNITS (7.330-7.430); VENOUS STANDARD HCO3 34.6 MEQ/L; VENOUS TOTAL CO2 40.5 MEQ/L (24.0-28.0)
[2019-12-13 04:18] LABS: HEMATOCRIT 34.7 % (36.0-47.0); HEMOGLOBIN 10.5 g/dl (12.0-15.5); MEAN CORPUSCULAR HEMOGLOBIN 31.9 pg (27.0-33.0); MEAN CORPUSCULAR HGB CONC 30.3 g/dl (32.0-36.5); MEAN CORPUSCULAR VOLUME 105.5 fl (80.0-96.0); PLATELET COUNT, AUTOMATED 191 10^3/uL (150-450); RED BLOOD COUNT 3.29 10^6/uL (4.00-5.40); WHITE BLOOD COUNT 14.2 10^3/uL (4.0-10.0)
[2019-12-13 04:44] LABS: BLOOD UREA NITROGEN 22 MG/DL (7-18); CALCIUM LEVEL 8.6 MG/DL (8.8-10.2); CARBON DIOXIDE LEVEL 40 MEQ/L (21-32); CHLORIDE LEVEL 97 MEQ/L (98-107); CREATININE FOR GFR 0.95 MG/DL (0.55-1.30); GLOMERULAR FILTRATION RATE > 60.0 (>32); GLUCOSE, FASTING 128 MG/DL (70-100); POTASSIUM SERUM 3.9 MEQ/L (3.5-5.1); SODIUM LEVEL 141 MEQ/L (136-145); TROPONIN I < 0.02 NG/ML (< 0.10)
--- NOTE | 2019-12-13 04:57 | PHACANCOPD ---
PHARMACY VANCOMYCIN DOSING Pt Demographics Demographics Patient Age:79 , Weight:61.300 , Gender: female Adjusted Body Weight Date: 12/13/19, Adjusted Body Weight: [55.9] Kg Vancomycin Vancomycin indication: CAP Vancomycin Target Ranges: 15-20 mcg/ml Vancomycin Load Y/N: Yes Load Dose Date Time Vancomycin Load Dose: 1GM Date: 12/12 Time:12MIDNIGHT Vancomycin Dose Date: 12/13/19. Current Vancomycin Dose: [1 GM IV Q24H@12NOON] Intermittent Dosing?: No Labs Micro Microbiology 12/12/19 Respiratory Virus Panel (PCR) (FAMILIA) - Final, Complete 12/12/19 Blood Culture, Received Pending 12/12/19 Blood Culture, Received Pending Creatinine Clearance Date:12/13/19. Creatinine Clearance: [43]CALCULATED. Assessment and Plan Maintaining Current Dose?: Yes Reason for dose change: No Dose Change Pharmacist Note Pharmacist Note Date: 12/13/19. Pharmacist note:[id number] Admitted D/T CAP,Ht:62",Wt:64.6kg(abw=55.9),SCR=0.92,CrCl=43,aggergy:aspirin,pregabalin.ABX ordered: Ceftriaxone 1 gm q24h,Doxycycline 100mg IV Q12H,and Pharmacy dosed Vancomycin(trough goal=15-20).MRSA PCR is pending..Vancomycin 1 gram administered 12/12@00:30, then to begin 1 gram IV [id number] 12/12@12:00. First trough is scheduled for 12/13@11:00(prior to the 3rd dose).Will continue to follow labs and will adjust regimen as needed. NAVID VAZQUEZ PHARMACY Dec 13, 2019 04:57
--- NOTE | 2019-12-13 06:37 | ECGEPIP ---
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
[2019-12-13 08:00] VITALS: BP 151/66
[2019-12-13] MEDS: predniSONE 20 MG TAB PO SCH (08:10)
[2019-12-13] MEDS: PARoxetine 20 MG TAB PO SCH (08:10)
[2019-12-13] MEDS: PANTOPRAZOLE 40MG TAB (PROTONIX) PO SCH (08:10)
[2019-12-13] MEDS: METOPROLOL SUCC (TopROL XL) 50MG **XL** TAB PO SCH (08:10)
[2019-12-13] MEDS: RIVAROXABAN 15 MG TAB (XARELTO) PO SCH (08:11)
[2019-12-13] MEDS: SPIRONOLACTONE 12.5MG PER 1/2 TABLET PO SCH (08:11)
[2019-12-13] MEDS ORDERED: SLF 3 ML SYR IV PRN (09:45)
[2019-12-13] MEDS: DOXYCYCLINE HYCLATE 100 MG in D5W MINI-BAG PLUS 100 ML IV SCH ×2 (09:54→21:11)
--- NOTE | 2019-12-13 11:38 | IPNPDOC ---
Text Note Date of Service The patient was seen on 12/13/19. NOTE Subjective: Feels much better GEN: well nourished, well developed, NAD HEENT: NCAT, NC in place, sclera anicteric CVS: RRR, no m/r/g LUNGS: R posterior field with wet crackles, clear left with good air movement, now on 3.5L ABDOMEN: Normoactive sounds, soft, NTND EXT: WWP, no LE edema, 2+ DP pulses NEURO: CN 2-12 are grossly intact, speech is not dysarthric, moving all ext remities PSYCH: AOx3 LABORATORY DATA: reviewed WBC 14.2 Hgb 10.5 platelets 191 na 141 K 3.9 Cr 0.95 IMAGING: CXR: with RML and RLL infiltrates, pending official read MICROBIOLOGY: 12/12/19 Respiratory Virus Panel (PCR) (FAMILIA) - negative 12/12/19 Blood Culture, NGTD x 2 ASSESSMENT: Ms. Guthrie is an 78-year-old with a history of COPD, O2 dependent hypoxemic respiratory failure, pulmonary hypertension, aortic stenosis, systolic CHF, chronic A. fib, CKD 3, anxiety, and depression who was admitted for management of sepsis 2/2 right lower lobe pneumonia & acute COPD exacerbation. PLAN: 1. Sepsis 2/2 RML and RLL PNA -Continue ceftriaxone and doxycycline, DC vancomycin, MRSA negative -blood cx negative to date -f/u sputum Cx, strep pneumo, legionella & mycoplasma pneumonia results -Acetaminophen PRN for fever -Tessalon pearls for cough 2. Acute COPD exacerbation 2/2 PNA and or aspiration -CXR with evidence of PNA -Respiratory panel & d-dimer were unrevealing -aspiration precautions -Duonebs Q6H -Levalbuterol Q1HP -Prednisone 40 QD -PPI gi ppx -Tessalon Pearls 3. Chronic Systolic CHF -Patient held her torsemide on the day of admission and also found to have metabolic alkalosis and was given acetazolamide, but this appears to be chronic compensation of her hypercarbia -proBNP was elevated but clinically she does not appear to be in fluid overload -strict I/Os -Daily weights -Sodium restriction to 2G -continue to hold torsemide now that she has been havign IV lasix -DC lasix 40 IV Q4H at this time, with plan to resume home torsemide dose tomorrow -overnight physician spoke with d/w and recommended Acetazolamide. -Dr. Bills recommended reaching out to Dr. Rollins (off call this ) to discuss her meds (ie diuretic and starting an ACEi etc), and declined cardiology consult for CHF medical optimization -In the meantime will continue metoprolol, spironolactone, digoxin -Of note, unclear why she is not on an ACEI/ARB/ARNI or Isosorbide & Hydralazine combo, will clarify with Dr Rollins on Saturday 4. Macrocytic anemia -Macrocytosis likely due to COPD -She also has a hx of PIERCE -trend CBC & hold iron while she is acutely ill 5. Acute respiratory acidosis with metabolic alkalosis. -The respiratory acidosis is due to COPD and pneumonia, while the metabolic alkalosis is likely contraction alkalosis due to diuretics and compensatory. -The BUN is elevated which supports the premise that she has volume depletion. -treat COPD & continue holding diuretics for today 6. Rate controlled A. fib -metoprolol, digoxin, rivaroxaban 7. CKD 3 -at baseline 8. Anxiety/depression -paroxetine DVT PROPHYLAXIS: on xarelto DISPOSITION: likely home after more than 2 midnight's stay VS,Cindy, I+O VS, Cindy, I+O Laboratory Tests 12/12/19 20:04 12/12/19 23:11 12/12/19 23:12 12/13/19 04:08 Vital Signs Date Time Temp Pulse Resp B/P (MAP) Pulse Ox O2 Delivery O2 Flow Rate FiO2 12/13/19 08:10 78 151/66 12/13/19 08:00 97.6 18 95 Nasal Cannula 3.0 I&O- Last 24 Hours up to 6 AM 12/13/19 06:00 Intake Total 50 ml Output Total 1150 ml Balance -1100 ml TRINITY MONTOYA MD Dec 13, 2019 09:29
[2019-12-13 12:00] VITALS: BP 140/67
[2019-12-13] MEDS ORDERED: VANCOMYCIN HCL 1,000 MG, VIAL MATE ADAPTER 1 EACH in D5W 250 ML IV SCH (12:00)
[2019-12-13] MEDS: SLF 3 ML SYR IV SCH ×2 (13:17→21:02)
--- NOTE | 2019-12-13 14:11 | REP ---
AP PORTABLE CHEST: 12/12/2019. COMPARISON: CT 08/12/2018. CLINICAL HISTORY: Dyspnea, respiratory symptoms protocol. FINDINGS: Lungs are well inflated. However, there is patchy infiltrate across the right lower lobe extending to the CP angle. Small effusion is difficult to exclude. The remainder of the left lung is well inflated and clear. The right lung was clear. There is no effusion with blunting of the CP angle on the right. There is cardiomegaly with left atrial and ventricular enlargement. A tortuous calcified aorta is seen and unchanged. Prominent central pulmonary arteries again seen consistent with pulmonary artery hypertension as seen on CT. Bones demineralized with degenerative changes spine and shoulders. IMPRESSION: 1. Extensive patchy right lower lobe infiltrates with question of a small effusion. There are no other infiltrates or acute lung findings. 2. Cardiomegaly with left atrial and ventricular enlargement but no pulmonary edema. 3. Tortuous calcified aorta. 4. Degenerative changes in the spine and shoulders with numerous axillary surgical clips on the left as before. Electronically Signed by Calos Francis MD 12/13/2019 07:00 P
[2019-12-13 16:00] VITALS: BP 120/62
[2019-12-13 20:00] VITALS: BP 146/76
[2019-12-13] MEDS ORDERED: cefTRIAXone SOD 1 GM in D5W MINI-BAG PLUS 50 ML IV SCH (20:00)
[2019-12-14] VITALS: BP 137/69
[2019-12-14] MEDS: IPRATROPIUM 0.5MG/ALBUTEROL 2.5MG INH SOL UD 3ML (DUONEB) NEB SCH ×2 (02:00→07:44)
[2019-12-14 04:00] VITALS: BP 131/77
[2019-12-14] MEDS: BENZONATATE 100 MG CAP PO SCH (05:25)
[2019-12-14] MEDS: SLF 3 ML SYR IV SCH (05:54)
[2019-12-14 08:00] VITALS: BP 138/80
[2019-12-14] MEDS ORDERED: CEFDINIR 300 MG CAP (OMNICEF) PO SCH (09:00)
[2019-12-14] MEDS ORDERED: DOXYCYCLINE HYCLATE 100MG TABLET PO SCH (09:00)
[2019-12-14] MEDS ORDERED: DIGOXIN 0.125 MG TAB PO SCH (09:00)
[2019-12-14] MEDS: SPIRONOLACTONE 12.5MG PER 1/2 TABLET PO SCH (09:19)
[2019-12-14] MEDS: predniSONE 20 MG TAB PO SCH (09:20)
[2019-12-14] MEDS: PANTOPRAZOLE 40MG TAB (PROTONIX) PO SCH (09:20)
[2019-12-14] MEDS: RIVAROXABAN 15 MG TAB (XARELTO) PO SCH (09:20)
[2019-12-14 09:21] VITALS: BP 138/80
[2019-12-14] MEDS: PARoxetine 20 MG TAB PO SCH (09:21)
[2019-12-14] MEDS: METOPROLOL SUCC (TopROL XL) 50MG **XL** TAB PO SCH (09:21)
[2019-12-14] MEDS ORDERED: DOXY100T PO (10:49)
[2019-12-14] MEDS ORDERED: CEFD300CAP PO (10:49)
[2019-12-14] MEDS ORDERED: PRED20TA PO (10:49)
[2019-12-14] MEDS ORDERED: BENZ-18 PO (10:49)
[2019-12-14] MEDS ORDERED: PANT40TA3 PO (10:49)
--- NOTE | 2019-12-14 10:51 | DS.PDOC ---
Discharge Summary General Date of Admission Dec 12, 2019 at 22:00 Date of Discharge 12/14/2019 Attending Physician: TRINITY MONTOYA MD Discharge Summary PROCEDURES PERFORMED DURING STAY: None ADMITTING DIAGNOSES: 1. CAP DISCHARGE DIAGNOSES: CAP Acute on chronic hypoxemic respiratory failure Acute COPD exacerbation in the setting of CAP Acute on chronic systolic CHF Pulmonary hypertension. Moderate aortic stenosis. REINALDO noncompliant with CPAP chronic A. fib CKD 3 Iron deficiency anemia Anxiety/depression COMPLICATIONS/CHIEF COMPLAINT: Dyspnea,Sepsis. HISTORY OF PRESENT ILLNESS: 78-year-old W with COPD on home 3L who presented with acute worsening of chronic cough, that was more productive of brownish sputum, associated with shortness of breath for 3 days, without fevers, chills, chest pain, palpitations, nausea or vomiting. HOSPITAL COURSE: In the ED she was found to have a temperature 100.7, elevated WBC count and right lower lobe pneumonia and was started on ceftriaxone, azithromycin along with Decadron and admitted to medicine, where she had increased oxygen requirements that eventually returned to her home 3L NC. She was switched to ceftriaxone/doxy and later ceftin/doxy with good effect. At presentation, she reported having missed her diuretics for 2 days and was mildly edematous and was given IV lasix with resolution of edema and return to her baseline hypoxemia requiring 3L NC. She is now being discharged home with 5d of ceftin/doxy for CAP and 4 more days of prednisone 40mg for COPD exacerbation with PCP follow up and being restarted on her home diuretic regimen. DISCHARGE MEDICATIONS: Please see below. ALLERGIES: Please see below. PHYSICAL EXAMINATION ON DISCHARGE: VITAL SIGNS: Please see below. GEN: well nourished, well developed, NAD HEENT: NCAT, NC in place, sclera anicteric CVS: RRR, no m/r/g LUNGS: R posterior field with basilar crackles, clear left with good air mov ement, now on 3L ABDOMEN: Normoactive sounds, soft, NTND EXT: WWP, no LE edema, 2+ DP pulses NEURO: CN 2-12 are grossly intact, speech is not dysarthric, moving all extremities PSYCH: AOx3 LABORATORY DATA: Please see below. IMAGING: CXR: 1. Extensive patchy right lower lobe infiltrates with question of a small effusion. There are no other infiltrates or acute lung findings. 2. Cardiomegaly with left atrial and ventricular enlargement but no pulmonary edema. 3. Tortuous calcified aorta. 4. Degenerative changes in the spine and shoulders with numerous axillary surgical clips on the left as before. PROGNOSIS: Good ACTIVITY: As tolerated DIET: 2g sodium DISCHARGE PLAN: Home with 5d of ceftin/doxy DISPOSITION: Home DISCHARGE INSTRUCTIONS: 1. Home with 5d of ceftin/doxy ITEMS TO FOLLOWUP ON ON OUTPATIENT: 1. CAP resolution with PCP DISCHARGE CONDITION: Stable TIME SPENT ON DISCHARGE: 34 minutes. Vital Signs/I&Os Vital Signs Date Time Temp Pulse Resp B/P (MAP) Pulse Ox O2 Delivery O2 Flow Rate FiO2 12/14/19 08:00 97.6 80 17 138/80 (99) 98 Nasal Cannula 3.0 I&O- Last 24 Hours up to 6 AM 12/14/19 06:00 Intake Total 580 ml Output Total 0 ml Balance 580 ml Laboratory Data Labs 24H Laboratory Tests 2 12/14/19 07:39: Microbiology Microbiology 12/12/19 Respiratory Virus Panel (PCR) (FAMILIA) - Final, Complete 12/12/19 Blood Culture - Preliminary, Resulted No growth after 24 hours . All specim... 12/12/19 Blood Culture - Preliminary, Resulted No growth after 24 hours . All specim... Discharge Medications Scheduled Benzonatate (Benzonatate) 100 Mg Capsule, 200 MG PO Q8H Calcium Carbonate/Vitamin D3 (Calcium 600-Vit D3 200 Tablet) 1 Tab Tab, 1 TAB PO QHS, (Reported) Cefdinir (Cefdinir) 300 Mg Capsule, 600 MG PO DAILY Digoxin (Digoxin) 125 Mcg Tab, 125 MCG PO Q2D, (Reported) Doxycycline Hyclate (Doxycycline Hyclate) 100 Mg Tablet, 100 MG PO BID Ferrous Gluconate (Iron) 236 Mg Tablet, 27 MG PO BID, (Reported) Fluticasone Propion/Salmeterol (Advair Hfa 230-21 Mcg Inhaler) 1 Aer Aer, 2 PUFF INH BID, (Reported) Gabapentin (Gabapentin) 100 Mg Cap, 200 MG PO QHS, (Reported) Metoprolol Succinate (Metoprolol Succinate) 50 Mg Tab, 50 MG PO DAILY, (Reported) Omeprazole (Omeprazole) 40 Mg Cap, 40 MG PO DAILY, (Reported) Pantoprazole Sodium (Pantoprazole Sodium) 40 Mg Tablet.dr, 40 MG PO DAILY Paroxetine HCl (Paroxetine) 40 Mg Tablet, 40 MG PO DAILY, (Reported) Prednisone (Prednisone) 20 Mg Tablet, 40 MG PO DAILY Rivaroxaban (Xarelto) 15 Mg Tab, 15 MG PO DAILY, (Reported) Spironolactone (Spironolactone) 25 Mg Tab, 12.5 MG PO DAILY, (Reported) Tiotropium [place] (Spiriva) 18 Mcg Cap, 18 MCG INH DAILY, (Reported) Torsemide (Torsemide) 100 Mg Tab, 100 MG PO DAILY, (Reported) Scheduled PRN Acetaminophen (Acetaminophen) 325 Mg Tab, 650 MG PO Q4H PRN for PAIN, (Reported) Albuterol Sulf (Albuterol Sulfate) 2.5 Mg/3 Ml Nebu, 1 INH Q4H PRN for SHORTNESS OF BREATH, (Reported) Polyethylene Glycol 3350 (Miralax) 1 Pow Pow, 17 GM PO DAILY PRN for CONSTIPATION, (Reported) Allergies Coded Allergies: pregabalin (Verified Adverse Reaction, Intermediate, AMS, 09/15/18) aspirin (Verified Adverse Reaction, Unknown, anemia, 09/15/18) TRINITY MONTOYA MD Dec 14, 2019 09:03
[2019-12-14 12:00] VITALS: BP 133/76
[2019-12-16 17:32] LABS: MYCOPLASMA PNEUMONIAE IgG 677 U/mL (0-99); MYCOPLASMA PNEUMONIAE IgM <770 U/mL (0-769)
== END 2019-12-14 13:15 | disposition home or self-care (01) | DRG 871 ==
LOC: M ED 19:35 → M ED INP 22:00 → ENRESERV 22:29 → M PCU 23:34
PROVIDERS: ADMIT Internal Medicine; ATTEND Internal Medicine
DX: A41.9 Sepsis, unspecified organism (principal); J18.9 Pneumonia, unspecified organism; J96.21 Acute and chronic respiratory failure with hypoxia; I50.23 Acute on chronic systolic (congestive) heart failure; J44.1 Chronic obstructive pulmonary disease with (acute) exacerbation; J44.0 Chronic obstructive pulmonary disease with (acute) lower respiratory infection; E87.4 Mixed disorder of acid-base balance; I27.20 Pulmonary hypertension, unspecified; I35.0 Nonrheumatic aortic (valve) stenosis; G47.33 Obstructive sleep apnea (adult) (pediatric); I48.91 Unspecified atrial fibrillation; N18.3 Chronic kidney disease, stage 3 (moderate); F41.9 Anxiety disorder, unspecified; Z66 Do not resuscitate; F32.9 Major depressive disorder, single episode, unspecified; Z87.891 Personal history of nicotine dependence; Z99.81 Dependence on supplemental oxygen; R73.9 Hyperglycemia, unspecified; D53.9 Nutritional anemia, unspecified; Z79.01 Long term (current) use of anticoagulants; Z79.899 Other long term (current) drug therapy; Z88.6 Allergy status to analgesic agent; Z88.8 Allergy status to other drugs, medicaments and biological substances; Z91.19 Patient's noncompliance with other medical treatment and regimen; Z91.14 Patient's other noncompliance with medication regimen; Z11.59 Encounter for screening for other viral diseases

== ENCOUNTER 2020-06-09 09:56 | Inpatient (IN) | payer MEDICARE ==
[~2020-06-09] VITALS: Ht 157.5 cm; Wt 54.7 kg
[2020-06-09] VITALS (10 sets, daily range): BP systolic 108–194; BP diastolic 61–123
[~2020-06-09 09:56] MED LIST changes: -AMLO10TA5 PO; +AMLO1TAB25 PO; +BENZ-18 PO; +CEFD300CAP PO; -FLUO10CA15 PO; +FLUO10CA16 PO; +IRON27TA2 PO; +PANT40TA29 PO; +PARO40TA3 PO
[2020-06-09 10:35] LABS: BASO % 0.3 % (0.0-1.0); EOS % 0.2 % (0.0-3.0); HEMATOCRIT 34.2 % (36.0-47.0); HEMOGLOBIN 9.6 g/dl (12.0-15.5); LYMPH # 0.3 10^3/uL (1.5-5.0); LYMPH % 2.4 % (24.0-44.0); MEAN CORPUSCULAR HEMOGLOBIN 31.4 pg (27.0-33.0); MEAN CORPUSCULAR HGB CONC 28.1 g/dl (32.0-36.5); MEAN CORPUSCULAR VOLUME 111.8 fl (80.0-96.0); MONO # 0.6 10^3/uL (0.0-0.8); MONO % 4.5 % (0.0-5.0); NEUTROPHILS # 11.3 10^3/uL (1.5-8.5); NEUTROPHILS % 92.1 % (36.0-66.0); PLATELET COUNT, AUTOMATED 209 10^3/uL (150-450); RED BLOOD COUNT 3.06 10^6/uL (4.00-5.40); WHITE BLOOD COUNT 12.2 10^3/uL (4.0-10.0)
[2020-06-09 10:51] LABS: INR 1.14; PROTHROMBIN TIME 14.9 SECONDS (12.5-14.3)
[2020-06-09] MEDS ORDERED: methylPREDNISolone 125MG 2ML VIAL IV ONE (11:15)
[2020-06-09] MEDS ORDERED: COMBIVENT RESPIMAT 100-20MCG INHALER 4GM INH ONE (11:15)
[2020-06-09 11:23] LABS: ALT/SGPT 16 U/L (12-78); BILIRUBIN,DIRECT < 0.1 MG/DL (0.0-0.2); BILIRUBIN,TOTAL 0.3 MG/DL (0.2-1.0); BLOOD UREA NITROGEN 19 MG/DL (7-18); CALCIUM LEVEL 8.9 MG/DL (8.8-10.2); CARBON DIOXIDE LEVEL 40 MEQ/L (21-32); CHLORIDE LEVEL 103 MEQ/L (98-107); CK-MB VALUE MASS 4.6 NG/ML (<3.6); CPK CREATINE PHOSPHOKINASE 112 U/L (26-192); CREATININE FOR GFR 0.68 MG/DL (0.55-1.30); GLOMERULAR FILTRATION RATE > 60.0 (>32); GLUCOSE, FASTING 104 MG/DL (70-100); MB/CK RELATIVE INDEX 4.11 (< OR =4); NT-PRO BNP 12034 PG/ML (<450); POTASSIUM SERUM 5.2 MEQ/L (3.5-5.1); SODIUM LEVEL 141 MEQ/L (136-145); THYROID STIMULATING HORMONE 0.799 uIU/ML (0.358-3.740); THYROXINE (T4) 5.6 UG/DL (4.5-12.0); TOTAL PROTEIN 6.4 GM/DL (6.4-8.2); TROPONIN I 0.09 NG/ML (< 0.10)
--- NOTE | 2020-06-09 11:23 | REP ---
INDICATION: DYSPNEA/COUGH COMPARISON: 12/12/2019 TECHNIQUE: Portable AP view of the chest FINDINGS: The mediastinum and cardiac silhouette are stable and cardiomegaly is again noted. The lung jon demonstrate chronic changes primarily involving the right lung base. Subtle superimposed left-sided small opacities cannot be excluded and should be correlated with auscultation. No discrete focal consolidation. No effusion. No pneumothorax. Surgical clips again identified along the lateral aspect of the left chest wall. IMPRESSION: Stable chronic changes. Cannot exclude very subtle small left-sided opacities. No consolidation or effusion. <Electronically signed by Eleazar Burnham > 06/09/20 111
[2020-06-09 12:05] LABS: ABG BASE EXCESS 6.4 (-2.0-2.0); ABG HCO3 35.4 MEQ/L (22.0-26.0); ABG O2 SATURATION 97.5 % (95.0-99.0); ABG PARTIAL PRESSURE O2 98.6 mmHg (75.0-100.0); ABG STANDARD HCO3 30.3 MEQ/L (22.0-26.0); ABG TOTAL CO2 37.9 MEQ/L (23.0-31.0); ABG pH (ARTERIAL) 7.268 UNITS (7.350-7.450)
[2020-06-09 12:07] LABS: ABG PARTIAL PRESSURE CO2 79.3 mmHg (35.0-45.0)
--- NOTE | 2020-06-09 12:33 | REP ---
INDICATION: bilat leg pain r/o DVT COMPARISON: None. TECHNIQUE: Newby scale and color Doppler evaluation of the bilateral lower extremities using linear high frequency transducer. FINDINGS: Ultrasound examination of the right and left lower extremity deep venous structures from the common femoral vein to the popliteal vein demonstrates normal compressibility flow and wave patterns in response to respiration and augmentation. There is no evidence for deep venous thrombosis. IMPRESSION: No evidence for deep venous thrombosis. <Electronically signed by Eleazar Burnham > 06/09/20 [id number]
[2020-06-09] MEDS ORDERED: FUROSEMIDE 40MG/4ML VIAL (J1940) IV ONE (12:45)
[2020-06-09] MEDS ORDERED: ISOVUE-370 76% 100ML VIAL As Ordered ONE (13:39)
[2020-06-09] MEDS: BENZONATATE 100 MG CAP PO SCH ×3 (14:00→22:00)
--- NOTE | 2020-06-09 14:12 | REP ---
INDICATION: SOB COMPARISON: None. TECHNIQUE: Axial contrast enhanced images from the thoracic inlet to the upper abdomen using pulmonary embolus technique with multiplanar re-formations. 75 ml Isovue 370 intravenous contrast material administered without complication. This CT examination was performed using the following dose reduction techniques: Automated exposure control, adjustment of mA and/or kv according to the patient's size, and use of iterative reconstruction technique. FINDINGS: Satisfactory enhancement of the pulmonary vasculature is achieved and no filling defects are identified to suggest pulmonary embolus. There is evidence for cardiomegaly with CHF/pulmonary edema including cephalization, prominent pulmonary vasculature and interstitium with small pleural effusions and basilar atelectasis. There is an 8.5 mm spiculated nodule in the posterior aspect of the left upper lobe (image 21). Nonacute findings include atherosclerotic changes to the thoracic aorta and coronary arteries without aortic aneurysm. No pericardial effusion. Heterogeneous enlarged thyroid gland with calcifications and hypodense nodules consistent with goiter. Mediastinal adenopathy is nonspecific and possibly reactive. Musculoskeletal structures are intact. IMPRESSION: 1. No evidence for pulmonary embolus. 2. Cardiomegaly with evidence for CHF/pulmonary edema including small pleural effusions, bibasilar atelectasis, and cephalization/pulmonary vascular congestion. 3. 8.5 mm spiculated nodule in the posterior left upper lobe warrants 3 month short-term follow-up. <Electronically signed by Eleazar Burnham > 06/09/20 [id number]
[2020-06-09 14:47] LABS: ABG BASE EXCESS 5.1 (-2.0-2.0); ABG HCO3 32.3 MEQ/L (22.0-26.0); ABG O2 SATURATION 94.1 % (95.0-99.0); ABG PARTIAL PRESSURE CO2 61.4 mmHg (35.0-45.0); ABG PARTIAL PRESSURE O2 74.9 mmHg (75.0-100.0); ABG TOTAL CO2 34.2 MEQ/L (23.0-31.0); ABG pH (ARTERIAL) 7.339 UNITS (7.350-7.450)
--- NOTE | 2020-06-09 15:21 | HPEPDOC ---
General Date of Admission 06/09/20 Date of Service: Jun 09, 2020 Chief Complaint The patient is a 79-year-old female admitted with a reason for visit of Diff Breathing. Source: Patient Exam Limitations: Clinical conditions Timing/Duration: Day(s) Severity: Severe Associated Symptoms: Shortness of breath History of Present Illness Patient is 78 years old female with past medical history of COPD on 3 L of oxygen, pulmonary hypertension, moderate aortic stenosis, diastolic CHF, atrial fibrillation presented to the hospital with increased shortness of breath. Patient stated that for past few days she's been having shortness of breath, orthopnea. In ER patient was found to have acute hypoxemic hypercapnic respiratory failure and she was placed on the BiPAP. Labs showed BNP 55719, hemo globin 9.6. CT showed No evidence for pulmonary embolus. Cardiomegaly with evidence for CHF/pulmonary edema including small pleural effusions, bibasilar atelectasis, and cephalization/pulmonary vascular congestion. 8.5 mm spiculated nodule in the posterior left upper lobe warrants 3 month short-term follow-up. Home Medications Scheduled Benzonatate (Benzonatate) 100 Mg Capsule, 200 MG PO Q8H Calcium Carbonate/Vitamin D3 (Calcium 600-Vit D3 200 Tablet) 1 Tab Tab, 1 TAB PO QHS, (Reported) Cefdinir (Cefdinir) 300 Mg Capsule, 600 MG PO DAILY Digoxin (Digoxin) 125 Mcg Tab, 125 MCG PO Q2D, (Reported) Doxycycline Hyclate (Doxycycline Hyclate) 100 Mg Tablet, 100 MG PO BID Ferrous Gluconate (Iron) 236 Mg Tablet, 27 MG PO BID, (Reported) Fluticasone Propion/Salmeterol (Advair Hfa 230-21 Mcg Inhaler) 1 Aer Aer, 2 PUFF INH BID, (Reported) Gabapentin (Gabapentin) 100 Mg Cap, 200 MG PO QHS, (Reported) Metoprolol Succinate (Metoprolol Succinate) 50 Mg Tab, 50 MG PO DAILY, (Reported) Omeprazole (Omeprazole) 40 Mg Cap, 40 MG PO DAILY, (Reported) Pantoprazole Sodium (Pantoprazole Sodium) 40 Mg Tablet.dr, 40 MG PO DAILY Paroxetine HCl (Paroxetine) 40 Mg Tablet, 40 MG PO DAILY, (Reported) Prednisone (Prednisone) 20 Mg Tablet, 40 MG PO DAILY Rivaroxaban (Xarelto) 15 Mg Tab, 15 MG PO DAILY, (Reported) Spironolactone (Spironolactone) 25 Mg Tab, 12.5 MG PO DAILY, (Reported) Tiotropium [place] (Spiriva) 18 Mcg Cap, 18 MCG INH DAILY, (Reported) Torsemide (Torsemide) 100 Mg Tab, 100 MG PO DAILY, (Reported) Scheduled PRN Acetaminophen (Acetaminophen) 325 Mg Tab, 650 MG PO Q4H PRN for PAIN, (Reported) Albuterol Sulf (Albuterol Sulfate) 2.5 Mg/3 Ml Nebu, 1 INH Q4H PRN for SHORTNESS OF BREATH, (Reported) Polyethylene Glycol 3350 (Miralax) 1 Pow Pow, 17 GM PO DAILY PRN for CONSTIPATION, (Reported) Allergies Coded Allergies: pregabalin (Verified Adverse Reaction, Intermediate, AMS, 09/15/18) aspirin (Verified Adverse Reaction, Unknown, anemia, 09/15/18) Past Medical History Medical History COPD Chronic oxygen-dependent respiratory failure (baseline 3 L) Pulmonary hypertension. Moderate aortic stenosis. Chronic systolic CHF (EF 50%) REINALDO noncompliant with PAP A. fib CKD 3 Iron deficiency anemia Anxiety/depression Surgical History Quit smoking 30 years ago. Had a 35 year pack habit Doesn't drink Family History Father had CAD Mother at 90 years of age Social History * Smoker: former Smoker Alcohol: Denies Drugs: denies A-FIB/CHADSVASC A-FIB History Current/History of A-Fib/PAF?: Yes Current PO Anticoag Therapy: Yes Review of Systems Constitutional: Denies: Chills, Fever Eyes: Denies: Pain ENT: Denies: Head Aches Skin: Denies: Rash Pulmonary: Reports: Dyspnea Cardiovascular: Reports: Orthopnea, Edema; Denies: Chest Pain Gastrointestinal: Denies: Nausea, Vomiting Genitourinary: Denies: Dysuria Hematologic: Denies: Bruising Endocrine: Denies: Polydipsia Musculoskeletal: Denies: Neck Pain Neurological: Denies: Weakness Psych: Reports: Mood Normal Physical Examination General Exam: Positive: Alert, Moderate Distress Eye Exam: Positive: PERRLA ENT Exam: Positive: Atraumatic Neck Exam: Positive: Supple, JVD Chest Exam: Positive: Wheezing, Diminished Heart Exam: Positive: Irregular Rhythm Telemetry: Positive: Atrial fibrillation Abdomen Exam: Positive: Normal bowel sounds Extremity Exam: Negative: Cyanosis Skin Exam: Positive: Nl turgor and temperature Neuro Exam: Positive: Strength at 5/5 X4 ext, Cranial Nerves 3-12 NL Psych Exam: Positive: Mental status NL Vital Signs Vital Signs Date Time Temp Pulse Resp B/P (MAP) Pulse Ox O2 Delivery O2 Flow Rate FiO2 06/09/20 12:10 98 16 06/09/20 10:22 97.8 137/92 (107) 100 Nasal Cannula 4.0 Laboratory Data Labs 24H Laboratory Tests 2 06/09/20 10:20: Immature Granulocyte % (Auto) 0.5, Neutrophils (%) (Auto) 92.1H, Lymphocytes (%) (Auto) 2.4L, Monocytes (%) (Auto) 4.5, Eosinophils (%) (Auto) 0.2, Basophils (%) (Auto) 0.3, Neutrophils # (Auto) 11.3H, Lymphocytes # (Auto) 0.3L, Monocytes # (Auto) 0.6, Eosinophils # (Auto) 0.0, Basophils # (Auto) 0.0, Nucleated Red Blood Cells % (auto) 0.0, Prothrombin Time 14.9H, Prothromb Time International Ratio 1.14, Anion Gap , Glomerular Filtration Rate > 60.0, Lactic Acid Level 1.1, Calcium Level 8.9, Total Bilirubin 0.3, Direct Bilirubin < 0.1, Aspartate Amino Transf (AST/SGOT) 24, Alanine Aminotransferase (ALT/SGPT) 16, Alkaline Phosphatase 81, Total Creatine Kinase 112, Creatine Kinase MB 4.6H, Creatine Kinase MB Relative Index 4.11H, Troponin I 0.09, GJ-[id number]-[id number]-Type Natriuretic Peptide 51954T, Total Protein 6.4, Albumin 3.0L, Albumin/Globulin Ratio 0.9L, Thyroid Stimulating Hormone (TSH) 0.799, Thyroxine (T4) 5.6 06/09/20 11:57: Blood Gas Bicarbonate Standard 30.3H, Arterial Blood pH 7.268L, Arterial Blood Partial Pressure CO2 79.3*H, Arterial Blood Partial Pressure O2 98.6, Arterial Blood Total CO2 37.9H, Arterial Blood HCO3 35.4H, Arterial Blood Base Excess 6.4H, Arterial Blood Oxygen Saturation 97.5 06/09/20 14:29: Blood Gas Bicarbonate Standard 29.0H, Arterial Blood pH 7.339L, Arterial Blood Partial Pressure CO2 61.4*H, Arterial Blood Partial Pressure O2 74.9L, Arterial Blood Total CO2 34.2H, Arterial Blood HCO3 32.3H, Arterial Blood Base Excess 5.1H, Arterial Blood Oxygen Saturation 94.1L CBC/BMP Laboratory Tests 06/09/20 10:20 Microbiology Microbiology 06/09/20 Respiratory Virus Panel (PCR) ([facility]) - Final, Complete 06/09/20 Blood Culture, Received Pending 06/09/20 Blood Culture, Received Pending Assessment/Plan Patient is 78 years old female with past medical history of COPD on 3 L of oxygen, pulmonary hypertension, moderate aortic stenosis, diastolic CHF, atrial fibrillation presented to the hospital with increased shortness of breath. Alex naik stated that for past few days she's been having shortness of breath, orthopnea. In ER patient was found to have acute hypoxemic hypercapnic respiratory failure and she was placed on the BiPAP. Labs showed BNP 44372, hemoglobin 9.6. CT showed No evidence for pulmonary embolus. Cardiomegaly with evidence for CHF/pulmonary edema including small pleural effusions, bibasilar atelectasis, and cephalization/pulmonary vascular congestion. 8.5 mm spiculated nodule in the posterior left upper lobe warrants 3 month short-term follow-up. Problems (1) COPD (chronic obstructive pulmonary disease) Status: Chronic Problem Text: Patient has mild wheezing on auscultation bilaterally Could be secondary to CHF exacerbation or COPD exacerbation Continue inhalers Prednisone 40 mg daily (2) Congestive heart failure (CHF) Status: Acute Problem Text: Diastolic CHF exacerbation Lasix IV I's and O's Cardiac diet (3) Pulmonary nodule Status: Acute Problem Text: Follow-up with oncologist in the outpatient settings High risk nodule (4) Acute and chronic respiratory failure with hypoxia Status: Acute Problem Text: Multifactorial secondary to CHF exacerbation and COPD exacerbation Continue BiPAP (5) Atrial fibrillation Status: Chronic Problem Text: Continue oral target anticoagulation Heart rate under control (6) Hypertension Status: Chronic Problem Text: Blood pressures under control continue home cardioprotective medication Plan / VTE VTE Prophylaxis Ordered?: Yes JESSY MARTINEZ DO Jun 09, 2020 15:21
[2020-06-09] MEDS ORDERED: FERR325T18 PO (15:48)
[2020-06-09] MEDS ORDERED: PT COMMENT (15:50)
[2020-06-09] MEDS: COMBIVENT RESPIMAT 100-20MCG INHALER 4GM INH SCH ×2 (15:51→19:29)
[2020-06-09] MEDS: ALBUTEROL SULFATE 2.5 MG/0.5 ML INH NEB SOLN NEB SCH ×2 (15:51→19:28)
[2020-06-09] MEDS ORDERED: LORazepam 2 MG/ML VIAL IV STA ×2 (17:15→20:12)
[2020-06-09] MEDS: FUROSEMIDE 40MG/4ML VIAL (J1940) IV SCH ×2 (17:24→20:21)
[2020-06-09] MEDS ORDERED: MIRALAX *UNIT DOSE* 17GM PACKET PO PRN (17:45)
[2020-06-09] MEDS: SPIRONOLACTONE 25 MG TAB PO SCH (18:15)
[2020-06-09] MEDS: PARoxetine 20MG TABLET PO SCH (18:15)
[2020-06-09] MEDS: METOPROLOL SUCC (TopROL XL) 50MG **XL** TAB PO SCH (18:16)
[2020-06-09] MEDS: FERROUS SULFATE 325MG TAB PO SCH (18:16)
[2020-06-09] MEDS: OMEPRAZOLE 20 MG CAP PO SCH (18:17)
[2020-06-09] MEDS: DIGOXIN 0.125 MG TAB PO SCH (18:17)
[2020-06-09] MEDS: ADVAIR HFA 230/21MCG INHALER INH SCH (19:29)
[2020-06-09] MEDS: SYMBICORT 80/4.5MCG INHALER 6GM INH SCH (19:29)
[2020-06-09] MEDS ORDERED: LORazepam 2 MG/ML VIAL As Ordered ONE (20:18)
[2020-06-09 20:34] LABS: ABG BASE EXCESS 4.4 (-2.0-2.0); ABG HCO3 31.1 MEQ/L (22.0-26.0); ABG O2 SATURATION 98.8 % (95.0-99.0); ABG PARTIAL PRESSURE CO2 57.8 mmHg (35.0-45.0); ABG PARTIAL PRESSURE O2 135.8 mmHg (75.0-100.0); ABG STANDARD HCO3 28.4 MEQ/L (22.0-26.0); ABG TOTAL CO2 32.9 MEQ/L (23.0-31.0); ABG pH (ARTERIAL) 7.349 UNITS (7.350-7.450)
[2020-06-10] VITALS (15 sets, daily range): BP systolic 123–176; BP diastolic 65–85; O2SAT 99
[2020-06-10] MEDS: FUROSEMIDE 40MG/4ML VIAL (J1940) IV SCH ×7 (00:55→23:10)
[2020-06-10] MEDS: COMBIVENT RESPIMAT 100-20MCG INHALER 4GM INH SCH ×4 (02:00→18:08)
[2020-06-10] MEDS: ALBUTEROL SULFATE 2.5 MG/0.5 ML INH NEB SOLN NEB SCH ×3 (02:07→18:07)
[2020-06-10] MEDS: BENZONATATE 100 MG CAP PO SCH ×3 (05:34→21:23)
[2020-06-10 06:00] LABS: HEMATOCRIT 31.1 % (36.0-47.0); MEAN CORPUSCULAR HEMOGLOBIN 31.7 pg (27.0-33.0); MEAN CORPUSCULAR HGB CONC 28.9 g/dl (32.0-36.5); MEAN CORPUSCULAR VOLUME 109.5 fl (80.0-96.0); PLATELET COUNT, AUTOMATED 220 10^3/uL (150-450); RED BLOOD COUNT 2.84 10^6/uL (4.00-5.40); WHITE BLOOD COUNT 10.5 10^3/uL (4.0-10.0)
[2020-06-10 06:37] LABS: BILIRUBIN,TOTAL 0.3 MG/DL (0.2-1.0); CALCIUM LEVEL 8.8 MG/DL (8.8-10.2); CREATININE FOR GFR 0.97 MG/DL (0.55-1.30); GLOMERULAR FILTRATION RATE 58.7 (>32); MAGNESIUM LEVEL 2.5 MG/DL (1.8-2.4); POTASSIUM SERUM 4.8 MEQ/L (3.5-5.1); TOTAL PROTEIN 6.1 GM/DL (6.4-8.2)
[2020-06-10] MEDS: ADVAIR HFA 230/21MCG INHALER INH SCH ×2 (07:44→18:07)
[2020-06-10] MEDS: SYMBICORT 80/4.5MCG INHALER 6GM INH SCH (07:44)
[2020-06-10] MEDS: OMEPRAZOLE 20 MG CAP PO SCH (08:38)
[2020-06-10] MEDS: PARoxetine 20MG TABLET PO SCH (08:38)
[2020-06-10] MEDS: FERROUS SULFATE 325MG TAB PO SCH (08:39)
[2020-06-10] MEDS: METOPROLOL SUCC (TopROL XL) 50MG **XL** TAB PO SCH (08:39)
[2020-06-10] MEDS: SPIRONOLACTONE 25 MG TAB PO SCH (08:40)
[2020-06-10 08:48] LABS: ABG BASE EXCESS 9.9 (-2.0-2.0); ABG HCO3 35.4 MEQ/L (22.0-26.0); ABG O2 SATURATION 99.1 % (95.0-99.0); ABG PARTIAL PRESSURE CO2 52.9 mmHg (35.0-45.0); ABG PARTIAL PRESSURE O2 133.9 mmHg (75.0-100.0); ABG STANDARD HCO3 33.7 MEQ/L (22.0-26.0); ABG pH (ARTERIAL) 7.443 UNITS (7.350-7.450)
[2020-06-10] MEDS ORDERED: PANTOPRAZOLE 40MG TAB (PROTONIX) PO SCH (09:00)
--- NOTE | 2020-06-10 11:56 | IPNPDOC ---
Text Note Date of Service The patient was seen on 06/10/20. NOTE Subjective: No any acute events overnight. Patient complains of fatigue Objective: GENERAL APPEARANCE: NAD HEENT: no scleral icterus, no JVD, EOMI CARDIOVASCULAR: Irregularly irregular LUNGS: Diminished bilaterally ABDOMEN: soft & not tender MUSCULOSKELETAL: no cyanosis, no swelling INTEGUMENT: no generalized pallor NEUROLOGICAL: cranial nerve function from 2-12 intact intact, follows commands, speech not dysarthric Assessment/Plan Patient is 78 years old female with past medical history of COPD on 3 L of oxygen, pulmonary hypertension, moderate aortic stenosis, diastolic CHF, atrial fibrillation presented to the hospital with increased shortness of breath. Patient stated that for past few days she's been having shortness of breath, orthopnea. In ER patient was found to have acute hypoxemic hypercapnic respiratory failure and she was placed on the BiPAP. Labs showed BNP 93791, hemoglobin 9.6. CT showed No evidence for pulmonary embolus. Cardiomegaly with evidence for CHF/pulmonary edema including small pleural effusions, bibasilar atelectasis, and cephalization/pulmonary vascular congestion. 8.5 mm spiculated nodule in the posterior left upper lobe warrants 3 month short-term follow-up. Problems (1) COPD (chronic obstructive pulmonary disease) Improved, no wheezes Could be secondary to CHF exacerbation or COPD exacerbation Continue inhalers Prednisone 40 mg daily (2) Congestive heart failure (CHF) Diastolic CHF exacerbation Patient developed good urine output Lasix IV I's and O's Cardiac diet (3) Pulmonary nodule Follow-up with oncologist in the outpatient settings High risk nodule (4) Acute and chronic respiratory failure with hypoxia Multifactorial secondary to CHF exacerbation and COPD exacerbation Blood gas showed a good compensation, patient breathing via nasal canula (5) Atrial fibrillation Continue oral target anticoagulation Heart rate under control (6) Hypertension Blood pressure elevated in the morning, systolic blood pressure 170 Lisinopril 20 mg daily VS,Fishbone, I+O VS, Fishbone, I+O Laboratory Tests 06/10/20 05:44 Vital Signs Date Time Temp Pulse Resp B/P (MAP) Pulse Ox O2 Delivery O2 Flow Rate FiO2 06/10/20 10:00 83 176/78 (110) 98 NIPPV (BIPAP/CPAP) 06/10/20 08:00 97.5 24 06/10/20 02:09 3 I&O- Last 24 Hours up to 6 AM 06/10/20 06:00 Intake Total 120 ml Output Total 1375 ml Balance -1255 ml JESSY MARTINEZ DO Jun 10, 2020 11:56
[2020-06-10] MEDS ORDERED: lisinopriL 20 MG TAB PO ONE (12:00)
[2020-06-10 12:07] LABS: PHOSPHORUS LEVEL 5.1 MG/DL (2.5-4.9)
[2020-06-10] MEDS: ACETAMINOPHEN TAB 650MG DOSE (2X325MG) PO PRN (16:54)
[2020-06-10] MEDS: RIVAROXABAN 15 MG TAB (XARELTO) PO SCH (17:00)
[2020-06-10] MEDS ORDERED: SYMBICORT 80/4.5MCG INHALER 6GM INH SCH (20:00)
--- NOTE | 2020-06-10 21:24 | ECGEPIP ---
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
[2020-06-11] MEDS: COMBIVENT RESPIMAT 100-20MCG INHALER 4GM INH SCH ×4 (02:00→18:13)
[2020-06-11] MEDS: ALBUTEROL SULFATE 2.5 MG/0.5 ML INH NEB SOLN NEB SCH ×4 (02:00→18:14)
[2020-06-11 03:30] VITALS: BP 120/73
[2020-06-11] MEDS: FUROSEMIDE 40MG/4ML VIAL (J1940) IV SCH ×4 (03:34→21:25)
[2020-06-11] MEDS: BENZONATATE 100 MG CAP PO SCH ×3 (05:36→21:25)
[2020-06-11 05:55] VITALS: BP 144/83
[2020-06-11] MEDS: ADVAIR HFA 230/21MCG INHALER INH SCH ×2 (07:26→18:13)
[2020-06-11] MEDS: FERROUS SULFATE 325MG TAB PO SCH (09:01)
[2020-06-11] MEDS: SPIRONOLACTONE 25 MG TAB PO SCH (09:01)
[2020-06-11] MEDS: PARoxetine 20MG TABLET PO SCH (09:01)
[2020-06-11] MEDS: OMEPRAZOLE 20 MG CAP PO SCH (09:01)
[2020-06-11] MEDS: lisinopriL 20 MG TAB PO SCH (09:01)
[2020-06-11] MEDS: DIGOXIN 0.125 MG TAB PO SCH (09:02)
[2020-06-11] MEDS: METOPROLOL SUCC (TopROL XL) 50MG **XL** TAB PO SCH (09:02)
[2020-06-11 10:53] LABS: BASO # 0.1 10^3/uL (0.0-0.2); BASO % 0.4 % (0.0-1.0); EOS # 0.1 10^3/uL (0.0-0.5); EOS % 0.4 % (0.0-3.0); HEMATOCRIT 38.2 % (36.0-47.0); LYMPH # 0.5 10^3/uL (1.5-5.0); LYMPH % 3.8 % (24.0-44.0); MEAN CORPUSCULAR HEMOGLOBIN 31.1 pg (27.0-33.0); MEAN CORPUSCULAR HGB CONC 28.8 g/dl (32.0-36.5); MEAN CORPUSCULAR VOLUME 107.9 fl (80.0-96.0); MONO # 1.2 10^3/uL (0.0-0.8); MONO % 8.7 % (0.0-5.0); NEUTROPHILS # 11.9 10^3/uL (1.5-8.5); NEUTROPHILS % 86.1 % (36.0-66.0); PLATELET COUNT, AUTOMATED 301 10^3/uL (150-450); RED BLOOD COUNT 3.54 10^6/uL (4.00-5.40); WHITE BLOOD COUNT 13.8 10^3/uL (4.0-10.0)
[2020-06-11 11:47] LABS: ALBUMIN 3.2 GM/DL (3.2-5.2); BILIRUBIN,TOTAL 0.4 MG/DL (0.2-1.0); CALCIUM LEVEL 8.8 MG/DL (8.8-10.2); CREATININE FOR GFR 1.11 MG/DL (0.55-1.30); GLOMERULAR FILTRATION RATE 50.2 (>32); MAGNESIUM LEVEL 2.1 MG/DL (1.8-2.4); POTASSIUM SERUM 3.9 MEQ/L (3.5-5.1); TOTAL PROTEIN 6.5 GM/DL (6.4-8.2)
[2020-06-11 14:00] VITALS: BP 133/51
[2020-06-11] MEDS: RIVAROXABAN 15 MG TAB (XARELTO) PO SCH (18:32)
--- NOTE | 2020-06-11 19:21 | IPNPDOC ---
Text Note Date of Service The patient was seen on 06/11/20. NOTE Subjective: No any acute events overnight. Patient stated that she feels better today Objective: GENERAL APPEARANCE: NAD HEENT: no scleral icterus, no JVD, EOMI CARDIOVASCULAR: Irregularly irregular LUNGS: Diminished bilaterally ABDOMEN: soft & not tender MUSCULOSKELETAL: no cyanosis, no swelling INTEGUMENT: no generalized pallor NEUROLOGICAL: cranial nerve function from 2-12 intact intact, follows commands, speech not dysarthric Assessment/Plan Patient is 78 years old female with past medical history of COPD on 3 L of oxygen, pulmonary hypertension, moderate aortic stenosis, diastolic CHF, atrial fibrillation presented to the hospital with increased shortness of breath. Patient stated that for past few days she's been having shortness of breath, orthopnea. In ER patient was found to have acute hypoxemic hypercapnic respiratory failure and she was placed on the BiPAP. Labs showed BNP 66945, hemoglobin 9.6. CT showed No evidence for pulmonary embolus. Cardiomegaly with evidence for CHF/pulmonary edema including small pleural effusions, bibasilar atelectasis, and cephalization/pulmonary vascular congestion. 8.5 mm spiculated nodule in the posterior left upper lobe warrants 3 month short-term follow-up. Problems (1) COPD (chronic obstructive pulmonary disease) Improved, no wheezes Could be secondary to CHF exacerbation or COPD exacerbation Continue inhalers Prednisone 40 mg daily (2) Congestive heart failure (CHF) Diastolic CHF exacerbation Patient developed good urine output Lasix IV 40 mg twice a day I's and O's Cardiac diet (3) Pulmonary nodule Follow-up with oncologist in the outpatient settings High risk nodule (4) Acute and chronic respiratory failure with hypoxia Multifactorial secondary to CHF exacerbation and COPD exacerbation Blood gas showed a good compensation, patient breathing via nasal canula (5) Atrial fibrillation Continue oral target anticoagulation Heart rate under control (6) Hypertension Blood pressure elevated in the morning, systolic blood pressure 170 Lisinopril 20 mg daily VS,Fishbone, I+O VS, Fishbone, I+O Laboratory Tests 06/11/20 10:20 Vital Signs Date Time Temp Pulse Resp B/P (MAP) Pulse Ox O2 Delivery O2 Flow Rate FiO2 06/11/20 14:00 98.3 99 17 133/51 (78) 98 Nasal Cannula 3.0 I&O- Last 24 Hours up to 6 AM 06/11/20 06:00 Intake Total 1060 ml Output Total 3250 ml Balance -2190 ml JESSY MARTINEZ DO Jun 11, 2020 19:21
[2020-06-11 22:00] VITALS: BP 117/71
[2020-06-12] MEDS: COMBIVENT RESPIMAT 100-20MCG INHALER 4GM INH SCH ×4 (02:00→19:34)
[2020-06-12] MEDS: ALBUTEROL SULFATE 2.5 MG/0.5 ML INH NEB SOLN NEB SCH ×4 (02:01→19:34)
[2020-06-12] MEDS: BENZONATATE 100 MG CAP PO SCH ×3 (05:28→21:36)
[2020-06-12 06:00] VITALS: BP 140/73
[2020-06-12 06:18] LABS: BASO # 0.1 10^3/uL (0.0-0.2); BASO % 0.5 % (0.0-1.0); EOS # 0.1 10^3/uL (0.0-0.5); EOS % 1.3 % (0.0-3.0); HEMOGLOBIN 10.3 g/dl (12.0-15.5); LYMPH # 0.8 10^3/uL (1.5-5.0); LYMPH % 7.4 % (24.0-44.0); MEAN CORPUSCULAR HEMOGLOBIN 31.2 pg (27.0-33.0); MEAN CORPUSCULAR HGB CONC 28.6 g/dl (32.0-36.5); MEAN CORPUSCULAR VOLUME 109.1 fl (80.0-96.0); MONO # 1.2 10^3/uL (0.0-0.8); MONO % 10.7 % (0.0-5.0); NEUTROPHILS # 8.8 10^3/uL (1.5-8.5); NEUTROPHILS % 79.4 % (36.0-66.0); PLATELET COUNT, AUTOMATED 258 10^3/uL (150-450); WHITE BLOOD COUNT 11.1 10^3/uL (4.0-10.0)
[2020-06-12] MEDS: ADVAIR HFA 230/21MCG INHALER INH SCH ×2 (07:08→19:34)
[2020-06-12 07:46] LABS: CALCIUM LEVEL 8.5 MG/DL (8.8-10.2); CREATININE FOR GFR 1.28 MG/DL (0.55-1.30); GLOMERULAR FILTRATION RATE 42.6 (>32); MAGNESIUM LEVEL 2.2 MG/DL (1.8-2.4); POTASSIUM SERUM 3.6 MEQ/L (3.5-5.1)
[2020-06-12] MEDS: SPIRONOLACTONE 25 MG TAB PO SCH (09:31)
[2020-06-12] MEDS: cefTRIAXone SOD 2 GM in D5W MINI-BAG PLUS 50 ML IV SCH (09:31)
[2020-06-12] MEDS: FUROSEMIDE 40MG/4ML VIAL (J1940) IV SCH ×2 (09:31→21:00)
[2020-06-12] MEDS: OMEPRAZOLE 20 MG CAP PO SCH (09:32)
[2020-06-12] MEDS: PARoxetine 20MG TABLET PO SCH (09:32)
[2020-06-12] MEDS: FERROUS SULFATE 325MG TAB PO SCH (09:32)
[2020-06-12] MEDS: lisinopriL 20 MG TAB PO SCH (09:32)
[2020-06-12] MEDS: METOPROLOL SUCC (TopROL XL) 50MG **XL** TAB PO SCH (09:33)
[2020-06-12 14:00] VITALS: BP 96/62
[2020-06-12] MEDS: ACETAMINOPHEN TAB 650MG DOSE (2X325MG) PO PRN (14:05)
--- NOTE | 2020-06-12 15:57 | IPNPDOC ---
Text Note Date of Service The patient was seen on 06/12/20. NOTE Subjective: Pt was confused in the evening and agitated. In the morning patient was alert, awake and oriented Objective: GENERAL APPEARANCE: NAD HEENT: no scleral icterus, no JVD, EOMI CARDIOVASCULAR: Irregularly irregular LUNGS: Diminished bilaterally ABDOMEN: soft & not tender MUSCULOSKELETAL: no cyanosis, no swelling INTEGUMENT: no generalized pallor NEUROLOGICAL: cranial nerve function from 2-12 intact intact, follows commands, speech not dysarthric Assessment/Plan Patient is 78 years old female with past medical history of COPD on 3 L of oxyg en, pulmonary hypertension, moderate aortic stenosis, diastolic CHF, atrial fibrillation presented to the hospital with increased shortness of breath. Patient stated that for past few days she's been having shortness of breath, orthopnea. In ER patient was found to have acute hypoxemic hypercapnic r espiratory failure and she was placed on the BiPAP. Labs showed BNP 07831, hemoglobin 9.6. CT showed No evidence for pulmonary embolus. Cardiomegaly with evidence for CHF/pulmonary edema including small pleural effusions, bibasilar atelectasis, and cephalization/pulmonary vascular congestion. 8.5 mm spiculated nodule in the posterior left upper lobe warrants 3 month short-term follow-up. Problems (1) COPD (chronic obstructive pulmonary disease) Improved, no wheezes Continue inhalers (2) Congestive heart failure (CHF) Diastolic CHF exacerbation Patient developed good urine output Lasix IV 40 mg twice a day I's and O's Cardiac diet (3) Pulmonary nodule Follow-up with oncologist in the outpatient settings High risk nodule (4) Acute and chronic respiratory failure with hypoxia Multifactorial secondary to CHF exacerbation and COPD exacerbation Blood gas showed a good compensation, patient breathing via nasal canula (5) Atrial fibrillation Continue oral target anticoagulation Heart rate under control (6) Hypertension Blood pressures under control Continue home cardioprotective medication Delirium Resolved Continue frequent reorientation Positive blood culture One set of blood culture positive for gram-negative rods. There is concern for contamination However patient has mild leukocytosis with leukocytes esterase trace in the UA Second blood culture negative Will repeat blood culture Ceftriaxone IV empirically VS,Fishbone, I+O VS, Fishbone, I+O Laboratory Tests 06/12/20 05:43 Vital Signs Date Time Temp Pulse Resp B/P (MAP) Pulse Ox O2 Delivery O2 Flow Rate FiO2 06/12/20 14:00 98.8 95 20 96/62 (73) 97 Nasal Cannula 3.0 I&O- Last 24 Hours up to 6 AM 06/12/20 06:00 Intake Total 920 ml Output Total 1450 ml Balance -530 ml JESSY MARTINEZ DO Jun 12, 2020 15:57
[2020-06-12] MEDS: RIVAROXABAN 15 MG TAB (XARELTO) PO SCH (17:59)
[2020-06-12 19:35] VITALS: O2SAT 94
[2020-06-12] MEDS: RAMELTEON 8 MG TAB (ROZEREM) PO SCH (21:36)
[2020-06-12 22:00] VITALS: BP 130/70
[2020-06-13] MEDS: COMBIVENT RESPIMAT 100-20MCG INHALER 4GM INH SCH ×4 (02:00→19:36)
[2020-06-13] MEDS: ALBUTEROL SULFATE 2.5 MG/0.5 ML INH NEB SOLN NEB SCH ×4 (02:59→19:36)
[2020-06-13] MEDS: BENZONATATE 100 MG CAP PO SCH ×3 (05:21→21:17)
[2020-06-13 06:00] VITALS: BP 111/68
[2020-06-13 06:48] LABS: BASO # 0.1 10^3/uL (0.0-0.2); BASO % 0.5 % (0.0-1.0); EOS # 0.2 10^3/uL (0.0-0.5); EOS % 2.1 % (0.0-3.0); HEMATOCRIT 36.7 % (36.0-47.0); LYMPH # 0.4 10^3/uL (1.5-5.0); LYMPH % 3.7 % (24.0-44.0); MEAN CORPUSCULAR HEMOGLOBIN 32.4 pg (27.0-33.0); MEAN CORPUSCULAR VOLUME 108.3 fl (80.0-96.0); MONO % 9.4 % (0.0-5.0); NEUTROPHILS # 9.3 10^3/uL (1.5-8.5); NEUTROPHILS % 83.4 % (36.0-66.0); PLATELET COUNT, AUTOMATED 250 10^3/uL (150-450); RED BLOOD COUNT 3.39 10^6/uL (4.00-5.40); WHITE BLOOD COUNT 11.1 10^3/uL (4.0-10.0)
[2020-06-13 07:12] LABS: CALCIUM LEVEL 8.9 MG/DL (8.8-10.2); CREATININE FOR GFR 1.38 MG/DL (0.55-1.30); GLOMERULAR FILTRATION RATE 39.1 (>32); MAGNESIUM LEVEL 2.1 MG/DL (1.8-2.4); POTASSIUM SERUM 3.7 MEQ/L (3.5-5.1)
[2020-06-13 07:47] VITALS: O2SAT 96
[2020-06-13] MEDS: ADVAIR HFA 230/21MCG INHALER INH SCH ×2 (07:47→19:36)
[2020-06-13] MEDS: OMEPRAZOLE 20 MG CAP PO SCH (09:41)
[2020-06-13] MEDS: FERROUS SULFATE 325MG TAB PO SCH (09:41)
[2020-06-13] MEDS: PARoxetine 20MG TABLET PO SCH (09:41)
[2020-06-13] MEDS: cefTRIAXone SOD 2 GM in D5W MINI-BAG PLUS 50 ML IV SCH (09:42)
[2020-06-13] MEDS: DIGOXIN 0.125 MG TAB PO SCH (09:42)
[2020-06-13] MEDS: SPIRONOLACTONE 12.5MG PER 1/2 TABLET PO SCH (09:42)
[2020-06-13] MEDS: METOPROLOL SUCC (TopROL XL) 50MG **XL** TAB PO SCH (09:48)
[2020-06-13] MEDS: lisinopriL 10 MG TAB PO SCH (09:51)
[2020-06-13] MEDS: FUROSEMIDE 40MG/4ML VIAL (J1940) IV SCH (09:53)
[2020-06-13] MEDS ORDERED: ONDANSETRON 4MG/2ML VIAL IV ONE (12:00)
[2020-06-13 12:52] LABS: FOLATE 11.1 NG/ML (>5.4)
[2020-06-13 14:00] VITALS: BP 107/67
[2020-06-13] MEDS: RIVAROXABAN 15 MG TAB (XARELTO) PO SCH (17:39)
--- NOTE | 2020-06-13 18:26 | IPNPDOC ---
Text Note Date of Service The patient was seen on 06/13/20. NOTE Subjective: No any acute events overnight Objective: GENERAL APPEARANCE: NAD HEENT: no scleral icterus, no JVD, EOMI CARDIOVASCULAR: Irregularly irregular LUNGS: Diminished bilaterally ABDOMEN: soft & not tender MUSCULOSKELETAL: no cyanosis, no swelling INTEGUMENT: no generalized pallor NEUROLOGICAL: cranial nerve function from 2-12 intact intact, follows commands, speech not dysarthric Assessment/Plan Patient is 78 years old female with past medical history of COPD on 3 L of oxygen, pulmonary hypertension, moderate aortic stenosis, diastolic CHF, atrial fibrillation presented to the hospital with increased shortness of breath. Patient stated that for past few days she's been having shortness of breath, orthopnea. In ER patient was found to have acute hypoxemic hypercapnic respiratory failure and she was placed on the BiPAP. Labs showed BNP 00057, hemoglobin 9.6. CT showed No evidence for pulmonary embolus. Cardiomegaly with evidence for CHF/pulmonary edema including small pleural effusions, bibasilar atelectasis, and cephalization/pulmonary vascular congestion. 8.5 mm spiculated nodule in the posterior left upper lobe warrants 3 month short-term follow-up. Problems (1) COPD (chronic obstructive pulmonary disease) Improved, no wheezes Continue inhalers (2) Congestive heart failure (CHF) Diastolic CHF exacerbation Patient developed good urine output I decreased the dose Lasix due to worsening of kidney function I's and O's Cardiac diet (3) Pulmonary nodule Follow-up with oncologist in the outpatient settings High risk nodule (4) Acute and chronic respiratory failure with hypoxia Multifactorial secondary to CHF exacerbation and COPD exacerbation Blood gas showed a good compensation, patient breathing via nasal canula (5) Atrial fibrillation Continue oral target anticoagulation Heart rate under control (6) Hypertension Blood pressures under control Continue home cardioprotective medication Delirium Resolved Continue frequent reorientation Positive blood culture One set of blood culture positive for gram-negative rods. There is concern for contamination. Repeated blood culture negative UA was equivocal procalcitonin negative DC Ceftriaxone IV VS,Fishbone, I+O VS, Fishbone, I+O Laboratory Tests 06/13/20 06:25 Vital Signs Date Time Temp Pulse Resp B/P (MAP) Pulse Ox O2 Delivery O2 Flow Rate FiO2 06/13/20 14:00 97.6 78 18 107/67 (80) 99 Nasal Cannula 3.0 I&O- Last 24 Hours up to 6 AM 06/13/20 06:00 Intake Total 1070 ml Output Total 700 ml Balance 370 ml JESSY MARTINEZ DO Jun 13, 2020 18:26
[2020-06-13] MEDS: RAMELTEON 8 MG TAB (ROZEREM) PO SCH (21:17)
[2020-06-13 22:00] VITALS: BP 112/69
[2020-06-14] MEDS: ALBUTEROL SULFATE 2.5 MG/0.5 ML INH NEB SOLN NEB SCH ×3 (02:00→13:51)
[2020-06-14] MEDS: COMBIVENT RESPIMAT 100-20MCG INHALER 4GM INH SCH ×2 (02:08→08:00)
[2020-06-14] MEDS: BENZONATATE 100 MG CAP PO SCH ×2 (05:23→13:40)
[2020-06-14 06:00] VITALS: BP 120/90
[2020-06-14 07:41] LABS: BASO # 0.1 10^3/uL (0.0-0.2); BASO % 0.4 % (0.0-1.0); EOS # 0.3 10^3/uL (0.0-0.5); EOS % 2.5 % (0.0-3.0); HEMATOCRIT 33.1 % (36.0-47.0); HEMOGLOBIN 9.6 g/dl (12.0-15.5); LYMPH # 0.4 10^3/uL (1.5-5.0); LYMPH % 2.9 % (24.0-44.0); MEAN CORPUSCULAR HEMOGLOBIN 31.5 pg (27.0-33.0); MEAN CORPUSCULAR VOLUME 108.5 fl (80.0-96.0); MONO # 1.2 10^3/uL (0.0-0.8); NEUTROPHILS % 83.4 % (36.0-66.0); PLATELET COUNT, AUTOMATED 245 10^3/uL (150-450); RED BLOOD COUNT 3.05 10^6/uL (4.00-5.40)
--- NOTE | 2020-06-14 08:24 | ECHO ---
DATE OF PROCEDURE: 06/11/2020 Age: 79 Gender: Female Height: 62 inches Weight: 134 pounds Body surface area: 1.61 m2 PATIENT LOCATION: Inpatient [address] [place] [address], Room 4218. REFERRING PHYSICIAN: Ted Guillory DO. INDICATION: Congestive heart failure (CHF). MEASUREMENTS: 2D Measurements: RV 3.2 cm LV 4.9 cm Septum 1.4 cm Posterior wall 1.4 cm Aortic Root 3.3 cm LA 4.9 cm LVEF 65% Doppler Measurements: AV 3.29 m/s LVOT 0.87 m/s Mean AV gradient 22 mmHg Dimensionless index 0.29 MV-E 84 Early mitral deceleration time 164 msec E prime medial 7.2, E prime lateral 11.7 Average E/E prime ratio 8.9/PCWP 12.9 mmHg PV 0.96 m/s Pulmonary artery acceleration time 100 msec PASP 37 mmHg IVC 1.6 cm COMMENTS: Underlying atrial fibrillation with controlled ventricular response. No intraventricular conduction disturbance. M-mode and two-dimensional echocardiography was performed with pulse, continuous wave, color flow, and tissue Doppler studies. Moderate concentric left ventricular hypertrophy with normal wall motion. At least moderately dilated left atrium with currently normal estimated mean left atrial pressure. Right heart chamber sizes appear to be upper limits of normal with perhaps mildly dilated right atrium with normal IVC size against an elevated central venous pressure at this time. Normal aortic root size, but mildly dilated ascending aorta at 3.9 cm. Moderate calcification of the aortic valve with at least moderate aortic stenosis and mild aortic insufficiency. Moderate degenerative changes of the mitral valve apparatus without inflow tract obstruction and only very mild insufficiency. Normal appearing tricuspid valve with very mild insufficiency. No apparent intracardiac mass or pericardial effusion. MTDD
[2020-06-14 08:55] LABS: BLOOD UREA NITROGEN 57 MG/DL (7-18); CARBON DIOXIDE LEVEL 45 MEQ/L (21-32); CHLORIDE LEVEL 91 MEQ/L (98-107); CREATININE FOR GFR 1.71 MG/DL (0.55-1.30); GLOMERULAR FILTRATION RATE 30.5 (>32); GLUCOSE, FASTING 97 MG/DL (70-100); MAGNESIUM LEVEL 2.3 MG/DL (1.8-2.4); POTASSIUM SERUM 3.8 MEQ/L (3.5-5.1); SODIUM LEVEL 135 MEQ/L (136-145)
[2020-06-14 09:00] VITALS: BP 89/54
[2020-06-14] MEDS: METOPROLOL SUCC (TopROL XL) 50MG **XL** TAB PO SCH (09:00)
[2020-06-14] MEDS: lisinopriL 10 MG TAB PO SCH (09:00)
[2020-06-14] MEDS: SPIRONOLACTONE 12.5MG PER 1/2 TABLET PO SCH (09:00)
[2020-06-14] MEDS: ADVAIR HFA 230/21MCG INHALER INH SCH (09:09)
[2020-06-14] MEDS: OMEPRAZOLE 20 MG CAP PO SCH (09:14)
[2020-06-14] MEDS: PARoxetine 20MG TABLET PO SCH (09:20)
[2020-06-14] MEDS: FERROUS SULFATE 325MG TAB PO SCH (09:20)
[2020-06-14 09:27] VITALS: BP 89/54
[2020-06-14 10:27] VITALS: BP 111/60
--- NOTE | 2020-06-15 16:53 | DS.PDOC ---
Discharge Summary General Date of Admission Jun 09, 2020 at 14:57 Date of Discharge 06/14/20 Discharge Summary PROCEDURES PERFORMED DURING STAY: [None]. ADMITTING DIAGNOSES: COPD (chronic obstructive pulmonary disease) Congestive heart failure (CHF) Pulmonary nodule Acute and chronic respiratory failure with hypoxia Atrial fibrillation Hypertension Delirium DISCHARGE DIAGNOSES: COPD (chronic obstructive pulmonary disease) Congestive heart failure (CHF) Pulmonary nodule Acute and chronic respiratory failure with hypoxia Atrial fibrillation Hypertension Delirium COMPLICATIONS/CHIEF COMPLAINT: Chf/Copd. HISTORY OF PRESENT ILLNESS:Assessment/Plan Patient is 78 years old female with past medical history of COPD on 3 L of oxygen, pulmonary hypertension, moderate aortic stenosis, diastolic CHF, atrial fibrillation presented to the hospital with increased shortness of breath. Patient stated that for past few days she's been having shortness of breath, orthopnea. In ER patient was found to have acute hypoxemic hypercapnic respiratory failure and she was placed on the BiPAP. Labs showed BNP 36232, hemoglobin 9.6. CT showed No evidence for pulmonary embolus. Cardiomegaly with evidence for CHF/pulmonary edema including small pleural effusions, bibasilar atelectasis, and cephalization/pulmonary vascular congestion. 8.5 mm spiculated nodule in the posterior left upper lobe warrants 3 month short-term follow-up. HOSPITAL COURSE: During hospital stay following issue addressed DISCHARGE MEDICATIONS: Please see below. (1) COPD (chronic obstructive pulmonary disease) Improved, no wheezes Continue inhalers (2) Congestive heart failure (CHF) Diastolic CHF exacerbation Patient developed good urine output I's and O's Cardiac diet (3) Pulmonary nodule Follow-up with oncologist in the outpatient settings High risk nodule (4) Acute and chronic respiratory failure with hypoxia Multifactorial secondary to CHF exacerbation and COPD exacerbation (5) Atrial fibrillation Continue oral target anticoagulation Heart rate under control (6) Hypertension Blood pressures under control Continue home cardioprotective medication Delirium Resolved Continue frequent reorientation Positive blood culture One set of blood culture positive for gram-negative rods. There is concern for contamination. Repeated blood culture negative UA was equivocal procalcitonin negative DC Ceftriaxone IV ALLERGIES: Please see below. PHYSICAL EXAMINATION ON DISCHARGE: VITAL SIGNS: Please see below. GENERAL APPEARANCE: NAD HEENT: no scleral icterus, no JVD, EOMI CARDIOVASCULAR: Irregularly irregular LUNGS: Diminished bilaterally ABDOMEN: soft & not tender MUSCULOSKELETAL: no cyanosis, no swelling INTEGUMENT: no generalized pallor NEUROLOGICAL: cranial nerve function from 2-12 intact intact, follows commands, speech not dysarthric LABORATORY DATA: Please see below. IMAGING: [facility] NAME: MERLIN ARCHER DATE OF : 1940 AGE: 79 SEX: F REPORT #: [id number] ROOM: ED TECHNOLOGIST: GINA DOCTOR: DANI HENRIQUEZ MD Ordered for Date&Time: 06/09/20 1142 cc: [~ rep ct ivnm] Service Date&Time: This report is in Signed status. If this report is in a DRAFT status it has not yet been reviewed by the radiologist for accuracy. Thank you for having your radiology procedures performed at [facility] RADIOLOGY REPORT Date&Time printed: [~ rep prt dt last] [~ rep prt tm last] Page 2 of 2 [place] [address] RADIOLOGY REPORT This report is in Signed status. If this report is in a DRAFT status it has not yet been reviewed by the radiologist for accuracy. Thank you for having your radiology procedures performed at [facility] RADIOLOGY REPORT Date&Time printed: [~ rep prt dt last] [~ rep prt tm last] Page 1 of 1 INDICATION: SOB COMPARISON: None. TECHNIQUE: Axial contrast enhanced images from the thoracic inlet to the upper abdomen using pulmonary embolus technique with multiplanar re-formations. 75 ml Isovue 370 intravenous contrast material administered without complication. This CT examination was performed using the following dose reduction techniques: Automated exposure control, adjustment of mA and/or kv according to the patient's size, and use of iterative reconstruction technique. FINDINGS: Satisfactory enhancement of the pulmonary vasculature is achieved and no filling defects are identified to suggest pulmonary embolus. There is evidence for cardiomegaly with CHF/pulmonary edema including cephalization, prominent pulmonary vasculature and interstitium with small pleural effusions and basilar atelectasis. There is an 8.5 mm spiculated nodule in the posterior aspect of the left upper lobe (image 21). Nonacute findings include atherosclerotic changes to the thoracic aorta and coronary arteries without aortic aneurysm. No pericardial effusion. Heterogeneous enlarged thyroid gland with calcifications and hypodense nodules consistent with goiter. Mediastinal adenopathy is nonspecific and possibly reactive. Musculoskeletal structures are intact. IMPRESSION: 1. No evidence for pulmonary embolus. 2. Cardiomegaly with evidence for CHF/pulmonary edema including small pleural effusions, bibasilar atelectasis, and cephalization/pulmonary vascular congestion. 3. 8.5 mm spiculated nodule in the posterior left upper lobe warrants 3 month short-term follow-up. <Electronically signed by Eleazar Burnham > 06/09/201407 DD: Eleazar Burnham MD 06/09/201401 DT: AFSHIN 06/09/201407 DS: PETAR 06/09/20140106/09/201401 [~ rep ct labl] PROGNOSIS: Good ACTIVITY: [As tolerated]. DIET: Cardiac DISPOSITION: Home, Self-Care. 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 TIME SPENT ON DISCHARGE: Greater than 40minutes. Vital Signs/I&Os Vital Signs Date Time Temp Pulse Resp B/P (MAP) Pulse Ox O2 Delivery O2 Flow Rate FiO2 06/14/20 10:27 65 111/60 (77) 06/14/20 09:45 3.0 06/14/20 06:00 97.6 20 98 Nasal Cannula I&O- Last 24 Hours up to 6 AM 06/15/20 06:00 Intake Total 360 ml Balance 360 ml Microbiology Microbiology 06/12/20 Urine Culture - Final, Complete Staphylococcus Haemolyticus 06/12/20 Blood Culture - Preliminary, Resulted No Growth after 72 hours. All specime... 06/12/20 Blood Culture - Preliminary, Resulted No Growth after 72 hours. All specime... 06/09/20 Respiratory Virus Panel (PCR) (FAMILIA) - Final, Complete 06/09/20 Blood Culture - Final, Complete NO GROWTH AFTER 5 DAYS 06/09/20 Blood Culture - Preliminary, Resulted Discharge Medications Scheduled Benzonatate (Benzonatate) 100 Mg Capsule, 200 MG PO Q8H Calcium Carbonate/Vitamin D3 (Calcium 600-Vit D3 200 Tablet) 1 Tab Tab, 1 TAB PO QHS, (Reported) Digoxin (Digoxin) 125 Mcg Tab, 125 MCG PO Q2D, (Reported) Ferrous Sulfate (Ferrous Sulfate) 325 Mg Tablet, 325 MG PO DAILY, (Reported) Fluticasone Propion/Salmeterol (Advair Hfa 230-21 Mcg Inhaler) 1 Aer Aer, 2 PUFF INH BID, (Reported) Metoprolol Succinate (Metoprolol Succinate) 50 Mg Tab, 50 MG PO DAILY, (Reported) Omeprazole (Omeprazole) 40 Mg Cap, 40 MG PO DAILY, (Reported) Paroxetine HCl (Paroxetine) 40 Mg Tablet, 40 MG PO DAILY, (Reported) Rivaroxaban (Xarelto) 15 Mg Tab, 15 MG PO DAILY, (Reported) Spironolactone (Spironolactone) 25 Mg Tab, 12.5 MG PO DAILY, (Reported) Tiotropium [place] (Spiriva) 18 Mcg Cap, 18 MCG INH DAILY, (Reported) Torsemide (Torsemide) 100 Mg Tab, 100 MG PO DAILY, (Reported) Scheduled PRN Acetaminophen (Acetaminophen) 325 Mg Tab, 650 MG PO Q4H PRN for PAIN, (Reported) Albuterol Sulf (Albuterol Sulfate) 2.5 Mg/3 Ml Nebu, 1 INH Q4H PRN for SHORTNESS OF BREATH, (Reported) Polyethylene Glycol 3350 (Miralax) 1 Pow Pow, 17 GM PO DAILY PRN for CONSTIPATION, (Reported) Miscellaneous Medications [Pt Comment] , (Reported) MED LIST ACQUIRED FROM Allergies Coded Allergies: pregabalin (Verified Adverse Reaction, Intermediate, AMS, 09/15/18) aspirin (Verified Adverse Reaction, Unknown, anemia, 09/15/18) JESSY MARTINEZ DO Jun 15, 2020 16:53
== END 2020-06-14 14:19 | disposition home or self-care (01) | DRG 291 ==
LOC: EDBD 09:56 → M ED 09:56 → M ED INP 14:57 → M PCU 16:54 → M MSPAV 06-10 12:14
PROVIDERS: ADMIT Internal Medicine; ATTEND Internal Medicine
DX: I13.0 Hypertensive heart and chronic kidney disease with heart failure and stage 1 through stage 4 chronic kidney disease, or unspecified chronic kidney disease (principal); J96.21 Acute and chronic respiratory failure with hypoxia; I50.33 Acute on chronic diastolic (congestive) heart failure; J44.1 Chronic obstructive pulmonary disease with (acute) exacerbation; I48.20 Chronic atrial fibrillation, unspecified; I27.20 Pulmonary hypertension, unspecified; I35.0 Nonrheumatic aortic (valve) stenosis; R91.8 Other nonspecific abnormal finding of lung field; G47.33 Obstructive sleep apnea (adult) (pediatric); Z66 Do not resuscitate; R41.0 Disorientation, unspecified; N18.30 Chronic kidney disease, stage 3 unspecified; D50.9 Iron deficiency anemia, unspecified; F32.9 Major depressive disorder, single episode, unspecified; F41.9 Anxiety disorder, unspecified; Z79.52 Long term (current) use of systemic steroids; Z79.01 Long term (current) use of anticoagulants; Z91.19 Patient's noncompliance with other medical treatment and regimen; Z87.891 Personal history of nicotine dependence; Z99.81 Dependence on supplemental oxygen; Z79.899 Other long term (current) drug therapy; Z20.822 Contact with and (suspected) exposure to COVID-19; Z88.6 Allergy status to analgesic agent; Z88.8 Allergy status to other drugs, medicaments and biological substances

== ENCOUNTER → 2020-06-16 | Outpatient (REF) | payer MEDICARE ==
[~2020-06-16] MED LIST changes: +FERR325T18 PO; +PT COMMENT
[2020-06-16 16:42] LABS: CALCIUM LEVEL 9.1 MG/DL (8.8-10.2); CREATININE FOR GFR 1.5 MG/DL (0.55-1.30); GLOMERULAR FILTRATION RATE 35.5 (>32); POTASSIUM SERUM 4.7 MEQ/L (3.5-5.1)
== END ==
LOC: M SHH 15:12
PROVIDERS: ATTEND Internal Medicine
DX: Z01.89 Encounter for other specified special examinations (principal)